=== PATIENT | female | born 1980 | race Caucasian/White ===

== ENCOUNTER 2020-06-03 10:28 | Outpatient (REF) | payer MEDICARE, MEDICAID, SELFPAY ==
[2020-06-03 14:25] LABS: Estimated Average Glucose 117 mg/dL; Hemoglobin A1c % 5.7 %
== END 2020-06-03 10:29 | disposition home or self-care (01) ==
LOC: HO.LAB 10:28
PROVIDERS: PCP Internal Medicine; Referring Provider Internal Medicine; Visit Provider Obstetrics & Gynecology
DX: N93.9 Abnormal uterine and vaginal bleeding, unspecified (principal); E11.9 Type 2 diabetes mellitus without complications
CPT/HCPCS: 83036; 99212

== ENCOUNTER 2020-06-11 11:04 | Outpatient (REF) | payer MEDICARE, MEDICAID, SELFPAY ==
--- NOTE | 2020-06-11 11:08 | US_ITS ---
EXAMINATION: ULTRASOUND PELVIS COMPLETE. CLINICAL INFORMATION: Abnormal uterine/vaginal bleeding. COMPARISON: None TECHNIQUE: Transabdominal and transvaginal ultrasound pelvis is performed. FINDINGS: The uterus is anteverted, anteflexed measuring 6.7 cm in length, 3.5 cm in AP and 4.2 cm in transverse dimension. The endometrial thickness is 1.0 cm. There are small nabothian cysts seen in the cervix. Right ovary measures 2.4 x 1.8 x 1.4 cm and volume 3.2 mL. There is anechoic cyst measuring 1.4 x 1.1 x 1.0 cm. Previously right ovary measures 1.6 x 2.0 x 1.6 cm. Left ovary measures 2.8 x 1.5 x 1.4 cm and volume 3.1 mL. There is anechoic cyst measuring 1.4 x 1.0 x 1.0 cm. Previously left ovary measured 2.4 x 1.5 x 1.3 cm. There is no free fluid in cul-de-sac. US/US pelvic complete IMPRESSION: Anteflexed and anteverted uterus to be unremarkable. Bilateral ovarian cysts. Small nabothian cysts in cervix.
--- NOTE | 2020-06-11 11:08 | US_ITS ---
EXAMINATION: ULTRASOUND PELVIS COMPLETE. CLINICAL INFORMATION: Abnormal uterine/vaginal bleeding. COMPARISON: None TECHNIQUE: Transabdominal and transvaginal ultrasound pelvis is performed. FINDINGS: The uterus is anteverted, anteflexed measuring 6.7 cm in length, 3.5 cm in AP and 4.2 cm in transverse dimension. The endometrial thickness is 1.0 cm. There are small nabothian cysts seen in the cervix. Right ovary measures 2.4 x 1.8 x 1.4 cm and volume 3.2 mL. There is anechoic cyst measuring 1.4 x 1.1 x 1.0 cm. Previously right ovary measures 1.6 x 2.0 x 1.6 cm. Left ovary measures 2.8 x 1.5 x 1.4 cm and volume 3.1 mL. There is anechoic cyst measuring 1.4 x 1.0 x 1.0 cm. Previously left ovary measured 2.4 x 1.5 x 1.3 cm. There is no free fluid in cul-de-sac. US/US transvaginal IMPRESSION: Anteflexed and anteverted uterus to be unremarkable. Bilateral ovarian cysts. Small nabothian cysts in cervix.
== END 2020-06-11 11:05 | disposition home or self-care (01) ==
LOC: HO.US 11:04
PROVIDERS: Visit Provider Obstetrics & Gynecology
DX: N93.9 Abnormal uterine and vaginal bleeding, unspecified (principal)
CPT/HCPCS: 76830; 76856

== ENCOUNTER → 2020-07-06 11:58 | Outpatient (BNVA) | payer MEDICARE, MEDICAID, SELFPAY | PROVIDERS: Visit Provider Obstetrics & Gynecology | DX: N93.9 Abnormal uterine and vaginal bleeding, unspecified (principal) | CPT/HCPCS: 99212 ==

== ENCOUNTER → 2020-07-14 13:54 | Outpatient (BNVA) | payer MEDICARE, MEDICAID, SELFPAY | PROVIDERS: PCP Internal Medicine; Referring Provider Internal Medicine; Visit Provider Dietitian, Registered | DX: Z76.89 Persons encountering health services in other specified circumstances (principal) ==

== ENCOUNTER 2020-07-24 07:20 | Day surgery (SDC) | payer MEDICARE, MEDICAID, SELFPAY ==
[2020-07-17 10:33] VITALS: BMI 41.6
--- NOTE | 2020-07-17 14:07 | P.CONAN_ITS ---
Documented by User: Mckenzie Washington 07/17/20 14:11 HPI - Anesthesia Eval Consult details Narrative: 40yo F for Hysteroscopy, Novasure ablation Pt reports no issue with anesthesia for 01/2020 hysteroscopy. Intraop record on chart. Pt states that she woke during tubal in 2018. No issues noted on anesthesia or pacu record. 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 Low vitamin D level Mild intellectual disability Obesity Obesity due to excess calories PTSD (post-traumatic stress disorder) Snores Family History Family History Father Diabetes Surgical History Surgical History History of bilateral tubal ligation History of hysteroscopy Hx of cholecystectomy Social History Social History (Updated 07/24/20 @ 08:34 by Macy Hyde) Are you a primary health care social worker to a significant other at home: No Do you presently have visiting nurse or other home services: Yes Alcohol intake: never Smoking Status: Current some day smoker Packs Per Day: 0 Cigarettes Per Day: 1 Smoked in Last 30 Days: Yes Patient Interested in Nicotine Replacement: No Patient Given Instructions on How to Stop Smoking: Yes Date Education Initiated: 07/17/20 Use of substances other than those prescribed or required for medical reasons: No Advance Directives: No Advance Directives Information Provided: No Advance Directives on File: No Recently lost weight without trying: No Sexual orientation: Straight/Heterosexual Gender identity: female Meds Allergies Allergy/AdvReac Type Severity Reaction Status Date / Time meperidine [Demerol] Allergy Unknown Hives Verified 07/21/20 12:00 From Prozac Allergy Severe SEVERE Uncoded 07/17/20 10:23 AGITATION Home Medications Medication Instructions Recorded Confirmed Type alcohol swabs 0 pad TOPICAL 06/03/20 07/08/20 History aripiprazole 5 mg tablet 5 mg PO DAILY 06/03/20 07/17/20 History blood sugar diagnostic #10 ea 06/03/20 07/08/20 History buspirone 5 mg tablet 5 mg PO BID 06/03/20 07/17/20 History cholecalciferol (vitamin D3) 50 50 mcg PO DAILY 06/03/20 07/17/20 History mcg (2,000 unit) capsule dulaglutide 1.5 mg/0.5 mL mg SUBCUT QWEEK 06/03/20 07/08/20 History subcutaneous pen injector lancets 28 gauge #100 ea 06/03/20 07/08/20 History lorazepam 0.5 mg tablet 0.5 mg PO DAILY PRN 06/03/20 07/24/20 History metformin 500 mg tablet 500 mg PO DAILY@1700 06/03/20 07/17/20 History pen needle, diabetic 32 gauge x #50 ea 06/03/20 07/08/20 History 32 zolpidem 5 mg tablet 5 mg PO BEDTIME PRN 06/03/20 07/17/20 History insulin glargine U-300 conc 300 18 unit SUBCUT BEDTIME ml 07/08/20 07/17/20 History unit/mL (1.5 mL) subcutaneous pen Exam Exam Date and Time: July 17, 2020 1407 Height,Weight and Vital Signs: Height 5 ft 3 in Weight 106.594 kg Pertinent Lab Results Pertinent Lab Results: Laboratory Tests 04/23/20 04/23/20 15:14 15:17 WBC 9.1 Hgb 12.2 Hct 37.4 Plt Count 302 Sodium 138 Potassium 3.9 Chloride 106 BUN 11 Creatinine 0.83 Assessment and Plan Assessment Anesthesia Assessment: Chart Reviewed Documented by User: Macy Hyde 07/24/20 08:38 [facility] Past Medical History Medical History (Updated 07/24/20 @ 08:38 by Macy Hyde) Acute depression Anxiety Arthritis BMI 40.0-44.9, adult Diabetes Dyslipidemia Epilepsy Hyperlipidemia LDL goal <100 Insomnia 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 Low vitamin D level Mild intellectual disability Obesity Obesity due to excess calories PTSD (post-traumatic stress disorder) Snores Family History Family History Father Diabetes Family history of problems with anesthesia: No Surgical History Surgical History History of bilateral tubal ligation History of hysteroscopy Hx of cholecystectomy History of Problems with Anesthesia: Yes (States 'woke up' during surgery for tubal ligation) Social History Social History (Updated 07/24/20 @ 08:34 by Macy Hyde) Are you a primary health care social worker to a significant other at home: No Do you presently have visiting nurse or other home services: Yes Alcohol intake: never Smoking Status: Current some day smoker Packs Per Day: 0 Cigarettes Per Day: 1 Smoked in Last 30 Days: Yes Patient Interested in Nicotine Replacement: No Patient Given Instructions on How to Stop Smoking: Yes Date Education Initiated: 07/17/20 Use of substances other than those prescribed or required for medical reasons: No Advance Directives: No Advance Directives Information Provided: No Advance Directives on File: No Recently lost weight without trying: No Sexual orientation: Straight/Heterosexual Gender identity: female Meds Allergies Allergy/AdvReac Type Severity Reaction Status Date / Time meperidine [Demerol] Allergy Unknown Hives Verified 07/21/20 12:00 From [employer] Allergy Severe SEVERE Uncoded 07/17/20 10:23 AGITATION Home Medications Medication Instructions Recorded Confirmed Type alcohol swabs 0 pad TOPICAL 06/03/20 07/08/20 History aripiprazole 5 mg tablet 5 mg PO DAILY 06/03/20 07/17/20 History blood sugar diagnostic #10 ea 06/03/20 07/08/20 History buspirone 5 mg tablet 5 mg PO BID 06/03/20 07/17/20 History cholecalciferol (vitamin D3) 50 50 mcg PO DAILY 06/03/20 07/17/20 History mcg (2,000 unit) capsule dulaglutide 1.5 mg/0.5 mL mg SUBCUT QWEEK 06/03/20 07/08/20 History subcutaneous pen injector lancets 28 gauge #100 ea 06/03/20 07/08/20 History lorazepam 0.5 mg tablet 0.5 mg PO DAILY PRN 06/03/20 07/24/20 History metformin 500 mg tablet 500 mg PO DAILY@1700 06/03/20 07/17/20 History pen needle, diabetic 32 gauge x #50 ea 06/03/20 07/08/20 History 5/32 zolpidem 5 mg tablet 5 mg PO BEDTIME PRN 06/03/20 07/17/20 History insulin glargine U-300 conc 300 18 unit SUBCUT BEDTIME ml 07/08/20 07/17/20 History unit/mL (1.5 mL) subcutaneous pen Exam Height,Weight and Vital Signs: Vital Signs Temp Pulse Resp BP Pulse Ox 07/24/20 07:55 97 F 85 18 146/80 H 100 Pertinent Lab Results Pertinent Lab Results: Lab Results 07/24/20 07/24/20 Range/Units 07:38 07:51 POC Glucose 174 H (60-115) mg/dL Beta HCG, Quant < 2 mIU/mL Airway Mallampati Class: II TM Dist: >3cm Neck ROM: Full Heart: RRR Lungs: CTAB Assessment and Plan Assessment Anesthesia Assessment: Anesthesia Plan Discussed and Chart Reviewed Final Anesthetic Review NPO: Yes ASA Class: III Final Preanesthetic Review: No Changes in Pt Med Stat, Meds/Allgs Chart Reviewed and Consent Obtained/Reviewed Patient Risk: Intermediate Procedure Risk: Low Assessment/Block/Sedation in SS: Assess/Block/Sedation-SS Anesthetic Plan Anesthetic Plan: GA Disposition: Standard PACU
[2020-07-24 07:54] LABS: Glucose, Whole Blood 174 mg/dL (60-115)
[2020-07-24 07:55] VITALS: BP 146/80; PULSE 85; RESP 18; TEMP 36.1; O2SAT 100
[2020-07-24] MEDS: Lactated Ringers 1,000 ML 100 ML IVCONT (08:13)
[2020-07-24 08:21] LABS: HCG Quantitative < 2 mIU/mL
--- NOTE | 2020-07-24 08:58 | MHC.SHP ---
Pre-Procedural Eval Section A The patient is an INPATIENT: No Changes since office visit: No Cold of Flu in the past 2 weeks, No New Medical Problems, No Changes in Medication and No Patient answered all questions The History & Physical has been completed within 30 days and I have reviewed it.: Yes Section B Chief Complaint: Abnormal Vaginal bleeding Allergies: Allergies Allergy/AdvReac Type Severity Reaction Status Date / Time meperidine [Demerol] Allergy Unknown Hives Verified 07/21/20 12:00 From Prozac Allergy Severe SEVERE Uncoded 07/17/20 10:23 AGITATION Plan I have reviewed the history and physical and performed a pertinent physical examination on my patient. No changes have occurred unless specified.
--- NOTE | 2020-07-24 09:35 | W.PM.OPN ---
Operative Note Operative Note Date of Service: 07/24/20 Narrative: Ms. Harper is a 40 year old with abnormal uterine bleeding. She presents today for hysteroscopy d&c with novasure ablation for AUB. Surgical Risks: The patient was informed of the risks and benefits of a hysteroscopy with dilation and curettage. Risks included but were not limited to bleeding, infection, injury to the vulva, vagina, or cervix, and uterine perforation with possible need for further surgery. The patient was also informed of the risk that the Novasure ablation may not result in full resolution of symptoms. The patient expressed understanding of the risks involved, all questions were answered, and she consented to the procedure. The patient expressed understanding of the risks involved, all questions were answered, and the patient consented to the procedure. The patient was taken to the operating room where a time out was confirmed to confirm correct patient and correct procedure. Adequate general anesthesia was established. The patient was then positioned on the operating table in the dorsal lithotomy position with her legs supported using stirrups. All pressure points were padded and a warm blanket was placed to maintain control of core body temperature. The patient was then prepped and draped in the usual sterile fashion. A bimanual exam was performed and the uterus was found to be approximately 8 cm size, anteverted. No adnexal masses were palpated. A straight catheter was inserted into the bladder and 100mL of urine was obtained. A bivalve speculum was then inserted into the vagina. The anterior lip of the cervix was visualized and grasped using a single tooth tenaculum. The cervix was adequately dilated using Reddy dilators for the introduction of the hysteroscope. The hysteroscope was introduced under direct visualization using normal saline solution as the distending media. The hysteroscope was advanced to the fundus and the entire uterine cavity was inspected. No abnormalities were noted. The hysteroscope was then removed and a sharp curetting was performed starting at the 12 o?clock position and rotating a total of 360 degrees in order to cover all surfaces. Endometrial tissue was obtained and was sent to pathology. The Novasure SureSound device was then inserted through the cervix. The malecot was then deployed and the device was anchored on the internal os. The cervical length was measured and found to be 2cm. The probe was then extended to the fundus and the uterine cavity was measured and found to be 6cm. The SureSound was then removed and the Novasure was introduced through the cervix and advanced to the fundus. The Novasure was released and rotated from side to side in order to measure the cavity width; it was found to be 3.3cm. The test was performed using the NovaSure and there was no leakage of gas noted. The NovaSure was then set and deployed. It was set to a power of 90V and a burn time of 34s. The NovaSure was then fully retracted and the hysteroscope reintroduced through the cervix and global ablation to the entire cavity was noted. The procedure was felt to be successful. The hysteroscope was then removed and the single tooth tenaculum was removed from the anterior lip of the cervix. Good hemostasis was confirmed. The single-tooth tenaculum was removed from the anterior lip of the cervix and hemostasis was also noted at the tenaculum puncture sites. The speculum was then removed from the vagina. At the end of the procedure, all needle, sponge, and instrument counts were noted to be correct x2. The patient was transferred to the recovery room in stable condition. EBL: 10cc
[2020-07-24 09:40] VITALS: BP 134/84; PULSE 63; RESP 16; TEMP 36.2; O2SAT 99
[2020-07-24 09:45] VITALS: BP 133/75; PULSE 57; RESP 16; O2SAT 99
[2020-07-24 09:50] VITALS: BP 137/80; PULSE 56; RESP 16; O2SAT 98
[2020-07-24 09:55] VITALS: BP 128/76; PULSE 67; RESP 16; O2SAT 95
[2020-07-24 10:10] VITALS: BP 134/84; PULSE 68; RESP 16; TEMP 36.2; O2SAT 96
--- NOTE | 2020-07-24 13:57 | HO.POSTANES ---
Post Anesthesia Evaluation Post Anesthesia Evaluation Vital Signs: Vital Signs Temp Pulse Resp BP Pulse Ox 07/24/20 10:10 97.1 F 68 16 134/84 96 07/24/20 09:55 67 16 128/76 95 07/24/20 09:50 56 16 137/80 98 07/24/20 09:45 57 16 133/75 99 07/24/20 09:40 97.1 F 63 16 134/84 99 07/24/20 07:55 97 F 85 18 146/80 H 100 Anesthesia: General Mental Status: Awake Pain Control: Satisfactory Nausea/Vomiting: None Hydration: Adequate Anesthesia-Related Issues: No Anes. Related Issues
== END 2020-07-24 10:54 | disposition home or self-care (01) ==
PROVIDERS: PCP Internal Medicine; Visit Provider Obstetrics & Gynecology
PROC: 0UJD8ZZ Inspection of Uterus and Cervix, Via Natural or Artificial Opening Endoscopic (ICD-10-PCS; CPT 58555; principal; 2020-07-24 09:00)
DX: N93.9 Abnormal uterine and vaginal bleeding, unspecified (principal); Z90.710 Acquired absence of both cervix and uterus; F41.8 Other specified anxiety disorders; E11.9 Type 2 diabetes mellitus without complications; G40.909 Epilepsy, unspecified, not intractable, without status epilepticus; F70 Mild intellectual disabilities; F43.10 Post-traumatic stress disorder, unspecified; E66.01 Morbid (severe) obesity due to excess calories; F17.210 Nicotine dependence, cigarettes, uncomplicated; Z98.51 Tubal ligation status; Z79.899 Other long term (current) drug therapy; Z68.41 Body mass index [BMI] 40.0-44.9, adult; Z79.4 Long term (current) use of insulin
CPT/HCPCS: 58563; 82947; 84702; 88305; J1100; J1885; J2250; J2405; J3010

== ENCOUNTER → 2020-08-05 11:33 | Outpatient (BNVA) | payer MEDICARE, MEDICAID, SELFPAY | PROVIDERS: PCP Internal Medicine; Visit Provider Obstetrics & Gynecology | DX: Z09 Encounter for follow-up examination after completed treatment for conditions other than malignant neoplasm (principal); Z87.42 Personal history of other diseases of the female genital tract | CPT/HCPCS: Q3014 ==

== ENCOUNTER → 2020-08-14 13:54 | Outpatient (BNVA) | payer MEDICARE, MEDICAID, SELFPAY | PROVIDERS: PCP Internal Medicine; Visit Provider Nurse Practitioner Gerontology | DX: E11.9 Type 2 diabetes mellitus without complications (principal); R79.89 Other specified abnormal findings of blood chemistry; E66.01 Morbid (severe) obesity due to excess calories; Z68.41 Body mass index [BMI] 40.0-44.9, adult; E78.5 Hyperlipidemia, unspecified | CPT/HCPCS: 82947; Q3014 ==

== ENCOUNTER → 2020-08-24 13:33 | Outpatient (BNVA) | payer MEDICARE, MEDICAID, SELFPAY | PROVIDERS: PCP Internal Medicine; Visit Provider Dietitian, Registered ==

== ENCOUNTER → 2020-08-28 11:41 | Outpatient (BNVA) | payer MEDICARE, MEDICAID, SELFPAY | PROVIDERS: PCP Internal Medicine; Visit Provider Nurse Practitioner Gerontology | DX: E11.65 Type 2 diabetes mellitus with hyperglycemia (principal); E78.5 Hyperlipidemia, unspecified; E66.01 Morbid (severe) obesity due to excess calories; Z68.41 Body mass index [BMI] 40.0-44.9, adult; R79.89 Other specified abnormal findings of blood chemistry | CPT/HCPCS: Q3014 ==

== ENCOUNTER → 2020-10-05 13:02 | Outpatient (BNVA) | payer MEDICARE, MEDICAID, SELFPAY | PROVIDERS: PCP Internal Medicine; Visit Provider Dietitian, Registered ==

== ENCOUNTER 2020-11-04 13:51 | Emergency (ER) | payer MEDICARE, MEDICAID, SELFPAY | END 2020-11-04 18:37 | disposition left against medical advice (07) | PROVIDERS: Emergency Provider Emergency Medicine Emergency Medical Services; PCP Internal Medicine | DX: R07.9 Chest pain, unspecified (principal); R06.02 Shortness of breath; E11.9 Type 2 diabetes mellitus without complications; Z79.4 Long term (current) use of insulin; E78.5 Hyperlipidemia, unspecified | CPT/HCPCS: 99281 ==

== ENCOUNTER → 2020-11-09 13:49 | Outpatient (BNVA) | payer MEDICARE, MEDICAID, SELFPAY | PROVIDERS: PCP Internal Medicine; Visit Provider Nurse Practitioner Gerontology | DX: E11.65 Type 2 diabetes mellitus with hyperglycemia (principal); E78.5 Hyperlipidemia, unspecified; E66.01 Morbid (severe) obesity due to excess calories; Z68.41 Body mass index [BMI] 40.0-44.9, adult; R79.89 Other specified abnormal findings of blood chemistry | CPT/HCPCS: 82947; 99212 ==

== ENCOUNTER 2020-11-28 16:59 | Emergency (ER) | payer MEDICARE, MEDICAID, SELFPAY ==
[2020-11-28 17:04] VITALS: BP 136/83; PULSE 95; O2SAT 100
[2020-11-28 17:12] VITALS: BP 142/94; PULSE 95; RESP 18; TEMP 36.8; O2SAT 100; BMI 40.7
--- NOTE | 2020-11-28 17:36 | ED.GENADULT ---
HPI - General Adult General Chief complaint: Arrhythmia/Palpitations Stated complaint: PALPITATIONS Time Seen by Provider: 11/28/20 17:22 Source: patient Mode of arrival: EMS Limitations: no limitations History of Present Illness HPI narrative: 40-year-old female who presents to the emergency department by EMS for evaluation of palpitations. The patient states that she was walking when she had a sudden onset of palpitations. She states she felt like her heart was jumping out of her chest and was beating fast. She did not feel any skipped beats. She denied associated lightheadedness, dizziness, diaphoresis, chest pain, nausea or vomiting. She did feel short of breath with the palpitations. She states the symptoms lasted for approximately 2 hours. She had a nurse that visited her today and checked her pulse which was normal but given the persistence of her symptoms, recommended that she go to the emergency department for evaluation. Patient states she does have a history of anxiety but has not had any increased anxiety or stress. She denied fever, chills, abdominal pain, frequency, urgency or dysuria. Related Data Home Medications Medication Instructions Recorded Confirmed alcohol swabs 0 pad TOPICAL 06/03/20 11/09/20 lancets 28 gauge #100 ea 06/03/20 11/09/20 lorazepam 0.5 mg tablet 0.5 mg PO DAILY PRN 06/03/20 11/09/20 pen needle, diabetic 32 gauge x #50 ea 06/03/20 11/09/20 zolpidem 5 mg tablet 5 mg PO BEDTIME PRN 06/03/20 11/09/20 buspirone 5 mg tablet 10 mg PO BID tab 08/14/20 11/09/20 aripiprazole 10 mg tablet 10 mg PO DAILY 08/28/20 11/09/20 insulin glargine U-300 conc 300 20 unit SUBCUT BEDTIME ml 08/28/20 11/09/20 unit/mL (1.5 mL) subcutaneous pen buspirone 10 mg tablet 10 mg PO BID 11/09/20 11/09/20 mirtazapine 15 mg tablet 15 mg PO BEDTIME 11/09/20 11/09/20 Previous Rx's Medication Instructions Recorded atorvastatin 80 mg tablet 80 mg PO BEDTIME #90 tab 06/16/20 acetaminophen [Tylenol 8 Hour] 650 mg PO Q8H PRN #60 tab 07/24/20 ibuprofen 800 mg PO Q8H PRN #60 tab 07/24/20 norethindrone (contraceptive) 0.35 0.35 mg PO DAILY #28 tab 08/05/20 mg tablet dulaglutide 1.5 mg/0.5 mL 1.5 mg SUBCUT QWEEK #2 ml 09/02/20 subcutaneous pen injector blood sugar diagnostic 1 strip MISCELLANEOUS TID 30 Days 09/14/20 #100 strip glucagon 3 mg/actuation nasal spray 3 mg INTRANASAL ONCE 30 Days #2 ea 09/17/20 cholecalciferol (vitamin D3) 50 50 mcg PO DAILY #30 cap 11/02/20 mcg (2,000 unit) capsule pioglitazone 30 mg tablet 30 mg PO DAILY #30 tab 11/09/20 Allergies Allergy/AdvReac Type Severity Reaction Status Date / Time meperidine [Demerol] Allergy Intermediate Hives Verified 11/28/20 17:10 From Prozac Allergy Severe SEVERE Uncoded 11/28/20 17:10 AGITATION Review of Systems Review of Systems: Yes all other systems are reviewed and are negative [facility] Past Medical History [facility] Narrative: Patient states she smokes 1-2 cigarettes per day x2 years, she denies alcohol and drug use. 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 Low vitamin D level Mild intellectual disability Obesity Obesity due to excess calories PTSD (post-traumatic stress disorder) Snores Surgical History History of bilateral tubal ligation History of hysteroscopy Hx of cholecystectomy Family History Family History Father Diabetes Social History Social History Household Members: Spouse Housing: Apartment Alcohol intake: current Alcohol intake frequency: holidays/special occasions only Smoking Status: Never smoker Packs Per Day: 0 Cigarettes Per Day: 1 Use of substances other than those prescribed or required for medical reasons: No Advance Directives: No Advance Directives Information Provided: No Sexual orientation: Straight/Heterosexual Gender identity: female Physical Exam Vital Signs: Vital Signs: Last Vital Signs Temp 98.0 F 11/28/20 19:41 Pulse 82 11/28/20 19:41 Resp 20 11/28/20 19:41 BP 134/75 11/28/20 19:41 Pulse Ox 98 11/28/20 19:41 Body Mass Index 40.7 Const: General: cooperative and healthy appearing Nutritional Appearance: overweight Orientation/consciousness: oriented to person and oriented to place Limitations: no limitations HENMT: Head: Yes normal to inspection, Yes normocephalic and Yes atraumatic Ears: external ears normal General nose exam: Normal external nose present Face and sinus: Yes normal facial exam Mouth: Normal oral and palatal mucosa present Throat: Yes posterior oropharynx normal Eyes: Periorbital: periorbital findings normal Eyelids: Yes eyelids normal Conjunctivae: conjunctivae normal Sclerae: sclerae normal Corneas: corneas normal Pupils: Equal, round and reactive pupils present Direct Ophthalmoscopy: normal light reflex Neck: Neck: Yes full ROM, Yes no lymphadenopathy, Yes no meningeal signs, Yes trachea midline and Yes supple Chest: Chest palpation & inspection: normal inspection of the chest and normal palpation of entire chest wall Resp: Effort & Inspection: normal respiratory effort and able to speak in complete sentences Auscultation: clear to auscultation bilaterally Cardio: Rate: regular rate Rhythm: regular rhythm Heart sounds: S1 normal heart sound present, S2 normal heart sound present and no murmurs GI: Inspection: Yes normal to inspection Palpation (GI): Soft to palpation, nontender, no guarding, not rigid and No hepatosplenomegaly present : General: Yes no CVA tenderness Back/Spine/Pelvis: Back: no CVA tenderness Cervical Spine: normal cervical lordosis Thoracic/Lumbar Spine: thoracic and lumbar spine normal to inspection Skin: Lesions: no lesions Rashes: no rashes Wounds: no wounds Neuro: General: oriented to person, oriented to place and no meningeal signs Cranial nerves: Yes CN's II-XII intact bilaterally and Yes Equal, round and reactive pupils present Cognition (Neuro): normal cognition Motor exam (neuro): 5/5 motor strength present throughout Extrem: General: Yes normal to inspection and Yes full ROM Psych: Appearance: well kempt Mental Status: mental status grossly normal Speech and movement: Normal speech and movement present Affect: normal affect Attitude: cooperative Thought process: Normal thought process present Thought content: Normal thought content present Course Course Course Narrative: 40-year-old female who presents emergency department for evaluation of palpitations x2 hours. She states the symptoms have been continuous and are present here in the emergency department. She had no other concerning symptoms such as lightheadedness, dizziness, diaphoresis, nausea, vomiting or chest pain. She did have associated shortness of breath. The patient's physical examination revealed slight hypertension with a blood pressure of 142/94 otherwise vital signs were normal with the pulse of 95 and O2 saturation of 100% on room air. Exam was otherwise unremarkable. I did order a CBC, CMP, troponin, TSH and EKG. Patient does have a history of anxiety and she was ordered to get Ativan 1 mg orally. 194: The patient has been on a media monitor for several hours with no detectable arrhythmias. She states that while she has been here in the emergency department should did feel like her heart was still and ?fluttering?. This is reassuring and suggests that the patient's palpitations are benign. The patient's EKG was unremarkable. The patient's laboratory evaluation for slight elevation in patient's AST and ALT. The patient's high sensitivity troponin was below detectable limits. She was discharged home with printed instructions on palpitations advised to follow-up with her PCP and return if her symptoms get worse or she develops new symptoms that are concerning to her. Medical Decision Making Lab Data Result diagrams: 11/28/20 17:58 11/28/20 17:58 Labs: Lab Results 11/28/20 11/28/20 11/28/20 Range/Units 17:58 17:58 17:58 WBC 8.3 (4.8-10.8) X10*3/uL RBC 4.96 (4.20-5.50) X10*6/uL Hgb 14.1 (12.0-16.0) g/dl Hct 42.4 (37-47) % MCV 85.5 (80-98) fL MCH 28.4 (27.0-33.0) pg MCHC 33.3 (31.0-35.0) g/dl RDW 13.3 (11.0-16.0) % Plt Count 293 (160-400) X10*3/uL MPV 8.8 L (9.4-12.3) fL Immature Gran % (Auto) 0.6 H (0.0-0.4) % Neut % (Auto) 60.2 (45-73) % Lymph % (Auto) 33.0 (20-40) % [place] % (Auto) 5.1 (2-11) % Eos % (Auto) 0.6 (0-4) % Baso % (Auto) 0.5 (0-2) % Lymph # (Auto) 2.7 (1.2-4.9) X10*3/uL [place] # (Auto) 0.4 (0.1-1.2) X10*3/uL Eos # (Auto) 0.1 (0.0-0.4) X10*3/uL Baso # (Auto) 0.0 (0.0-0.2) X10*3/uL Abs Immat Gran (auto) 0.05 H (0.00-0.03) X10*3/uL Absolute Neuts (auto) 5.0 (2.0-8.3) X10*3/uL Absolute Nucleated RBC 0.000 (0.0-0.012) X10*3/uL Nucleated RBC % (auto) 0.0 (0.0-0.2) /100WBC Sodium 139 (135-145) mmol/L Potassium 3.9 (3.3-5.1) mmol/L Chloride 104 (96-108) mmol/L Carbon Dioxide 23 (22-29) mmol/L Anion Gap 16 (12-20) BUN 16 (9-16) mg/dL Creatinine 0.89 (0.5-1.4) mg/dL Estim Creat Clear Calc 95.1 Estimated GFR > 60 Random Glucose 109 (60-115) mg/dL Calcium 9.4 (8.4-10.2) mg/dL Total Bilirubin 0.9 (0.0-1.0) mg/dL AST 70 H (5-31) U/L ALT 54 H (0-31) U/L Alkaline Phosphatase 80 (39-117) U/L Troponin I High Sens < 3.5 (<3.5-17.0) ng/L Total Protein 7.5 (6.5-8.0) g/dL Albumin 4.2 (3.5-5.0) g/dL TSH 1.20 (0.32-4.0) uIU/mL ECG Data Attestation: I personally reviewed and interpreted this ECG as follows: Interpretation: Normal sinus rhythm with a rate of 88, normal intervals, no ST segment elevation or depression, no old EKG for comparison. This is a normal EKG. Discharge Plan Discharge Clinical Impression: Palpitation Patient Disposition: Home, Self-Care Instructions: Heart Palpitations (ED) Additional Instructions: Your EKG was normal. Your laboratory evaluation was unremarkable. This is reassuring. Continue to take your medications as prescribed by your doctor. Follow the printed palpitation instructions. Follow-up with your doctor in 2 days. Please return to the emergency department if your symptoms get worse or if you develop any symptoms that are concerning to you. Prescriptions: No Action atorvastatin 80 mg tablet 80 mg PO BEDTIME Qty: 90 RF: 1 dulaglutide 1.5 mg/0.5 mL pen injector 1.5 mg subcut QWEEK Qty: 2 RF: 3 blood sugar diagnostic [Contour Next Test Strips] Strip 1 strip miscellaneous TID 30 Days Qty: 100 RF: 4 Baqsimi 3 mg/actuation spray,non-aerosol 3 mg intranasal ONCE 30 Days Qty: 2 RF: 6 cholecalciferol (vitamin D3) [D3-2000] 50 mcg (2,000 unit) capsule 50 mcg PO DAILY Qty: 30 RF: 2 ibuprofen 800 mg tablet 800 mg PO Q8H PRN (Reason: pain) Qty: 60 RF: 0 acetaminophen [Tylenol 8 Hour] 650 mg tablet extended release 650 mg PO Q8H PRN (Reason: pain) Qty: 60 RF: 0 buspirone 10 mg tablet 10 mg PO BID RF: 0 mirtazapine 15 mg tablet 15 mg PO BEDTIME RF: 0 pioglitazone 30 mg tablet 30 mg PO DAILY Qty: 30 RF: 3 alcohol swabs Pads, Medicated 0 pad topical RF: 0 zolpidem 5 mg tablet 5 mg PO BEDTIME PRN (Reason: Sleep) RF: 0 lorazepam 0.5 mg tablet 0.5 mg PO DAILY PRN (Reason: anxiety) RF: 0 (DME) pen needle, diabetic 32 gauge x 5/32 needle See Rx Instructions ea subcut QID Qty: 50 RF: 0 (DME) lancets 28 gauge misc See Rx Instructions ea topical TID Qty: 100 RF: 0 buspirone 5 mg tablet 10 mg PO BID RF: 0 insulin glargine U-300 conc 300 unit/mL (1.5 mL) insulin pen 20 unit subcut BEDTIME RF: 0 norethindrone (contraceptive) 0.35 mg tablet 0.35 mg PO DAILY Qty: 28 RF: 11 aripiprazole 10 mg tablet 10 mg PO DAILY RF: 0
[2020-11-28] MEDS: LORazepam 1 MG TABLET PO (18:04)
[2020-11-28 18:05] VITALS: BP 122/75; PULSE 89; RESP 18; TEMP 36.8; O2SAT 96
[2020-11-28 18:05] LABS: MANUAL DIFF FLAG NO
--- NOTE | 2020-11-28 18:07 | PC.NURSE ---
iv inserted, labs drawn, ekg performed, pvc monitor applied pt nsr 80s, vss, pt medicated per order, will continue to monitor.
[2020-11-28 18:24] LABS: Basophils Percent Auto 0.5 % (0-2); Eosinophils Absolute Auto 0.1 X10*3/uL (0.0-0.4); Eosinophils Percent Auto 0.6 % (0-4); Hematocrit 42.4 % (37-47); Hemoglobin 14.1 g/dl (12.0-16.0); Imm Gran Abs Auto 0.05 X10*3/uL (0.00-0.03); Imm Gran Pct Auto 0.6 % (0.0-0.4); Lymphocytes Absolute Auto 2.7 X10*3/uL (1.2-4.9); Mean Corpuscular HGB Conc 33.3 g/dl (31.0-35.0); Mean Corpuscular Hemoglobin 28.4 pg (27.0-33.0); Mean Corpuscular Volume 85.5 fL (80-98); Mean Platelet Volume 8.8 fL (9.4-12.3); Monocytes Absolute Auto 0.4 X10*3/uL (0.1-1.2); Monocytes Percent Auto 5.1 % (2-11); Neutrophils Percent Auto 60.2 % (45-73); Platelet Count 293 X10*3/uL (160-400); Red Blood Count 4.96 X10*6/uL (4.20-5.50); Red Cell Distribution Width 13.3 % (11.0-16.0); White Blood Count 8.3 X10*3/uL (4.8-10.8)
[2020-11-28 18:33] LABS: Alanine Aminotransferase 54 U/L (0-31); Albumin Level 4.2 g/dL (3.5-5.0); Alkaline Phosphatase 80 U/L (39-117); Anion Gap 16 (12-20); Aspartate Amino Transferase 70 U/L (5-31); Bilirubin Total 0.9 mg/dL (0.0-1.0); Blood Urea Nitrogen 16 mg/dL (9-16); Calcium 9.4 mg/dL (8.4-10.2); Carbon Dioxide 23 mmol/L (22-29); Chloride 104 mmol/L (96-108); Creatinine Clr Calc Pharmacy 95.1; Estimated Glomerular Filt Rate > 60; Glucose Random 109 mg/dL (60-115); Potassium 3.9 mmol/L (3.3-5.1); Sodium 139 mmol/L (135-145); Total Protein 7.5 g/dL (6.5-8.0)
[2020-11-28 18:40] LABS: Troponin-I High Sensitivity < 3.5 ng/L (<3.5-17.0)
[2020-11-28 19:41] VITALS: BP 134/75; PULSE 82; RESP 20; TEMP 36.7; O2SAT 98
--- NOTE | 2020-11-29 | ECG_ITS ---
Test Reason : PALPITATION Blood Pressure : / mmHG Vent. Rate : 088 BPM Atrial Rate : 088 BPM P-R Int : 144 ms QRS Dur : 072 ms QT Int : 360 ms P-R-T Axes : 033 000 020 degrees QTc Int : 435 ms Normal sinus rhythm Moderate voltage criteria for LVH, may be normal variant Borderline ECG When compared with ECG of 23-APR-2020 14:59, No significant change was found Referred By: Harshal Castellano Electronically Signed By:JASBIR JIM MD
== END 2020-11-28 20:10 | disposition home or self-care (01) ==
PROVIDERS: Emergency Provider Emergency Medicine Emergency Medical Services
DX: R00.2 Palpitations (principal); F41.9 Anxiety disorder, unspecified; F17.210 Nicotine dependence, cigarettes, uncomplicated; E11.9 Type 2 diabetes mellitus without complications; E78.5 Hyperlipidemia, unspecified; Z79.4 Long term (current) use of insulin; Z79.02 Long term (current) use of antithrombotics/antiplatelets; Z79.899 Other long term (current) drug therapy
CPT/HCPCS: 36415; 80053; 84443; 84484; 85025; 93005; 99283; 99285

== ENCOUNTER 2020-12-03 14:29 | Outpatient (REF) | payer MEDICARE, MEDICAID, SELFPAY ==
[2020-12-03 15:31] LABS: Microalbum/Creatinine Ratio Ur 9.1 ug/mg cr
[2020-12-03 15:32] LABS: Alanine Aminotransferase 42 U/L (0-31); Albumin Level 4.2 g/dL (3.5-5.0); Alkaline Phosphatase 84 U/L (39-117); Anion Gap 12 (12-20); Aspartate Amino Transferase 44 U/L (5-31); Bilirubin Total 0.8 mg/dL (0.0-1.0); Blood Urea Nitrogen 10 mg/dL (9-16); Carbon Dioxide 25 mmol/L (22-29); Chloride 106 mmol/L (96-108); Cholesterol 170 mg/dL; Estimated Glomerular Filt Rate > 60; Glucose Fasting 155 mg/dL (60-99); HDL Cholesterol 37 mg/dL; LDL Cholesterol Calculated 103 mg/dl; Potassium 3.8 mmol/L (3.3-5.1); Sodium 139 mmol/L (135-145); Total Protein 7.3 g/dL (6.5-8.0); Triglycerides 153 mg/dL
[2020-12-03 15:54] LABS: Vitamin D 25-OH Total 26.2 ng/mL (>30)
== END 2020-12-03 14:30 | disposition home or self-care (01) ==
LOC: HO.LAB 14:29
PROVIDERS: PCP Internal Medicine; Visit Provider Nurse Practitioner Gerontology
DX: E11.65 Type 2 diabetes mellitus with hyperglycemia (principal); R79.89 Other specified abnormal findings of blood chemistry
CPT/HCPCS: 36415; 80053; 80061; 82043; 82306

== ENCOUNTER 2020-12-17 09:04 | Outpatient (REF) | payer MEDICARE, MEDICAID, SELFPAY ==
--- NOTE | ~2020-12-17 | MM_ITS ---
EXAMINATION: MM SCREENING DIGITAL BREAST TOMOSYNTHESIS, BILATERAL CLINICAL INFORMATION: Screening. Asymptomatic. The lifetime risk of breast cancer based on the Tyrer-Cuzick Model is 16.8%. COMPARISON: Mammography: None TECHNIQUE: Digital breast tomosynthesis is performed in both the craniocaudal and mediolateral oblique views along with computer-aided detection (CAD). Synthesized 2D images are generated from the tomosynthesis. FINDINGS: There are scattered areas of fibroglandular density (ACR BI-RADS breast composition Category b). There are no significant masses, abnormal calcifications, or other abnormalities. MM/MM tomosynthesis screening BI IMPRESSION: No specific mammographic evidence to suggest malignancy. ASSESSMENT: BI-RADS 1: Negative RECOMMENDATION: Routine annual mammography screening. This patient's information was entered into a reminder system with a target due date for their next mammogram.
== END 2020-12-17 09:05 | disposition home or self-care (01) ==
LOC: HO.MAMMO 09:04
PROVIDERS: PCP Internal Medicine; Visit Provider Obstetrics & Gynecology
DX: Z12.31 Encounter for screening mammogram for malignant neoplasm of breast (principal)
CPT/HCPCS: 77063; 77067

== ENCOUNTER 2020-12-31 10:22 | Outpatient (REF) | payer MEDICARE, MEDICAID, SELFPAY ==
[2020-12-31 16:42] LABS: Glucose Urine UA NEG (NEG); Leukocyte Esterase Urine TRACE (NEG); Nitrite Urine NEG (NEG); Specific Gravity - Urine 1.025 (1.005-1.025); UACC Culture Trigger YES; Urine Blood NEG (NEG); Urine Ketones NEG (NEG); Urine Protein NEG (NEG-TRACE)
[2020-12-31 16:48] LABS: Appearance Urine TURBID; Color Urine YELLOW
[2020-12-31 16:52] LABS: Amorphous Sediment Urine 3+ /LPF; Mucus Urine 1+ /LPF; RBC Urine 0 /HPF (0); Squamous Epithelial Cell Urine 2+ /LPF; WBC Urine 0-2 /HPF (0-4)
== END 2020-12-31 10:23 | disposition home or self-care (01) ==
LOC: HO.LAB 10:22
PROVIDERS: PCP Internal Medicine; Visit Provider Obstetrics & Gynecology
DX: S30.814A Abrasion of vagina and vulva, initial encounter (principal); L08.9 Local infection of the skin and subcutaneous tissue, unspecified; N89.8 Other specified noninflammatory disorders of vagina
CPT/HCPCS: 81001; 81003; 87086; 99212

== ENCOUNTER 2021-02-09 11:26 | Emergency (ER) | payer MEDICARE, MEDICAID, SELFPAY ==
[2021-02-09 11:29] VITALS: BP 128/76; BP 135/92; PULSE 90; PULSE 99; RESP 16; TEMP 36.7; O2SAT 97; O2SAT 98; BMI 42.0
--- NOTE | 2021-02-09 11:47 | ED_ITS ---
HPI - General Adult General Chief complaint: General Medical Stated complaint: not feeling well Time Seen by Provider: 02/09/21 11:40 Source: patient Mode of arrival: ambulatory Limitations: no limitations History of Present Illness HPI narrative: 40-year-old female with type 2 diabetes came in for evaluation of hyperglycemia. This is a 40-year-old female type 2 diabetes controlled by Trulicity once a week shot, patient this morning found that her blood sugar is high without eating breakfast. Patient declined any fever chills, no urinary tract infection symptoms. Patient's hemoglobin A1c in the record was 7.2. Related Data Home Medications Medication Instructions Recorded Confirmed alcohol swabs 0 pad TOPICAL 06/03/20 11/09/20 lancets 28 gauge #100 ea 06/03/20 11/09/20 lorazepam 0.5 mg tablet 0.5 mg PO DAILY PRN 06/03/20 11/09/20 pen needle, diabetic 32 gauge x #50 ea 06/03/20 11/09/20 zolpidem 5 mg tablet 5 mg PO BEDTIME PRN 06/03/20 11/09/20 buspirone 5 mg tablet 10 mg PO BID tab 08/14/20 11/09/20 aripiprazole 10 mg tablet 10 mg PO DAILY 08/28/20 11/09/20 buspirone 10 mg tablet 10 mg PO BID 11/09/20 11/09/20 mirtazapine 15 mg tablet 15 mg PO BEDTIME 11/09/20 11/09/20 Previous Rx's Medication Instructions Recorded acetaminophen [Tylenol 8 Hour] 650 mg PO Q8H PRN #60 tab 07/24/20 ibuprofen 800 mg PO Q8H PRN #60 tab 07/24/20 norethindrone (contraceptive) 0.35 0.35 mg PO DAILY #28 tab 08/05/20 mg tablet blood sugar diagnostic 1 strip MISCELLANEOUS TID 30 Days 09/14/20 #100 strip glucagon 3 mg/actuation nasal spray 3 mg INTRANASAL ONCE 30 Days #2 ea 09/17/20 atorvastatin 80 mg tablet 80 mg PO BEDTIME #90 tab 12/08/20 dulaglutide 1.5 mg/0.5 mL 1.5 mg SUBCUT QWEEK #2 ml 12/20/20 subcutaneous pen injector sulfamethoxazole 800 1 tab PO BID #6 tab 12/31/20 mg-trimethoprim 160 mg tablet cholecalciferol (vitamin D3) 50 50 mcg PO DAILY #30 cap 01/25/21 mcg (2,000 unit) capsule cefuroxime axetil 500 mg PO BID #14 tab 02/09/21 Allergies Allergy/AdvReac Type Severity Reaction Status Date / Time meperidine [Demerol] Allergy Intermediate Hives Verified 12/31/20 10:30 From Prozac Allergy Severe SEVERE Uncoded 11/28/20 17:10 AGITATION Review of Systems Review of Systems: All other systems are reviewed and are negative Constitutional: Reports as per HPI and Reports no additional constitutional complaints Eyes: Reports as per HPI and Reports no additional eye complaints Reports system reviewed and no additional complaints, except as documented Cardiovascular: Reports as per HPI and Reports no additional cardiovascular complaints Respiratory: Reports as per HPI and Reports no additional respiratory complaints Gastrointestinal: Reports as per HPI and Reports no additional gastrointestinal complaints Genitourinary: Reports no additional female genitourinary complaints Musculoskeletal: Reports no additional musculoskeletal complaints Skin/Breast: Reports system reviewed and no additional complaints, except as docu Psychiatric: Reports no additional psychiatric complaints Endocrine: Reports no additional endocrine complaints Hematologic/Lymphatic: Reports no additional hematologic/lymphatic complaints Allergic/Immunologic: Reports no additional allergic/immunologic complaints Reports system reviewed and no additional complaints, except as documented and Reports Abnormal speech present [facility] Past Medical History Medical History Acute depression Anxiety Arthritis BMI 40.0-44.9, adult Diabetes Diabetes type 2, uncontrolled Dyslipidemia Elevated LFTs Epilepsy Hyperlipidemia LDL goal <100 Insomnia 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 Low vitamin D level Mild intellectual disability Obesity Obesity due to excess calories PTSD (post-traumatic stress disorder) Snores Surgical History History of bilateral tubal ligation History of hysteroscopy Hx of cholecystectomy Family History Family History Father Diabetes Social History Social History Household Members: Spouse Housing: Apartment Housing Other:: studio Are you a primary account executive healthcare to a significant other at home: No Do you presently have visiting nurse or other home services: Yes Alcohol intake: current Alcohol intake frequency: holidays/special occasions only Cigarette Packs Per Day: 0 Cigarettes Per Day: 1 Advance Directives: Yes Advance Directives Information Provided: Yes Advance Directives on File: No Sexual orientation: Straight/Heterosexual Gender identity: female Physical Exam Vital Signs: Vital Signs: Last Vital Signs Temp 98.1 F 02/09/21 11:29 Pulse 70 02/09/21 13:15 Resp 16 02/09/21 13:15 BP 142/66 H 02/09/21 13:15 Pulse Ox 99 02/09/21 13:15 Body Mass Index 42.0 vital signs have been reviewed as appeared to be correct. Blood pressure normal. Heart rate normal. Respiration rate normal. Temperature normal. Oxygen saturation normal. Appearance: Alert. Oriented X3. No acute distress. Head: Normal external exam. Normocephalic. Atraumatic. No Mixon signs noted. No raccoon eyes noted Eyes: PERRLA. EOMI. Conjunctiva and sclera normal. Eyelids normal. ENT: TM's Normal. Pharynx normal. Uvula midline. Moist mucous membranes. No trismus noted. No drooling noted. No muffled voice noted. Neck: Normal inspection. Neck supple. FROM. No adenopathy. Thyroid Normal. No meningeal signs. No neck mass noted. CVS: Normal heart rate and rhythm. Heart sound normal. No murmurs noted. Pulses normal throughout. Respiratory: No respiratory distress. Painless inspiration. Breath sounds normal. No wheezes/rales/rhonchi noted. Chest nontender. No accessory muscle usage noted or decreased air movement noted. Abdomen: Soft and nontender. Bowel sounds normal in all 4 quadrants. No distention noted. No organomegaly noted. No visible injury noted. Back: No CVA tenderness. Full range of motion noted. Skin: Skin warm and dry. Normal skin color. Normal skin turgor. No rashes/lesions/lacerations noted. Extremities: No lower extremity edema. Extremities exhibit normal range of motion. Extremities nontender. Neuro: Oriented X 3. No motor deficit. No sensory deficit. Reflexes normal. Course Course Course Narrative: Assessment and plan. 40-year-old female type 2 diabetes mellitus using Trulicity 1 time injection every week came in with high blood sugar, labs are consistent with mild hyperglycemia, patient needed IV fluids in the emergency department no other anti glycemic medication needed at this point. Patient was instructed to follow-up with PCP for further controlling her diabetes. Urine is showing UTI. Start the patient on cefuroxime. Medical Decision Making Lab Data Lab results reviewed: Yes I reviewed the patient's lab results. Result diagrams: 02/09/21 12:22 02/09/21 12:21 Labs: Lab Results 02/09/21 02/09/21 02/09/21 Range/Units 12: 12:22 12:22 WBC 7.2 (4.8-10.8) X10*3/uL RBC 4.64 (4.20-5.50) X10*6/uL Hgb 13.7 (12.0-16.0) g/dl Hct 39.9 (37-47) % MCV 86.0 (80-98) fL MCH 29.5 (27.0-33.0) pg MCHC 34.3 (31.0-35.0) g/dl RDW 13.2 (11.0-16.0) % Plt Count 235 (160-400) X10*3/uL MPV 9.5 (9.4-12.3) fL Immature Gran % (Auto) 0.0 (0.0-0.4) % Neut % (Auto) 58.6 (45-73) % Lymph % (Auto) 34.0 (20-40) % [place] % (Auto) 6.1 (2-11) % Eos % (Auto) 0.7 (0-4) % Baso % (Auto) 0.6 (0-2) % Lymph # (Auto) 2.5 (1.2-4.9) X10*3/uL [place] # (Auto) 0.4 (0.1-1.2) X10*3/uL Eos # (Auto) 0.1 (0.0-0.4) X10*3/uL Baso # (Auto) 0.0 (0.0-0.2) X10*3/uL Abs Immat Gran (auto) 0.00 (0.00-0.03) X10*3/uL Absolute Neuts (auto) 4.2 (2.0-8.3) X10*3/uL Absolute Nucleated RBC 0.000 (0.0-0.012) X10*3/uL Nucleated RBC % (auto) 0.0 (0.0-0.2) /100WBC Sodium 138 Cancelled (135-145) mmol/L Potassium 4.1 Cancelled (3.3-5.1) mmol/L Chloride 108 Cancelled (96-108) mmol/L Carbon Dioxide 22 Cancelled (22-29) mmol/L Anion Gap 12 Cancelled (12-20) BUN 12 Cancelled (9-16) mg/dL Creatinine 0.99 Cancelled (0.5-1.4) mg/dL Estim Creat Clear Calc 83.9 Cancelled Estimated GFR > 60 Cancelled Random Glucose 171 H D Cancelled (60-115) mg/dL Calcium 9.6 D Cancelled (8.4-10.2) mg/dL Lipase 39 (8-78) U/L Urine Color Urine Appearance Urine pH (5.0-8.0) Ur Specific [place] (1.005-1.025) Urine Protein (NEG-TRACE) MG/DL Urine Glucose (UA) (NEG) MG/DL Urine Ketones (NEG) MG/DL Urine Blood (NEG) Urine Nitrite (NEG) Ur Leukocyte Esterase (NEG) Urine RBC (0) /HPF Urine WBC (0-4) /HPF Ur Squamous Epith Cells /LPF Calcium Oxalate Crystal /LPF Urine Bacteria /LPF Acetone, Qual Negative (Negative) 02/09/21 Range/Units 12:22 WBC (4.8-10.8) X10*3/uL RBC (4.20-5.50) X10*6/uL Hgb (12.0-16.0) g/dl Hct (37-47) % MCV (80-98) fL MCH (27.0-33.0) pg MCHC (31.0-35.0) g/dl RDW (11.0-16.0) % Plt Count (160-400) X10*3/uL MPV (9.4-12.3) fL Immature Gran % (Auto) (0.0-0.4) % Neut % (Auto) (45-73) % Lymph % (Auto) (20-40) % [place] % (Auto) (2-11) % Eos % (Auto) (0-4) % Baso % (Auto) (0-2) % Lymph # (Auto) (1.2-4.9) X10*3/uL [place] # (Auto) (0.1-1.2) X10*3/uL Eos # (Auto) (0.0-0.4) X10*3/uL Baso # (Auto) (0.0-0.2) X10*3/uL Abs Immat Gran (auto) (0.00-0.03) X10*3/uL Absolute Neuts (auto) (2.0-8.3) X10*3/uL Absolute Nucleated RBC (0.0-0.012) X10*3/uL Nucleated RBC % (auto) (0.0-0.2) /100WBC Sodium (135-145) mmol/L Potassium (3.3-5.1) mmol/L Chloride (96-108) mmol/L Carbon Dioxide (22-29) mmol/L Anion Gap (12-20) BUN (9-16) mg/dL Creatinine (0.5-1.4) mg/dL Estim Creat Clear Calc Estimated GFR Random Glucose (60-115) mg/dL Calcium (8.4-10.2) mg/dL Lipase (8-78) U/L Urine Color YELLOW Urine Appearance CLOUDY Urine pH 5.5 (5.0-8.0) Ur Specific [place] >= 1.030 H (1.005-1.025) Urine Protein 1+ H (NEG-TRACE) MG/DL Urine Glucose (UA) 500 H (NEG) MG/DL Urine Ketones 5 (NEG) MG/DL Urine Blood 2+ H (NEG) Urine Nitrite NEG (NEG) Ur Leukocyte Esterase 2+ H (NEG) Urine RBC 5-9 H (0) /HPF Urine WBC 76-150 H (0-4) /HPF Ur Squamous Epith Cells 2+ /LPF Calcium Oxalate Crystal 1+ /LPF Urine Bacteria 1+ /LPF Acetone, Qual (Negative) Discharge Plan Discharge Clinical Impression: Diabetes type 2, uncontrolled Qualifiers: Glycemic state: with hyperglycemia Qualified Code(s): E11.65 - Type 2 diabetes mellitus with hyperglycemia UTI (urinary tract infection) Qualifiers: Urinary tract infection type: acute cystitis Hematuria presence: without hematuria Qualified Code(s): N30.00 - Acute cystitis without hematuria Patient Disposition: Home, Self-Care Instructions: Urinary Tract Infection in Women (ED) Prescriptions: New cefuroxime axetil 500 mg tablet 500 mg PO BID Qty: 14 RF: 0 No Action blood sugar diagnostic [Contour Next Test Strips] Strip 1 strip miscellaneous TID 30 Days Qty: 100 RF: 4 Baqsimi 3 mg/actuation spray,non-aerosol 3 mg intranasal ONCE 30 Days Qty: 2 RF: 6 atorvastatin 80 mg tablet 80 mg PO BEDTIME Qty: 90 RF: 1 dulaglutide [Trulicity] 1.5 mg/0.5 mL pen injector 1.5 mg subcut QWEEK Qty: 2 RF: 2 cholecalciferol (vitamin D3) [D3-2000] 50 mcg (2,000 unit) capsule 50 mcg PO DAILY Qty: 30 RF: 2 ibuprofen 800 mg tablet 800 mg PO Q8H PRN (Reason: pain) Qty: 60 RF: 0 acetaminophen [Tylenol 8 Hour] 650 mg tablet extended release 650 mg PO Q8H PRN (Reason: pain) Qty: 60 RF: 0 buspirone 10 mg tablet 10 mg PO BID RF: 0 mirtazapine 15 mg tablet 15 mg PO BEDTIME RF: 0 alcohol swabs Pads, Medicated 0 pad topical RF: 0 zolpidem 5 mg tablet 5 mg PO BEDTIME PRN (Reason: Sleep) RF: 0 lorazepam 0.5 mg tablet 0.5 mg PO DAILY PRN (Reason: anxiety) RF: 0 (DME) pen needle, diabetic 32 gauge x 5/32 needle See Rx Instructions ea subcut QID Qty: 50 RF: 0 (DME) lancets 28 gauge misc See Rx Instructions ea topical TID Qty: 100 RF: 0 buspirone 5 mg tablet 10 mg PO BID RF: 0 norethindrone (contraceptive) 0.35 mg tablet 0.35 mg PO DAILY Qty: 28 RF: 11 aripiprazole 10 mg tablet 10 mg PO DAILY RF: 0 sulfamethoxazole-trimethoprim 800-160 mg tablet 1 tab PO BID Qty: 6 RF: 0 Referrals: Debbi Alvarenga MD [Primary Care Provider] - 2 days
[2021-02-09] MEDS: 0.9 % Sodium Chloride 1,000 ML 999 ML IVCONT (12:23)
[2021-02-09 12:26] LABS: MANUAL DIFF FLAG NO
[2021-02-09 12:29] LABS: Basophils Percent Auto 0.6 % (0-2); Eosinophils Absolute Auto 0.1 X10*3/uL (0.0-0.4); Eosinophils Percent Auto 0.7 % (0-4); Hematocrit 39.9 % (37-47); Hemoglobin 13.7 g/dl (12.0-16.0); Lymphocytes Absolute Auto 2.5 X10*3/uL (1.2-4.9); Mean Corpuscular HGB Conc 34.3 g/dl (31.0-35.0); Mean Corpuscular Hemoglobin 29.5 pg (27.0-33.0); Mean Platelet Volume 9.5 fL (9.4-12.3); Monocytes Absolute Auto 0.4 X10*3/uL (0.1-1.2); Monocytes Percent Auto 6.1 % (2-11); Neutrophils Absolute Auto 4.2 X10*3/uL (2.0-8.3); Neutrophils Percent Auto 58.6 % (45-73); Platelet Count 235 X10*3/uL (160-400); Red Blood Count 4.64 X10*6/uL (4.20-5.50); Red Cell Distribution Width 13.2 % (11.0-16.0); White Blood Count 7.2 X10*3/uL (4.8-10.8)
[2021-02-09 12:34] LABS: Glucose Urine UA 500 MG/DL (NEG); Leukocyte Esterase Urine 2+ (NEG); Nitrite Urine NEG (NEG); PH 5.5 (5.0-8.0); Specific Gravity - Urine >= 1.030 (1.005-1.025); UACC Culture Trigger YES; Urine Blood 2+ (NEG); Urine Ketones 5 MG/DL (NEG); Urine Protein 1+ MG/DL (NEG-TRACE)
[2021-02-09 12:36] LABS: Appearance Urine CLOUDY; Color Urine YELLOW
[2021-02-09 12:45] LABS: Bacteria Urine 1+ /LPF; Calcium Oxalate Crystals Urine 1+ /LPF; Squamous Epithelial Cell Urine 2+ /LPF
[2021-02-09 12:58] LABS: Acetone, serum QL Negative (Negative)
[2021-02-09 13:11] LABS: Anion Gap 12 (12-20); Blood Urea Nitrogen 12 mg/dL (9-16); Calcium 9.6 mg/dL (8.4-10.2); Carbon Dioxide 22 mmol/L (22-29); Chloride 108 mmol/L (96-108); Creatinine Clr Calc Pharmacy 83.9; Estimated Glomerular Filt Rate > 60; Glucose Random 171 mg/dL (60-115); Lipase 39 U/L (8-78); Potassium 4.1 mmol/L (3.3-5.1); Sodium 138 mmol/L (135-145)
[2021-02-09 13:15] VITALS: BP 142/66; PULSE 70; RESP 16; O2SAT 99
== END 2021-02-09 13:52 | disposition home or self-care (01) ==
PROVIDERS: Emergency Provider Emergency Medicine; PCP Internal Medicine
DX: E11.65 Type 2 diabetes mellitus with hyperglycemia (principal); N30.00 Acute cystitis without hematuria; Z79.4 Long term (current) use of insulin
CPT/HCPCS: 36415; 80048; 81001; 81003; 82009; 83690; 85025; 87086; 87147; 96360; 99284

== ENCOUNTER → 2021-02-11 13:31 | Outpatient (BNVA) | payer MEDICARE, MEDICAID, SELFPAY | PROVIDERS: PCP Internal Medicine; Visit Provider Nurse Practitioner Gerontology | DX: E11.65 Type 2 diabetes mellitus with hyperglycemia (principal); E78.5 Hyperlipidemia, unspecified; E66.09 Other obesity due to excess calories; R79.89 Other specified abnormal findings of blood chemistry; Z79.4 Long term (current) use of insulin; Z79.899 Other long term (current) drug therapy; Z88.6 Allergy status to analgesic agent; Z88.8 Allergy status to other drugs, medicaments and biological substances; Z68.41 Body mass index [BMI] 40.0-44.9, adult; Z71.3 Dietary counseling and surveillance | CPT/HCPCS: 82947; 83036; 99212 ==

== ENCOUNTER 2021-02-16 09:31 | Outpatient (REF) | payer MEDICARE, MEDICAID, SELFPAY | END 2021-02-16 09:32 | disposition home or self-care (01) | LOC: HO.LNP 09:31 | PROVIDERS: PCP Internal Medicine | DX: N39.0 Urinary tract infection, site not specified (principal); E11.9 Type 2 diabetes mellitus without complications; F17.210 Nicotine dependence, cigarettes, uncomplicated | CPT/HCPCS: 87086; 87147; 99202; 99212 ==

== ENCOUNTER 2021-03-24 16:56 | Emergency (ER) | payer MEDICARE, MEDICAID, SELFPAY | END 2021-03-24 19:51 | disposition left against medical advice (07) | PROVIDERS: Emergency Provider Emergency Medicine | DX: R30.0 Dysuria (principal) ==

== ENCOUNTER → 2021-03-30 10:36 | Outpatient (BNVA) | payer MEDICARE, MEDICAID, SELFPAY | PROVIDERS: Visit Provider Nurse Practitioner Gerontology | DX: E11.65 Type 2 diabetes mellitus with hyperglycemia (principal); E78.5 Hyperlipidemia, unspecified; E66.01 Morbid (severe) obesity due to excess calories; Z68.41 Body mass index [BMI] 40.0-44.9, adult; E55.9 Vitamin D deficiency, unspecified | CPT/HCPCS: 82947; Q3014 ==

== ENCOUNTER 2021-05-18 10:39 | Emergency (ER) | payer MEDICARE, MEDICAID, SELFPAY ==
--- NOTE | ~2021-05-18 | XR_ITS ---
EXAMINATION: LEFT ANKLE AND LEFT FOOT. CLINICAL INFORMATION: Ankle injury. Pain. COMPARISON: None TECHNIQUE: 2 views left ankle and 3 views left foot. FINDINGS: LEFT ANKLE: There is bimalleolar soft tissue swelling. No visible fracture or dislocation seen. The ankle mortise and subtalar joints are normal. There is a small calcaneal heel spur. LEFT FOOT: There is no visible acute fracture or dislocation. The soft tissues are normal. The ankle mortise and subtalar joints are normal. There is mild dorsal distal foot soft tissue swelling. XR/XR ankle LT 2V IMPRESSION: Small calcaneal heel enthesophyte. No visible acute fracture, dislocation or subluxation seen. There is moderate bimalleolar and dorsal distal foot soft tissue swelling.
--- NOTE | ~2021-05-18 | XR_ITS ---
EXAMINATION: LEFT ANKLE AND LEFT FOOT. CLINICAL INFORMATION: Ankle injury. Pain. COMPARISON: None TECHNIQUE: 2 views left ankle and 3 views left foot. FINDINGS: LEFT ANKLE: There is bimalleolar soft tissue swelling. No visible fracture or dislocation seen. The ankle mortise and subtalar joints are normal. There is a small calcaneal heel spur. LEFT FOOT: There is no visible acute fracture or dislocation. The soft tissues are normal. The ankle mortise and subtalar joints are normal. There is mild dorsal distal foot soft tissue swelling. XR/XR foot LT min 3V IMPRESSION: Small calcaneal heel enthesophyte. No visible acute fracture, dislocation or subluxation seen. There is moderate bimalleolar and dorsal distal foot soft tissue swelling.
[2021-05-18 10:47] VITALS: BP 140/90; PULSE 78
[2021-05-18 11:18] VITALS: BP 136/83; PULSE 79; RESP 18; TEMP 36.7; O2SAT 97; BMI 40.7
--- NOTE | 2021-05-18 12:54 | ED_ITS ---
HPI - Extremity Injury (Lower) General Chief Complaint: Extremity Injury, Lower Stated Complaint: L ANKLE PAIN & SWELLING S/P FALL T-1 Time Seen by Provider: 05/18/21 10:43 Source: patient Mode of arrival: ambulatory Limitations: no limitations History of Present Illness complaint: ankle injury and foot injury Onset (ago): day(s) (yesterday ) Injury: Left: ankle and foot Type of Injury: blunt and eversion Place: street/outdoors Severity: moderate Relieving factors: nothing Exacerbating factors: weight bearing, movement and palpation Context: walking (while on a hike) Associated symptoms: snap/pop sensation and swelling Other symptoms: none Related Data Home Medications Medication Instructions Recorded Confirmed lancets 28 gauge #100 ea 06/03/20 03/30/21 lorazepam 0.5 mg tablet 0.5 mg PO DAILY PRN 06/03/20 03/30/21 zolpidem 5 mg tablet 5 mg PO BEDTIME PRN 06/03/20 03/30/21 buspirone 10 mg tablet 10 mg PO BID 11/09/20 03/30/21 mirtazapine 15 mg tablet 15 mg PO BEDTIME 11/09/20 03/30/21 loperamide 2 mg tablet 2 mg PO QID PRN 02/11/21 03/30/21 atorvastatin 80 mg tablet 80 mg PO DAILY 03/30/21 03/30/21 penicillin V potassium 500 mg 500 mg PO BID 03/30/21 03/30/21 tablet venlafaxine 75 mg capsule,extended 75 mg PO QAM 03/30/21 03/30/21 release 24 hr Previous Rx's Medication Instructions Recorded acetaminophen 650 mg 650 mg PO Q8H PRN #60 tab 07/24/20 tablet,extended release (Tylenol 8 Hour) ibuprofen 800 mg tablet 800 mg PO Q8H PRN #60 tab 07/24/20 norethindrone (contraceptive) 0.35 0.35 mg PO DAILY #28 tab 30/20 mg tablet blood sugar diagnostic (Contour 1 strip MISCELLANEOUS TID 30 Days 09/14/20 Next Test Strips) #100 strip glucagon 3 mg/actuation nasal 3 mg INTRANASAL ONCE 30 Days #2 ea 09/17/20 spray (Baqsimi) diaper,brief,adult,disposable #10 ea 02/16/21 (Wood[employer] Choice Comf Protect XL) dulaglutide 1.5 mg/0.5 mL 1.5 mg SUBCUT QWEEK 28 Days #2 ml 02/22/21 subcutaneous pen injector (Trulicity) oxybutynin chloride 10 mg 10 mg PO DAILY 30 Days #30 tab 03/17/21 tablet,extended release 24 hr alcohol swabs 4 pad TOPICAL DAILY #100 ea 03/30/21 pen needle, diabetic 32 gauge x #50 ea 03/30/21 cholecalciferol (vitamin D3) 50 50 mcg PO DAILY #30 cap 04/30/21 mcg (2,000 unit) capsule (D3-2000) insulin glargine U-300 conc 300 24 unit SUBCUT BEDTIME #4.5 ml 05/07/21 unit/mL (1.5 mL) subcutaneous pen (Toujeo SoloStar U-300 Insulin) cyclobenzaprine 10 mg tablet 10 mg PO TID PRN #14 tab 05/18/21 hydrocodone 5 mg-acetaminophen 325 1 tab PO Q6H PRN #12 tab 05/18/21 mg tablet Allergies Allergy/AdvReac Type Severity Reaction Status Date / Time meperidine [Demerol] Allergy Intermediate Hives Verified 02/16/21 09:51 From Prozac Allergy Severe SEVERE Uncoded 02/11/21 14:01 AGITATION Review of Systems Review of Systems: Constitutional : No Fever, No Chills ENT/Mouth : No Ear Pain, No Hoarseness, No sore throat Eyes: No Eye Pain, No Swelling, No Redness, No Foreign Body Cardiovascular : No Chest Pain, No SOB Respiratory : No Cough, No Dyspnea Gastrointestinal : No Nausea, No Vomiting, No Diarrhea, No abdominal Pain Genitourinary : No Dysuria, No Hematuria Musculoskeletal : positive joint pain, No Myalgias, pos Joint Swelling Skin : No Skin lacerations, No rash Neuro : No Weakness, No Numbness, No Loss of Consciousness PMFSH Past Medical History Attestation statement: The following information was validated with the patient. 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 Low vitamin D level Mild intellectual disability Obesity Obesity due to excess calories PTSD (post-traumatic stress disorder) Snores Surgical History History of bilateral tubal ligation History of hysteroscopy Hx of cholecystectomy Family History Family History Father Diabetes Social History Social History Household Members: Spouse Housing: Apartment Housing Other:: studio Are you a primary patient care director to a significant other at home: No Do you presently have visiting nurse or other home services: Yes Alcohol intake: current Alcohol intake frequency: holidays/special occasions only Cigarette Packs Per Day: 0 Cigarettes Per Day: 1 Advance Directives: No Advance Directives Information Provided: No Patient : No Sexual orientation: Straight/Heterosexual Gender identity: Female Physical Exam Vital Signs: Vital Signs: Last Vital Signs Temp 98.0 F 05/18/21 11:18 Pulse 79 05/18/21 11:18 Resp 18 05/18/21 11:18 BP 136/83 05/18/21 11:18 Pulse Ox 97 05/18/21 11:18 Body Mass Index 40.7 Appearance: Alert. Oriented X3. No acute distress. Eyes: Pupils equal, round and reactive to light. ENT: Pharynx normal. Neck: Normal inspection. Neck supple. CVS: Pulses normal. Respiratory: No respiratory distress. Skin: Skin warm and dry. Normal skin color. Extremities: L ankle moderate bimalleolar swelling distal NV intact, swelling onto dorsum of foot - no prox fib ttp Neuro: Oriented X 3. No motor deficit. No sensory deficit. MDM - Extremity Injury (Lower) MDM Narrative Medical decision making narrative: 40 yo female with DM eversion injury yesterday - distal NV intact, xrays, crutches ordered, likely ligamentous injury follow up with orthopedics if no improvement Procedures Orthopedic Splinting/Casting Injury #1: Side: left Lower Extremity Injury Location: ankle Lower Extremity Immobilizer: AirCast Other Orthopedic Equipment: crutches Discharge Plan Discharge Clinical Impression: Ankle sprain and strain Patient Disposition: Home, Self-Care Instructions: Ankle Sprain (ED), Ankle Stirrup Splint (ED), R.I.C.E. Treatment (ED), Ankle Strain (ED) Additional Instructions: return to ED for any worsening symptoms or concerns wear air cast for 7 days, crutches for 5 days do not take extra tylenol with pain medicine prescribed Prescriptions: New cyclobenzaprine 10 mg tablet 10 mg PO TID PRN (Reason: muscle spasm) Qty: 14 RF: 0 hydrocodone-acetaminophen 5-325 mg tablet 1 tab PO Q6H PRN (Reason: pain) Qty: 12 RF: 0 No Action blood sugar diagnostic [Contour Next Test Strips] Strip 1 strip miscellaneous TID 30 Days Qty: 100 RF: 4 Baqsimi 3 mg/actuation spray,non-aerosol 3 mg intranasal ONCE 30 Days Qty: 2 RF: 6 (DME) Woodbine Choice Comf Protect XL Misc See Rx Instructions .ROUTE .MEDSUPPLY Qty: 10 RF: 0 Trulicity 1.5 mg/0.5 mL pen injector 1.5 mg subcut QWEEK 28 Days Qty: 2 RF: 6 oxybutynin chloride 10 mg tablet extended release 24hr 10 mg PO DAILY 30 Days Qty: 30 RF: 6 cholecalciferol (vitamin D3) [D3-2000] 50 mcg (2,000 unit) capsule 50 mcg PO DAILY Qty: 30 RF: 4 Toujeo SoloStar U-300 Insulin 300 unit/mL (1.5 mL) insulin pen 24 unit subcut BEDTIME Qty: 4.5 RF: 2 ibuprofen 800 mg tablet 800 mg PO Q8H PRN (Reason: pain) Qty: 60 RF: 0 acetaminophen [Tylenol 8 Hour] 650 mg tablet extended release 650 mg PO Q8H PRN (Reason: pain) Qty: 60 RF: 0 buspirone 10 mg tablet 10 mg PO BID RF: 0 mirtazapine 15 mg tablet 15 mg PO BEDTIME RF: 0 loperamide 2 mg tablet 2 mg PO QID PRN (Reason: diarrhea) RF: 0 zolpidem 5 mg tablet 5 mg PO BEDTIME PRN (Reason: Sleep) RF: 0 lorazepam 0.5 mg tablet 0.5 mg PO DAILY PRN (Reason: anxiety) RF: 0 (DME) lancets 28 gauge misc See Rx Instructions ea topical TID Qty: 100 RF: 0 norethindrone (contraceptive) 0.35 mg tablet 0.35 mg PO DAILY Qty: 28 RF: 11 penicillin V potassium 500 mg tablet 500 mg PO BID RF: 0 atorvastatin 80 mg tablet 80 mg PO DAILY RF: 0 venlafaxine 75 mg capsule,extended release 24hr 75 mg PO QAM RF: 0 (DME) pen needle, diabetic 32 gauge x 5/32 needle See Rx Instructions ea subcut QID Qty: 50 RF: 11 alcohol swabs Pads, Medicated 4 pad topical DAILY Qty: 100 RF: 11 Referrals: Madyson Howard PA-C [Physician Nutrition Technician] - 1 week (if not better)
== END 2021-05-18 13:19 | disposition home or self-care (01) ==
PROVIDERS: Emergency Provider Emergency Medicine; PCP Internal Medicine
DX: S93.402A Sprain of unspecified ligament of left ankle, initial encounter (principal); M25.572 Pain in left ankle and joints of left foot; Y93.01 Activity, walking, marching and hiking; Y92.821 Forest as the place of occurrence of the external cause; Y99.8 Other external cause status; Z79.899 Other long term (current) drug therapy; F17.210 Nicotine dependence, cigarettes, uncomplicated; Z71.6 Tobacco abuse counseling
CPT/HCPCS: 29515; 73600; 73630; 99283; 99284

== ENCOUNTER → 2021-05-25 14:42 | Outpatient (BNVA) | payer MEDICARE, MEDICAID, SELFPAY | PROVIDERS: PCP Internal Medicine | DX: R32 Unspecified urinary incontinence (principal) | CPT/HCPCS: 99212 ==

== ENCOUNTER → 2021-06-02 08:19 | Outpatient (BNVA) | payer MEDICARE, MEDICAID, SELFPAY | PROVIDERS: Visit Provider Physician Assistant | DX: S93.402A Sprain of unspecified ligament of left ankle, initial encounter (principal) | CPT/HCPCS: 99202 ==

== ENCOUNTER → 2021-06-16 14:37 | Outpatient (BNVA) | payer MEDICARE, MEDICAID, SELFPAY | PROVIDERS: PCP Internal Medicine; Visit Provider Nurse Practitioner Gerontology | DX: E11.65 Type 2 diabetes mellitus with hyperglycemia (principal); E11.42 Type 2 diabetes mellitus with diabetic polyneuropathy; E78.5 Hyperlipidemia, unspecified; E66.01 Morbid (severe) obesity due to excess calories; Z68.41 Body mass index [BMI] 40.0-44.9, adult; R79.89 Other specified abnormal findings of blood chemistry | CPT/HCPCS: 82947; 83036; 99212 ==

== ENCOUNTER → 2021-07-09 11:30 | Outpatient (BNVA) | payer MEDICARE, MEDICAID, SELFPAY | PROVIDERS: PCP Internal Medicine; Visit Provider Physician Assistant ==

== ENCOUNTER → 2021-08-26 13:31 | Outpatient (BNVA) | payer MEDICARE, MEDICAID, SELFPAY | PROVIDERS: PCP Internal Medicine; Visit Provider Physician Assistant | DX: S93.402D Sprain of unspecified ligament of left ankle, subsequent encounter (principal) | CPT/HCPCS: 99212 ==

== ENCOUNTER → 2021-10-05 13:33 | Outpatient (BNVA) | payer MEDICARE, MEDICAID, SELFPAY | PROVIDERS: PCP Internal Medicine; Visit Provider Registered Nurse Diabetes Educator | DX: E11.9 Type 2 diabetes mellitus without complications (principal); Z79.4 Long term (current) use of insulin | CPT/HCPCS: 95250 ==

== ENCOUNTER → 2021-10-15 14:07 | Outpatient (BNVA) | payer MEDICARE, MEDICAID, SELFPAY | PROVIDERS: PCP Internal Medicine; Visit Provider Nurse Practitioner Gerontology | DX: E11.65 Type 2 diabetes mellitus with hyperglycemia (principal); E11.42 Type 2 diabetes mellitus with diabetic polyneuropathy; E78.5 Hyperlipidemia, unspecified; E66.01 Morbid (severe) obesity due to excess calories; R79.89 Other specified abnormal findings of blood chemistry; Z68.39 Body mass index [BMI] 39.0-39.9, adult | CPT/HCPCS: 82947; 99212 ==

== ENCOUNTER 2021-10-22 09:41 | Outpatient (REF) | payer MEDICARE, MEDICAID, SELFPAY ==
[2021-10-22 11:08] LABS: Alanine Aminotransferase 68 U/L (0-31); Alkaline Phosphatase 90 U/L (39-117); Anion Gap 11 (12-20); Aspartate Amino Transferase 85 U/L (5-31); Bilirubin Total 0.8 mg/dL (0.0-1.0); Blood Urea Nitrogen 8 mg/dL (9-16); Carbon Dioxide 26 mmol/L (22-29); Chloride 105 mmol/L (96-108); Cholesterol 206 mg/dL; Estimated Glomerular Filt Rate > 60; Glucose Fasting 143 mg/dL (60-99); HDL Cholesterol 39 mg/dL; LDL Cholesterol Calculated 128 mg/dl; Potassium 4.3 mmol/L (3.3-5.1); Sodium 138 mmol/L (135-145); Total Protein 7.4 g/dL (6.5-8.0); Triglycerides 198 mg/dL
[2021-10-22 11:16] LABS: Vitamin D 25-OH Total 23.1 ng/mL (>30)
[2021-10-22 11:33] LABS: Creatinine Urine 144.18 mg/dL; Microalbum/Creatinine Ratio Ur 11.7 ug/mg cr
[2021-10-23 19:16] LABS: LDL Cholesterol Direct 142 mg/dL (<100)
== END 2021-10-22 09:42 | disposition home or self-care (01) ==
LOC: HO.LAB 09:41
PROVIDERS: Absent Provider Nurse Practitioner Gerontology; PCP Internal Medicine; Visit Provider Internal Medicine
DX: E11.65 Type 2 diabetes mellitus with hyperglycemia (principal); E55.9 Vitamin D deficiency, unspecified
CPT/HCPCS: 36415; 80053; 80061; 82043; 82306; 83721

== ENCOUNTER → 2021-11-04 14:04 | Outpatient (BNVA) | payer MEDICARE, MEDICAID, SELFPAY | PROVIDERS: PCP Internal Medicine; Visit Provider Registered Nurse Diabetes Educator | DX: E11.42 Type 2 diabetes mellitus with diabetic polyneuropathy (principal); F17.210 Nicotine dependence, cigarettes, uncomplicated; Z71.89 Other specified counseling | CPT/HCPCS: 99211 ==

== ENCOUNTER 2021-11-09 15:00 | Outpatient (RCR) | payer MEDICARE, MEDICAID, SELFPAY ==
--- NOTE | 2021-09-10 13:02 | MHC.PT.EP ---
[facility] [place] Office [place] [facility] [place] Office [address] Edyta Diego [address] [phone] F: [phone] F: [phone] F: [phone] F: [phone] Physical Therapy Plan of Care Date of Evaluation: Date of Surgery: N/A Diagnosis: Sprain of unspecified ligament of L ankle, initial encounter Assessment: Pt is a 41yo F who presents to PT s/p L ankle sprain. She presents today with current impairments in pain, decreased L ankle ROM all planes, decreased ankle strength, decreased gastroc/soleus length, impaired balance and gait. She has significant limitations with L dorsiflexion. She is limited functionally by prolonged standing, walking, and stair navigation. She is a fair candidate for skilled PT services in order to address current impairments to maximize safety, functional mobility, and to prevent risk of falls. She will be seen 2x/week for 4 weeks and will be reassessed at that time. Frequency and Duration: The patient will be seen 2x/week for 4 weeks Short Term Goals: Pt will perform HEP consistently with min A to promote self management of symptoms Pt will improve L DF by at least 5 degrees Senior Living Goals: Pt will improve L DF by at least 10 degrees to facilitate improved gait mechanics Pt will ambulate > 20 min with improved gait mechanics with LRAD with pain < 4 /10 Pt will demonstrate improvements in functional mobility as evidenced by statistically significant improvement in LEFI outcome measure Treatment Plan: Modalities to reduce pain, spasms and effusion. Manual therapy to restore motion and function. Therapeutic exercise to improve strength and flexibility. Neuromuscular re-education for posture and balance. Therapeutic activities to return to functional activities of daily living. Electronically signed by: Ilda Tran, PT, DPT Please sign and return to therapist. Thank you for your referral.
--- NOTE | 2021-11-16 14:45 | MHC.PT.DC ---
[facility] [place] [facility] [place] [facility] [place] [facility] [address] Edyta Diego [address] [phone] F: [phone] F: [phone] F: [phone] F: [phone] Physical Therapy Discharge Report Diagnosis: Sprain of unspecified ligament of L ankle, initial encounter Date of Surgery: N/A Date of Evaluation: 09/09/21 Date of Discharge: 11/16/21 Treatments to Date: 12 Cancellations to Date: 3 No Shows to Date: Discharge Status: Improved Function Patient Elected to Stop Discharge Summary: The patient overall reported she has no more complaints regarding her L foot/ankle. She has been persistently complaining of R hip pain that has been limiting her ability to walk around her apartment complex to get the mall and community level ambulation. D/C from foot and ankle today and pt will begin PT for her hip next session w/ jose tellez. Electronically signed by: Apple Joshua PT, DPT Please sign and return to therapist. Thank you for your referral.
== END 2021-11-16 14:45 | disposition home or self-care (01) ==
LOC: HO.PT 15:00
PROVIDERS: PCP Internal Medicine; Visit Provider Physician Assistant
DX: S93.402D Sprain of unspecified ligament of left ankle, subsequent encounter (principal)
CPT/HCPCS: 97110; 97112; 97116; 97140; 97162; 97530

== ENCOUNTER → 2021-11-23 11:32 | Outpatient (BNVA) | payer MEDICARE, MEDICAID, SELFPAY | PROVIDERS: PCP Internal Medicine | DX: N32.81 Overactive bladder (principal); E11.9 Type 2 diabetes mellitus without complications; F17.210 Nicotine dependence, cigarettes, uncomplicated | CPT/HCPCS: 99212 ==

== ENCOUNTER → 2021-12-03 12:27 | Outpatient (BNVA) | payer MEDICARE, MEDICAID, SELFPAY | PROVIDERS: PCP Internal Medicine; Referring Provider Internal Medicine; Visit Provider Nurse Practitioner | DX: K52.9 Noninfective gastroenteritis and colitis, unspecified (principal) | CPT/HCPCS: 99202 ==

== ENCOUNTER 2021-12-21 13:04 | Emergency (ER) | payer MEDICARE, MEDICAID, SELFPAY ==
[2021-12-21 13:24] VITALS: BP 143/100; BP 157/111; PULSE 105; PULSE 89; RESP 20; O2SAT 97; O2SAT 98; BMI 43.7
[2021-12-21] MEDS: HaloperidoL 5 MG TABLET PO (13:38)
[2021-12-21] MEDS: LORazepam 1 MG TABLET 2 MG PO (13:38)
--- NOTE | 2021-12-21 13:41 | PC.NURSE ---
when pt arrived pt very fearful keeps saying that she wants to go home, takes a lot of encouragement to get the pt to allow for vital signs pt is not answering questions at this time
--- NOTE | 2021-12-21 14:19 | PC.NURSE ---
pt found by back staff bathroom. Standing in hallway repeating iwant to go home . mult staff present to cooerce patient back to room. pt's responses are minimal. pt doesn't want anyone to come be with her in hospital. is now back in bed. gave permission for this RN to call Nina Mariee who is her [employer] client program manager. VM left at [phone]. office number is [phone]. pt now has 1:1 sitter
[2021-12-21 14:41] LABS: Glucose, Whole Blood 335 mg/dL (60-115)
--- NOTE | 2021-12-21 14:48 | ED_ITS ---
HPI - Recheck/Abnormal Lab/Rx General Chief Complaint: Recheck/Abnormal Lab/Rx Stated Complaint: FEELS SICK PER EMS Time Seen by Provider: 12/21/21 13:13 Source: patient Mode of arrival: EMS Limitations: other (Patient is very anxious) History of Present Illness HPI narrative: 41-year-old female who was brought to the emergency department for evaluation of hyperglycemia pain. 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 A pparently, the patient was very anxious and was having difficulty answering questions and EMS was concerned that this may be related to her medical condition and transported the patient the emergency department. On presentation, the patient is very fearful, she does not want us to touch her, she is concerned that were going to hurt her. She did not answer questions but she did let me examine her. Related Data Home Medications Medication Instructions Recorded Confirmed lancets 28 gauge #100 ea 06/03/20 10/15/21 buspirone 10 mg tablet 10 mg PO BID 11/09/20 10/15/21 aripiprazole 10 mg tablet 10 mg PO DAILY 06/16/21 10/15/21 citalopram 10 mg tablet 10 mg PO DAILY 06/16/21 10/15/21 lorazepam 1 mg tablet 1 mg PO DAILY PRN 06/16/21 10/15/21 biotin 10 mg tablet 10 mg PO DAILY 10/07/21 10/15/21 cholecalciferol (vitamin D3) 125 125 mcg PO DAILY 10/07/21 10/15/21 mcg (5,000 unit) capsule haloperidol 2 mg tablet 3 mg PO BID tab 10/15/21 10/15/21 haloperidol 1 mg tablet 1 mg PO BID 12/14/21 Previous Rx's Medication Instructions Recorded ibuprofen 800 mg tablet 800 mg PO Q8H PRN #60 tab 07/24/20 blood sugar diagnostic (Contour 1 strip MISCELLANEOUS TID 30 Days 09/14/20 Next Test Strips) #100 strip glucagon 3 mg/actuation nasal 3 mg INTRANASAL ONCE 30 Days #2 ea 09/17/20 spray (Baqsimi) diaper,brief,adult,disposable #10 ea 02/16/21 ([facility] Choice Comf Protect XL) alcohol swabs 4 pad TOPICAL DAILY #100 ea 03/30/21 pen needle, diabetic 32 gauge x #50 ea 03/30/21/32 dulaglutide 1.5 mg/0.5 mL 1.5 mg (0.5 mL) SUBCUT QWEEK 28 09/01/21 subcutaneous pen injector Days #2 ml (Trulicity) walker #1 ea 09/24/21 atorvastatin 80 mg tablet 80 mg PO BEDTIME #90 tab 09/30/21 insulin glargine U-300 conc 300 20 unit (0.0667 mL) SUBCUT BEDTIME 10/17/21 unit/mL (1.5 mL) subcutaneous pen #4.5 ml (Toujeo SoloStar U-300 Insulin) repaglinide 0.5 mg tablet 0.5 mg PO TID 30 Days #90 tab 10/17/21 pen needle,diabetic dual safty 30 #100 ea 11/04/21 gauge x 3/16 (BD AutoShield Duo Pen Needle) acetaminophen 650 mg 650 mg PO Q8H PRN #60 tab 11/14/21 tablet,extended release (Tylenol 8 Hour) fluconazole 150 mg tablet 150 mg PO Q3D #2 tab 11/22/21 (Diflucan) solifenacin 10 mg tablet (Vesicare) 10 mg PO DAILY 30 Days #30 tab 11/23/21 nystatin 100,000 unit/gram topical 1 appl TOPICAL BID 30 Days #30 g 11/25/21 powder cholestyramine (with sugar) 4 gram 4 g PO BID 60 Days #60 ea 12/03/21 powder for susp in a packet tizanidine 2 mg tablet 2 mg PO TID PRN #42 tab 12/14/21 blood-glucose meter (FreeStyle #1 ea 12/21/21 Lite Meter) Allergies Allergy/AdvReac Type Severity Reaction Status Date / Time meperidine [Demerol] Allergy Intermediate Hives Verified 12/14/21 14:41 From Prozac Allergy Severe SEVERE Uncoded 12/14/21 14:41 AGITATION Review of Systems Review of Systems: Yes all other systems are reviewed and are negative PMFSH Past Medical History Medical History Acute depression Anxiety Arthritis BMI 40.0-44.9, adult Chronic diarrhea Diabetes Diabetes type 2, uncontrolled Dyslipidemia Elevated LFTs Epilepsy Hyperlipidemia LDL goal <100 Insomnia alf current use of insulin Low vitamin D level Mild developmental delay Mild episode of recurrent major depressive disorder Mild intellectual disability Obesity Obesity due to excess calories Overactive bladder PTSD (post-traumatic stress disorder) Right hip pain Snores Type 2 diabetes mellitus with diabetic polyneuropathy Surgical History History of bilateral tubal ligation History of hysteroscopy Hx of cholecystectomy Family History Family History Father Diabetes Mental health disorder Mother No problems noted. Social History Social History Household Members: Spouse Housing: Apartment Housing Other:: studio Are you a primary healthcare science specialist to a significant other at home: No Do you presently have visiting nurse or other home services: Yes Alcohol intake: former Patient Tobacco Use Status: Current everyday Tobacco user Tobacco use type: Cigarette Cigarette Packs Per Day: 0 Cigarettes Per Day: 6 e-Cigarette/Vaping Use: Never Used Second Hand Smoke Exposure: No Advance Directives: No service: No Current occupational status: disabled Current occupation: lt handed Sexual orientation: Straight/Heterosexual Gender identity: Female Cognitive needs: Yes Hearing needs: No Vision needs: Yes Physical Exam Vital Signs: Vital Signs: Last Vital Signs Pulse 89 12/21/21 13:24 Resp 20 12/21/21 13:24 BP 157/111 H 12/21/21 13:24 Pulse Ox 97 12/21/21 13:24 BMI result Body Mass Index 43.7 Const: Other: The patient is very anxious and fearful, she withdrawal when I approach your, she did not answer questions but she did let me examine her. Orientation/co nsciousness: oriented to person HEENT: Head: Yes normal to inspection, Yes normocephalic and Yes atraumatic Ears: external ears normal General nose exam: Normal external nose present Face and sinus: Yes normal facial exam Mouth: Normal oral and palatal mucosa present Throat: Yes posterior oropharynx normal Eyes: General: appearance normal, both eyes and all related structures Pupils: Equal, round and reactive pupils present Neck: Neck: Yes normal visual inspection, Yes no lymphadenopathy, Yes trachea midline and Yes supple Chest: Chest palpation & inspection: normal inspection of the chest and normal palpation of entire chest wall Resp: Effort & Inspection: normal respiratory effort and able to speak in complete sentences Auscultation: clear to auscultation bilaterally Cardio: Rate: regular rate Rhythm: regular rhythm Heart sounds: S1 normal heart sound present, S2 normal heart sound present and no murmurs GI: Inspection: Yes normal to inspection Palpation (GI): Soft to palpation, nontender and no guarding Auscultation: normal bowel sounds : General: Yes no CVA tenderness Back/Spine/Pelvis: Back: no CVA tenderness Skin: General skin exam: no rashes or lesions noted Neuro: General: oriented to person Cranial nerves: Yes CN's II-XII intact bilaterally and Yes Equal, round and reactive pupils present Cognition (Neuro): normal cognition Motor exam (neuro): 5/5 motor strength present throughout Extrem: General: Yes normal to inspection Psych: Other: Very anxious and very fearful Appearance: grossly normal Speech and move ment: Normal speech and movement present Course Course Course Narrative: 41-year-old female who was sent to the emergency department by her PCP for evaluation of elevated glucose. The patient has no complaints. The patient was very fearful and anxious and initially refused blood work. She did refuse IV and she does not want any insulin at this time. The patient was very anxious and she did agree to take Haldol and Ativan, these are 2 medicines that she has been prescribed in the past. Her exam was otherwise unremarkable. 1726: Laboratory evaluation: Serum glucose was elevated 362. AST and ALT were elevated 68 and 72. Urine test was negative. Urine tox screen was negative. Ethanol level was below detectable limits. She is significantly less anxious after receiving the Haldol and Ativan but she still is fearful. The patient has been drinking fluid. Her laboratory evaluation was unremarkable and I believe that she can be discharged home and continue her outpatient anti diabetic regimen MDM - Recheck/Abnormal Lab/Rx Lab Data Result diagrams: 12/21/21 15:46 12/21/21 15:46 Labs: Lab Results 12/21/21 12/21/21 12/21/21 Range/Units 14:36 15:46 15:46 WBC 8.0 (4.8-10.8) X10*3/uL RBC 4.88 (4.20-5.50) X10*6/uL Hgb 14.8 (12.0-16.0) g/dl Hct 42.2 (37.0-47.0) % MCV 86.5 (80.0-98.0) fL MCH 30.3 (27.0-33.0) pg MCHC 35.1 H (31.0-35.0) g/dl RDW 12.0 (11.0-16.0) % Plt Count 249 (160-400) X10*3/uL MPV 9.3 L (9.4-12.3) fL Immature Gran % (Auto) 0.3 (0.0-0.4) % Neut % (Auto) 60.4 (45-73) % Lymph % (Auto) 33.2 (20-40) % Medina % (Auto) 4.9 (2-11) % Eos % (Auto) 0.8 (0-4) % Baso % (Auto) 0.4 (0-2) % Lymph # (Auto) 2.7 (1.2-4.9) X10*3/uL Medina # (Auto) 0.4 (0.1-1.2) X10*3/uL Eos # (Auto) 0.1 (0.0-0.4) X10*3/uL Baso # (Auto) 0.0 (0.0-0.2) X10*3/uL Abs Immat Gran (auto) 0.02 (0.00-0.03) X10*3/uL Absolute Neuts (auto) 4.8 (2.0-8.3) x10*3/uL Absolute Nucleated RBC 0.000 (0.0-0.012) X10*3/uL Nucleated RBC % (auto) 0.0 (0.0-0.2) /100WBC Sodium 136 (135-145) mmol/L Potassium 4.5 (3.3-5.1) mmol/L Chloride 101 (96-108) mmol/L Carbon Dioxide 30 H (22-29) mmol/L Anion Gap 10 L (12-20) BUN 9 (9-16) mg/dL Creatinine 0.95 (0.5-1.4) mg/dL Estim Creat Clear Calc 95.3 Estimated GFR > 60 POC Glucose 335 H (60-115) mg/dL Random Glucose 362 H* (60-115) mg/dL Calcium 9.9 D (8.4-10.2) mg/dL Total Bilirubin 0.5 (0.0-1.0) mg/dL AST 68 H (5-31) U/L ALT 72 H (0-31) U/L Alkaline Phosphatase 103 (39-117) U/L Total Protein 7.4 (6.5-8.0) g/dL Albumin 4.0 (3.5-5.0) g/dL Beta HCG, Quant mIU/mL Urine Color Urine Appearance Urine pH (5.0-8.0) Ur Specific Griffin (1.005-1.025) Urine Protein (NEG-TRACE) MG/DL Urine Glucose (UA) (NEG) MG/DL Urine Ketones (NEG) MG/DL Urine Blood (NEG) Urine Nitrite (NEG) Ur Leukocyte Esterase (NEG) Urine RBC (0) /HPF Urine WBC (0-4) /HPF Ur Squamous Epith Cells /LPF Urine Bacteria /LPF Urine Opiates Screen (Not Detect) Urine Fentanyl Screen (Not Detect) Ur Barbiturates Screen (Not Detect) Ur Phencyclidine Scrn (Not Detect) Ur Amphetamines Screen (Not Detect) U Benzodiazepines Scrn (Not Detect) Urine Cocaine Screen (Not Detect) U Marijuana (THC) Screen (Not Detect) Ethyl Alcohol mg/dL 12/21/21 12/21/21 12/21/21 Range/Units 15:46 15:46 15:46 WBC (4.8-10.8) X10*3/uL RBC (4.20-5.50) X10*6/uL Hgb (12.0-16.0) g/dl Hct (37.0-47.0) % MCV (80.0-98.0) fL MCH (27.0-33.0) pg MCHC (31.0-35.0) g/dl RDW (11.0-16.0) % Plt Count (160-400) X10*3/uL MPV (9.4-12.3) fL Immature Gran % (Auto) (0.0-0.4) % Neut % (Auto) (45-73) % Lymph % (Auto) (20-40) % Medina % (Auto) (2-11) % Eos % (Auto) (0-4) % Baso % (Auto) (0-2) % Lymph # (Auto) (1.2-4.9) X10*3/uL Medina # (Auto) (0.1-1.2) X10*3/uL Eos # (Auto) (0.0-0.4) X10*3/uL Baso # (Auto) (0.0-0.2) X10*3/uL Abs Immat Gran (auto) (0.00-0.03) X10*3/uL Absolute Neuts (auto) (2.0-8.3) x10*3/uL Absolute Nucleated RBC (0.0-0.012) X10*3/uL Nucleated RBC % (auto) (0.0-0.2) /100WBC Sodium (135-145) mmol/L Potassium (3.3-5.1) mmol/L Chloride (96-108) mmol/L Carbon Dioxide (22-29) mmol/L Anion Gap (12-20) BUN (9-16) mg/dL Creatinine (0.5-1.4) mg/dL Estim Creat Clear Calc Estimated GFR POC Glucose (60-115) mg/dL Random Glucose (60-115) mg/dL Calcium (8.4-10.2) mg/dL Total Bilirubin (0.0-1.0) mg/dL AST (5-31) U/L ALT (0-31) U/L Alkaline Phosphatase (39-117) U/L Total Protein (6.5-8.0) g/dL Albumin (3.5-5.0) g/dL Beta HCG, Quant < 2 mIU/mL Urine Color YELLOW Urine Appearance CLEAR Urine pH 6.0 (5.0-8.0) Ur Specific Griffin 1.020 (1.005-1.025) Urine Protein NEG (NEG-TRACE) MG/DL Urine Glucose (UA) >=1000 H (NEG) MG/DL Urine Ketones NEG (NEG) MG/DL Urine Blood NEG (NEG) Urine Nitrite NEG (NEG) Ur Leukocyte Esterase NEG (NEG) Urine RBC 0-2 (0) /HPF Urine WBC 0-2 (0-4) /HPF Ur Squamous Epith Cells 1+ /LPF Urine Bacteria TRACE /LPF Urine Opiates Screen (Not Detect) Urine Fentanyl Screen (Not Detect) Ur Barbiturates Screen (Not Detect) Ur Phencyclidine Scrn (Not Detect) Ur Amphetamines Screen (Not Detect) U Benzodiazepines Scrn (Not Detect) Urine Cocaine Screen (Not Detect) U Marijuana (THC) Screen (Not Detect) Ethyl Alcohol < 10 mg/dL 12/21/21 12/21/21 Range/Units 15:46 16:58 WBC (4.8-10.8) X10*3/uL RBC (4.20-5.50) X10*6/uL Hgb (12.0-16.0) g/dl Hct (37.0-47.0) % MCV (80.0-98.0) fL MCH (27.0-33.0) pg MCHC (31.0-35.0) g/dl RDW (11.0-16.0) % Plt Count (160-400) X10*3/uL MPV (9.4-12.3) fL Immature Gran % (Auto) (0.0-0.4) % Neut % (Auto) (45-73) % Lymph % (Auto) (20-40) % Medina % (Auto) (2-11) % Eos % (Auto) (0-4) % Baso % (Auto) (0-2) % Lymph # (Auto) (1.2-4.9) X10*3/uL Medina # (Auto) (0.1-1.2) X10*3/uL Eos # (Auto) (0.0-0.4) X10*3/uL Baso # (Auto) (0.0-0.2) X10*3/uL Abs Immat Gran (auto) (0.00-0.03) X10*3/uL Absolute Neuts (auto) (2.0-8.3) x10*3/uL Absolute Nucleated RBC (0.0-0.012) X10*3/uL Nucleated RBC % (auto) (0.0-0.2) /100WBC Sodium (135-145) mmol/L Potassium (3.3-5.1) mmol/L Chloride (96-108) mmol/L Carbon Dioxide (22-29) mmol/L Anion Gap (12-20) BUN (9-16) mg/dL Creatinine (0.5-1.4) mg/dL Estim Creat Clear Calc Estimated GFR POC Glucose 303 H (60-115) mg/dL Random Glucose (60-115) mg/dL Calcium (8.4-10.2) mg/dL Total Bilirubin (0.0-1.0) mg/dL AST (5-31) U/L ALT (0-31) U/L Alkaline Phosphatase (39-117) U/L Total Protein (6.5-8.0) g/dL Albumin (3.5-5.0) g/dL Beta HCG, Quant mIU/mL Urine Color Urine Appearance Urine pH (5.0-8.0) Ur Specific Griffin (1.005-1.025) Urine Protein (NEG-TRACE) MG/DL Urine Glucose (UA) (NEG) MG/DL Urine Ketones (NEG) MG/DL Urine Blood (NEG) Urine Nitrite (NEG) Ur Leukocyte Esterase (NEG) Urine RBC (0) /HPF Urine WBC (0-4) /HPF Ur Squamous Epith Cells /LPF Urine Bacteria /LPF Urine Opiates Screen Not Detected (Not Detect) Urine Fentanyl Screen Not Detected (Not Detect) Ur Barbiturates Screen Not Detected (Not Detect) Ur Phencyclidine Scrn Not Detected (Not Detect) Ur Amphetamines Screen Not Detected (Not Detect) U Benzodiazepines Scrn Not Detected (Not Detect) Urine Cocaine Screen Not Detected (Not Detect) U Marijuana (THC) Screen Not Detected (Not Detect) Ethyl Alcohol mg/dL Discharge Plan Discharge Clinical Impression: Acute hyperglycemia, Anxiety, Diabetes mellitus Patient Disposition: Home, Self-Care Instructions: Diabetic Hyperglycemia (ED) Additional Instructions: Your blood work was consistent with a high glucose/a Your glucose/ was 300. When you get home make sure you drink lots of fluid to prevent dehydration from a high glucose/sugar Take all of your diabetic medications as prescribed by your doctor when you get home. Follow-up with your doctor in 2 days. Please return to the emergency department if your symptoms get worse or if you develop any symptoms that are concerning to you. Prescriptions: No Action blood sugar diagnostic [Contour Next Test Strips] Strip 1 strip miscellaneous TID 30 Days Qty: 100 4RF Baqsimi 3 mg/actuation spray,non-aerosol 3 mg intranasal ONCE 30 Days Qty: 2 6RF Rx Instructions: [place] once for severe hypoglycemia when patient cannot self-treat with glucose. Afterwards turn on side. May repeat after 15 minutes if patient does not respond. (DME) [facility] Choice Comf Protect XL Misc See Rx Instructions .ROUTE .MEDSUPPLY Qty: 10 0RF Rx Instructions: As directed Trulicity 1.5 mg/0.5 mL pen injector 1.5 mg subcut QWEEK 28 Days Qty: 2 6RF (DME) walker Misc See Rx Instructions .MEDSUPPLY Qty: 1 0RF Rx Instructions: Rollator walker with brakes and seat atorvastatin 80 mg tablet 80 mg PO BEDTIME Qty: 90 1RF (DME) BD AutoShield Duo Pen Needle 30 gauge x 3/16 needle See Rx Instructions .Route Qty: 100 3RF Rx Instructions: As directed once a day acetaminophen [Tylenol 8 Hour] 650 mg tablet extended release 650 mg PO Q8H PRN (Reason: pain) Qty: 60 0RF Rx Instructions: Take in addition to ibuprofen for cramping after your procedure fluconazole [Diflucan] 150 mg tablet 150 mg PO Q3D Qty: 2 0RF nystatin 100,000 unit/gram powder 1 appl topical BID 30 Days Qty: 30 1RF (DME) blood-glucose meter [FreeStyle Lite Meter] Kit See Rx Instructions .ROUTE .MEDSUPPLY Qty: 1 0RF Rx Instructions: As directed 4 x/day ibuprofen 800 mg tablet 800 mg PO Q8H PRN (Reason: pain) Qty: 60 0RF haloperidol 1 mg tablet 1 mg PO BID 0RF tizanidine 2 mg tablet 2 mg PO TID PRN (Reason: muscle spasticity) Qty: 42 0RF cholecalciferol (vitamin D3) 125 mcg (5,000 unit) capsule 125 mcg PO DAILY 0RF biotin 10 mg tablet 10 mg PO DAILY 0RF buspirone 10 mg tablet 10 mg PO BID 0RF (DME) lancets 28 gauge misc See Rx Instructions ea topical TID Qty: 100 0RF Rx Instructions: As directed aripiprazole 10 mg tablet 10 mg PO DAILY 0RF lorazepam 1 mg tablet 1 mg PO DAILY PRN (Reason: anxiety) 0RF citalopram 10 mg tablet 10 mg PO DAILY 0RF haloperidol 2 mg tablet 3 mg PO BID 0RF (DME) pen needle, diabetic 32 gauge x 5/32 needle See Rx Instructions ea subcut QID Qty: 50 11RF Rx Instructions: One daily alcohol swabs Pads, Medicated 4 pad topical DAILY Qty: 100 11RF Touzakiluis manuel SoloStar U-300 Insulin 300 unit/mL (1.5 mL) insulin pen 20 unit subcut BEDTIME Qty: 4.5 4RF repaglinide 0.5 mg tablet 0.5 mg PO TID 30 Days Qty: 90 5RF Rx Instructions: administer within 15 minutes of a meal or snack solifenacin [Vesicare] 10 mg tablet 10 mg PO DAILY 30 Days Qty: 30 3RF Hold Instructions: Doctor's Order cholestyramine (with sugar) 4 gram powder in packet 4 g PO BID 60 Days Qty: 60 6RF Rx Instructions: administer w/meal; avoid other meds within 1hr before or 4-6hr after dose
--- NOTE | 2021-12-21 15:10 | PC.NURSE ---
spoke to saeid the pt's pcp, according to Saeid the pt's sugars have been running high and according to there protocol they need to have a doctor evlaute the pt, poc at home was 390, saeid called EMS but also explained to the pt that she has the right ti refuse to go to the hospital. pt did refuse to go but the EMS worker insisted that the pt get evaluated because she is not answering questions appropriately. Saeid states that the pt lives with and usually is very agreeable, alert and oriented but does have mild developmental delays and if the pt keeps refusing care while in the hospital that the shirt marker will come and pick her up. dr torres is aware of this conversation. Saeid's number before 1699 or after 1699 pt continuous on refusing to have blood work or iv for fluid hydrations, a water pitcher offered and given to bring the sugar down
[2021-12-21 15:50] LABS: MANUAL DIFF FLAG NO
[2021-12-21 15:55] LABS: Appearance Urine CLEAR; Basophils Percent Auto 0.4 % (0-2); Color Urine YELLOW; Eosinophils Absolute Auto 0.1 X10*3/uL (0.0-0.4); Eosinophils Percent Auto 0.8 % (0-4); Glucose Urine UA >=1000 MG/DL (NEG); Hematocrit 42.2 % (37.0-47.0); Hemoglobin 14.8 g/dl (12.0-16.0); Imm Gran Abs Auto 0.02 X10*3/uL (0.00-0.03); Imm Gran Pct Auto 0.3 % (0.0-0.4); Leukocyte Esterase Urine NEG (NEG); Lymphocytes Absolute Auto 2.7 X10*3/uL (1.2-4.9); Lymphocytes Percent Auto 33.2 % (20-40); Mean Corpuscular HGB Conc 35.1 g/dl (31.0-35.0); Mean Corpuscular Hemoglobin 30.3 pg (27.0-33.0); Mean Corpuscular Volume 86.5 fL (80.0-98.0); Mean Platelet Volume 9.3 fL (9.4-12.3); Monocytes Absolute Auto 0.4 X10*3/uL (0.1-1.2); Monocytes Percent Auto 4.9 % (2-11); Neutrophils Absolute Auto 4.8 x10*3/uL (2.0-8.3); Neutrophils Percent Auto 60.4 % (45-73); Nitrite Urine NEG (NEG); Platelet Count 249 X10*3/uL (160-400); Red Blood Count 4.88 X10*6/uL (4.20-5.50); Urine Blood NEG (NEG); Urine Ketones NEG (NEG); Urine Protein NEG (NEG-TRACE)
[2021-12-21 16:02] LABS: Bacteria Urine TRACE /LPF; RBC Urine 0-2 /HPF (0); Squamous Epithelial Cell Urine 1+ /LPF; WBC Urine 0-2 /HPF (0-4)
[2021-12-21 16:11] LABS: Ethanol < 10 mg/dL
[2021-12-21 16:14] LABS: Amphetamine Screen Urine Not Detected (Not Detect); Barbiturates, Urine Not Detected (Not Detect); Benzodiazepines Screen Urine Not Detected (Not Detect); Cannabinoid Screen Urine Not Detected (Not Detect); Cocaine Screen Urine Not Detected (Not Detect); Fentanyl, urine Not Detected (Not Detect); Opiate Screen Urine Not Detected (Not Detect); Phencyclidine Screen Urine Not Detected (Not Detect)
[2021-12-21 16:22] LABS: HCG Quantitative < 2 mIU/mL
[2021-12-21 16:30] LABS: Alanine Aminotransferase 72 U/L (0-31); Alkaline Phosphatase 103 U/L (39-117); Anion Gap 10 (12-20); Aspartate Amino Transferase 68 U/L (5-31); Bilirubin Total 0.5 mg/dL (0.0-1.0); Blood Urea Nitrogen 9 mg/dL (9-16); Calcium 9.9 mg/dL (8.4-10.2); Carbon Dioxide 30 mmol/L (22-29); Chloride 101 mmol/L (96-108); Creatinine Clr Calc Pharmacy 95.3; Estimated Glomerular Filt Rate > 60; Glucose Random 362 mg/dL (60-115); Potassium 4.5 mmol/L (3.3-5.1); Sodium 136 mmol/L (135-145); Total Protein 7.4 g/dL (6.5-8.0)
[2021-12-21 17:02] LABS: Glucose, Whole Blood 303 mg/dL (60-115)
== END 2021-12-21 18:31 | disposition home or self-care (01) ==
PROVIDERS: Emergency Provider Emergency Medicine Emergency Medical Services
DX: E11.65 Type 2 diabetes mellitus with hyperglycemia (principal); F41.1 Generalized anxiety disorder; F43.0 Acute stress reaction; R79.89 Other specified abnormal findings of blood chemistry; F17.210 Nicotine dependence, cigarettes, uncomplicated; Z79.4 Long term (current) use of insulin; Z71.6 Tobacco abuse counseling; Z79.899 Other long term (current) drug therapy
CPT/HCPCS: 36415; 80053; 80307; 81001; 82077; 82947; 84702; 85025; 96360; 99282; 99283; 99284

== ENCOUNTER 2021-12-27 15:10 | Outpatient (REF) | payer MEDICARE, MEDICAID, SELFPAY ==
[2021-12-27 15:23] LABS: MANUAL DIFF FLAG NO
[2021-12-27 15:39] LABS: Basophils Percent Auto 0.5 % (0-2); Eosinophils Absolute Auto 0.1 X10*3/uL (0.0-0.4); Eosinophils Percent Auto 1.2 % (0-4); Hematocrit 41.9 % (37.0-47.0); Hemoglobin 14.3 g/dl (12.0-16.0); Imm Gran Abs Auto 0.01 X10*3/uL (0.00-0.03); Imm Gran Pct Auto 0.1 % (0.0-0.4); Lymphocytes Absolute Auto 3.1 X10*3/uL (1.2-4.9); Lymphocytes Percent Auto 41.1 % (20-40); Mean Corpuscular HGB Conc 34.1 g/dl (31.0-35.0); Mean Platelet Volume 9.3 fL (9.4-12.3); Monocytes Absolute Auto 0.4 X10*3/uL (0.1-1.2); Monocytes Percent Auto 5.5 % (2-11); Neutrophils Absolute Auto 3.9 x10*3/uL (2.0-8.3); Neutrophils Percent Auto 51.6 % (45-73); Platelet Count 250 X10*3/uL (160-400); Red Blood Count 4.76 X10*6/uL (4.20-5.50); White Blood Count 7.5 X10*3/uL (4.8-10.8)
[2021-12-27 15:47] LABS: Estimated Average Glucose 192 mg/dL; Hemoglobin A1c % 8.3 %
[2021-12-27 16:03] LABS: Alanine Aminotransferase 107 U/L (0-31); Alkaline Phosphatase 85 U/L (39-117); Anion Gap 11 (12-20); Aspartate Amino Transferase 110 U/L (5-31); Bilirubin Total 0.9 mg/dL (0.0-1.0); Blood Urea Nitrogen 11 mg/dL (9-16); Calcium 9.3 mg/dL (8.4-10.2); Carbon Dioxide 28 mmol/L (22-29); Chloride 105 mmol/L (96-108); Estimated Glomerular Filt Rate > 60; Glucose Random 123 mg/dL (60-115); Potassium 4.6 mmol/L (3.3-5.1); Sodium 139 mmol/L (135-145); Total Protein 7.4 g/dL (6.5-8.0)
[2021-12-27 16:23] LABS: TSH reflex Free T4 1.17 uIU/mL (0.32-4.0)
[2021-12-27 16:36] LABS: Vitamin B12 453 pg/mL (200-900)
[2021-12-30 16:27] LABS: Vitamin D 25-OH, D2 <4 ng/mL; Vitamin D 25-OH, D3 23 ng/mL; Vitamin D 25-OH, Total 23 ng/mL (30-100)
== END 2021-12-27 15:11 | disposition home or self-care (01) ==
LOC: HO.LAB 15:10
PROVIDERS: PCP Internal Medicine; Visit Provider Nurse Practitioner Acute Care
DX: R25.2 Cramp and spasm (principal)
CPT/HCPCS: 36415; 80053; 82306; 82607; 82746; 83036; 84443; 85025

== ENCOUNTER → 2021-12-31 13:25 | Outpatient (BNVA) | payer MEDICARE, MEDICAID, SELFPAY | PROVIDERS: PCP Internal Medicine; Referring Provider Internal Medicine; Visit Provider Nurse Practitioner | DX: K52.9 Noninfective gastroenteritis and colitis, unspecified (principal) | CPT/HCPCS: 99212 ==

== ENCOUNTER 2022-01-05 13:28 | Outpatient (REF) | payer MEDICARE, MEDICAID, SELFPAY ==
--- NOTE | ~2022-01-05 | MM_ITS ---
EXAMINATION: MM SCREENING DIGITAL BREAST TOMOSYNTHESIS, BILATERAL CLINICAL INFORMATION: Screening. Asymptomatic. The lifetime risk of breast cancer based on the Tyrer-Cuzick Model is 10%. COMPARISON: Mammography: 12/17/2020 (baseline). TECHNIQUE: Digital breast tomosynthesis is performed in both the craniocaudal and mediolateral oblique views along with computer-aided detection (CAD). Synthesized 2D images are generated from the tomosynthesis. Additional bilateral MLO views are provided. FINDINGS: The breasts are almost entirely fatty (ACR BI-RADS breast composition Category a). There are no significant masses, abnormal calcifications, or other abnormalities. Background stromal markings are similar to prior exam. The axilla and skin contours are unremarkable. MM/MM tomosynthesis screening BI IMPRESSION: No mammographic evidence of malignancy. ASSESSMENT: BI-RADS 1: Negative RECOMMENDATION: Routine annual mammography screening. This patient's information was entered into a reminder system with a target due date for their next mammogram.
== END 2022-01-05 13:29 | disposition home or self-care (01) ==
LOC: HO.MAMMO 13:28
PROVIDERS: PCP Internal Medicine; Visit Provider Internal Medicine
DX: Z12.31 Encounter for screening mammogram for malignant neoplasm of breast (principal)
CPT/HCPCS: 77063; 77067

== ENCOUNTER 2022-01-12 13:00 | Outpatient (RCR) | payer MEDICARE, MEDICAID, SELFPAY ==
--- NOTE | 2021-11-16 16:22 | MHC.PT.EP ---
[facility] [place] [facility] [place] [facility] [place] [facility] [address] Edyta Diego [address] [phone] F: [phone] F: [phone] F: [phone] F: [phone] Physical Therapy Plan of Care Date of Evaluation: Date of Surgery: N/A Diagnosis: R hip pain Assessment: pt presents to physical therapy with pain, decreased range of motion, decreased strength, impaired functional mobility, impaired postural awareness, and gait deviations. pt is a good candidate for skilled PT due to age, potential remediation of impairments, typical disease/condition progression and prognosis, comorbidities, and motivation. pt would benefit from tailored strengthening and stretching exercise program, functional training, gait training, postural re-training, neuromuscular re-education, modalities as needed for pain, equipment safety demonstration. Frequency and Duration: The patient will be seen 1x/wk for 6 wks Short Term Goals: pt will be I w/ HEP to promote self-management of symptoms. pt will improve R hip abduction to at least 4/5 to remediate Trendelenburg on even ground w/o LRAD. Sign Artist Goals: pt will demo log rolling technique for bed mobility w/ no verbal cueing to promote improved tolerance for bed mobility. pt will ascend/descend 8 stairs mod I w/ LRAD to promote access to community for social participation. Treatment Plan: Modalities to reduce pain, spasms and effusion. Manual therapy to restore motion and function. Therapeutic exercise to improve strength and flexibility. Neuromuscular re-education for posture and balance. Therapeutic activities to return to functional activities of daily living. Electronically signed by: Apple Joshua PT, DPT Please sign and return to therapist. Thank you for your referral.
--- NOTE | 2022-02-15 15:59 | MHC.PT.DC ---
[facility] [place] [facility] [place] [facility] [place] [facility] [address] Edyta Diego [address] [phone] F: [phone] F: [phone] F: [phone] F: [phone] Physical Therapy Discharge Report Diagnosis: R hip pain Date of Surgery: N/A Date of Evaluation: 11/16/21 Date of Discharge: 02/15/22 Treatments to Date: 7 Cancellations to Date: 2 No Shows to Date: 1 Discharge Status: Recommend MD Follow-up Discharge Summary: The patient was placed on medical hold following multiple changes in her medications, systemic symptoms, and poor glucose control. Her wild animal caretaker, Veronica, was told the patient will be placed on hold for up to four weeks. She has not called back to reschedule the patient. She is being discharged from this physical therapy plan of care. Electronically signed by: Apple Joshua PT, DPT Please sign and return to therapist. Thank you for your referral.
== END 2022-02-15 15:59 | disposition home or self-care (01) ==
LOC: HO.PT 13:00
PROVIDERS: Visit Provider Internal Medicine
DX: M25.551 Pain in right hip (principal)
CPT/HCPCS: 97110; 97140; 97162

== ENCOUNTER 2022-01-12 13:54 | Emergency (ER) | payer MEDICARE, MEDICAID, SELFPAY ==
--- NOTE | 2022-01-12 14:07 | ECG_ITS ---
Test Reason : syncope Blood Pressure : / mmHG Vent. Rate : 090 BPM Atrial Rate : 090 BPM P-R Int : 142 ms QRS Dur : 074 ms QT Int : 356 ms P-R-T Axes : 037 -02 030 degrees QTc Int : 435 ms Normal sinus rhythm Minimal voltage criteria for LVH, may be normal variant ( R in aVL ) Borderline ECG When compared with ECG of 28-NOV-2020 17:27, No significant change was found Referred By: Generic ED Physician Electronically Signed By:CONSTANTINE JONES
[2022-01-12 14:09] VITALS: BP 150/73; PULSE 86; RESP 18; TEMP 37; O2SAT 97; BMI 38.4
== END 2022-01-12 20:07 | disposition left against medical advice (07) ==
PROVIDERS: Emergency Provider Internal Medicine; PCP Internal Medicine
DX: R42 Dizziness and giddiness (principal); E11.9 Type 2 diabetes mellitus without complications; E78.5 Hyperlipidemia, unspecified; Z79.4 Long term (current) use of insulin
CPT/HCPCS: 93005; 99282; 99283

== ENCOUNTER 2022-01-14 15:03 | Emergency (ER) | payer MEDICARE, MEDICAID, SELFPAY ==
--- NOTE | 2022-01-14 | ECG_ITS ---
Test Reason : chest pain Blood Pressure : / mmHG Vent. Rate : 072 BPM Atrial Rate : 072 BPM P-R Int : 152 ms QRS Dur : 074 ms QT Int : 372 ms P-R-T Axes : 034 014 036 degrees QTc Int : 407 ms Normal sinus rhythm with sinus arrhythmia Normal ECG When compared with ECG of 12-JAN-2022 14:13, No significant change was found Referred By: Generic ED Physician Electronically Signed By:CONSTANTINE JONES
--- NOTE | ~2022-01-14 | XR_ITS ---
EXAMINATION: XR CHEST AP UPRIGHT CLINICAL INFORMATION: Chest pain COMPARISON: 04/23/2020 TECHNIQUE: PA and lateral views of the chest obtained. FINDINGS: The lungs are clear. There are no pleural effusions. The cardiomediastinal silhouette is normal. No pneumothorax, rib fracture or bone lesion is detected on this single AP view. XR/XR chest 1V IMPRESSION: No acute cardiopulmonary disease.
[2022-01-14 15:14] VITALS: BP 120/82; PULSE 89
[2022-01-14 15:37] VITALS: BP 125/74; PULSE 81; RESP 18; TEMP 36.5; BMI 39.8
[2022-01-14 15:48] LABS: Glucose, Whole Blood 267 mg/dL (60-115)
--- NOTE | 2022-01-14 15:48 | ED.CHESTPAIN ---
HPI - Chest Pain General Chief Complaint: Chest Pain Stated Complaint: dizzy/cp Time Seen by Provider: 01/14/22 15:43 Source: patient and EMS Mode of arrival: EMS Limitations: no limitations History of Present Illness HPI narrative: 41 years old female with history of diabetes came in for evaluation of chest pain and dizziness. Right-sided chest pain started 2 hours before arrival described as dull aching pain in the right side of the chest pain radiates to the right shoulder pain is constant, no shortness of breath patient feel lightheadedness with the chest pain, no recent travel, no lower extremity swelling, never had chest pain in the past. No aggravating factors, no relieving factors. Patient is type 2 blood sugar was elevated. Related Data Home Medications Medication Instructions Recorded Confirmed lancets 28 gauge #100 ea 06/03/20 10/15/21 buspirone 10 mg tablet 10 mg PO BID 11/09/20 10/15/21 aripiprazole 10 mg tablet 10 mg PO DAILY 06/16/21 10/15/21 citalopram 10 mg tablet 10 mg PO DAILY 06/16/21 10/15/21 lorazepam 1 mg tablet 1 mg PO DAILY PRN anxiety 06/16/21 10/15/21 biotin 10 mg tablet 10 mg PO DAILY 10/07/21 10/15/21 cholecalciferol (vitamin D3) 125 125 mcg PO DAILY 10/07/21 10/15/21 mcg (5,000 unit) capsule cholecalciferol (vitamin D3) 50 50 mcg PO DAILY 12/31/21 mcg (2,000 unit) capsule (D3-2000) haloperidol 5 mg tablet 5 mg PO BID 12/31/21 oxybutynin chloride 15 mg 15 mg PO DAILY 12/31/21 tablet,extended release 24 hr zolpidem 5 mg tablet 5 mg PO BEDTIME PRN 12/31/21 Previous Rx's Medication Instructions Recorded ibuprofen 800 mg tablet 800 mg PO Q8H PRN pain #60 tabs 07/24/20 blood sugar diagnostic (Contour 1 strip miscellaneous TID for 09/14/20 Next Test Strips) diabetes mellitus 30 days #100 strips glucagon 3 mg/actuation nasal 3 mg intranasal ONCE severe 09/17/20 spray (Baqsimi) hypoglycemia 30 days #2 ea diaper,brief,adult,disposable #10 ea 02/16/21 ([place] Choice Comf Protect XL) alcohol swabs 4 pad topical DAILY #100 ea 03/30/21 pen needle, diabetic 32 gauge x #50 ea 03/30/21 5/32 dulaglutide 1.5 mg/0.5 mL 1.5 mg (0.5 mL) subcut QWEEK 28 09/01/21 subcutaneous pen injector days #2 mL (Trulicity) walker #1 ea 09/24/21 atorvastatin 80 mg tablet 80 mg PO BEDTIME #90 tabs 09/30/21 insulin glargine U-300 conc 300 20 unit (0.0667 mL) subcut BEDTIME 10/17/21 unit/mL (1.5 mL) subcutaneous pen #4.5 mL (Toujeo SoloStar U-300 Insulin) repaglinide 0.5 mg tablet 0.5 mg PO TID 30 days #90 tabs 10/17/21 pen needle,diabetic dual safty 30 #100 ea 11/04/21 gauge x 3/16 (BD AutoShield Duo Pen Needle) fluconazole 150 mg tablet 150 mg PO Q3D 2 doses #2 tabs 11/22/21 (Diflucan) solifenacin 10 mg tablet (Vesicare) 10 mg PO DAILY 30 days #30 tabs 11/23/21 nystatin 100,000 unit/gram topical 1 appl topical BID 30 days #30 11/25/21 powder grams cholestyramine (with sugar) 4 gram 4 g PO BID diarrhea 60 days #60 ea 12/03/21 powder for susp in a packet tizanidine 2 mg tablet 2 mg PO TID PRN muscle spasticity 12/14/21 #42 tabs blood-glucose meter (FreeStyle #1 ea 12/21/21 Lite Meter) Allergies Allergy/AdvReac Type Severity Reaction Status Date / Time meperidine [Demerol] Allergy Intermediate Hives Verified 12/31/21 13:43 From Prozac Allergy Severe SEVERE Uncoded 12/31/21 13:43 AGITATION Review of Systems Review of Systems: All other systems are reviewed and are negative Constitutional: Reports as per HPI and Reports no additional constitutional complaints Eyes: Reports as per HPI and Reports no additional eye complaints Reports system reviewed and no additional complaints, except as documented Cardiovascular: Reports as per HPI and Reports no additional cardiovascular complaints Respiratory: Reports as per HPI and Reports no additional respiratory complaints Gastrointestinal: Reports as per HPI and Reports no additional gastrointestinal complaints Genitourinary: Reports no additional female genitourinary complaints Musculoskeletal: Reports no additional musculoskeletal complaints Skin/Breast: Reports system reviewed and no additional complaints, except as docu Psychiatric: Reports no additional psychiatric complaints Endocrine: Reports no additional endocrine complaints Hematologic/Lymphatic: Reports no additional hematologic/lymphatic complaints Allergic/Immunologic: Reports no additional allergic/immunologic complaints Reports system reviewed and no additional complaints, except as documented and Reports Abnormal speech present [facility] Past Medical History Medical History Acute depression Anxiety Arthritis BMI 40.0-44.9, adult Chronic diarrhea Diabetes Diabetes type 2, uncontrolled Dyslipidemia Elevated LFTs Epilepsy Hyperlipidemia LDL goal <100 Insomnia 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 Social History Social History Household Members: Spouse Housing: Apartment Housing Other:: studio Are you a primary residential child care counselor to a significant other at home: No Do you presently have visiting nurse or other home services: Yes Alcohol intake: former Patient Tobacco Use Status: Current everyday Tobacco user Tobacco use type: Cigarette Cigarette Packs Per Day: 0 Cigarettes Per Day: 6 e-Cigarette/Vaping Use: Never Used Second Hand Smoke Exposure: No Advance Directives: No Advance Directives Information Provided: No service: No Current occupational status: disabled Current occupation: lt handed Sexual orientation: Straight/Heterosexual Gender identity: Female Cognitive needs: Yes Hearing needs: No Vision needs: Yes Physical Exam Vital Signs: Vital Signs: Last Vital Signs Temp 97.7 F 01/14/22 15:37 Pulse 81 01/14/22 15:37 Resp 18 01/14/22 15:37 BP 125/74 01/14/22 15:37 BMI result Body Mass Index 39.8 Vital signs have been reviewed as appeared to be correct. Blood pressure normal. Heart rate normal. Respiration rate normal. Temperature normal. Oxygen saturation normal. Appearance: Alert. Oriented X3. No acute distress. Head: Normal external exam. Normocephalic. Atraumatic. No Mixon signs noted. No raccoon eyes noted Eyes: PERRLA. EOMI. Conjunctiva and sclera normal. Eyelids normal. ENT: TM's Normal. Pharynx normal. Uvula midline. Moist mucous membranes. No trismus noted. No drooling noted. No muffled voice noted. Neck: Normal inspection. Neck supple. FROM. No adenopathy. Thyroid Normal. No meningeal signs. No neck mass noted. CVS: Normal heart rate and rhythm. Heart sound normal. No murmurs noted. Pulses normal throughout. Respiratory: No respiratory distress. Painless inspiration. Breath sounds normal. No wheezes/rales/rhonchi noted. Chest nontender. No accessory muscle usage noted or decreased air movement noted. Abdomen: Soft and nontender. Bowel sounds normal in all 4 quadrants. No distention noted. No organomegaly noted. No visible injury noted. Back: No CVA tenderness. Full range of motion noted. Skin: Skin warm and dry. Normal skin color. Normal skin turgor. No rashes/lesions/lacerations noted. Extremities: No lower extremity edema. Extremities exhibit normal range of motion. Extremities nontender. Neuro: Oriented X 3. Cranial nerve exam: II-XII are grossly intact No motor deficit. No sensory deficit. Reflexes normal. Course Course Course Narrative: Assessment and plan. 41-year-old female came in with chest pain, patient with HEART score of 2, no risk for PE/DVT with negative D-dimer. Will discharge to follow-up with PCP. [facility] - Chest Pain Medical Records Data Attestation: I reviewed the patient's medical records. Lab Data Attestation: I reviewed the patient's lab results. Result diagrams: 01/14/22 16:43 01/14/22 16:43 Labs: Lab Results 01/14/22 01/14/22 01/14/22 Range/Units 15:44 16:43 16:43 WBC 7.2 (4.8-10.8) X10*3/uL RBC 4.43 (4.20-5.50) X10*6/uL Hgb 13.4 (12.0-16.0) g/dl Hct 38.4 (37.0-47.0) % MCV 86.7 (80.0-98.0) fL MCH 30.2 (27.0-33.0) pg MCHC 34.9 (31.0-35.0) g/dl RDW 12.0 (11.0-16.0) % Plt Count 215 (160-400) X10*3/uL MPV 9.0 L (9.4-12.3) fL Immature Gran % (Auto) 0.3 (0.0-0.4) % Neut % (Auto) 54.8 (45-73) % Lymph % (Auto) 36.2 (20-40) % Bartholomew % (Auto) 6.7 (2-11) % Eos % (Auto) 1.4 (0-4) % Baso % (Auto) 0.6 (0-2) % Lymph # (Auto) 2.6 (1.2-4.9) X10*3/uL Bartholomew # (Auto) 0.5 (0.1-1.2) X10*3/uL Eos # (Auto) 0.1 (0.0-0.4) X10*3/uL Baso # (Auto) 0.0 (0.0-0.2) X10*3/uL Abs Immat Gran (auto) 0.02 (0.00-0.03) X10*3/uL Absolute Neuts (auto) 3.9 (2.0-8.3) x10*3/uL Absolute Nucleated RBC 0.000 (0.0-0.012) X10*3/uL Nucleated RBC % (auto) 0.0 (0.0-0.2) /100WBC D-Dimer High Sensitivty NG/ML Sodium 136 (135-145) mmol/L Potassium 4.3 (3.3-5.1) mmol/L Chloride 103 (96-108) mmol/L Carbon Dioxide 27 (22-29) mmol/L Anion Gap 10 L (12-20) BUN 7 L (9-16) mg/dL Creatinine 0.82 (0.5-1.4) mg/dL Estim Creat Clear Calc 100.9 Estimated GFR > 60 POC Glucose 267 H (60-115) mg/dL Random Glucose 282 H (60-115) mg/dL Calcium 8.6 D (8.4-10.2) mg/dL Total Bilirubin 0.6 (0.0-1.0) mg/dL Direct Bilirubin 0.2 (0.0-0.5) mg/dL AST 90 H (5-31) U/L ALT 84 H (0-31) U/L Alkaline Phosphatase 102 (39-117) U/L Troponin I High Sens (<3.5-17.0) ng/L B-Natriuretic Peptide (<100) pg/mL Total Protein 6.7 (6.5-8.0) g/dL Albumin 3.7 (3.5-5.0) g/dL Lipase 54 (8-78) U/L 01/14/22 01/14/22 Range/Units 16:43 16:43 WBC (4.8-10.8) X10*3/uL RBC (4.20-5.50) X10*6/uL Hgb (12.0-16.0) g/dl Hct (37.0-47.0) % MCV (80.0-98.0) fL MCH (27.0-33.0) pg MCHC (31.0-35.0) g/dl RDW (11.0-16.0) % Plt Count (160-400) X10*3/uL MPV (9.4-12.3) fL Immature Gran % (Auto) (0.0-0.4) % Neut % (Auto) (45-73) % Lymph % (Auto) (20-40) % Bartholomew % (Auto) (2-11) % Eos % (Auto) (0-4) % Baso % (Auto) (0-2) % Lymph # (Auto) (1.2-4.9) X10*3/uL Bartholomew # (Auto) (0.1-1.2) X10*3/uL Eos # (Auto) (0.0-0.4) X10*3/uL Baso # (Auto) (0.0-0.2) X10*3/uL Abs Immat Gran (auto) (0.00-0.03) X10*3/uL Absolute Neuts (auto) (2.0-8.3) x10*3/uL Absolute Nucleated RBC (0.0-0.012) X10*3/uL Nucleated RBC % (auto) (0.0-0.2) /100WBC D-Dimer High Sensitivty < 150 NG/ML Sodium (135-145) mmol/L Potassium (3.3-5.1) mmol/L Chloride (96-108) mmol/L Carbon Dioxide (22-29) mmol/L Anion Gap (12-20) BUN (9-16) mg/dL Creatinine (0.5-1.4) mg/dL Estim Creat Clear Calc Estimated GFR POC Glucose (60-115) mg/dL Random Glucose (60-115) mg/dL Calcium (8.4-10.2) mg/dL Total Bilirubin (0.0-1.0) mg/dL Direct Bilirubin (0.0-0.5) mg/dL AST (5-31) U/L ALT (0-31) U/L Alkaline Phosphatase (39-117) U/L Troponin I High Sens < 3.5 (<3.5-17.0) ng/L B-Natriuretic Peptide 29 (<100) pg/mL Total Protein (6.5-8.0) g/dL Albumin (3.5-5.0) g/dL Lipase (8-78) U/L Imaging Data Chest x-ray: Attestation: I personally reviewed and interpreted this imaging study as follows: Radiologist's impression: No acute cardiopulmonary disease. ECG Data ECG #1: Attestation: I personally reviewed and interpreted this ECG as follows: Interpretation: Normal sinus rhythm at 72 beats per minutes, normal intervals, no ST-T changes. Discharge Plan Discharge Clinical Impression: Chest pain, Hyperglycemia Patient Disposition: Home, Self-Care Instructions: Diabetic Hyperglycemia (ED) Prescriptions: No Action blood sugar diagnostic [Contour Next Test Strips] Strip 1 strip miscellaneous TID 30 Days Qty: 100 4RF Baqsimi 3 mg/actuation spray,non-aerosol 3 mg intranasal ONCE 30 Days Qty: 2 6RF Rx Instructions: Alna once for severe hypoglycemia when patient cannot self-treat with glucose. Afterwards turn on side. May repeat after 15 minutes if patient does not respond. (DME) [place] Choice Comf Protect XL Misc See Rx Instructions .ROUTE .MEDSUPPLY Qty: 10 0RF Rx Instructions: As directed Trulicity 1.5 mg/0.5 mL pen injector 1.5 mg subcut QWEEK 28 Days Qty: 2 6RF (DME) walker Misc See Rx Instructions .MEDSUPPLY Qty: 1 0RF Rx Instructions: Rollator walker with brakes and seat atorvastatin 80 mg tablet 80 mg PO BEDTIME Qty: 90 1RF (DME) BD AutoShield Duo Pen Needle 30 gauge x 3/16 needle See Rx Instructions .Route Qty: 100 3RF Rx Instructions: As directed once a day fluconazole [Diflucan] 150 mg tablet 150 mg PO Q3D Qty: 2 0RF nystatin 100,000 unit/gram powder 1 appl topical BID 30 Days Qty: 30 1RF (DME) blood-glucose meter [FreeStyle Lite Meter] Kit See Rx Instructions .ROUTE .MEDSUPPLY Qty: 1 0RF Rx Instructions: As directed 4 x/day ibuprofen 800 mg tablet 800 mg PO Q8H PRN (Reason: pain) Qty: 60 0RF tizanidine 2 mg tablet 2 mg PO TID PRN (Reason: muscle spasticity) Qty: 42 0RF cholecalciferol (vitamin D3) 125 mcg (5,000 unit) capsule 125 mcg PO DAILY biotin 10 mg tablet 10 mg PO DAILY buspirone 10 mg tablet 10 mg PO BID (DME) lancets 28 gauge misc See Rx Instructions topical TID Qty: 100 Rx Instructions: As directed aripiprazole 10 mg tablet 10 mg PO DAILY lorazepam 1 mg tablet 1 mg PO DAILY PRN (Reason: anxiety) citalopram 10 mg tablet 10 mg PO DAILY (DME) pen needle, diabetic 32 gauge x 5/32 needle See Rx Instructions subcut QID Qty: 50 11RF Rx Instructions: One daily alcohol swabs Pads, Medicated 4 pad topical DAILY Qty: 100 11RF [employer] SoloStar U-300 Insulin 300 unit/mL (1.5 mL) insulin pen 20 unit subcut BEDTIME Qty: 4.5 4RF repaglinide 0.5 mg tablet 0.5 mg PO TID 30 Days Qty: 90 5RF Rx Instructions: administer within 15 minutes of a meal or snack zolpidem 5 mg tablet 5 mg PO BEDTIME PRN haloperidol 5 mg tablet 5 mg PO BID oxybutynin chloride 15 mg tablet extended release 24hr 15 mg PO DAILY cholecalciferol (vitamin D3) [D3-2000] 50 mcg (2,000 unit) capsule 50 mcg PO DAILY solifenacin [Vesicare] 10 mg tablet 10 mg PO DAILY 30 Days Qty: 30 3RF Hold Instructions: Doctor's Order cholestyramine (with sugar) 4 gram powder in packet 4 g PO BID 60 Days Qty: 60 6RF Rx Instructions: administer w/meal; avoid other meds within 1hr before or 4-6hr after dose Referrals: Ani Javier MD [Primary Care Provider] -
[2022-01-14] MEDS: 0.9 % Sodium Chloride 1,000 ML 999 ML IV (16:44)
[2022-01-14 16:47] LABS: MANUAL DIFF FLAG NO
[2022-01-14 16:48] LABS: Basophils Percent Auto 0.6 % (0-2); Eosinophils Absolute Auto 0.1 X10*3/uL (0.0-0.4); Eosinophils Percent Auto 1.4 % (0-4); Hematocrit 38.4 % (37.0-47.0); Hemoglobin 13.4 g/dl (12.0-16.0); Imm Gran Abs Auto 0.02 X10*3/uL (0.00-0.03); Imm Gran Pct Auto 0.3 % (0.0-0.4); Lymphocytes Absolute Auto 2.6 X10*3/uL (1.2-4.9); Lymphocytes Percent Auto 36.2 % (20-40); Mean Corpuscular HGB Conc 34.9 g/dl (31.0-35.0); Mean Corpuscular Hemoglobin 30.2 pg (27.0-33.0); Mean Corpuscular Volume 86.7 fL (80.0-98.0); Monocytes Absolute Auto 0.5 X10*3/uL (0.1-1.2); Monocytes Percent Auto 6.7 % (2-11); Neutrophils Absolute Auto 3.9 x10*3/uL (2.0-8.3); Neutrophils Percent Auto 54.8 % (45-73); Platelet Count 215 X10*3/uL (160-400); Red Blood Count 4.43 X10*6/uL (4.20-5.50); White Blood Count 7.2 X10*3/uL (4.8-10.8)
[2022-01-14 17:09] LABS: Alanine Aminotransferase 84 U/L (0-31); Albumin Level 3.7 g/dL (3.5-5.0); Alkaline Phosphatase 102 U/L (39-117); Anion Gap 10 (12-20); Aspartate Amino Transferase 90 U/L (5-31); Bilirubin Direct 0.2 mg/dL (0.0-0.5); Bilirubin Total 0.6 mg/dL (0.0-1.0); Blood Urea Nitrogen 7 mg/dL (9-16); Calcium 8.6 mg/dL (8.4-10.2); Carbon Dioxide 27 mmol/L (22-29); Chloride 103 mmol/L (96-108); Creatinine Clr Calc Pharmacy 100.9; Estimated Glomerular Filt Rate > 60; Glucose Random 282 mg/dL (60-115); Lipase 54 U/L (8-78); Potassium 4.3 mmol/L (3.3-5.1); Sodium 136 mmol/L (135-145); Total Protein 6.7 g/dL (6.5-8.0)
[2022-01-14 17:12] LABS: B Type Natriuretic Peptide 29 pg/mL (<100); Troponin-I High Sensitivity < 3.5 ng/L (<3.5-17.0)
[2022-01-14 17:17] LABS: D Dimer High Sensitivity < 150 NG/ML
[2022-01-14 20:00] VITALS: BP 141/72; PULSE 78; RESP 20; TEMP 37.1; O2SAT 99
[2022-01-14 20:49] LABS: Troponin-I High Sensitivity < 3.5 ng/L (<3.5-17.0)
--- NOTE | 2022-01-14 20:55 | PC.NURSE ---
Per MD no spiral tube winder helper needed at this time.
== END 2022-01-14 21:01 | disposition home or self-care (01) ==
PROVIDERS: Emergency Provider Emergency Medicine; PCP Internal Medicine
DX: R07.9 Chest pain, unspecified (principal); E11.65 Type 2 diabetes mellitus with hyperglycemia; R42 Dizziness and giddiness; Z79.4 Long term (current) use of insulin
CPT/HCPCS: 36415; 71045; 80048; 80076; 82947; 83690; 83880; 84484; 85025; 85379; 93005; 96360; 99284

== ENCOUNTER → 2022-01-18 12:33 | Outpatient (BNVA) | payer MEDICARE, MEDICAID, SELFPAY | PROVIDERS: PCP Internal Medicine; Visit Provider Registered Nurse Diabetes Educator | DX: E11.42 Type 2 diabetes mellitus with diabetic polyneuropathy (principal); Z79.4 Long term (current) use of insulin | CPT/HCPCS: 82947; 99211 ==

== ENCOUNTER 2022-02-04 14:56 | Emergency (ER) | payer MEDICARE, MEDICAID, SELFPAY ==
[2022-02-04 15:09] VITALS: BP 136/92; PULSE 86; O2SAT 96
[2022-02-04 15:16] VITALS: BP 140/90; PULSE 112; RESP 18; TEMP 36.9; O2SAT 100; BMI 40.7
--- NOTE | 2022-02-04 15:22 | ECG_ITS ---
Test Reason : weakness x weeks Blood Pressure : / mmHG Vent. Rate : 106 BPM Atrial Rate : 106 BPM P-R Int : 142 ms QRS Dur : 076 ms QT Int : 342 ms P-R-T Axes : 035 -02 041 degrees QTc Int : 454 ms Sinus tachycardia Otherwise normal ECG When compared with ECG of 14-JAN-2022 15:07, No significant change was found Referred By: Generic ED Physician Electronically Signed By:CONSTANTINE JONES
[2022-02-04 17:32] LABS: Glucose, Whole Blood 129 mg/dL (60-115)
== END 2022-02-04 20:07 | disposition left against medical advice (07) ==
LOC: HO.ED 20:06
PROVIDERS: Emergency Provider Emergency Medicine; PCP Internal Medicine
DX: R07.89 Other chest pain (principal); R17 Unspecified jaundice; R53.1 Weakness; Z79.899 Other long term (current) drug therapy
CPT/HCPCS: 82947; 93005; 99281; 99283

== ENCOUNTER 2022-02-11 10:42 | Outpatient (REF) | payer MEDICARE, MEDICAID, SELFPAY ==
--- NOTE | ~2022-02-11 | XR_ITS ---
EXAMINATION: XR HIP, RIGHT XR HIP, LEFT CLINICAL INFORMATION: Bilateral hip pain COMPARISON: CT abdomen and pelvis 06/29/2014. TECHNIQUE: Each hip is imaged in AP and frog-lateral projections. There are total of 4 views. FINDINGS: The bilateral hips show no fracture, dislocation, or destructive process. Normal bony mineralization. There is no hip joint narrowing or erosive change or chondrocalcinosis. There is mild spurring from the bilateral greater trochanters, similar to CT 2014. The SI joints and pubis are unremarkable. XR/XR hip RT min 2V IMPRESSION: -No hip joint narrowing or erosive change. -Chronic mild spurring from the superior aspect bilateral greater trochanters, similar to CT 2014.
--- NOTE | ~2022-02-11 | XR_ITS ---
EXAMINATION: XR HIP, RIGHT XR HIP, LEFT CLINICAL INFORMATION: Bilateral hip pain COMPARISON: CT abdomen and pelvis 06/29/2014. TECHNIQUE: Each hip is imaged in AP and frog-lateral projections. There are total of 4 views. FINDINGS: The bilateral hips show no fracture, dislocation, or destructive process. Normal bony mineralization. There is no hip joint narrowing or erosive change or chondrocalcinosis. There is mild spurring from the bilateral greater trochanters, similar to CT 2014. The SI joints and pubis are unremarkable. XR/XR hip LT min 2V IMPRESSION: -No hip joint narrowing or erosive change. -Chronic mild spurring from the superior aspect bilateral greater trochanters, similar to CT 2014.
--- NOTE | ~2022-02-11 | XR_ITS ---
EXAMINATION: XR SHOULDER, RIGHT XR SHOULDER, LEFT CLINICAL INFORMATION: Bilateral shoulder pain. COMPARISON: None TECHNIQUE: Right shoulder is imaged in 4 views. Left shoulder is imaged in 3 views. FINDINGS: Right: No fracture, dislocation, or destructive process. Normal bony mineralization. No joint narrowing or erosive change. Acromioclavicular alignment normal. No visible rotator cuff calcifications. Left: No fracture, dislocation, or destructive process. Normal bony mineralization. No joint narrowing or erosive change. Acromioclavicular alignment normal. No visible rotator cuff calcifications. XR/XR shoulder LT min 2V IMPRESSION: Normal bilateral shoulder.
--- NOTE | ~2022-02-11 | XR_ITS ---
EXAMINATION: XR SHOULDER, RIGHT XR SHOULDER, LEFT CLINICAL INFORMATION: Bilateral shoulder pain. COMPARISON: None TECHNIQUE: Right shoulder is imaged in 4 views. Left shoulder is imaged in 3 views. FINDINGS: Right: No fracture, dislocation, or destructive process. Normal bony mineralization. No joint narrowing or erosive change. Acromioclavicular alignment normal. No visible rotator cuff calcifications. Left: No fracture, dislocation, or destructive process. Normal bony mineralization. No joint narrowing or erosive change. Acromioclavicular alignment normal. No visible rotator cuff calcifications. XR/XR shoulder RT min 2V IMPRESSION: Normal bilateral shoulder.
== END 2022-02-11 10:43 | disposition home or self-care (01) ==
LOC: HO.XRAY 10:42
PROVIDERS: PCP Internal Medicine; Visit Provider Internal Medicine
DX: Z13.89 Encounter for screening for other disorder (principal)
CPT/HCPCS: 73030; 73502

== ENCOUNTER 2022-02-11 11:23 | Emergency (ER) | payer MEDICARE, MEDICAID, SELFPAY ==
--- NOTE | ~2022-02-11 | XR_ITS ---
EXAMINATION: XR LUMBOSACRAL SPINE CLINICAL INFORMATION: Bilateral leg weakness COMPARISON: 04/22/2007 TECHNIQUE: Three views of the lumbosacral spine. FINDINGS: Normal alignment and lumbar lordosis. No fracture. Small anterior endplate osteophytes without significant joint space narrowing, new since the previous study. Moderate degenerative disc disease is noted at T10-T11. No spondylolysis or spondylolisthesis. XR/XR lumbar spine 2-3V IMPRESSION: Normal alignment with mild multilevel degenerative disc disease.
[2022-02-11 11:30] VITALS: BP 138/72; PULSE 108; RESP 18; TEMP 36.1; O2SAT 97; BMI 29.2
--- NOTE | 2022-02-11 13:10 | ED_ITS ---
HPI - General Adult General Chief complaint: General Medical Stated complaint: seizure Time Seen by Provider: 02/11/22 13:05 Source: patient Mode of arrival: wheelchair Limitations: physical limitation (patient has a developmental delay) History of Present Illness HPI narrative: Patient is a 41 year old female presenting to the emergency department today after she felt she was about to have a seizure. Patient states that 2 weeks ago, she got a shot of invega and ever since, has had some bilateral leg weakness. Patient states that she was here to get x-rays when she felt like she was going to seize, but she didn't. Patient denies any dizziness, lightheadedness, abdominal pain, nausea, vomiting, fever, chills, blurry vision, double vision, loss of vision, chest pain, difficulty breathing, shortness of breath, back pain, night sweats, pain with urination, increased urinary frequency, increased urinary urgency, blood in her urine or stool, syncope or a near syncopal episode, recent trauma or falls, bowel incontinence, bladder incontinence, bowel retention, bladder retention, or any other complaints at this time. Patient lives in a [facility] for mild cognitive delay and psychiatric disorders. Severity scale (1-10): 1 Relieving factors: none Exacerbating factors: none Associated symptoms: denies other symptoms Treatments prior to arrival: none Related Data Home Medications Medication Instructions Recorded Confirmed lancets 28 gauge #100 ea 06/03/20 02/09/22 buspirone 10 mg tablet 10 mg PO BID 11/09/20 02/09/22 aripiprazole 10 mg tablet 10 mg PO DAILY 06/16/21 02/09/22 citalopram 10 mg tablet 10 mg PO DAILY 06/16/21 02/09/22 biotin 10 mg tablet 10 mg PO DAILY 10/07/21 02/09/22 cholecalciferol (vitamin D3) 125 125 mcg PO DAILY 10/07/21 02/09/22 mcg (5,000 unit) capsule cholecalciferol (vitamin D3) 50 50 mcg PO DAILY 12/31/21 02/09/22 mcg (2,000 unit) capsule (D3-1999) haloperidol 5 mg tablet 5 mg PO BID 12/31/21 02/09/22 oxybutynin chloride 15 mg 15 mg PO DAILY 12/31/21 02/09/22 tablet,extended release 24 hr zolpidem 5 mg tablet 5 mg PO BEDTIME PRN 12/31/21 02/09/22 insulin glargine U-300 conc 300 24 unit subcut BEDTIME 02/09/22 02/09/22 unit/mL (1.5 mL) subcutaneous pen (Toujeo SoloStar U-300 Insulin) Previous Rx's Medication Instructions Recorded blood sugar diagnostic (Contour 1 strip miscellaneous TID for 09/14/20 Next Test Strips) diabetes mellitus 30 days #100 strips glucagon 3 mg/actuation nasal 3 mg intranasal ONCE severe 09/17/20 spray (Baqsimi) hypoglycemia 30 days #2 ea diaper,brief,adult,disposable #10 ea 02/16/21 ([place] Comf Protect XL) alcohol swabs 4 pad topical DAILY #100 ea 03/30/21 pen needle, diabetic 32 gauge x #50 ea 03/30/21 dulaglutide 1.5 mg/0.5 mL 1.5 mg (0.5 mL) subcut QWEEK 28 09/01/21 subcutaneous pen injector days #2 mL (Trulicity) walker #1 ea 09/24/21 atorvastatin 80 mg tablet 80 mg PO BEDTIME #90 tabs 09/30/21 repaglinide 0.5 mg tablet 0.5 mg PO TID 30 days #90 tabs 10/17/21 pen needle,diabetic dual safty 30 #100 ea 11/04/21 gauge x 3/16 (BD AutoShield Duo Pen Needle) solifenacin 10 mg tablet (Vesicare) 10 mg PO DAILY 30 days #30 tabs 11/23/21 nystatin 100,000 unit/gram topical 1 appl topical BID 30 days #30 11/25/21 powder grams cholestyramine (with sugar) 4 gram 4 g PO BID diarrhea 60 days #60 ea 12/03/21 powder for susp in a packet tizanidine 2 mg tablet 2 mg PO TID PRN muscle spasticity 12/14/21 #42 tabs blood-glucose meter (FreeStyle #1 ea 12/21/21 Lite Meter) ibuprofen 800 mg tablet 800 mg PO Q8H PRN pain 30 days #90 02/09/22 tabs loperamide 2 mg capsule 2 mg PO Q6H PRN loose stool 30 02/09/22 days #90 caps Allergies Allergy/AdvReac Type Severity Reaction Status Date / Time meperidine [Demerol] Allergy Intermediate Hives Verified 02/09/22 14:52 From Prozac Allergy Severe SEVERE Uncoded 02/09/22 14:52 AGITATION Review of Systems Constitutional: Constitutional: Reports no additional constitutional complaints, Denies chills, Denies fever(s) and Denies night sweats Eyes: Eyes: Reports no additional eye complaints, Denies blurry vision, Denies change in vision, Denies diplopia, Denies eye discharge, Denies loss of vision and Denies eye pain ENT: Denies dizziness Cardiovascular: Cardiovascular: Reports no additional cardiovascular complaints, Denies chest pain, Denies lightheadedness, Denies Loss of Consciousness and Denies dyspnea Respiratory: Respiratory: Reports no additional respiratory complaints and Denies dyspnea Gastrointestinal: Gastrointestinal: Reports no additional gastrointestinal complaints, Denies abdominal pain, Denies melena, Denies hematochezia, Denies change in bowel habits and Denies change in stool character Genitourinary: Genitourinary: Denies hematuria, Denies urinary frequency, Denies dysuria, Denies urinary incontinence, Denies urinary hesitancy and Denies urinary urgency Musculoskeletal: Musculoskeletal: Reports no additional musculoskeletal complaints, Denies numbness and Denies tingling Neurologic: Denies dizziness, Denies loss of vision, Denies numbness and Denies tingling Psychiatric: Psychiatric: Reports no additional psychiatric complaints Endocrine: Endocrine: Reports no additional endocrine complaints Hematologic/Lymphatic: Hematologic/Lymphatic: Reports no additional hematologic/lymphatic complaints Allergic/Immunologic: Allergic/Immunologic: Reports no additional allergic/immunologic complaints [facility] Past Medical History Attestation statement: The following information was validated with the patient. Source: old records reviewed Medical History Acute depression Anxiety Arthritis BMI 40.0-44.9, adult Chronic diarrhea Diabetes Diabetes type 2, uncontrolled Dyslipidemia Elevated LFTs Epilepsy Hyperlipidemia LDL goal <100 Insomnia longterm current use of insulin Low vitamin D level Mild developmental delay Mild episode of recurrent major depressive disorder Mild intellectual disability Obesity Obesity due to excess calories Overactive bladder PTSD (post-traumatic stress disorder) Right hip pain Snores Type 2 diabetes mellitus with diabetic polyneuropathy Surgical History History of bilateral tubal ligation History of hysteroscopy Hx of cholecystectomy Family History Family History Father Diabetes Mental health disorder Mother No problems noted. Social History Social History Household Members: Spouse Housing: Apartment Housing Other:: studio Are you a primary physician locums urgent care to a significant other at home: No Do you presently have visiting nurse or other home services: Yes Alcohol intake: former Patient Tobacco Use Status: Former Tobacco user Tobacco use type: Cigarette Cigarette Packs Per Day: 0 Cigarettes Per Day: 6 e-Cigarette/Vaping Use: Never Used Second Hand Smoke Exposure: No Advance Directives: No Advance Directives Information Provided: No service: No Current occupational status: disabled Current occupation: lt handed Sexual orientation: Straight/Heterosexual Gender identity: Female Cognitive needs: Yes Hearing needs: No Vision needs: Yes Physical Exam ED Vital Signs: Vital Signs - 24 hr 02/11/22 11:30 02/11/22 13:54 02/11/22 15:08 Temperature 96.9 F Pulse Rate 108 H 88 84 Respiratory Rate 18 14 16 Blood Pressure 138/72 122/75 132/73 Pulse Oximetry 97 96 97 Oxygen Delivery Method Room Air Room Air Room Air BMI result Body Mass Index 29.2 Const General: cooperative, no acute distress, alert and awake Nutritional Appearance: well nourished Orientation/consciousness: patient oriented x3 Limitations: no limitations HENMT Head: Yes normal to inspection and Yes atraumatic Ears: hearing grossly normal bilaterally and external ears normal General nose exam: Normal external nose present, no nasal discharge noted and no epistaxis Face and sinus: Yes normal facial exam, No abrasion and No laceration Mouth: Normal oral and palatal mucosa present, no drooling and no muffled voice Eyes General: appearance normal, both eyes and all related structures Periorbital: periorbital findings normal Eyelids: Yes eyelids normal Conjunctivae: conjunctivae normal Pupils: Equal, round and reactive pupils present EOM: EOMs intact bilaterally Neck Neck: Yes normal visual inspection, Yes full ROM and Yes no lymphadenopathy Chest Chest palpation & inspection: normal inspection of the chest Resp Effort & Inspection: normal respiratory effort and able to speak in complete sentences Auscultation: clear to auscultation bilaterally Cardio Rate: regular rate Rhythm: regular rhythm GI Inspection: Yes normal to inspection Neuro General: patient oriented x3 and moves all extremities Cranial nerves: Yes Equal, round and reactive pupils present Cognition (Neuro): normal cognition Motor exam (neuro): 5/5 motor strength present throughout Sensory Exam: Normal double simultaneous stimulation for sensation Coordination: [id number] test normal Extrem General: Yes normal to inspection, Yes full ROM and Yes capillary refill normal Psych Appearance: grossly normal Mental Status: mental status grossly normal Affect: normal affect Attitude: cooperative Thought process: Normal thought process present Thought content: Normal thought content present Insight: Good insight present (Psych) Medical Decision Making MDM Narrative Medical decision making narrative: Patient is a 41 year old female presenting to the emergency department today after feeling that she was about to have a seizure. Patient's physical exam was unremarkable. Patient's blood work was unremarkable. Patient's lumbar x-ray showed no acute process. I explained my physical exam findings as well as all test results to the patient. I answered all questions asked by the patient. I stressed the importance of the patient taking her medication as prescribed. I stressed the importance of the patient following up with her primary care provider. I stressed the importance of the patient returning to the emergency department immediately if her symptoms were to worsen or if she were to develop any dizziness, shortness of breath, difficulty breathing, chest pain, blurry vision, loss of vision, nausea, vomiting, abdominal pain, fever, chills, back pain, or any other complaints. Patient verbalized agreement and understanding with this treatment plan and discharge. Medical Records Medical records reviewed: Yes I reviewed the patient's medical records. Lab Data Lab results reviewed: Yes I reviewed the patient's lab results. Result diagrams: 02/11/22 14:03 02/11/22 14:03 Labs: Lab Results 02/11/22 02/11/22 02/11/22 Range/Units 13:59 14:03 14:03 WBC 7.5 (4.8-10.8) X10*3/uL RBC 4.87 (4.20-5.50) X10*6/uL Hgb 15.0 (12.0-16.0) g/dl Hct 42.1 (37.0-47.0) % MCV 86.4 (80.0-98.0) fL MCH 30.8 (27.0-33.0) pg MCHC 35.6 H (31.0-35.0) g/dl RDW 12.1 (11.0-16.0) % Plt Count 239 (160-400) X10*3/uL MPV 8.7 L (9.4-12.3) fL Immature Gran % (Auto) 0.3 (0.0-0.4) % Neut % (Auto) 68.6 (45-73) % Lymph % (Auto) 25.9 (20-40) % Barren % (Auto) 4.7 (2-11) % Eos % (Auto) 0.1 (0-4) % Baso % (Auto) 0.4 (0-2) % Lymph # (Auto) 1.9 (1.2-4.9) X10*3/uL Barren # (Auto) 0.4 (0.1-1.2) X10*3/uL Eos # (Auto) 0.0 (0.0-0.4) X10*3/uL Baso # (Auto) 0.0 (0.0-0.2) X10*3/uL Abs Immat Gran (auto) 0.02 (0.00-0.03) X10*3/uL Absolute Neuts (auto) 5.1 (2.0-8.3) x10*3/uL Absolute Nucleated RBC 0.000 (0.0-0.012) X10*3/uL Nucleated RBC % (auto) 0.0 (0.0-0.2) /100WBC Sodium 142 (135-145) mmol/L Potassium 4.2 (3.3-5.1) mmol/L Chloride 108 (96-108) mmol/L Carbon Dioxide 25 (22-29) mmol/L Anion Gap 13 (12-20) BUN 10 (9-16) mg/dL Creatinine 0.91 (0.5-1.4) mg/dL Estim Creat Clear Calc 77.2 Estimated GFR > 60 POC Glucose 98 (60-115) mg/dL Random Glucose 112 (60-115) mg/dL Calcium 9.7 D (8.4-10.2) mg/dL Magnesium 1.9 (1.6-2.6) mg/dL Total Bilirubin 0.8 (0.0-1.0) mg/dL AST 44 H D (5-31) U/L ALT 52 H (0-31) U/L Alkaline Phosphatase 79 D (39-117) U/L Total Protein 7.8 (6.5-8.0) g/dL Albumin 4.4 (3.5-5.0) g/dL Imaging Data Lumbar x-ray: Attestation: I personally reviewed and interpreted this imaging study as follows: My impression: No acute process. Radiologist's impression: EXAMINATION: XR LUMBOSACRAL SPINE CLINICAL INFORMATION: Bilateral leg weakness COMPARISON: 04/22/2007 TECHNIQUE: Three views of the lumbosacral spine. FINDINGS: Normal alignment and lumbar lordosis. No fracture. Small anterior endplate osteophytes without significant joint space narrowing, new since the previous study. Moderate degenerative disc disease is noted at T10-T11. No spondylolysis or spondylolisthesis. XR/XR lumbar spine 2-3V IMPRESSION: Normal alignment with mild multilevel degenerative disc disease. Dictated By: Shahbaz Fisher MD Signed By: Electronically signed by Shahbaz Fisher MD 02/11/22 1512 Discharge Plan Discharge Clinical Impression: Paresthesia Patient Disposition: Home, Self-Care Instructions: Paresthesia (ED) Additional Instructions: Follow up with your primary care provider. Return to the emergency department immediately if your symptoms worsen or if you develop any dizziness, shortness o f breath, difficulty breathing, chest pain, blurry vision, loss of vision, nausea, vomiting, abdominal pain, fever, chills, back pain, or any other complaints. Prescriptions: No Action blood sugar diagnostic [Contour Next Test Strips] Strip 1 strip miscellaneous TID 30 Days Qty: 100 4RF Baqsimi 3 mg/actuation spray,non-aerosol 3 mg intranasal ONCE 30 Days Qty: 2 6RF Rx Instructions: [place] once for severe hypoglycemia when patient cannot self-treat with gl ucose. Afterwards turn on side. May repeat after 15 minutes if patient does not respond. (DME) [place] Choice Comf Protect XL Misc See Rx Instructions .ROUTE .MEDSUPPLY Qty: 10 0RF Rx Instructions: As directed Trulicity 1.5 mg/0.5 mL pen injector 1.5 mg subcut QWEEK 28 Days Qty: 2 6RF (DME) walker Misc See Rx Instructions .MEDSUPPLY Qty: 1 0RF Rx Instructions: Rollator walker with brakes and seat atorvastatin 80 mg tablet 80 mg PO BEDTIME Qty: 90 1RF (DME) BD AutoShield Duo Pen Needle 30 gauge x 3/16 needle See Rx Instructions .Route Qty: 100 3RF Rx Instructions: As directed once a day nystatin 100,000 unit/gram powder 1 appl topical BID 30 Days Qty: 30 1RF (DME) blood-glucose meter [FreeStyle Lite Meter] Kit See Rx Instructions .ROUTE .MEDSUPPLY Qty: 1 0RF Rx Instructions: As directed 4 x/day Toujeo SoloStar U-300 Insulin 300 unit/mL (1.5 mL) insulin pen 24 unit subcut BEDTIME ibuprofen 800 mg tablet 800 mg PO Q8H PRN (Reason: pain) 30 Days Qty: 90 0RF loperamide 2 mg capsule 2 mg PO Q6H PRN (Reason: loose stool) 30 Days Qty: 90 0RF tizanidine 2 mg tablet 2 mg PO TID PRN (Reason: muscle spasticity) Qty: 42 0RF cholecalciferol (vitamin D3) 125 mcg (5,000 unit) capsule 125 mcg PO DAILY biotin 10 mg tablet 10 mg PO DAILY buspirone 10 mg tablet 10 mg PO BID (DME) lancets 28 gauge misc See Rx Instructions topical TID Qty: 100 Rx Instructions: As directed aripiprazole 10 mg tablet 10 mg PO DAILY citalopram 10 mg tablet 10 mg PO DAILY (DME) pen needle, diabetic 32 gauge x 5/32 needle See Rx Instructions subcut QID Qty: 50 11RF Rx Instructions: One daily alcohol swabs Pads, Medicated 4 pad topical DAILY Qty: 100 11RF repaglinide 0.5 mg tablet 0.5 mg PO TID 30 Days Qty: 90 5RF Rx Instructions: administer within 15 minutes of a meal or snack zolpidem 5 mg tablet 5 mg PO BEDTIME PRN haloperidol 5 mg tablet 5 mg PO BID oxybutynin chloride 15 mg tablet extended release 24hr 15 mg PO DAILY cholecalciferol (vitamin D3) [D3-2000] 50 mcg (2,000 unit) capsule 50 mcg PO DAILY solifenacin [Vesicare] 10 mg tablet 10 mg PO DAILY 30 Days Qty: 30 3RF Hold Instructions: Doctor's Order cholestyramine (with sugar) 4 gram powder in packet 4 g PO BID 60 Days Qty: 60 6RF Rx Instructions: administer w/meal; avoid other meds within 1hr before or 4-6hr after dose Referrals: Ani Javier MD [Primary Care Provider] - Print Language: Samoan
[2022-02-11 13:54] VITALS: BP 122/75; PULSE 88; RESP 14; O2SAT 96
[2022-02-11 14:07] LABS: MANUAL DIFF FLAG NO
[2022-02-11 14:08] LABS: Glucose, Whole Blood 98 mg/dL (60-115)
[2022-02-11 14:09] LABS: Basophils Percent Auto 0.4 % (0-2); Eosinophils Percent Auto 0.1 % (0-4); Hematocrit 42.1 % (37.0-47.0); Imm Gran Abs Auto 0.02 X10*3/uL (0.00-0.03); Imm Gran Pct Auto 0.3 % (0.0-0.4); Lymphocytes Absolute Auto 1.9 X10*3/uL (1.2-4.9); Lymphocytes Percent Auto 25.9 % (20-40); Mean Corpuscular HGB Conc 35.6 g/dl (31.0-35.0); Mean Corpuscular Hemoglobin 30.8 pg (27.0-33.0); Mean Corpuscular Volume 86.4 fL (80.0-98.0); Mean Platelet Volume 8.7 fL (9.4-12.3); Monocytes Absolute Auto 0.4 X10*3/uL (0.1-1.2); Monocytes Percent Auto 4.7 % (2-11); Neutrophils Absolute Auto 5.1 x10*3/uL (2.0-8.3); Neutrophils Percent Auto 68.6 % (45-73); Platelet Count 239 X10*3/uL (160-400); Red Blood Count 4.87 X10*6/uL (4.20-5.50); Red Cell Distribution Width 12.1 % (11.0-16.0); White Blood Count 7.5 X10*3/uL (4.8-10.8)
[2022-02-11 14:35] LABS: Alanine Aminotransferase 52 U/L (0-31); Albumin Level 4.4 g/dL (3.5-5.0); Alkaline Phosphatase 79 U/L (39-117); Anion Gap 13 (12-20); Aspartate Amino Transferase 44 U/L (5-31); Bilirubin Total 0.8 mg/dL (0.0-1.0); Blood Urea Nitrogen 10 mg/dL (9-16); Calcium 9.7 mg/dL (8.4-10.2); Carbon Dioxide 25 mmol/L (22-29); Chloride 108 mmol/L (96-108); Creatinine Clr Calc Pharmacy 77.2; Estimated Glomerular Filt Rate > 60; Glucose Random 112 mg/dL (60-115); Magnesium 1.9 mg/dL (1.6-2.6); Potassium 4.2 mmol/L (3.3-5.1); Sodium 142 mmol/L (135-145); Total Protein 7.8 g/dL (6.5-8.0)
--- NOTE | 2022-02-11 14:43 | PC.NURSE ---
Pt resting in bed quietly. VSS. Awaiting X-ray results. Denies pain at this time but reports that she is shaky .
[2022-02-11 15:08] VITALS: BP 132/73; PULSE 84; RESP 16; O2SAT 97
== END 2022-02-11 17:05 | disposition home or self-care (01) ==
PROVIDERS: Physician Assistant Medical; Emergency Provider Internal Medicine; PCP Internal Medicine
DX: R20.2 Paresthesia of skin (principal); R53.1 Weakness; E11.9 Type 2 diabetes mellitus without complications; E78.5 Hyperlipidemia, unspecified; Z79.4 Long term (current) use of insulin
CPT/HCPCS: 36415; 72100; 73030; 73502; 80053; 82947; 83735; 85025; 99283; 99284

== ENCOUNTER 2022-02-14 18:37 | Inpatient (IN) | payer MEDICARE, MEDICAID, SELFPAY ==
--- NOTE | ~2022-02-14 | CT_ITS ---
EXAMINATION: CT HEAD WITHOUT CONTRAST CLINICAL INFORMATION: Fall. Hit forehead. COMPARISON: Previous head CT most recent April 2020 TECHNIQUE: Contiguous axial imaging was performed from the skull base to vertex without intravenous administration of contrast. This CT examination was performed using dose optimization techniques as appropriate, variously including the following: *Automated exposure control *Adjustment of mA and/or kV according to patient size (this includes techniques or standardized protocols for targeted exams where dose is matched to indication/reason for exam; i.e. extremities or head) *Use of iterative reconstruction technique DLP: 609 mGy-cm FINDINGS: There is no evidence of an extra-axial collection. There is no evidence of intra-axial or extra-axial hemorrhage. There are prominent extra-axial CSF spaces adjacent to the frontal and parietal lobes. This is similar to previous exam. Ventricles and extra-axial CSF spaces are otherwise appropriate. Morris-white matter differentiation is normal. No mass or infarct is seen. There is a partially empty sella. There is a small pineal cyst. These findings are unchanged. No skull fracture is seen. There are small polyps or cysts in the bilateral maxillary sinuses. Visualized paranasal sinuses, mastoid air cells and middle ears are otherwise clear. CT/CT head/brain wo con IMPRESSION: No acute findings. No change from 2020 exam.
[2022-02-14 19:01] VITALS: BP 173/112; PULSE 110; RESP 18; TEMP 36.5; O2SAT 98; BMI 41.1
--- NOTE | 2022-02-14 19:07 | ED_ITS ---
HPI - Psych General Chief Complaint: Psychiatric Symptoms Stated Complaint: psych eval Time Seen by Provider: 02/14/22 18:58 Source: EMS Mode of arrival: EMS Limitations: other (Disorganized) History of Present Illness HPI Narrative: Patient comes to the emergency room via EMS. Seems that patient has been acting a bit erratic, unable to care for herself. EMS reports that there is a patient that may be a nurse that helps to take care of the patient. However, patient has recently not been eating, hearing voices, having a lot of somatic complaints. EMS reports that it is possible that the behavioral change started after her Haldol was switched to Geodon. It is difficult to get history from the patient, patient keep sitting up, sitting down, turning around, not answering questions, seems confused, saying that she used to hear voices but this time she is not hearing them. Related Data Home Medications Medication Instructions Recorded Confirmed lancets 28 gauge #100 ea 06/03/20 02/09/22 buspirone 10 mg tablet 10 mg PO BID 11/09/20 02/09/22 aripiprazole 10 mg tablet 10 mg PO DAILY 06/16/21 02/09/22 citalopram 10 mg tablet 10 mg PO DAILY 06/16/21 02/09/22 biotin 10 mg tablet 10 mg PO DAILY 10/07/21 02/09/22 cholecalciferol (vitamin D3) 125 125 mcg PO DAILY 10/07/21 02/09/22 mcg (5,000 unit) capsule cholecalciferol (vitamin D3) 50 50 mcg PO DAILY 12/31/21 02/09/22 mcg (2,000 unit) capsule (D3-2000) haloperidol 5 mg tablet 5 mg PO BID 12/31/21 02/09/22 oxybutynin chloride 15 mg 15 mg PO DAILY 12/31/21 02/09/22 tablet,extended release 24 hr zolpidem 5 mg tablet 5 mg PO BEDTIME PRN 12/31/21 02/09/22 insulin glargine U-300 conc 300 24 unit subcut BEDTIME 02/09/22 02/09/22 unit/mL (1.5 mL) subcutaneous pen (Toujeo SoloStar U-300 Insulin) Previous Rx's Medication Instructions Recorded blood sugar diagnostic (Contour 1 strip miscellaneous TID for 02/08/21 Next Test Strips) diabetes mellitus 30 days #100 strips glucagon 3 mg/actuation nasal 3 mg intranasal ONCE severe 09/17/20 spray (Baqsimi) hypoglycemia 30 days #2 ea diaper,brief,adult,disposable #10 ea 02/16/21 ([place] Comf Protect XL) alcohol swabs 4 pad topical DAILY #100 ea 03/30/21 pen needle, diabetic 32 gauge x #50 ea 03/30/21 dulaglutide 1.5 mg/0.5 mL 1.5 mg (0.5 mL) subcut QWEEK 28 09/01/21 subcutaneous pen injector days #2 mL (Trulicity) walker #1 ea 09/24/21 atorvastatin 80 mg tablet 80 mg PO BEDTIME #90 tabs 09/30/21 repaglinide 0.5 mg tablet 0.5 mg PO TID 30 days #90 tabs 10/17/21 pen needle,diabetic dual safty 30 #100 ea 11/04/21 gauge x 3/16 (BD AutoShield Duo Pen Needle) solifenacin 10 mg tablet (Vesicare) 10 mg PO DAILY 30 days #30 tabs 11/23/21 nystatin 100,000 unit/gram topical 1 appl topical BID 30 days #30 11/25/21 powder grams cholestyramine (with sugar) 4 gram 4 g PO BID diarrhea 60 days #60 ea 12/03/21 powder for susp in a packet tizanidine 2 mg tablet 2 mg PO TID PRN muscle spasticity 12/14/21 #42 tabs blood-glucose meter (FreeStyle #1 ea 12/21/21 Lite Meter) ibuprofen 800 mg tablet 800 mg PO Q8H PRN pain 30 days #90 02/09/22 tabs loperamide 2 mg capsule 2 mg PO Q6H PRN loose stool 30 02/09/22 days #90 caps Allergies Allergy/AdvReac Type Severity Reaction Status Date / Time meperidine [Demerol] Allergy Intermediate Hives Verified 02/09/22 14:52 From Prozac Allergy Severe SEVERE Uncoded 02/09/22 14:52 AGITATION Review of Systems Review of Systems: Yes Unobtainable due to mental condition PMFSH Past Medical History Medical History Acute depression Anxiety Arthritis BMI 40.0-44.9, adult Chronic diarrhea Diabetes Diabetes type 2, uncontrolled Dyslipidemia Elevated LFTs Epilepsy Hyperlipidemia LDL goal <100 Insomnia intermediate current use of insulin Low vitamin D level Mild developmental delay Mild episode of recurrent major depressive disorder Mild intellectual disability Obesity Obesity due to excess calories Overactive bladder PTSD (post-traumatic stress disorder) Right hip pain Snores Type 2 diabetes mellitus with diabetic polyneuropathy Surgical History History of bilateral tubal ligation History of hysteroscopy Hx of cholecystectomy Family History Family History Father Diabetes Mental health disorder Mother No problems noted. Social History Social History Household Members: Spouse Housing: Apartment Housing Other:: studio Are you a primary hospice care sales consultant to a significant other at home: No Do you presently have visiting nurse or other home services: Yes Alcohol intake: former Patient Tobacco Use Status: Former Tobacco user Tobacco use type: Cigarette Cigarette Packs Per Day: 0 Cigarettes Per Day: 6 e-Cigarette/Vaping Use: Never Used Second Hand Smoke Exposure: No service: No Current occupational status: disabled Current occupation: lt handed Sexual orientation: Straight/Heterosexual Gender identity: Female Cognitive needs: Yes Hearing needs: No Vision needs: Yes Physical Exam Vital Signs: Vital Signs: Last Vital Signs Temp 97.7 F 02/14/22 19:01 Pulse 110 H 02/14/22 19:01 Resp 18 02/14/22 19:01 BP 173/112 H 02/14/22 19:01 Pulse Ox 98 02/14/22 19:01 O2 Del Method 02/14/22 19:01 BMI result Body Mass Index 41.1 Const: Other: Appearance: Alert. Confused, pacing, sitting up and sitting down Eyes: Pupils equal, round and reactive to light. ENT: Pharynx normal. Neck: Normal inspection. Neck supple. No lymph nodes noted. No crepitus CVS: Normal heart rate and rhythm. Pulses normal. Normal S1 and S2 Respiratory: No respiratory distress. Breath sounds normal. No Wheezing. No rales Abdomen: Soft and nontender. No rigidity. No distention. Skin: Skin warm and dry. Normal skin color. Normal skin turgor. Extremities: No lower extremity edema. No Lacerations. No Rash Neuro: Oriented X 3. No motor deficit. No sensory deficit. Moving all extremities. No slurred speech. CN 2 through 12 grossly intact Psych: calm, anxious, sitting up and down, pacing Course Course Course Narrative: Behavioral health network consult pending. Physician observation started at 19:10 Discharge Plan Discharge Clinical Impression: Delusional ideas, Auditory hallucination Patient Disposition: Still a Patient Prescriptions: No Action blood sugar diagnostic [Contour Next Test Strips] Strip 1 strip miscellaneous TID 30 Days Qty: 100 4RF Baqsimi 3 mg/actuation spray,non-aerosol 3 mg intranasal ONCE 30 Days Qty: 2 6RF Rx Instructions: [place] once for severe hypoglycemia when patient cannot self-treat with glucose. Afterwards turn on side. May repeat after 15 minutes if patient does not respond. (DME) [place] Choice Comf Protect XL Misc See Rx Instructions .ROUTE .MEDSUPPLY Qty: 10 0RF Rx Instructions: As directed Trulicity 1.5 mg/0.5 mL pen injector 1.5 mg subcut QWEEK 28 Days Qty: 2 6RF (DME) walker Misc See Rx Instructions .MEDSUPPLY Qty: 1 0RF Rx Instructions: Rollator walker with brakes and seat atorvastatin 80 mg tablet 80 mg PO BEDTIME Qty: 90 1RF (DME) BD AutoShield Duo Pen Needle 30 gauge x 3/16 needle See Rx Instructions .Route Qty: 100 3RF Rx Instructions: As directed once a day nystatin 100,000 unit/gram powder 1 appl topical BID 30 Days Qty: 30 1RF (DME) blood-glucose meter [FreeStyle Lite Meter] Kit See Rx Instructions .ROUTE .MEDSUPPLY Qty: 1 0RF Rx Instructions: As directed 4 x/day Toujeo SoloStar U-300 Insulin 300 unit/mL (1.5 mL) insulin pen 24 unit subcut BEDTIME ibuprofen 800 mg tablet 800 mg PO Q8H PRN (Reason: pain) 30 Days Qty: 90 0RF loperamide 2 mg capsule 2 mg PO Q6H PRN (Reason: loose stool) 30 Days Qty: 90 0RF tizanidine 2 mg tablet 2 mg PO TID PRN (Reason: muscle spasticity) Qty: 42 0RF cholecalciferol (vitamin D3) 125 mcg (5,000 unit) capsule 125 mcg PO DAILY biotin 10 mg tablet 10 mg PO DAILY buspirone 10 mg tablet 10 mg PO BID (DME) lancets 28 gauge misc See Rx Instructions topical TID Qty: 100 Rx Instructions: As directed aripiprazole 10 mg tablet 10 mg PO DAILY citalopram 10 mg tablet 10 mg PO DAILY (DME) pen needle, diabetic 32 gauge x 5/32 needle See Rx Instructions subcut QID Qty: 50 11RF Rx Instructions: One daily alcohol swabs Pads, Medicated 4 pad topical DAILY Qty: 100 11RF repaglinide 0.5 mg tablet 0.5 mg PO TID 30 Days Qty: 90 5RF Rx Instructions: administer within 15 minutes of a meal or snack zolpidem 5 mg tablet 5 mg PO BEDTIME PRN haloperidol 5 mg tablet 5 mg PO BID oxybutynin chloride 15 mg tablet extended release 24hr 15 mg PO DAILY cholecalciferol (vitamin D3) [D3-2000] 50 mcg (2,000 unit) capsule 50 mcg PO DAILY solifenacin [Vesicare] 10 mg tablet 10 mg PO DAILY 30 Days Qty: 30 3RF Hold Instructions: Doctor's Order cholestyramine (with sugar) 4 gram powder in packet 4 g PO BID 60 Days Qty: 60 6RF Rx Instructions: administer w/meal; avoid other meds within 1hr before or 4-6hr after dose
[2022-02-14 19:41] LABS: Glucose, Whole Blood 118 mg/dL (60-115)
[2022-02-14 20:04] LABS: COVID-19 Test Negative (Negative)
[2022-02-15 04:07] VITALS: BP 144/85; PULSE 118; RESP 17; TEMP 36.8; O2SAT 97
[2022-02-15] MEDS: clonazePAM 1 MG TABLET PO ×2 (04:10→20:55)
--- NOTE | 2022-02-15 06:27 | PC.NURSE ---
Patient slept intermittently, reporting having seizure but inconsistent with seizure symptoms, Klonopin 1 mg PO administered at 0410 for anxiety with positive effect, patient engaged well with [facility] clinician, disposition is section 12 inpatient bed search, med rec completed/pending provider's approval, pending urine sample, behavior will continue to monitor.
--- NOTE | 2022-02-15 07:07 | PC.NURSE ---
patient appears to remain asleep respirations are even and unlabored patient appears in no distress
[2022-02-15 07:31] VITALS: BP 123/67; PULSE 105; RESP 13; TEMP 36.1; O2SAT 96
[2022-02-15 10:03] LABS: Glucose, Whole Blood 146 mg/dL (60-115)
[2022-02-15] MEDS: Benztropine Mesylate 2 MG/2 ML VIAL IM (12:12)
[2022-02-15] MEDS: LORazepam 1 MG TABLET PO ×2 (12:15→15:38)
[2022-02-15 12:48] LABS: MANUAL DIFF FLAG NO
[2022-02-15 12:51] LABS: Basophils Percent Auto 0.3 % (0-2); Hematocrit 42.4 % (37.0-47.0); Hemoglobin 14.9 g/dl (12.0-16.0); Imm Gran Abs Auto 0.04 X10*3/uL (0.00-0.03); Imm Gran Pct Auto 0.4 % (0.0-0.4); Lymphocytes Absolute Auto 1.5 X10*3/uL (1.2-4.9); Lymphocytes Percent Auto 16.8 % (20-40); Mean Corpuscular HGB Conc 35.1 g/dl (31.0-35.0); Mean Corpuscular Hemoglobin 30.4 pg (27.0-33.0); Mean Corpuscular Volume 86.5 fL (80.0-98.0); Monocytes Absolute Auto 0.5 X10*3/uL (0.1-1.2); Monocytes Percent Auto 5.3 % (2-11); Neutrophils Percent Auto 77.2 % (45-73); Platelet Count 251 X10*3/uL (160-400); Red Cell Distribution Width 12.4 % (11.0-16.0); White Blood Count 9.1 X10*3/uL (4.8-10.8)
[2022-02-15 13:33] LABS: Alanine Aminotransferase 39 U/L (0-31); Albumin Level 4.3 g/dL (3.5-5.0); Alkaline Phosphatase 70 U/L (39-117); Anion Gap 16 (12-20); Aspartate Amino Transferase 41 U/L (5-31); Bilirubin Total 0.8 mg/dL (0.0-1.0); Blood Urea Nitrogen 9 mg/dL (9-16); Calcium 9.4 mg/dL (8.4-10.2); Carbon Dioxide 21 mmol/L (22-29); Chloride 110 mmol/L (96-108); Estimated Glomerular Filt Rate > 60; Glucose Random 136 mg/dL (60-115); Potassium 4.1 mmol/L (3.3-5.1); Sodium 143 mmol/L (135-145); Total Protein 7.8 g/dL (6.5-8.0)
--- NOTE | 2022-02-15 14:20 | MHC.CARE ---
CARE team was contacted by Jeannette, nursing program chair of the pt's A correction ([phone]). Jeannette reported that the pt's has a psychiatry appointment on 02/17/22 and that the appointment will be cancelled/rescheduled if pt is admitted to a psychiatric unit, pending medical clearance for transfer from ED. [facility] [phone]
[2022-02-15 15:25] VITALS: BP 131/92; PULSE 97; RESP 16; TEMP 36.6; O2SAT 97
--- NOTE | 2022-02-15 15:27 | PC.NURSE ---
RN to RN report given to nurse on M5 unit. No room assignment at this time. Updated vital signs entered. Pt ambulates with slow steady gait to bathroom. To be medicated. Awaiting room assignment.
[2022-02-15] MEDS: Divalproex Sodium Sprinkles 125 MG CAP.DR.SPR 500 MG PO (15:38)
--- NOTE | 2022-02-15 16:28 | PC.NURSE ---
Pt given ordered oral medications in applesauce without issue. Pt stated They say I have pseudoseizures, but I don't! I have real ones. Are these medications gonna make my seizures stop? Explained purpose/function of medications. Pt verbalized understanding. Pt is calm/cooperative, awaiting bed assignment. Section 12, bedsearch remains in place.
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
[2022-02-15 18:00] VITALS: BP 124/76; PULSE 116; RESP 16; TEMP 36.6; O2SAT 99
[2022-02-15 18:34] VITALS: BMI 35.4
[2022-02-15 19:04] LABS: Glucose, Whole Blood 129 mg/dL (60-115)
[2022-02-15] MEDS: Benztropine Mesylate 1 MG TABLET PO (20:18)
[2022-02-15] MEDS: Zolpidem Tartrate 5 MG TABLET PO (20:18)
[2022-02-15] MEDS: Atorvastatin Calcium 80 MG TABLET PO (20:19)
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
--- NOTE | 2022-02-16 | ECG_ITS ---
Test Reason : CHECK QTC Blood Pressure : / mmHG Vent. Rate : 093 BPM Atrial Rate : 093 BPM P-R Int : 146 ms QRS Dur : 074 ms QT Int : 364 ms P-R-T Axes : 043 002 027 degrees QTc Int : 452 ms Normal sinus rhythm Normal ECG When compared with ECG of 04-FEB-2022 15:27, No significant change was found Referred By: Ori Velazquez Electronically Signed By:JASBIR JIM MD
[2022-02-16 08:22] LABS: Estimated Average Glucose 151 mg/dL; Hemoglobin A1c % 6.9 %
[2022-02-16 08:31] LABS: Cholesterol 145 mg/dL; HDL Cholesterol 27 mg/dL; LDL Cholesterol Calculated 92 mg/dl; Magnesium 1.9 mg/dL (1.6-2.6); Triglycerides 134 mg/dL
[2022-02-16] MEDS: Escitalopram Oxalate 5 MG TABLET PO (08:48)
[2022-02-16] MEDS: Cholecalciferol (Vitamin D3) 25 MCG TABLET 50 MCG PO (08:48)
[2022-02-16 08:49] LABS: Free T4 (Free Thyroxine) 1.31 ng/dL (0.71-1.85)
[2022-02-16 09:08] LABS: Folate 14.2 ng/mL (> or = 4.0); Vitamin B12 510 pg/mL (200-900)
--- NOTE | 2022-02-16 10:35 | P.PNPSI_ITS ---
Subjective Subjective Date of Service: 02/16/22 Reason For Visit: Delusional Disorder, Developmental Delay Interim History: Patient had an un witnessed fall this morning. She was sitting on the toilet, holding the sink with her hands; when the clinical nursing director briefly looked the other way, patient fell forward onto the ground. No noise was heard. Patient said she hit her head but there are no visible arizmendi/contusion. Head CT done and unremarkable. Patient said that her legs were getting trembly which made her fall. Patient was sitting on the ground, sometimes talking sometimes not. She at 1st said she was not able to stand up and preparations were made to lift patient up to a wheelchair. However, patient then stood up on her own, grabbed her walker and said lets go quickly and walked to her bed. Credit Coordinator met with patient who said that ever since she got the Invega shot (on 01/03) her legs have been trembly and she has been unable to walk on them and that they feel like they are pins and needles in both her legs. She said that she was on Abilify and Haldol at the same time and that these 2 medications were continued when she got the Invega shot (on 01/03) and that she was taking both Haldol and Abilify up until about a week ago. She says that all auditory h allucinations have resolved; she denies any SI or HI. At 1 point, patient said that her legs are starting to tremble, both blog writer and one-to-one assistance looked at both of her legs and there was no noticeable tremble, tremor or shakiness of any kind. Patient asked for medication to treat tremors. Credit Coordinator discussed with patient the possibility of a medication side effect but explained there was need to get collateral an further understand her recent history before giving any medication treatment. ED note on admission reports: Neuro: Oriented X 3.? No motor deficit.? No sensory deficit. Moving all extremities. No slurred speech. CN 2 through 12 grossly intact Patient is eating and drinking. Mental Status Exam Mental Status Exam Narrative: Pt is alert and oriented; behavior is cooperative, friendly and calm; dressed in hospital gown with unkempt hair; mood is described as anxious and affect congruent, sometimes blank stare; eye contact appropriate; Speech is normal rate, volume and prosody and without any latency; not pressured; no psychomotor agitation/retardation present; no tremulous movements, no rigidity; thought process is organized and goal directed; Thought content is on her trembly legs; otherwise pertinent to relevant topics and without any delusional content, paranoid ideations or grandiosity; denies any SI/HI. There is no evidence of perceptual disturbance and she denies AH Patients insight and judgment are impaired. Diagnostics Vital Signs (24Hr): Vital Signs - 24 hr 02/15/22 15:25 02/15/22 18:00 Temperature 98 F 97.8 F Pulse Rate 97 116 H Respiratory Rate 16 16 Blood Pressure 131/92 H 124/76 Pulse Oximetry 97 99 Oxygen Delivery Method Room Air Room Air BMI result Body Mass Index 35.4 Labs Results: 02/15/22 12:38 02/15/22 12:38 Labs: Laboratory Results - last 48 hr 02/14/22 02/14/22 02/15/22 19:36 19:42 09:59 WBC RBC Hgb Hct MCV MCH MCHC RDW Plt Count MPV Immature Gran % (Auto) Neut % (Auto) Lymph % (Auto) Logan % (Auto) Eos % (Auto) Baso % (Auto) Lymph # (Auto) Logan # (Auto) Eos # (Auto) Baso # (Auto) Abs Immat Gran (auto) Absolute Neuts (auto) Absolute Nucleated RBC Nucleated RBC % (auto) Sodium Potassium Chloride Carbon Dioxide Anion Gap BUN Creatinine Estim Creat Clear Calc Estimated GFR POC Glucose 118 H 146 H Random Glucose Estimat Average Glucose Hemoglobin A1c % Calcium Magnesium Total Bilirubin AST ALT Alkaline Phosphatase Total Creatine Kinase Total Protein Albumin Triglycerides Cholesterol LDL Cholesterol, Calc HDL Cholesterol Vitamin B12 Folate TSH Free T4 COVID-19 ([facility]) Negative COVID-19 Clin Com See Note 02/15/22 02/15/22 02/15/22 12:38 12:38 18:59 WBC 9.1 RBC 4.90 Hgb 14.9 Hct 42.4 MCV 86.5 MCH 30.4 MCHC 35.1 H RDW 12.4 Plt Count 251 MPV 9.0 L Immature Gran % (Auto) 0.4 Neut % (Auto) 77.2 H Lymph % (Auto) 16.8 L Logan % (Auto) 5.3 Eos % (Auto) 0.0 Baso % (Auto) 0.3 Lymph # (Auto) 1.5 Logan # (Auto) 0.5 Eos # (Auto) 0.0 Baso # (Auto) 0.0 Abs Immat Gran (auto) 0.04 H Absolute Neuts (auto) 7.0 Absolute Nucleated RBC 0.000 Nucleated RBC % (auto) 0.0 Sodium 143 Potassium 4.1 Chloride 110 H Carbon Dioxide 21 L Anion Gap 16 BUN 9 Creatinine 0.81 Estim Creat Clear Calc 108.0 Estimated GFR > 60 POC Glucose 129 H Random Glucose 136 H Estimat Average Glucose Hemoglobin A1c % Calcium 9.4 Magnesium Total Bilirubin 0.8 AST 41 H ALT 39 H Alkaline Phosphatase 70 Total Creatine Kinase 232 H Total Protein 7.8 Albumin 4.3 Triglycerides Cholesterol LDL Cholesterol, Calc HDL Cholesterol Vitamin B12 Folate TSH Free T4 COVID-19 ([facility]) COVID-19 [employer] 02/16/22 02/16/22 02/16/22 07:56 07:56 07:56 WBC RBC Hgb Hct MCV MCH MCHC RDW Plt Count MPV Immature Gran % (Auto) Neut % (Auto) Lymph % (Auto) Logan % (Auto) Eos % (Auto) Baso % (Auto) Lymph # (Auto) Logan # (Auto) Eos # (Auto) Baso # (Auto) Abs Immat Gran (auto) Absolute Neuts (auto) Absolute Nucleated RBC Nucleated RBC % (auto) Sodium Potassium Chloride Carbon Dioxide Anion Gap BUN Creatinine Estim Creat Clear Calc Estimated GFR POC Glucose Random Glucose Estimat Average Glucose 151 Hemoglobin A1c % 6.9 Calcium Magnesium 1.9 Total Bilirubin AST ALT Alkaline Phosphatase Total Creatine Kinase Total Protein Albumin Triglycerides 134 Cholesterol 145 D LDL Cholesterol, Calc 92 HDL Cholesterol 27 D Vitamin B12 510 Folate 14.2 TSH 1.80 Free T4 1.31 COVID-19 ([facility]) COVID-19 Neocutis Com Medications Medications Current Medications Acetaminophen (Acetaminophen 325 Mg Tablet) 650 mg PO Q6H PRN PRN Reason: Headache/Pain Mild Scale (1-3) Al Hydroxide/Mg Hydroxide (Magnesium Hydrox/Alum Hydrox 30 Ml Oral.Susp) 30 ml PO Q6H PRN PRN Reason: Heartburn/Nausea Atorvastatin Calcium (Atorvastatin Calcium 80 Mg Tablet) 80 mg PO BEDTIME [facility] Last Admin: 02/15/22 20:19 Dose: 80 mg Clonazepam (Clonazepam 1 Mg Tablet) 1 mg PO BID [facility] Last Admin: 02/16/22 08:57 Dose: Not Given Escitalopram Oxalate (Escitalopram Oxalate 5 Mg Tablet) 5 mg PO DAILY [facility] Last Admin: 02/16/22 08:48 Dose: 5 mg Hydroxyzine HCl (Hydroxyzine Hcl 25 Mg Tablet) 25 mg PO Q6H PRN PRN Reason: Anxiety Loperamide HCl (Loperamide Hcl 2 Mg Capsule) 2 mg PO Q6H PRN PRN Reason: Diarrhea Magnesium Hydroxide (Milk Of Magnesia 30 Ml Oral.Susp) 30 ml PO DAILY PRN PRN Reason: Constipation Non-Formulary Medication (Dulaglutide [Trulicity]) 1.5 mg SUBCUT Th@0900 [facility] Non-Formulary Medication (Repaglinide) 1 tab PO TID [facility] Oxybutynin Chloride (Oxybutynin Chloride Er 5 Mg Tab.Er.24) 15 mg PO DAILY [facility] Last Admin: 02/16/22 08:57 Dose: Not Given Vitamin D (Cholecalciferol (Vitamin D3) 25 Mcg Tablet) 50 mcg PO DAILY [facility] Last Admin: 02/16/22 08:48 Dose: 50 mcg Zolpidem Tartrate (Zolpidem Tartrate 5 Mg Tablet) 5 mg PO BEDTIME [facility] Last Admin: 02/15/22 20:18 Dose: 5 mg Allergies Allergies Allergy/AdvReac Type Severity Reaction Status Date / Time meperidine [Demerol] Allergy Intermediate Hives Verified 02/09/22 14:52 From Prozac Allergy Severe SEVERE Uncoded 02/09/22 14:52 AGITATION Assessment & Plan Assessment & Plan (1) MDD (major depressive disorder), recurrent, severe, with psychosis: Status: Acute Code(s): F33.3 - Major depressive disorder, recurrent, severe with psychotic symptoms (2) TOBIAS (generalized anxiety disorder): Status: Acute Code(s): F41.1 - Generalized anxiety disorder (3) Mild cognitive impairment: Status: Acute Code(s): G31.84 - Mild cognitive impairment, so stated Plan HPI Michelle is a 40yo female who carries a dx of mild intellectual disability, TOBIAS, and MDD recurrent with psychosis. She presented to [facility] on 02/14/22 due to her reporting she has been acting erratic, unable to care for herself. She has recently not been eating, hearing voices, and has somatic complaints i.e. recently seen at [facility] 02/11/22 due to asthenia. Pt has had multiple medication changes, most recently on Geodon but has been non-adherent due to difficulty swallowing it. Pt reports since receiving invega sustenna loading doses (last 156 mg on 01/17/22) she has been feeling weak, numb, and having seizure-like movements.? 02/16 it is not clear how reliable patient is as and historian. If she was in fact taking Haldol and Abilify which overlapped with Invega Sustenna and was taking these meds up until a week ago, it is possible that she has been having akathisia. Invega Sustenna was given on 01/03, making that over a month ago and if this is the only medication she was on it makes it very unlikely that patient would continue to have medication side effect. However, her neurological complaints do not fit with her presentation. Patient was adamant that her legs were shaking when there was clearly was no tremor at all. She reports being unable to walk but she stood up on her own power and walked herself to the bed. Possible somatic symptom disorder/conversion disorder. Credit Coordinator will pursue collateral. Patient placed a 3 day notice later in the day saying she wants to go home and deal with this as an outpatient; she denies SI or HI or AVH and has outpatient services in place. Reviewed Scripts: Haldol 3 mg b.i.d. 12/03 which was increased to 5 mg b.i.d. on 12/14 Abilify 10 mg 12/14 Risperdal 2 mg b.i.d. 01/03 Invega Sustenna 234 mg 01/03 Patient did not get follow-up Invega 156 Ziprasidone 02/01 60 mg at bedtime Plan: 3 day notice 1:[address] unremarkable Elevated prolactin level:78.4 EEG ordered Will gather collateral Q15 min safety checks, CV Monitor response to medications. Monitor for safety in the milieu. Discharge on stabilization. Patient seen. Chart reviewed. Discussed with team. Obtain collateral contact info?as needed I spent minutes with the patient and/or on the patient floor today, greater than?50% of which was spent counseling/coordinating care. Patient educated on: diagnosis and medication risk/benefits Informed Consent: further education needed Reason for contiued inpatient stay Substantial Risk for: rapid decompensation
--- NOTE | 2022-02-16 11:06 | PC.NURSE ---
late entry from incident [id number] on 02/15/2022. patient had prior ambulated to bathroom and appeared to have pseudoseizure activity (by reported hx) and was assisted back to room, perhaps 15 minutes after patient asked to use phone and was directed to phone in community area. patient walked back to community area and unwitnessed t/w heard what sounds like a soft fall from behind this writers seated position approximately 20 feet away. patient assisted back to bed by tech, there was no apparent injury at the time, t/w asked security staff to assess if patient had impacted head during fall, or had fall occurred. VS obtained, wnl. t/w went to bedside and completed a neuro exam checking hand grasps and symmetry of facial expression. asked client if she desired tylenol or ibuprofen which she declined.
[2022-02-16 13:00] VITALS: BP 114/68; PULSE 83; TEMP 36.6; O2SAT 95
[2022-02-16 20:44] VITALS: BP 112/86; PULSE 81; TEMP 36.3
[2022-02-16] MEDS: Zolpidem Tartrate 5 MG TABLET PO (21:06)
--- NOTE | 2022-02-17 | EEG_ITS ---
This is a 16-channel EEG with an EKG lead. The patient is reported awake during the tracing. Background EEG rhythm is 10 to 12 hertz, 5 to 20 microvolts posteriorly and lower amplitude fast anteriorly. Photic stimulation does not produce any significant driving. Hyperventilation is not performed. Cardiac lead does not reveal any significant abnormality. No sharp wave spikes or paroxysmal tendency noted. IMPRESSION: Unremarkable electroencephalogram. MD KAILA Franks/VARINDER / [id number]
[2022-02-17 07:02] VITALS: BP 112/65; PULSE 85; RESP 16; TEMP 35.9; O2SAT 95
[2022-02-17] MEDS: Cholecalciferol (Vitamin D3) 25 MCG TABLET 50 MCG PO (08:54)
[2022-02-17] MEDS: Escitalopram Oxalate 5 MG TABLET PO (08:55)
[2022-02-17] MEDS: Propranolol HCL 10 MG TABLET 5 MG PO (14:50)
[2022-02-17 18:00] VITALS: BP 109/75; PULSE 85; RESP 16; TEMP 36.6; O2SAT 95
[2022-02-17] MEDS: clonazePAM 0.5 MG TABLET PO ×2 (18:14→18:38)
[2022-02-17] MEDS: Acetaminophen 325 MG TABLET 650 MG PO (18:39)
[2022-02-17] MEDS: Zolpidem Tartrate 5 MG TABLET PO (20:44)
[2022-02-17] MEDS: Atorvastatin Calcium 80 MG TABLET PO (20:44)
[2022-02-17 22:33] LABS: Glucose, Whole Blood 158 mg/dL (60-115)
[2022-02-18 07:57] LABS: Prolactin 78.4 ng/mL
[2022-02-18] MEDS: Cholecalciferol (Vitamin D3) 25 MCG TABLET 50 MCG PO (08:42)
[2022-02-18 08:43] VITALS: BP 118/90; PULSE 93; RESP 16; TEMP 36.5; O2SAT 93
[2022-02-18] MEDS: Escitalopram Oxalate 10 MG TABLET PO (08:43)
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
[2022-02-18] MEDS: HaloperidoL 1 MG TABLET PO (11:32)
== END 2022-02-18 13:36 | disposition home or self-care (01) | DRG 885 ==
LOC: HO.ED 19:22 → HO.PM5 02-15 17:13
PROVIDERS: Clinical Nurse Specialist Psychiatric/Mental Health, Adult; Registered Nurse; Social Worker; Admitting Provider Psychiatry & Neurology Psychiatry; Emergency Provider Emergency Medicine; PCP Internal Medicine; Visit Provider Psychiatry & Neurology Psychiatry
DX: F33.3 Major depressive disorder, recurrent, severe with psychotic symptoms (principal); G40.909 Epilepsy, unspecified, not intractable, without status epilepticus; E78.5 Hyperlipidemia, unspecified; E66.9 Obesity, unspecified; Z68.35 Body mass index [BMI] 35.0-35.9, adult; F43.10 Post-traumatic stress disorder, unspecified; F41.1 Generalized anxiety disorder; G31.84 Mild cognitive impairment of uncertain or unknown etiology; F44.9 Dissociative and conversion disorder, unspecified; E11.42 Type 2 diabetes mellitus with diabetic polyneuropathy; Z20.822 Contact with and (suspected) exposure to COVID-19; Z88.8 Allergy status to other drugs, medicaments and biological substances; Z79.899 Other long term (current) drug therapy
CPT/HCPCS: 36415; 70450; 80053; 80061; 82550; 82607; 82746; 82947; 83036; 83735; 84146; 84439; 84443; 85025; 87635; 93005; 95816; 97162; 99285; J0515

== ENCOUNTER 2022-02-21 11:00 | Observation (INO) | payer MEDICARE, MEDICAID, SELFPAY ==
--- NOTE | ~2022-02-21 | CT_ITS ---
EXAMINATION: CT angio head neck stroke CLINICAL INFORMATION: Slurred speech. COMPARISON: CT scan of the head 02/21/2022, 02/16/2022. TECHNIQUE: Bilingual Hr Generalist images were obtained. A CT angiogram of the head and neck was performed in the arterial phase after the intravenous administration of 70 mL Omnipaque 350. Pre and delayed postcontrast images of the head were also obtained. MIP reconstructions were generated in multiple orientations at the acquisition workstation. Multiple three-dimensional surface rendered images and maximum intensity projection images were generated on a dedicated 3-D lab workstation. Arterial stenoses are measured in accordance with NASCET criteria or similar method if applicable. This CT examination was performed using dose optimization techniques as appropriate, including one or more of the following: Automated exposure control, iterative reconstruction, and adjustment of technique factors (mA and/or kVp) according to patient size (this includes techniques or standardized protocols for targeted exams where dose is matched to indication/reason for exam). Total exam dose-length product 1390 mGy-cm FINDINGS: Head: Delayed postcontrast images reveal no abnormal mass or enhancement within the intracranial compartment. There is no intracranial mass effect or midline shift. Lateral and third ventricles are normal. No hydrocephalus. Morris-white matter differentiation is grossly preserved and there is no evidence of acute territorial infarct. The calvarium and skull base are intact. Mastoid air cells and middle ear cavities are well aerated. There is a small retention cyst within the left maxillary sinus. Otherwise no active paranasal sinus disease. CT angiogram neck: The aortic arch apex is normal. Origins of the major aortic branches are widely patent. Common carotid arteries and the carotid bifurcations are normal. No stenosis of the extracranial internal carotid arteries. The cervical segments of the vertebral arteries as well as their origins are patent. CT angiogram head: Intracranial internal carotid arteries are patent. The intradural vertebral artery segments and basilar artery are patent. Anterior, middle, and posterior cerebral artery complexes are normal. No intracranial large vessel occlusion. Other: Soft tissues of the neck including the thyroid gland are normal. Lung apices are clear. There is no acute osseous finding. No worrisome lytic or blastic osseous lesion. CT/CT angio head neck stroke IMPRESSION: Normal CT angiogram of the head and neck. This critical result was discussed with Dr. Yap at 11:45 AM on 02/21/2022 and it was ascertained that the content and urgency of the report was understood at the time of direct communication.
--- NOTE | ~2022-02-21 | CT_ITS ---
EXAMINATION: CT HEAD WITHOUT CONTRAST (STROKE PROTOCOL) CLINICAL INFORMATION: Stroke protocol. Slurred speech COMPARISON: February 16, 2022 and April 23, 2020 TECHNIQUE: Contiguous axial imaging was performed from the skull base to vertex without intravenous administration of contrast. This CT examination was performed using dose optimization techniques as appropriate, variously including the following: *Automated exposure control *Adjustment of mA and/or kV according to patient size (this includes techniques or standardized protocols for targeted exams where dose is matched to indication/reason for exam; i.e. extremities or head) *Use of iterative reconstruction technique DLP: 637 mGy-cm FINDINGS: There is no intracranial hemorrhage, hematoma, or extra-axial fluid collection. The ventricles are normal in size. There is no hydrocephalus, edema, or mass effect. The vanegas-white matter differentiation appears symmetric. There is no acute infarct or mass lesion. There is some expansion of the sella turcica with the appearance of a partially empty sella. The calvarium appears intact. There is no pneumocephalus or orbital emphysema. The visualized mastoid air cells show no significant mucosal thickening. There are no air-fluid levels. There is a mucous retention cyst seen within the left maxillary sinus. CT/CT head for stroke IMPRESSION: No acute intracranial pathology. Partially empty sella. This critical result was discussed with Dr. Nelson at 11:30 hours on February 21, 2022. It was ascertained that the content and urgency of the report was understood at the time of direct communication.
--- NOTE | 2022-02-21 11:06 | ECG_ITS ---
Test Reason : STROKE Blood Pressure : / mmHG Vent. Rate : 065 BPM Atrial Rate : 065 BPM P-R Int : 142 ms QRS Dur : 070 ms QT Int : 416 ms P-R-T Axes : 011 -05 018 degrees QTc Int : 432 ms Normal sinus rhythm Minimal voltage criteria for LVH, may be normal variant ( R in aVL ) Borderline ECG When compared with ECG of 16-FEB-2022 11:32, No significant change was found Referred By: Po Yap Electronically Signed By:Piotr Corona
--- NOTE | 2022-02-21 11:08 | ED.NEUROSD ---
HPI - Neuro Symptoms/Deficit General Chief Complaint: Stroke Stated Complaint: STROKE ALER:R WEAK,AYANA SPEECH,UNK THIN/LKWT Time Seen by Provider: 02/21/22 11:05 Source: patient and EMS Mode of arrival: EMS Limitations: no limitations History of Present Illness HPI Narrative: 41-year-old female with history of conversion disorder cognitive impairment generalized anxiety disorder presents to the emergency department after being found by her landlord. She notes that her speech was very slurred they called EMS and she was brought in as a stroke alert. Patient is able to talk to she has no other deficits other than the slurred speech which appears to have resolved for me patient was recently started on Haldol. Onset (ago): unknown Related Data Home Medications Medication Instructions Recorded Confirmed atorvastatin 80 mg tablet 1 tab PO BEDTIME 02/14/22 02/14/22 cholecalciferol (vitamin D3) 50 1 cap PO DAILY 02/14/22 02/14/22 mcg (2,000 unit) capsule (D3-2000) dulaglutide 1.5 mg/0.5 mL 1.5 mg subcut QWEEK 02/14/22 02/14/22 subcutaneous pen injector (Trulicity) loperamide 2 mg capsule 1 cap PO Q6H PRN Diarrhea 02/14/22 02/14/22 oxybutynin chloride 15 mg 1 tab PO DAILY 02/14/22 02/14/22 tablet,extended release 24 hr repaglinide 0.5 mg tablet 1 tab PO TID 02/14/22 02/14/22 zolpidem 5 mg tablet 1 tab PO BEDTIME 02/14/22 02/14/22 Previous Rx's Medication Instructions Recorded clonazepam 0.5 mg tablet 0.5 mg PO BID PRN anxiety 30 days 02/18/22 #60 tabs escitalopram oxalate 10 mg tablet 10 mg PO DAILY 30 days #30 tabs 02/18/22 haloperidol 2 mg tablet 2 mg PO BID PRN Auditory 02/18/22 Hallucinations 30 days #60 tabs propranolol 10 mg tablet 5 mg PO BID PRN leg 02/18/22 shakes/trembles 30 days #10 tabs Allergies Allergy/AdvReac Type Severity Reaction Status Date / Time meperidine [Demerol] Allergy Intermediate Hives Verified 02/09/22 14:52 From Prozac Allergy Severe SEVERE Uncoded 02/09/22 14:52 AGITATION Review of Systems Review of Systems: Review of systems: General: Patient denies any fever chills recent illness or falls Musculoskeletal: Denies back pain or body aches or other injuries HEENT: denies headache, runny nose, ear pain Respiratory: denies shortness of breath, cough Cardiovascular: no chest pain or palpitations : denies dysuria, frequency Abdomen: no nausea vomiting denies abdominal pain Extremities: no swelling, no pain Skin: no diaphoresis Yes all other systems are reviewed and are negative [facility] Past Medical History Medical History Acute depression Anxiety Arthritis BMI 40.0-44.9, adult Chronic diarrhea Diabetes Diabetes type 2, uncontrolled Dyslipidemia Elevated LFTs Epilepsy Hyperlipidemia LDL goal <100 Insomnia 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 Social History Social History Household Members: Family Household Members Other:: Housing: Apartment Housing Other:: studio Are you a primary hiv/aids care nurse to a significant other at home: No Do you presently have visiting nurse or other home services: Yes Alcohol intake: former Patient Tobacco Use Status: Never used Tobacco Tobacco use type: Cigarette Cigarette Packs Per Day: 0 Cigarettes Per Day: 6 e-Cigarette/Vaping Use: Never Used Second Hand Smoke Exposure: No Advance Directives: No Advance Directives Information Provided: No service: No Current occupational status: disabled Current occupation: lt handed Sexual orientation: Straight/Heterosexual Gender identity: Female Cognitive needs: Yes Hearing needs: No Vision needs: Yes Physical Exam Vital Signs: Vital Signs: Last Vital Signs Temp 98.3 F 02/21/22 11:18 Pulse 64 02/21/22 11:18 Resp 18 02/21/22 11:18 BP 135/76 02/21/22 11:18 Pulse Ox 95 02/21/22 11:18 O2 Del Method 02/21/22 11:18 BMI result Body Mass Index 36.3 Neurological exam: CN II- XII tested. Patient is alert and oriented to person place and time. Patient has no dysphagia or dysarthia, denies good vision in all four vision mabry no nystagmus on exam, good strength to upper and lower extremities with normal reflexes to brachioradialis, wrist, patella and achilles. Negative romberg, good finger to nose and heel to reza. General: Well-appearing well-nourished in no signs of distress HEENT: Normocephalic atraumatic Neck: No signs of JVD, no masses no tenderness or lymphadenopathy Cardiovascular: Regular rate and rhythm Respiratory: Clear to auscultation bilaterally Abdomen: Soft nontender no masses Extremities: Normal pedal pulses no signs of edema Skin: Dry warm no rashes Back: No tenderness full ROM MDM - Neuro Symptoms/Deficit MDM Narrative Medical decision making narrative: Patient with no signs or deficits on arrival initial scale is 0 patient is not a tPA candidate due to onset she is unable to tell me patient otherwise looks well. 1134 I spoke with Radiology about the CT they agree there is no acute disese process repeat NIH is 0 again not a TPA candidate with NIH of 0 and unknown onset. She has no new deficits. I did speak with the nutrition coordinator who agreed with the workup so far. Medical Records Attestation: I reviewed the patient's medical records. Lab Data Result diagrams: 02/21/22 11:14 02/21/22 11:14 Labs: Lab Results 02/21/22 02/21/22 02/21/22 Range/Units 11:14 11:14 11:14 WBC 7.9 (4.8-10.8) X10*3/uL RBC 5.06 (4.20-5.50) X10*6/uL Hgb 15.4 (12.0-16.0) g/dl Hct 44.1 (37.0-47.0) % MCV 87.2 (80.0-98.0) fL MCH 30.4 (27.0-33.0) pg MCHC 34.9 (31.0-35.0) g/dl RDW 12.5 (11.0-16.0) % Plt Count 230 (160-400) X10*3/uL MPV 9.1 L (9.4-12.3) fL Immature Gran % (Auto) 0.4 (0.0-0.4) % Neut % (Auto) 70.2 (45-73) % Lymph % (Auto) 22.9 (20-40) % [place] % (Auto) 5.2 (2-11) % Eos % (Auto) 0.8 (0-4) % Baso % (Auto) 0.5 (0-2) % Lymph # (Auto) 1.8 (1.2-4.9) X10*3/uL [place] # (Auto) 0.4 (0.1-1.2) X10*3/uL Eos # (Auto) 0.1 (0.0-0.4) X10*3/uL Baso # (Auto) 0.0 (0.0-0.2) X10*3/uL Abs Immat Gran (auto) 0.03 (0.00-0.03) X10*3/uL Absolute Neuts (auto) 5.5 (2.0-8.3) x10*3/uL Absolute Nucleated RBC 0.000 (0.0-0.012) X10*3/uL Nucleated RBC % (auto) 0.0 (0.0-0.2) /100WBC PT 12.9 (10.0-13.1) SEC INR 1.1 (0.9-1.1) APTT 35.3 (24.1-38.0) SEC Sodium 145 (135-145) mmol/L Potassium 4.1 (3.3-5.1) mmol/L Chloride 109 H (96-108) mmol/L Carbon Dioxide 27 (22-29) mmol/L Anion Gap 13 (12-20) BUN 18 H D (9-16) mg/dL Creatinine 0.88 (0.5-1.4) mg/dL Estim Creat Clear Calc 93.4 Estimated GFR > 60 Random Glucose 142 H (60-115) mg/dL Calcium 9.3 (8.4-10.2) mg/dL Troponin I High Sens (<3.5-17.0) ng/L COVID-19 (SADA) (Negative) COVID-19 Clin Com 02/21/22 02/21/22 Range/Units 11:14 11:15 WBC (4.8-10.8) X10*3/uL RBC (4.20-5.50) X10*6/uL Hgb (12.0-16.0) g/dl Hct (37.0-47.0) % MCV (80.0-98.0) fL MCH (27.0-33.0) pg MCHC (31.0-35.0) g/dl RDW (11.0-16.0) % Plt Count (160-400) X10*3/uL MPV (9.4-12.3) fL Immature Gran % (Auto) (0.0-0.4) % Neut % (Auto) (45-73) % Lymph % (Auto) (20-40) % [place] % (Auto) (2-11) % Eos % (Auto) (0-4) % Baso % (Auto) (0-2) % Lymph # (Auto) (1.2-4.9) X10*3/uL [place] # (Auto) (0.1-1.2) X10*3/uL Eos # (Auto) (0.0-0.4) X10*3/uL Baso # (Auto) (0.0-0.2) X10*3/uL Abs Immat Gran (auto) (0.00-0.03) X10*3/uL Absolute Neuts (auto) (2.0-8.3) x10*3/uL Absolute Nucleated RBC (0.0-0.012) X10*3/uL Nucleated RBC % (auto) (0.0-0.2) /100WBC PT (10.0-13.1) SEC INR (0.9-1.1) APTT (24.1-38.0) SEC Sodium (135-145) mmol/L Potassium (3.3-5.1) mmol/L Chloride (96-108) mmol/L Carbon Dioxide (22-29) mmol/L Anion Gap (12-20) BUN (9-16) mg/dL Creatinine (0.5-1.4) mg/dL Estim Creat Clear Calc Estimated GFR Random Glucose (60-115) mg/dL Calcium (8.4-10.2) mg/dL Troponin I High Sens 3.7 (<3.5-17.0) ng/L COVID-19 (SADA) Negative (Negative) COVID-19 Clin Com See Note NIH Stroke Scale Internal: Initial- Upon Arrival Level of Consciousness: Alert Level of Consciousness Questions: Answers both questions correctly Level of Consciousness Commands: Performs both tasks correctly Best Gaze: Normal Visual: No visual loss Facial Palsy: Normal Motor Arm (Right): No drift Motor Arm (Left): No drift Motor Leg (Right): No drift Motor Leg (Left): No drift Limb Ataxia: Absent Sensory: Normal Best Language: No aphasia Dysarthia: Normal Extinction and Inattention: No abnormality Score: 0 Critical Care Time Critical Care Time Critical Care Time: Yes Total Critical Care Time: 35 Attestation: Patient seen immediately upon arrival I did discuss the case with nutrition coordinator as well as Radiology on the CT scan multiple re-evaluations the patient multiple strokes cores patient continues to not have any signs or symptoms of a stroke but will be admitted for further stroke workup. Discharge Plan Discharge Clinical Impression: Transient cerebral ischemia, Slurred speech Patient Disposition: Admitted As Inpatient Prescriptions: No Action oxybutynin chloride 15 mg tablet extended release 24 hr 1 tab PO DAILY loperamide 2 mg capsule 1 cap PO Q6H PRN (Reason: Diarrhea) cholecalciferol (vitamin D3) [D3-2000] 50 mcg (2,000 unit) capsule 1 cap PO DAILY atorvastatin 80 mg tablet 1 tab PO BEDTIME zolpidem 5 mg tablet 1 tab PO BEDTIME Trulicity 1.5 mg/0.5 mL pen injector 1.5 mg subcut QWEEK Label Comments: repaglinide 0.5 mg tablet 1 tab PO TID escitalopram oxalate 10 mg Tablet 10 mg PO DAILY 30 Days Qty: 30 0RF clonazepam 0.5 mg Tablet 0.5 mg PO BID PRN (Reason: anxiety) 30 Days Qty: 60 0RF haloperidol 2 mg tablet 2 mg PO BID PRN (Reason: Auditory Hallucinations ) 30 Days Qty: 60 0RF propranolol 10 mg Tablet 5 mg PO BID PRN (Reason: leg shakes/trembles) 30 Days Qty: 10 0RF Protocol: Hold for SBP/HR < HOLD for SBP < : 90 HOLD for HR < : 60
[2022-02-21 11:18] VITALS: BP 126/79; BP 135/76; PULSE 64; PULSE 74; RESP 18; TEMP 36.8; O2SAT 95; O2SAT 96; BMI 36.3
[2022-02-21 11:21] LABS: MANUAL DIFF FLAG NO
[2022-02-21 11:22] LABS: Basophils Percent Auto 0.5 % (0-2); Eosinophils Absolute Auto 0.1 X10*3/uL (0.0-0.4); Eosinophils Percent Auto 0.8 % (0-4); Hematocrit 44.1 % (37.0-47.0); Hemoglobin 15.4 g/dl (12.0-16.0); Imm Gran Abs Auto 0.03 X10*3/uL (0.00-0.03); Imm Gran Pct Auto 0.4 % (0.0-0.4); Lymphocytes Absolute Auto 1.8 X10*3/uL (1.2-4.9); Lymphocytes Percent Auto 22.9 % (20-40); Mean Corpuscular HGB Conc 34.9 g/dl (31.0-35.0); Mean Corpuscular Hemoglobin 30.4 pg (27.0-33.0); Mean Corpuscular Volume 87.2 fL (80.0-98.0); Mean Platelet Volume 9.1 fL (9.4-12.3); Monocytes Absolute Auto 0.4 X10*3/uL (0.1-1.2); Monocytes Percent Auto 5.2 % (2-11); Neutrophils Absolute Auto 5.5 x10*3/uL (2.0-8.3); Neutrophils Percent Auto 70.2 % (45-73); Platelet Count 230 X10*3/uL (160-400); Red Blood Count 5.06 X10*6/uL (4.20-5.50); Red Cell Distribution Width 12.5 % (11.0-16.0); White Blood Count 7.9 X10*3/uL (4.8-10.8)
--- NOTE | 2022-02-21 11:29 | PC.NURSE ---
Tianna Stroke RN at bedside per protocol . patient responds only to say I don't know . shawn . patient able follow commands . smile with drop and quiver noted on left side . bilateral equal strength in upper extremities . no drifting noted . patient unable to define simple objects . patient unable to move lower extremities . patient transported to CT for scan . patient aware of plan of care .
[2022-02-21 11:31] LABS: INTERNATIONAL NORM RATIO 1.1 (0.9-1.1); Prothrombin Time 12.9 SEC (10.0-13.1)
[2022-02-21 11:34] LABS: Partial Thromboplastin Time 35.3 SEC (24.1-38.0)
[2022-02-21 11:37] LABS: COVID-19 Test Negative (Negative); IDNOW Serial# 16C4AD1C
[2022-02-21 11:38] LABS: Anion Gap 13 (12-20); Blood Urea Nitrogen 18 mg/dL (9-16); Calcium 9.3 mg/dL (8.4-10.2); Carbon Dioxide 27 mmol/L (22-29); Chloride 109 mmol/L (96-108); Creatinine Clr Calc Pharmacy 93.4; Estimated Glomerular Filt Rate > 60; Glucose Random 142 mg/dL (60-115); Potassium 4.1 mmol/L (3.3-5.1); Sodium 145 mmol/L (135-145)
[2022-02-21 11:39] LABS: Stroke Lab Use COMPLETE
[2022-02-21 11:43] LABS: Troponin-I High Sensitivity 3.7 ng/L (<3.5-17.0)
[2022-02-21 11:49] VITALS: BP 135/76; PULSE 72; RESP 18; TEMP 36.8; O2SAT 96
[2022-02-21 11:49] LABS: ~PT, ~INR - Anti Coag Clinic 1.3 (0.9-1.1)
[2022-02-21 11:51] LABS: Glucose, Whole Blood 122 mg/dL (60-115)
[2022-02-21] MEDS: iohexoL 350 MG/ML 100 ML INFUS..BTL IV (11:51)
--- NOTE | 2022-02-21 11:56 | ED.NEUROSD ---
HPI - Neuro Symptoms/Deficit General Chief Complaint: Stroke Stated Complaint: STROKE ALER:R WEAK,AYANA SPEECH,UNK THIN/LKWT Time Seen by Provider: 02/21/22 11:05 Source: patient and EMS Mode of arrival: EMS Limitations: no limitations Related Data Home Medications Medication Instructions Recorded Confirmed atorvastatin 80 mg tablet 1 tab PO BEDTIME 02/14/22 02/21/22 cholecalciferol (vitamin D3) 50 1 cap PO DAILY 02/14/22 02/21/22 mcg (2,000 unit) capsule (D3-2000) dulaglutide 1.5 mg/0.5 mL 1.5 mg subcut TH 02/14/22 02/21/22 subcutaneous pen injector (Trulicity) loperamide 2 mg capsule 1 cap PO Q6H PRN Diarrhea 02/14/22 02/21/22 repaglinide 0.5 mg tablet 1 tab PO TIDAC 02/14/22 02/21/22 zolpidem 5 mg tablet 1 tab PO BEDTIME 02/14/22 02/21/22 acetaminophen 325 mg tablet 650 mg PO Q6H PRN Pain 02/21/22 02/21/22 citalopram 10 mg tablet 20 mg PO DAILY 02/21/22 02/21/22 ibuprofen 800 mg tablet 800 mg PO TID PRN Pain 02/21/22 02/21/22 insulin glargine U-300 conc 300 25 unit subcut BEDTIME 02/21/22 02/21/22 unit/mL (1.5 mL) subcutaneous pen (Toujeo SoloStar U-300 Insulin) Previous Rx's Medication Instructions Recorded clonazepam 0.5 mg tablet 0.5 mg PO BID PRN anxiety 30 days 02/18/22 #60 tabs haloperidol 2 mg tablet 2 mg PO BID PRN Auditory 02/18/22 Hallucinations 30 days #60 tabs propranolol 10 mg tablet 5 mg PO BID PRN leg 02/18/22 shakes/trembles 30 days #10 tabs Allergies Allergy/AdvReac Type Severity Reaction Status Date / Time meperidine [Demerol] Allergy Intermediate Hives Verified 02/09/22 14:52 From Prozac Allergy Severe SEVERE Uncoded 02/09/22 14:52 AGITATION PMFSH Past Medical History Medical History Acute depression Anxiety Arthritis BMI 40.0-44.9, adult Chronic diarrhea Diabetes Diabetes type 2, uncontrolled Dyslipidemia Elevated LFTs Epilepsy Hyperlipidemia LDL goal <100 Insomnia 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 Social History Social History Household Members: Family Household Members Other:: Housing: Apartment Housing Other:: studio Are you a primary md do resident urgent care to a significant other at home: No Do you presently have visiting nurse or other home services: Yes Alcohol intake: former Patient Tobacco Use Status: Never used Tobacco Tobacco use type: Cigarette Cigarette Packs Per Day: 0 Cigarettes Per Day: 6 e-Cigarette/Vaping Use: Never Used Second Hand Smoke Exposure: No Advance Directives: No Advance Directives Information Provided: No Patient : No service: No Current occupational status: disabled Current occupation: lt handed Sexual orientation: Straight/Heterosexual Gender identity: Female Cognitive needs: Yes Hearing needs: No Vision needs: Yes Physical Exam Vital Signs: Vital Signs: Last Vital Signs Temp 98.3 F 02/21/22 11:49 Pulse 72 02/21/22 11:49 Resp 18 02/21/22 11:49 BP 135/76 02/21/22 11:49 Pulse Ox 96 02/21/22 11:49 O2 Del Method 02/21/22 11:49 BMI result Body Mass Index 36.3 MDM - Neuro Symptoms/Deficit Lab Data Result diagrams: 02/21/22 11:14 02/21/22 11:14 Labs: Lab Results 02/21/22 02/21/22 02/21/22 Range/Units 11:14 11:14 11:14 WBC 7.9 (4.8-10.8) X10*3/uL RBC 5.06 (4.20-5.50) X10*6/uL Hgb 15.4 (12.0-16.0) g/dl Hct 44.1 (37.0-47.0) % MCV 87.2 (80.0-98.0) fL MCH 30.4 (27.0-33.0) pg MCHC 34.9 (31.0-35.0) g/dl RDW 12.5 (11.0-16.0) % Plt Count 230 (160-400) X10*3/uL MPV 9.1 L (9.4-12.3) fL Immature Gran % (Auto) 0.4 (0.0-0.4) % Neut % (Auto) 70.2 (45-73) % Lymph % (Auto) 22.9 (20-40) % [place] % (Auto) 5.2 (2-11) % Eos % (Auto) 0.8 (0-4) % Baso % (Auto) 0.5 (0-2) % Lymph # (Auto) 1.8 (1.2-4.9) X10*3/uL [place] # (Auto) 0.4 (0.1-1.2) X10*3/uL Eos # (Auto) 0.1 (0.0-0.4) X10*3/uL Baso # (Auto) 0.0 (0.0-0.2) X10*3/uL Abs Immat Gran (auto) 0.03 (0.00-0.03) X10*3/uL Absolute Neuts (auto) 5.5 (2.0-8.3) x10*3/uL Absolute Nucleated RBC 0.000 (0.0-0.012) X10*3/uL Nucleated RBC % (auto) 0.0 (0.0-0.2) /100WBC PT 12.9 (10.0-13.1) SEC Whole Blood PT (11.1-13.5) sec INR 1.1 (0.9-1.1) Whole Blood INR (0.9-1.1) APTT 35.3 (24.1-38.0) SEC Sodium 145 (135-145) mmol/L Potassium 4.1 (3.3-5.1) mmol/L Chloride 109 H (96-108) mmol/L Carbon Dioxide 27 (22-29) mmol/L Anion Gap 13 (12-20) BUN 18 H D (9-16) mg/dL Creatinine 0.88 (0.5-1.4) mg/dL Estim Creat Clear Calc 93.4 Estimated GFR > 60 POC Glucose (60-115) mg/dL Random Glucose 142 H (60-115) mg/dL Calcium 9.3 (8.4-10.2) mg/dL Troponin I High Sens (<3.5-17.0) ng/L COVID-19 (SADA) (Negative) COVID-19 Clin Com 02/21/22 02/21/22 02/21/22 Range/Units 11:14 11:15 11:39 WBC (4.8-10.8) X10*3/uL RBC (4.20-5.50) X10*6/uL Hgb (12.0-16.0) g/dl Hct (37.0-47.0) % MCV (80.0-98.0) fL MCH (27.0-33.0) pg MCHC (31.0-35.0) g/dl RDW (11.0-16.0) % Plt Count (160-400) X10*3/uL MPV (9.4-12.3) fL Immature Gran % (Auto) (0.0-0.4) % Neut % (Auto) (45-73) % Lymph % (Auto) (20-40) % [place] % (Auto) (2-11) % Eos % (Auto) (0-4) % Baso % (Auto) (0-2) % Lymph # (Auto) (1.2-4.9) X10*3/uL [place] # (Auto) (0.1-1.2) X10*3/uL Eos # (Auto) (0.0-0.4) X10*3/uL Baso # (Auto) (0.0-0.2) X10*3/uL Abs Immat Gran (auto) (0.00-0.03) X10*3/uL Absolute Neuts (auto) (2.0-8.3) x10*3/uL Absolute Nucleated RBC (0.0-0.012) X10*3/uL Nucleated RBC % (auto) (0.0-0.2) /100WBC PT (10.0-13.1) SEC Whole Blood PT 15.0 H (11.1-13.5) sec INR (0.9-1.1) Whole Blood INR 1.3 H (0.9-1.1) APTT (24.1-38.0) SEC Sodium (135-145) mmol/L Potassium (3.3-5.1) mmol/L Chloride (96-108) mmol/L Carbon Dioxide (22-29) mmol/L Anion Gap (12-20) BUN (9-16) mg/dL Creatinine (0.5-1.4) mg/dL Estim Creat Clear Calc Estimated GFR POC Glucose (60-115) mg/dL Random Glucose (60-115) mg/dL Calcium (8.4-10.2) mg/dL Troponin I High Sens 3.7 (<3.5-17.0) ng/L COVID-19 (SADA) Negative (Negative) COVID-19 Clin Com See Note 02/21/22 Range/Units 11:44 WBC (4.8-10.8) X10*3/uL RBC (4.20-5.50) X10*6/uL Hgb (12.0-16.0) g/dl Hct (37.0-47.0) % MCV (80.0-98.0) fL MCH (27.0-33.0) pg MCHC (31.0-35.0) g/dl RDW (11.0-16.0) % Plt Count (160-400) X10*3/uL MPV (9.4-12.3) fL Immature Gran % (Auto) (0.0-0.4) % Neut % (Auto) (45-73) % Lymph % (Auto) (20-40) % [place] % (Auto) (2-11) % Eos % (Auto) (0-4) % Baso % (Auto) (0-2) % Lymph # (Auto) (1.2-4.9) X10*3/uL [place] # (Auto) (0.1-1.2) X10*3/uL Eos # (Auto) (0.0-0.4) X10*3/uL Baso # (Auto) (0.0-0.2) X10*3/uL Abs Immat Gran (auto) (0.00-0.03) X10*3/uL Absolute Neuts (auto) (2.0-8.3) x10*3/uL Absolute Nucleated RBC (0.0-0.012) X10*3/uL Nucleated RBC % (auto) (0.0-0.2) /100WBC PT (10.0-13.1) SEC Whole Blood PT (11.1-13.5) sec INR (0.9-1.1) Whole Blood INR (0.9-1.1) APTT (24.1-38.0) SEC Sodium (135-145) mmol/L Potassium (3.3-5.1) mmol/L Chloride (96-108) mmol/L Carbon Dioxide (22-29) mmol/L Anion Gap (12-20) BUN (9-16) mg/dL Creatinine (0.5-1.4) mg/dL Estim Creat Clear Calc Estimated GFR POC Glucose 122 H (60-115) mg/dL Random Glucose (60-115) mg/dL Calcium (8.4-10.2) mg/dL Troponin I High Sens (<3.5-17.0) ng/L COVID-19 (SADA) (Negative) COVID-19 Clin Com Discharge Plan Discharge Clinical Impression: Transient cerebral ischemia, Slurred speech Patient Disposition: Admitted As Inpatient
[2022-02-21] MEDS: 0.9 % Sodium Chloride 1,000 ML 999 ML IV (12:43)
--- NOTE | 2022-02-21 13:01 | PHA.MEDREC ---
Pharmacy Consult ? Medication Reconciliation Pharmacy has completed the medication reconciliation. Contact patient [facility] with [facility]. They reports patient discharged on Lexapro 10 mg but was told to change to citalopram 20 mg. Reports patient was restarted on Tojeuo 25 units at bedtime. Gem Adams, AnumD
--- NOTE | 2022-02-21 13:15 | PC.NURSE ---
saeid cedillo ([facility], ) [place] [facility] [place] pt.
--- NOTE | 2022-02-21 15:33 | MHC.SL.SWA ---
Speech Pathologist Impression: Oropharyngeal dysphagia Dysphasia Diet Status: TBD pending evaluation Liquid Consistency and Strategies for Safe Swallow: Liquid Intake Recommendation: Thin Liquid Intake Strategies: Small Sips No Straws Solid Food Consistency: Dietary Recommendations: TBD Additional Modifications to Solid Foods: Patient reported dysphagia, stating I can't eat. Patient reported coughing/choking on foods such as cookies and pasta. She also reported pain when swallowing, which she rated 6 or 7 out of 10. Explained rationale of this exam, provided encouragement. SOLAR ELECTRIC/PHOTOVOLTAIC INSTALLER was unable to perform complete evaluation d/t patient's refusal to participate. Patient did take sips of water, bite of applesauce with no overt clinical signs of aspiration. Recommendations pertaining to dietary recommendations TBD pending completion of evaluation. Will re-attempt tomorrow. Notified MD, RN, RD via [employer] Message. Oral Medication Intake: Crushed with Puree Please contact the pharmacy regarding appropriate crushable or liquid drug formulations that are available whenever modified delivery is recommended. Compensatory Strategies and Precautions to be Taken for Safe Swallow: Sitting Upright (90 deg) No Straw Liquids from Cup Liquids from Spoon Small Bites and Sips Rate of Ingestion Change Oral Check Supervision While Eating and Drinking for Safe Swallow: Total Assistance (1:1) Swallowing Recommended Treatments: Compens. Strategy Educat. Recommendation for Speech: Inpatient Speech Therapy Wire Stripper Clinican/Clinical Fellow: No Supervisory Statement: I have reviewed and agree with the student/clinical fellow's documentation: N/A Speech Language Pathologist: Karen Escoto M.A., [facility]-SOLAR ELECTRIC/PHOTOVOLTAIC INSTALLER
--- NOTE | 2022-02-21 15:36 | MHC.SL.SWA ---
Speech Pathologist Impression: Oropharyngeal dysphagia Dysphasia Diet Status: TBD Liquid Consistency and Strategies for Safe Swallow: Liquid Intake Recommendation: Thin Liquid Intake Strategies: Small Sips No Straws Solid Food Consistency: Dietary Recommendations: TBD Additional Modifications to Solid Foods: Patient reported dysphagia, stating I can't eat. Patient reported coughing/choking on foods such as cookies and pasta. She also reported pain when swallowing, which she rated 6 or 7 out of 10. Explained rationale of this exam, provided encouragement. MANUFACTURING TECHNOLOGIST was unable to perform complete evaluation d/t patient's refusal to participate. Patient did take sips of water, bite of applesauce with no overt clinical signs of aspiration. Specific recommendations pertaining to dietary textures TBD pending completion of evaluation. Recommend aspiration precautions in the meantime. Will re-attempt tomorrow. Notified MD, RN, RD via [id number] Message. Oral Medication Intake: Crushed with Puree Please contact the pharmacy regarding appropriate crushable or liquid drug formulations that are available whenever modified delivery is recommended. Compensatory Strategies and Precautions to be Taken for Safe Swallow: Sitting Upright (90 deg) No Straw Liquids from Cup Liquids from Spoon Small Bites and Sips Rate of Ingestion Change Oral Check Supervision While Eating and Drinking for Safe Swallow: Total Assistance (1:1) Swallowing Recommended Treatments: Compens. Strategy Educat. Recommendation for Speech: Inpatient Speech Therapy Licensed Marine Engineer Clinican/Clinical Fellow: No Supervisory Statement: I have reviewed and agree with the student/clinical fellow's documentation: N/A Speech Language Pathologist: Karen Escoto M.A., CCC-MANUFACTURING TECHNOLOGIST
--- NOTE | 2022-02-21 16:19 | PC.NURSE ---
saeid lerma ([facility]) called [facility] [place] and was updated on pt status.
--- NOTE | 2022-02-21 16:25 | P.HPHOSP_ITS ---
History of Present Illness Date of Service: 02/21/22 Chief Complaint: Slurred speech 41 year old women presenting to the ED with slurred speech after being found by her landlord. EMS was called and she was brought to the ED. She was discharged from [facility] M5 on 02/18/22. She has a hx of conversion disorder and was treated for the same in . She denied chest pain, sob, nausea, vomiting or diarrhea. She had no other neurological deficits. Head CTA/CT negative. Hemodynamically stable, labs all within acceptable limits. she will be placed on obs for workup of slurred speech. Review of Systems Review of Systems: Denies any recent fever chills or decrease in appetite respiratory denies any shortness of breath coverage production cardiovascular denied chest pain gastrointestinal denies any dysphagia abdominal pain nausea vomiting or diarrhea genitourinary denies any dysuria frequency or hematuria musculoskeletal denies any joint pain or swelling neuropsych denies any weakness or seizures all other systems reviewed are negative [facility] Medical History Acute depression Anxiety Arthritis BMI 40.0-44.9, adult Chronic diarrhea Diabetes Diabetes type 2, uncontrolled Dyslipidemia Elevated LFTs Epilepsy Hyperlipidemia LDL goal <100 Insomnia shelter current use of insulin Low vitamin D level Mild developmental delay Mild episode of recurrent major depressive disorder Mild intellectual disability Obesity Obesity due to excess calories Overactive bladder PTSD (post-traumatic stress disorder) Right hip pain Snores Type 2 diabetes mellitus with diabetic polyneuropathy Family History Father Diabetes Mental health disorder Mother No problems noted. Surgical History History of bilateral tubal ligation History of hysteroscopy Hx of cholecystectomy Social History Household Members: Family Household Members Other:: Housing: Apartment Housing Other:: studio Are you a primary home health care case manager to a significant other at home: No Do you presently have visiting nurse or other home services: Yes Alcohol intake: former Patient Tobacco Use Status: Never used Tobacco Tobacco use type: Cigarette Cigarette Packs Per Day: 0 Cigarettes Per Day: 6 e-Cigarette/Vaping Use: Never Used Second Hand Smoke Exposure: No Advance Directives: No Advance Directives Information Provided: No Patient : No service: No Current occupational status: disabled Current occupation: lt handed Sexual orientation: Straight/Heterosexual Gender identity: Female Cognitive needs: Yes Hearing needs: No Vision needs: Yes Meds Allergies Allergy/AdvReac Type Severity Reaction Status Date / Time meperidine [Demerol] Allergy Intermediate Hives Verified 02/09/22 14:52 From Prozac Allergy Severe SEVERE Uncoded 02/09/22 14:52 AGITATION Active Medications: Current Medications Acetaminophen (Acetaminophen 325 Mg Tablet) 650 mg PO Q6H PRN PRN Reason: Pain, Mild (Pain Scale 1-3) Atorvastatin Calcium (Atorvastatin Calcium 80 Mg Tablet) 80 mg PO BEDTIME [facility] Clonazepam (Clonazepam 0.5 Mg Tablet) 0.5 mg PO BID PRN PRN Reason: anxiety Escitalopram Oxalate (Escitalopram Oxalate 10 Mg Tablet) 10 mg PO DAILY [facility] Haloperidol (Haloperidol 1 Mg Tablet) 2 mg PO BID PRN PRN Reason: Auditory Hallucinations Loperamide HCl (Loperamide Hcl 2 Mg Capsule) 2 mg PO Q6H PRN PRN Reason: Diarrhea Non-Formulary Medication (Repaglinide) 1 tab PO TIDAC [facility] Ondansetron HCl (Ondansetron Hcl 4 Mg/2 Ml Vial) 4 mg IVPUSH Q8H PRN PRN Reason: Nausea and Vomiting Pharmacy Consult (Consult Rx Perform Med Rec) 1 each MISCELLANE ONCE PRN PRN Reason: Consult order Propranolol HCl (Propranolol Hcl 10 Mg Tablet) 5 mg PO BID PRN; Protocol PRN Reason: leg shakes/trembles Sodium Chloride (0.9 % Sodium Chloride Flush 3 Ml Syringe) 3 ml IVFLUSH QSHIFT [facility] Vitamin D (Cholecalciferol (Vitamin D3) 25 Mcg Tablet) 50 mcg PO DAILY [facility] Zolpidem Tartrate (Zolpidem Tartrate 5 Mg Tablet) 5 mg PO BEDTIME [facility] Home Medications Medication Instructions Recorded Confirmed Last Taken Type atorvastatin 80 mg tablet 1 tab PO BEDTIME 02/14/22 02/21/22 Unknown History cholecalciferol (vitamin D3) 50 1 cap PO DAILY 02/14/22 02/21/22 Unknown History mcg (2,000 unit) capsule (D3-2000) dulaglutide 1.5 mg/0.5 mL 1.5 mg subcut TH 02/14/22 02/21/22 Unknown History subcutaneous pen injector (Trulicity) loperamide 2 mg capsule 1 cap PO Q6H PRN Diarrhea 02/14/22 02/21/22 Unknown History repaglinide 0.5 mg tablet 1 tab PO TIDAC 02/14/22 02/21/22 Unknown History zolpidem 5 mg tablet 1 tab PO BEDTIME 02/14/22 02/21/22 Unknown History acetaminophen 325 mg tablet 650 mg PO Q6H PRN Pain 02/21/22 02/21/22 Unknown History citalopram 10 mg tablet 20 mg PO DAILY 02/21/22 02/21/22 Unknown History ibuprofen 800 mg tablet 800 mg PO TID PRN Pain 02/21/22 02/21/22 Unknown History insulin glargine U-300 conc 300 25 unit subcut BEDTIME 02/21/22 02/21/22 Unknown History unit/mL (1.5 mL) subcutaneous pen (Toujeo SoloStar U-300 Insulin) Physical Exam Vital Signs and Narrative: Vital Signs: Last Vital Signs Temp 98.3 F 02/21/22 11:49 Pulse 72 02/21/22 11:49 Resp 18 02/21/22 11:49 BP 135/76 02/21/22 11:49 Pulse Ox 96 02/21/22 11:49 O2 Del Method 02/21/22 11:49 BMI result Body Mass Index 36.3 Appearing in no acute distress head is normocephalic atraumatic eyes pupils are PERRLA sclera is anicteric mouth throat mucous membranes are intact and moist neck is supple no lymphadenopathy, no JVD noted lung sounds are clear to auscultation heart regular rate rhythm, clear S1, S2 positive bowel sounds, abdomen is soft, nontender neuro patient is alert x3, no focal deficits Results Labs CBC and Chem 7: 02/22/22 06:28 02/22/22 06:28 Labs: Laboratory Results - last 24 hr 02/21/22 02/21/22 02/21/22 11:14 11:14 11:14 MCV 87.2 MCH 30.4 MCHC 34.9 RDW 12.5 Plt Count 230 MPV 9.1 L Immature Gran % (Auto) 0.4 Neut % (Auto) 70.2 Lymph % (Auto) 22.9 [place] % (Auto) 5.2 Eos % (Auto) 0.8 Baso % (Auto) 0.5 Lymph # (Auto) 1.8 [place] # (Auto) 0.4 Eos # (Auto) 0.1 Baso # (Auto) 0.0 Abs Immat Gran (auto) 0.03 Absolute Neuts (auto) 5.5 Absolute Nucleated RBC 0.000 Nucleated RBC % (auto) 0.0 PT 12.9 Whole Blood PT INR 1.1 Whole Blood INR APTT 35.3 Anion Gap 13 Estim Creat Clear Calc 93.4 Estimated GFR > 60 POC Glucose Random Glucose 142 H Calcium 9.3 Troponin I High Sens COVID-19 ([facility]) COVID-19 Clin Com 02/21/22 02/21/22 02/21/22 11:14 11:15 11:39 MCV MCH MCHC RDW Plt Count MPV Immature Gran % (Auto) Neut % (Auto) Lymph % (Auto) [place] % (Auto) Eos % (Auto) Baso % (Auto) Lymph # (Auto) [place] # (Auto) Eos # (Auto) Baso # (Auto) Abs Immat Gran (auto) Absolute Neuts (auto) Absolute Nucleated RBC Nucleated RBC % (auto) PT Whole Blood PT 15.0 H INR Whole Blood INR 1.3 H APTT Anion Gap Estim Creat Clear Calc Estimated GFR POC Glucose Random Glucose Calcium Troponin I High Sens 3.7 COVID-19 ([facility]) Negative COVID-19 Clin Com See Note 02/21/22 11:44 MCV MCH MCHC RDW Plt Count MPV Immature Gran % (Auto) Neut % (Auto) Lymph % (Auto) [place] % (Auto) Eos % (Auto) Baso % (Auto) Lymph # (Auto) [place] # (Auto) Eos # (Auto) Baso # (Auto) Abs Immat Gran (auto) Absolute Neuts (auto) Absolute Nucleated RBC Nucleated RBC % (auto) PT Whole Blood PT INR Whole Blood INR APTT Anion Gap Estim Creat Clear Calc Estimated GFR POC Glucose 122 H Random Glucose Calcium Troponin I High Sens COVID-19 ([facility]) COVID-19 Clin Com Imaging Radiologist's Impressions: Impressions Head CT 02/21/22 11:20 IMPRESSION: No acute intracranial pathology. Partially empty sella. This critical result was discussed with Dr. Nelson at 11:30 hours on February 21, 2022. It was ascertained that the content and urgency of the report was understood at the time of direct communication. Head/Neck CTA 02/21/22 11:25 IMPRESSION: Normal CT angiogram of the head and neck. This critical result was discussed with Dr. Yap at 11:45 AM on 02/21/2022 and it was ascertained that the content and urgency of the report was understood at the time of direct communication. Assessment and Plan (1) Slurred speech: Status: Acute Plan 41 year old women admitted after an episode of slurred speech Slurred speech. NO further epsiodes Head CTA negative Neurology consult, will discuss what other testing should be done Monitor on tele Mental health, conversion disorder continue home medications recent admission for M5, consult psych Diabetes ss, ada diet HLD Statin DVT prophylaxis with Early ambulation Attending Dr. Tran Full code OBS Quality Stroke Does the patient have a stroke diagnosis?: No VTE Prior VTE?: No VTE Risk Level:: Medical - moderate - high VTE Device Contraindication: Treatment Not Indicated VTE Drug Contraindication: N/A - Med Ordered
[2022-02-21] MEDS: 0.9 % Sodium Chloride Flush 3 ML SYRINGE IVFLUSH (17:12)
[2022-02-21 17:25] LABS: Glucose, Whole Blood 86 mg/dL (60-115)
[2022-02-21 18:01] VITALS: BP 127/67; PULSE 61; RESP 18; O2SAT 96
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
--- NOTE | 2022-02-21 19:17 | PC.NURSE ---
assumed care of pt at 191
[2022-02-22 02:44] VITALS: BP 125/99; PULSE 54; RESP 16; O2SAT 96
--- NOTE | 2022-02-22 04:17 | PC.NURSE ---
pt has not had anything to eat nor drink; no meds to be administered via IV
[2022-02-22 06:53] LABS: MANUAL DIFF FLAG NO
[2022-02-22 07:14] LABS: Basophils Percent Auto 0.5 % (0-2); Eosinophils Absolute Auto 0.2 X10*3/uL (0.0-0.4); Eosinophils Percent Auto 2.1 % (0-4); Hematocrit 39.4 % (37.0-47.0); Hemoglobin 13.8 g/dl (12.0-16.0); Imm Gran Abs Auto 0.02 X10*3/uL (0.00-0.03); Imm Gran Pct Auto 0.3 % (0.0-0.4); Lymphocytes Absolute Auto 2.3 X10*3/uL (1.2-4.9); Lymphocytes Percent Auto 29.3 % (20-40); Mean Corpuscular Hemoglobin 30.7 pg (27.0-33.0); Mean Corpuscular Volume 87.8 fL (80.0-98.0); Mean Platelet Volume 9.8 fL (9.4-12.3); Monocytes Absolute Auto 0.6 X10*3/uL (0.1-1.2); Monocytes Percent Auto 7.1 % (2-11); Neutrophils Absolute Auto 4.7 x10*3/uL (2.0-8.3); Neutrophils Percent Auto 60.7 % (45-73); Platelet Count 214 X10*3/uL (160-400); Red Blood Count 4.49 X10*6/uL (4.20-5.50); Red Cell Distribution Width 12.6 % (11.0-16.0); White Blood Count 7.8 X10*3/uL (4.8-10.8)
[2022-02-22 07:21] LABS: Anion Gap 13 (12-20); Blood Urea Nitrogen 16 mg/dL (9-16); Calcium 8.5 mg/dL (8.4-10.2); Carbon Dioxide 23 mmol/L (22-29); Chloride 113 mmol/L (96-108); Creatinine Clr Calc Pharmacy 103.3; Estimated Glomerular Filt Rate > 60; Glucose Random 118 mg/dL (60-115); Potassium 3.8 mmol/L (3.3-5.1); Sodium 145 mmol/L (135-145)
--- NOTE | 2022-02-22 12:04 | PC.NURSE ---
group controller saeid lerma given pt update
--- NOTE | 2022-02-22 12:23 | P.DS_ITS ---
DS: Providers Provider Date of Service: 02/22/22 Date of admission: 02/21/22 14:25 Primary care physician: Ani Weiss MD Consults: 02/21/22 14:33 Consult to Neurology Routine Consulting Provider: [facility] Reason for consultation: slurred speech Has provider been notified: No Attending physician on discharge: Edenilson Coburn Discharging clinician: Susana Vega DS: Diagnosis Discharge Diagnosis (1) Mild cognitive impairment: Status: Chronic (2) TOBIAS (generalized anxiety disorder): Status: Chronic DS: Summary Hospital Course Hospital Course: 41 year old women presenting to the ED with slurred speech after being found by her landlord. EMS was called and she was brought to the ED. She was discharged from [facility] on 02/18/22. She has a hx of conversion disorder and was treated for the same in . She denied chest pain, sob, nausea, vomiting or diarrhea. She had no other neurological deficits. Head CTA/CT negative. Slurred speech. No further episodes Head CTA negative Neurology consult, will discuss what other testing should be done Mental health, conversion disorder continue home medications recent admission for , no need for inpatient psych care Diabetes continue home medications HLD Statin Time Spent with Patient Time attestation: Total time spent providing and/or coordinating discharge services: Discharge coordination time: Greater than 30 minutes Quality: Safe Use of Opioids Does Pt have an Active Cancer Diagnosis on the Problem List?: No Quality: Stroke Does the patient have a stroke diagnosis?: No Physical Exam Vital Signs: Vital Signs: Last Vital Signs Temp 98.3 F 02/21/22 11:49 Pulse 54 02/22/22 02:44 Resp 16 02/22/22 02:44 BP 125/99 H 02/22/22 02:44 Pulse Ox 96 02/22/22 02:44 O2 Del Method 02/22/22 02:44 BMI result Body Mass Index 36.3 Appearing in no acute distress head is normocephalic atraumatic eyes pupils are PERRLA sclera is anicteric mouth throat mucous membranes are intact and moist neck is supple no lymphadenopathy, no JVD noted lung sounds are clear to auscultation heart regular rate rhythm, clear S1, S2 positive bowel sounds, abdomen is soft, nontender neuro patient is alert x3, no focal deficits, slow speech at baseline baseline tremors DS: Data Data Completed and Pending Labs on day of discharge: Laboratory Results - last 24 hr 02/21/22 02/22/22 02/22/22 17:20 06:28 06:28 WBC 7.8 RBC 4.49 Hgb 13.8 Hct 39.4 MCV 87.8 MCH 30.7 MCHC 35.0 RDW 12.6 Plt Count 214 MPV 9.8 Immature Gran % (Auto) 0.3 Neut % (Auto) 60.7 Lymph % (Auto) 29.3 [place] % (Auto) 7.1 Eos % (Auto) 2.1 Baso % (Auto) 0.5 Lymph # (Auto) 2.3 [place] # (Auto) 0.6 Eos # (Auto) 0.2 Baso # (Auto) 0.0 Abs Immat Gran (auto) 0.02 Absolute Neuts (auto) 4.7 Absolute Nucleated RBC 0.000 Nucleated RBC % (auto) 0.0 Sodium 145 Potassium 3.8 Chloride 113 H Carbon Dioxide 23 Anion Gap 13 BUN 16 Creatinine 0.79 Estim Creat Clear Calc 103.3 Estimated GFR > 60 POC Glucose 86 Random Glucose 118 H Calcium 8.5 D Discharge Plan Discharge Anticipated Discharge Date/Time: 02/22/22 14:19 Patient Disposition: Home, Self-Care Discharge Diagnosis: Slurred speech Referrals: Ani Javier MD [Primary Care Provider] - 1 Week Discharge Medications: Continued loperamide 2 mg capsule 1 cap PO Q6H PRN (Reason: Diarrhea) cholecalciferol (vitamin D3) [D3-2000] 50 mcg (2,000 unit) capsule 1 cap PO DAILY atorvastatin 80 mg tablet 1 tab PO BEDTIME zolpidem 5 mg tablet 1 tab PO BEDTIME Trulicity 1.5 mg/0.5 mL pen injector 1.5 mg subcut TH Label Comments: repaglinide 0.5 mg tablet 1 tab PO TIDAC clonazepam 0.5 mg Tablet 0.5 mg PO BID PRN (Reason: anxiety) 30 Days Qty: 60 0RF haloperidol 2 mg tablet 2 mg PO BID PRN (Reason: Auditory Hallucinations ) 30 Days Qty: 60 0RF propranolol 10 mg Tablet 5 mg PO BID PRN (Reason: leg shakes/trembles) 30 Days Qty: 10 0RF Protocol: Hold for SBP/HR < HOLD for SBP < : 90 HOLD for HR < : 60 acetaminophen 325 mg Tablet 650 mg PO Q6H PRN (Reason: Pain) ibuprofen 800 mg Tablet 800 mg PO TID PRN (Reason: Pain) citalopram 10 mg tablet 20 mg PO DAILY Cris Maciel U-300 Insulin 300 unit/mL (1.5 mL) Insulin Pen 25 unit SUBCUT BEDTIME Diet: Advance to usual diet Activity on Discharge: As tolerated Stand Alone Forms: Patient Portal Discharge page Care Plan Goals: Complete resolution of symptoms Health Concerns: Slurred speech Plan of Treatment: Follow up with primary care provider as needed Assessment: See discharge summary
[2022-02-22 12:38] VITALS: BP 130/78; PULSE 68; RESP 16; TEMP 36.7; O2SAT 97
--- NOTE | 2022-02-22 13:51 | MHC.SL.SWA ---
Speech Pathologist Impression: Risk of Aspiration Due to: Oral phase dysphagia Dysphasia Diet Status: Chopped/Advanced (NDD3) w/ THIN liquids. Recommend pills CRUSHED in Puree or patients preference for taking medication. Liquid Consistency and Strategies for Safe Swallow: Liquid Intake Recommendation: Thin Liquid Intake Strategies: Small Sips Solid Food Consistency: Dietary Recommendations: Chopped/Advanced (NDD3) Additional Modifications to Solid Foods: Add sauces/gravies. Pt will need assistance with making sure tray is set up, items are opened and available, food is cut up into manageable bites. Encourage patient to participate in selecting preferred foods. Oral Medication Intake: Crushed with Puree Please contact the pharmacy regarding appropriate crushable or liquid drug formulations that are available whenever modified delivery is recommended. Compensatory Strategies and Precautions to be Taken for Safe Swallow: Sitting Upright (90 deg) Liquids from Cup Liquids from Straw Small Bites and Sips Alternate Liquids/Solids Rate of Ingestion Change Supervision While Eating and Drinking for Safe Swallow: Intermittent Supervision Foods to Avoid: Hard/Difficult to chew solids. Swallowing Recommended Treatments: Compens. Strategy Educat. Recommendation for Speech: Inpatient Speech Therapy: Pt was seen this a.m. in ED. Pt was awake, alert and interested/motivated to take food this morning (patient had refused any solid foods on initial eval due to c/o can't swallow and c/o generalized mouth and throat soreness). Pt had vannessa mahendra with straw at bedside, observed patient taking straw sips of liquid with normal oral transit, evident swallow trigger, laryngeal elevation WFL, no clinical signs of aspiration. PT additionally took cup sips of water, w/ good oral containment, oral and pharyngeal phase of swallow WFL. Pt took tsps of apple sauce with mild delay of oral transit, pharyngeal phase of swallow WFL. Pt took cup and spoon from clinician, self fed remainder of the cup of apple sauces w/ no clinical s/s of aspiration. Pt refused cheese stick (soft solid), reported I don't like mozzarella cheese ), however accepted bites of Doug Cracker: Pt bit off piece of cracker, produce a prolonged oral phase with slow mastication of cracker, slow transit of bolus, evident swallow trigger, with laryngeal elevation wfl, however mild oral residual cleared by sip of liquid. Pt reported that she enjoys eating chicken, hamburgers, her 's beef foley. Pt still currently NPO in diet orders, recommend START diet of Chopped/Advanced (NDD3) w/ THIN liquids. Recommend pills CRUSHED in Puree or patients preference for taking medication. Recommendations communicated by secure text to SHAAN YOUNG. OCEAN FISHING GUIDE will continue to follow for toleration of diet, re-assessment of swallow as needed. Comment: Frequency/Duration: Date Range for Service Req: Timeline to reassess: Virtual Office Assistant Clinican/Clinical Fellow: No Supervisory Statement: I have reviewed and agree with the student/clinical fellow's documentation: N/A Speech Language Pathologist: Viji Genao M.A., CCC-OCEAN FISHING GUIDE
--- NOTE | 2022-02-22 16:00 | MHC.CM.PN ---
Met with patient in regards to discharge planning. Patient lives with her , uses a rollator and is active with [facility]. PCP verified. HCP completed, signed and witnessed. Original given to patient. Copy placed in chart. Obs notice explained and signed. Patient received 2 Moderna vaccines. Patient's will transport her home when medically stable. Continue to monitor for d/c needs.
== END 2022-02-22 19:19 | disposition left against medical advice (07) ==
LOC: HO.ED 11:51 → HO.EDOVER 14:59
PROVIDERS: Admitting Provider Nurse Practitioner Acute Care; Emergency Provider Student in an Organized Health Care Education/Training Program; PCP Internal Medicine; Visit Provider Nurse Practitioner Acute Care
DX: F41.1 Generalized anxiety disorder (principal); G31.84 Mild cognitive impairment of uncertain or unknown etiology; F43.0 Acute stress reaction; E11.9 Type 2 diabetes mellitus without complications; R47.81 Slurred speech; R13.11 Dysphagia, oral phase; R51.9 Headache, unspecified; F44.9 Dissociative and conversion disorder, unspecified; E78.5 Hyperlipidemia, unspecified; F17.210 Nicotine dependence, cigarettes, uncomplicated; Z20.822 Contact with and (suspected) exposure to COVID-19; Z71.6 Tobacco abuse counseling; Z79.899 Other long term (current) drug therapy; Z79.4 Long term (current) use of insulin
CPT/HCPCS: 36415; 70450; 70496; 70498; 80048; 82947; 84484; 85025; 85610; 85730; 87635; 92526; 92610; 93005; 96374; 99219; 99285; Q9967

== ENCOUNTER 2022-03-19 00:28 | Emergency (ER) | payer MEDICARE, MEDICAID, SELFPAY ==
[2022-03-19 00:37] VITALS: BP 134/87; PULSE 108; RESP 16; TEMP 36.3; O2SAT 98; BMI 31.7
--- NOTE | 2022-03-19 00:52 | ED.GENADULT ---
HPI - General Adult General Chief complaint: General Medical Stated complaint: crisis Time Seen by Provider: 03/19/22 00:42 Source: patient and EMS Mode of arrival: EMS Limitations: other (For historian, history of intellectual disability) History of Present Illness HPI narrative: Patient comes to the emergency room via EMS. Seems that earlier today, the patient's was concerned that the patient was a fall risk and decided to call 911. Patient initially had no complaints. Then patient started complaining of bilateral leg pain. Then patient started crying saying that she is crying because the television in her room is off. Patient has been evaluated multiple times by Psychiatry. Seems that she has a lengthy psychiatric history including somatization Related Data Home Medications Medication Instructions Recorded Confirmed atorvastatin 80 mg tablet 1 tab PO BEDTIME 02/14/22 03/16/22 cholecalciferol (vitamin D3) 50 1 cap PO DAILY 02/14/22 02/21/22 mcg (2,000 unit) capsule (D3-2000) loperamide 2 mg capsule 1 cap PO Q6H PRN Diarrhea 02/14/22 03/16/22 repaglinide 0.5 mg tablet 1 tab PO TIDAC 02/14/22 03/16/22 zolpidem 5 mg tablet 1 tab PO BEDTIME 02/14/22 03/16/22 acetaminophen 325 mg tablet 650 mg PO Q6H PRN Pain 02/21/22 03/16/22 citalopram 10 mg tablet 20 mg PO DAILY 02/21/22 03/16/22 ibuprofen 800 mg tablet 800 mg PO TID PRN Pain 02/21/22 03/16/22 insulin glargine U-300 conc 300 25 unit subcut BEDTIME 02/21/22 03/16/22 unit/mL (1.5 mL) subcutaneous pen (Cris SoloStar U-300 Insulin) aripiprazole 10 mg tablet 10 mg PO DAILY 03/16/22 03/16/22 buspirone 7.5 mg tablet 7.5 mg PO BID 03/16/22 03/16/22 lorazepam 1 mg tablet 1 mg PO DAILY PRN anxiety 03/16/22 03/16/22 Previous Rx's Medication Instructions Recorded haloperidol 2 mg tablet 2 mg PO BID PRN Auditory 02/18/22 Hallucinations 30 days #60 tabs propranolol 10 mg tablet 5 mg PO BID PRN leg 02/18/22 shakes/trembles 30 days #10 tabs dulaglutide 1.5 mg/0.5 mL 1.5 mg (0.5 mL) subcut TH #2 mL 03/15/22 subcutaneous pen injector (Trulicity) Allergies Allergy/AdvReac Type Severity Reaction Status Date / Time meperidine [Demerol] Allergy Intermediate Hives Verified 03/16/22 11:36 From Prozac Allergy Severe SEVERE Uncoded 03/16/22 11:36 AGITATION Review of Systems Review of Systems: Constitutional : No Weight loss, No Fever, No Chills, No Night Sweats, No Fatigue, No Malaise ENT/Mouth : No Hearing loss, No Ear Pain, No Nasal Congestion, No Sinus Pain, No Hoarseness, No sore throat, No Rhinorrhea, No Swallowing Difficulty Eyes: No Eye Pain, No Swelling, No Redness, No Foreign Body, No Discharge, No Vision Changes Cardiovascular : No Chest Pain, No SOB, No Dyspnea on Exertion, No Orthopnea, No Edema, No Palpitations Respiratory : No Cough, No Sputum, No Wheezing, No Smoke Exposure, No Dyspnea Gastrointestinal : No Nausea, No Vomiting, No Diarrhea, No Constipation, No abdominal Pain, No Hematochezia, No Melena Genitourinary : no irregular bleeding, No Dysuria, No Urinary Frequency, No Hematuria, No Urinary Incontinence, No Urgency, No Flank Pain, No Urinary Flow Changes, No Hesitancy Musculoskeletal : No joint pain, No Myalgias, No Joint Swelling, bilateral leg pain Skin : No Skin Lesions, No rash Neuro : No Weakness, No Numbness, No Paresthesias, No Loss of Consciousness, No Dizziness, No Headache Psych : No Anxiety/Panic, No Depression, No SI/HI/AH/VH, No Social Issues, Heme/Lymph: No Bruising, No Bleeding,No Lymphadenopathy Endocrine : No Polyuria, No Polydipsia, No Temperature [facility]olerance 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 Social History Social History Household Members: Family Household Members Other:: Housing: Apartment Housing Other:: studio Are you a primary in home caregiver to a significant other at home: No Do you presently have visiting nurse or other home services: Yes Alcohol intake: former Patient Tobacco Use Status: Never used Tobacco Tobacco use type: Cigarette Cigarette Packs Per Day: 0 Cigarettes Per Day: 6 e-Cigarette/Vaping Use: Never Used Second Hand Smoke Exposure: No Advance Directives: Yes Advance Directives Information Provided: Yes Advance Directives on File: Yes Advance Directives Date on File: 02/22/22 service: No Current occupational status: disabled Current occupation: lt handed Sexual orientation: Straight/Heterosexual Gender identity: Female Cognitive needs: Yes Hearing needs: No Vision needs: Yes Physical Exam ED Vital Signs: Vital Signs - 24 hr 03/19/22 00:37 Temperature 97.3 F Pulse Rate 108 H Respiratory Rate 16 Blood Pressure 134/87 Pulse Oximetry 98 Oxygen Delivery Method Room Air BMI result Body Mass Index 31.7 Const Other: Appearance: Alert. Oriented X3. Mildly disheveled Eyes: Pupils equal, round and reactive to light. ENT: Pharynx normal. Neck: Normal inspection. Neck supple. No lymph nodes noted. No crepitus CVS: Normal heart rate and rhythm. Pulses normal. Normal S1 and S2 Respiratory: No respiratory distress. Breath sounds normal. No Wheezing. No rales Abdomen: Soft and nontender. No rigidity. No distention. Skin: Skin warm and dry. Normal skin color. Normal skin turgor. Extremities: No lower extremity edema. No Lacerations. No Rash Neuro: Oriented X 3. No motor deficit. No sensory deficit. Moving all extremities. No slurred speech. CN 2 through 12 grossly intact Psych: calm, redirectable, crying because her television is off Course Course Course Narrative: Behavioral health network consult pending. Physician supervision started at 00:50 Discharge Plan Discharge Clinical Impression: Anxiety, generalized Patient Disposition: Still a Patient Prescriptions: No Action Trulicity 1.5 mg/0.5 mL pen injector 1.5 mg subcut Qty: 2 5RF Label Comments: loperamide 2 mg capsule 1 cap PO Q6H PRN (Reason: Diarrhea) cholecalciferol (vitamin D3) [D3-2000] 50 mcg (2,000 unit) capsule 1 cap PO DAILY atorvastatin 80 mg tablet 1 tab PO BEDTIME zolpidem 5 mg tablet 1 tab PO BEDTIME repaglinide 0.5 mg tablet 1 tab PO TIDAC haloperidol 2 mg tablet 2 mg PO BID PRN (Reason: Auditory Hallucinations ) 30 Days Qty: 60 0RF propranolol 10 mg Tablet 5 mg PO BID PRN (Reason: leg shakes/trembles) 30 Days Qty: 10 0RF Protocol: Hold for SBP/HR < HOLD for SBP < : 90 HOLD for HR < : 60 acetaminophen 325 mg Tablet 650 mg PO Q6H PRN (Reason: Pain) ibuprofen 800 mg Tablet 800 mg PO TID PRN (Reason: Pain) citalopram 10 mg tablet 20 mg PO DAILY Cris Maciel U-300 Insulin 300 unit/mL (1.5 mL) Insulin Pen 25 unit SUBCUT BEDTIME aripiprazole 10 mg tablet 10 mg PO DAILY lorazepam 1 mg tablet 1 mg PO DAILY PRN (Reason: anxiety) buspirone 7.5 mg tablet 7.5 mg PO BID
[2022-03-19 01:21] LABS: COVID-19 Test Negative (Negative)
--- NOTE | 2022-03-19 07:14 | PC.NURSE ---
Patient slept intermittently, no distress observed/reported, behavior non concerning, BHN referral completed/confirmed/pending ETA, med rec completed/pending provider's approval, VSS, will continue to monitor.
--- NOTE | 2022-03-19 07:18 | PC.NURSE ---
patient appears to remain at rest at present respirations are even and unlabored patient appears in no distress
--- NOTE | 2022-03-19 08:27 | PC.NURSE ---
nia cotter called and left recent details about client that she boarded at [facility] ED recently as stephanie search for 10 days, has been home about a week, sinemet exacerbates symptoms, these meds were recently give abilify 10mg daily, buspar 7.5mb bid propanolol 10mg bid and celexa 10mg at 1700 all given in applesauce she was neuro cleared at [facility].
[2022-03-19 10:21] LABS: Glucose, Whole Blood 127 mg/dL (60-115)
--- NOTE | 2022-03-19 11:22 | PHA.MEDREC ---
Pharmacy Consult ? Medication Reconciliation Pharmacy has reviewed the medication reconciliation completed by Eyal. Spoke with Paula from [facility]. Patient has not been taking atorvastatin because it cannot be crush. Patient has no been on Toujeo, Truliciy because her blood sugars have been low. Patient has not been taking repaglinid because she has not been eating and she has low blood sugars. Paula reported that haldol was working for her however she no longer has a prescripition for it. Sinement was stopped because it worsen symptoms. Gem Adams, PharmD
[2022-03-19] MEDS: ARIPiprazole 10 MG TABLET PO (12:07)
[2022-03-19] MEDS: busPIRone HCl 5 MG TABLET 7.5 MG PO ×2 (12:08→21:39)
[2022-03-19] MEDS: Propranolol HCL 10 MG TABLET PO ×2 (12:09→21:39)
[2022-03-19] MEDS: Cholecalciferol (Vitamin D3) 25 MCG TABLET 50 MCG PO (12:09)
[2022-03-19 14:06] VITALS: BP 131/72; PULSE 82; RESP 14; TEMP 37; O2SAT 97
[2022-03-19] MEDS: HaloperidoL 1 MG TABLET 2 MG PO (21:39)
[2022-03-19] MEDS: Zolpidem Tartrate 5 MG TABLET PO (21:39)
[2022-03-19] MEDS: Escitalopram Oxalate 5 MG TABLET PO (21:39)
[2022-03-19 21:41] VITALS: BP 140/77; PULSE 80; RESP 20; O2SAT 95
[2022-03-19 23:31] VITALS: BP 115/64; PULSE 69; RESP 16; TEMP 36.4; O2SAT 96
[2022-03-19 23:33] LABS: Glucose, Whole Blood 122 mg/dL (60-115)
--- NOTE | 2022-03-20 07:07 | PC.NURSE ---
patient awake and ambulating independently patient appears in no distress
--- NOTE | 2022-03-20 07:13 | PC.NURSE ---
Patient slept through the night, no distress observed/reported, patient report multiple needs, visits bathroom frequently however, unable to provide urine sample, awaiting BHN evaluation, BHn called for ETA/no clinician available yesterday, patient will be evaluated today, medication compliant, behavior non concerning, VSS, will continue to monitor.
--- NOTE | 2022-03-20 07:15 | PC.NURSE ---
patient appears to remain at rest at present ambulating indepedently quietly wanders unit near bedroom patient appears in no distress
[2022-03-20] MEDS: ARIPiprazole 10 MG TABLET PO (07:53)
[2022-03-20] MEDS: Cholecalciferol (Vitamin D3) 25 MCG TABLET 50 MCG PO (07:53)
[2022-03-20] MEDS: Propranolol HCL 10 MG TABLET PO ×2 (07:53→20:32)
[2022-03-20] MEDS: busPIRone HCl 5 MG TABLET 7.5 MG PO ×2 (07:53→20:31)
[2022-03-20 08:34] VITALS: BP 121/76; PULSE 76; RESP 14; O2SAT 97
--- NOTE | 2022-03-20 09:48 | MHC.CARE ---
CARE Team met with who is presenting at her baseline level of functioning. Pt states yesterday she had a difficult?moment and engaged in SIB via superficially cutting her abdomen. Pt and t/w processed these events.? Pt is denying current SI/HI. At baseline Pt experiences AH/VH.? Plan for Pt to return to her senior living and CARE Team will provide a follow up call with Pt.
[2022-03-20 09:59] LABS: Glucose, Whole Blood 148 mg/dL (60-115)
[2022-03-20 15:43] VITALS: BP 133/92; PULSE 72; RESP 20; TEMP 36.9; O2SAT 96
[2022-03-20] MEDS: HaloperidoL 1 MG TABLET 2 MG PO (20:31)
[2022-03-20] MEDS: Escitalopram Oxalate 5 MG TABLET PO (20:32)
[2022-03-20] MEDS: Zolpidem Tartrate 5 MG TABLET PO (20:32)
[2022-03-20 20:33] VITALS: BP 140/84; PULSE 81; RESP 20; O2SAT 95
--- NOTE | 2022-03-21 06:30 | PC.NURSE ---
Patient slept through the night, no distress observed/reported, patient report multiple needs, visits bathroom frequently however, patient provided urine sample, disposition per [facility] is section 12 inpatient bed search, medication compliant, behavior non concerning, VSS, will continue to monitor.
[2022-03-21 06:36] LABS: Appearance Urine CLEAR; Color Urine YELLOW; Glucose Urine UA NEG (NEG); Leukocyte Esterase Urine TRACE (NEG); Nitrite Urine NEG (NEG); Specific Gravity - Urine >= 1.030 (1.005-1.025); Urine Blood NEG (NEG); Urine Ketones 5 MG/DL (NEG); Urine Protein 1+ MG/DL (NEG-TRACE)
[2022-03-21 06:46] LABS: Bacteria Urine 2+ /LPF; Calcium Oxalate Crystals Urine 3+ /LPF; Hyaline Casts Urine 0-2 /LPF; Mucus Urine 3+ /LPF; Squamous Epithelial Cell Urine 2+ /LPF
[2022-03-21 06:50] LABS: Amphetamine Screen Urine POSITIVE (Not Detect); Barbiturates, Urine Not Detected (Not Detect); Benzodiazepines Screen Urine Not Detected (Not Detect); Cannabinoid Screen Urine Not Detected (Not Detect); Cocaine Screen Urine Not Detected (Not Detect); Fentanyl, urine Not Detected (Not Detect); Opiate Screen Urine Not Detected (Not Detect); Phencyclidine Screen Urine Not Detected (Not Detect)
[2022-03-21 08:06] VITALS: BP 120/67; PULSE 82; RESP 12; TEMP 37.5; O2SAT 97
[2022-03-21] MEDS: ARIPiprazole 10 MG TABLET PO (08:52)
[2022-03-21] MEDS: busPIRone HCl 5 MG TABLET 7.5 MG PO ×2 (08:52→20:39)
[2022-03-21] MEDS: HaloperidoL 1 MG TABLET 2 MG PO (08:52)
[2022-03-21] MEDS: Cholecalciferol (Vitamin D3) 25 MCG TABLET 50 MCG PO (08:52)
[2022-03-21] MEDS: Propranolol HCL 10 MG TABLET PO ×2 (08:52→20:40)
[2022-03-21] MEDS: LORazepam 1 MG TABLET PO (08:53)
--- NOTE | 2022-03-21 11:25 | PC.NURSE ---
Jeannette from [facility] called regarding update. Call back number [phone]. Wanted to speak with N/Care team when possible.
[2022-03-21 13:22] LABS: Glucose, Whole Blood 113 mg/dL (60-115)
--- NOTE | 2022-03-21 13:46 | PC.NURSE ---
Throughout this RN's shift, patient has been occasionally getting out of bed without her walker, and ambulates steadily. Pt occasionally asking this RN and other staff to perform tasks for her, such as can you pull my pants down for me? , can you feed me? , or I dropped my pillow, can you get it for me? . In each of these instances, pt is able to perform these tasks independently when reminded. At one point, pt laid down on the floor on her belly outside of the bathrooms in the pod, then yelled help me! This RN walked over, and pt stood up on her own without assistance. Walker was in the bathroom behind her, and placed in front of her. Pt then stated I fell and hit my head! There was no thud, or other noise indicating a fall. No redness or visible signs of injury. Footage reviewed with security, which confirmed that the patient did not fall, but bent down and laid herself on the floor calmly and quietly, then tried to claim that she fell/was injured. Pt walked herself back to her room without issue. Dr. Espinoza & crown assembly machine operator (Pranav Romero) aware of this 'incident'. Pt occasionally incontinent and then tells staff that she had an 'accident'. Linens changed, and assisted with hygiene care. Pt resting comfortably and sleeping at this time with even/unlabored respirations. [facility] inpatient bedsearch continues.
[2022-03-21 18:04] LABS: Glucose, Whole Blood 114 mg/dL (60-115)
[2022-03-21] MEDS: Escitalopram Oxalate 5 MG TABLET PO (20:40)
[2022-03-21] MEDS: Zolpidem Tartrate 5 MG TABLET PO (20:40)
[2022-03-21 20:44] VITALS: BP 150/92; PULSE 113; RESP 15; TEMP 36.2; O2SAT 96
--- NOTE | 2022-03-22 06:47 | PC.NURSE ---
Patient slept through the night, no distress observed/reported, medication compliant, behavior non concerning except multiple needs, disposition per [facility] is section 12 inpatient bed search, VSS, will continue to monitor.
--- NOTE | 2022-03-22 07:13 | PC.NURSE ---
patient appears to remain at rest at present respirations are even and unlabored patient appears in no distress.
[2022-03-22] MEDS: ARIPiprazole 10 MG TABLET PO (08:17)
[2022-03-22] MEDS: Cholecalciferol (Vitamin D3) 25 MCG TABLET 50 MCG PO (08:17)
[2022-03-22] MEDS: busPIRone HCl 5 MG TABLET 7.5 MG PO ×2 (08:17→21:08)
[2022-03-22] MEDS: Propranolol HCL 10 MG TABLET PO ×2 (08:17→21:09)
[2022-03-22 08:32] LABS: Glucose, Whole Blood 154 mg/dL (60-115)
[2022-03-22] MEDS: LORazepam 1 MG TABLET PO (14:02)
--- NOTE | 2022-03-22 15:52 | MHC.CARE ---
CARE Team speaks with JUANITA and CHITRA Corrigan leather case finisher ([phone] [email or web address]) about pt's plan. Per Morelia, CHITRA is working toward placing pt in shared living, as functioning has declined since January of this year. Morelia reports that precipitating this decline, pt experienced a number of stressors, including father being diagnosed with cancer, and her talking about her. Morelia also states that pt has been inconsistent with medication compliance during this time, as she has been spending more time with her mother and sister who encourage pt to not take her psych meds. Morelia reports that GLORI[facility] placed pt on the waitlist at [facility], and this was confirmed by [facility]. Per Alla from [facility], pt is not approprite to d/c back to her and either needs to go inpt or d/c with a much more supportive plan. Morelia asks that pt be seen by OT and PT. These recommendations will be relayed to ED provider. Plan is for [facility] to continue bedsearch and for CARE Team to remain in contact with CHITRA.
[2022-03-22 19:30] VITALS: BP 120/66; PULSE 62; RESP 16; O2SAT 98
[2022-03-22] MEDS: Nystatin Powder 15 GM BOTTLE 1 APPL TOPICAL (20:09)
[2022-03-22] MEDS: HaloperidoL 1 MG TABLET 2 MG PO (21:09)
[2022-03-22] MEDS: Zolpidem Tartrate 5 MG TABLET PO (21:09)
[2022-03-22] MEDS: Escitalopram Oxalate 5 MG TABLET PO (21:13)
--- NOTE | 2022-03-23 06:34 | PC.NURSE ---
Patient slept through the night, no distress observed/reported, medication compliant, patient was assisted with shower under breast and groin were found red appears like fungal infection, provider notified/ordered Nystatin powder/applied as ordered, VSS, disposition per [facility] is section 12 inpatient bed search, patient is on [facility] wait list, DDS also involved looking for placement as well, will continue to monitor.
--- NOTE | 2022-03-23 07:01 | PC.NURSE ---
patient appears to remain asleep respirations are even and unlabored patient appears in no distress
[2022-03-23 07:19] VITALS: BP 120/66; PULSE 62; O2SAT 98
[2022-03-23 07:40] LABS: Glucose, Whole Blood 119 mg/dL (60-115)
[2022-03-23] MEDS: busPIRone HCl 5 MG TABLET 7.5 MG PO (07:56)
[2022-03-23] MEDS: ARIPiprazole 10 MG TABLET PO (07:57)
[2022-03-23] MEDS: Cholecalciferol (Vitamin D3) 25 MCG TABLET 50 MCG PO (07:57)
[2022-03-23] MEDS: Nystatin Powder 15 GM BOTTLE 1 APPL TOPICAL (07:57)
[2022-03-23] MEDS: Propranolol HCL 10 MG TABLET PO (07:58)
== END 2022-03-23 11:57 ==
PROVIDERS: Emergency Provider Emergency Medicine
DX: F41.1 Generalized anxiety disorder (principal); R21 Rash and other nonspecific skin eruption; R00.0 Tachycardia, unspecified; F45.9 Somatoform disorder, unspecified; Z20.822 Contact with and (suspected) exposure to COVID-19; F43.10 Post-traumatic stress disorder, unspecified; F33.0 Major depressive disorder, recurrent, mild; F44.9 Dissociative and conversion disorder, unspecified; R62.50 Unspecified lack of expected normal physiological development in childhood; E11.9 Type 2 diabetes mellitus without complications; E78.5 Hyperlipidemia, unspecified; E66.9 Obesity, unspecified; Z68.31 Body mass index [BMI] 31.0-31.9, adult; Z79.4 Long term (current) use of insulin; Z79.899 Other long term (current) drug therapy; Z79.02 Long term (current) use of antithrombotics/antiplatelets
CPT/HCPCS: 80307; 81001; 82947; 87635; 97162; 99285

== ENCOUNTER 2022-11-10 09:26 | Outpatient (REF) | payer MEDICARE, MEDICAID, SELFPAY ==
[2022-11-11 10:14] LABS: Leukocytes Stool Qualitative NEGATIVE (NEGATIVE)
[2022-11-11 10:30] LABS: CDiff Gene PCR NEGATIVE (Negative)
== END 2022-11-10 09:27 | disposition home or self-care (01) ==
LOC: HO.LNP 09:26
PROVIDERS: Visit Provider Internal Medicine
DX: R19.7 Diarrhea, unspecified (principal)
CPT/HCPCS: 87493; 89055

== ENCOUNTER 2022-12-15 14:26 | Emergency (ER) | payer MEDICARE, MEDICAID, SELFPAY ==
--- NOTE | ~2022-12-15 | XR_ITS ---
EXAMINATION: XR CHEST CLINICAL INFORMATION: Fall. COMPARISON: Chest x-ray 01/14/2022 TECHNIQUE: Frontal view of the chest was obtained. 3:19 PM FINDINGS: No significant abnormality is noted involving the heart, lungs, mediastinum, bony thorax or soft tissues. XR/XR chest 1V IMPRESSION: Unremarkable examination.
--- NOTE | ~2022-12-15 | XR_ITS ---
EXAMINATION: XR CERVICAL SPINE CLINICAL INFORMATION: Fall. Pain. COMPARISON: None available. TECHNIQUE: 3 views of the cervical spine were obtained. FINDINGS: There are no prevertebral soft tissue or bony abnormalities demonstrated. No compression fractures or subluxations are identified. Alignment is maintained at the atlanto-axial articulation. The disc spaces are preserved. No endplate changes are seen. The prevertebral soft tissues are normal. The foramina are patent. XR/XR cervical spine 2V IMPRESSION: Unremarkable examination.
--- NOTE | ~2022-12-15 | CT_ITS ---
EXAMINATION: CT HEAD WITHOUT CONTRAST CLINICAL INFORMATION: Fall and head strike. COMPARISON: CT head 02/21/2022. TECHNIQUE: Contiguous axial imaging was performed from the skull base to vertex without intravenous administration of contrast. This CT examination was performed using dose optimization techniques as appropriate, variously including the following: *Automated exposure control *Adjustment of mA and/or kV according to patient size (this includes techniques or standardized protocols for targeted exams where dose is matched to indication/reason for exam; i.e. extremities or head) *Use of iterative reconstruction technique DLP: 599 mGy-cm FINDINGS: There is no evidence of acute intracranial hemorrhage or edematous territorial infarction. There is no abnormal attenuation within the brain parenchyma. Morris-white matter differentiation is preserved. Generalized cerebral volume loss, more noticeable along the frontal and superior brain. No evidence for obstructive hydrocephalus. No abnormal mass effect or midline shift. No extra-axial fluid collections. No acute soft tissue or osseous abnormalities. Near complete opacification of the left maxillary sinus. The mastoids and middle ear cavities are clear. CT/CT head/brain wo IV con IMPRESSION: 1. No evidence of acute intracranial hemorrhage or edematous territorial infarction. 2. Generalized cerebral volume loss, more noticeable along the frontal and superior brain. 3. Near complete opacification of the left maxillary sinus. Correlate clinically for acute sinusitis.
[2022-12-15 14:59] VITALS: BP 141/86; PULSE 95; RESP 17; TEMP 36.4; O2SAT 98; BMI 34.9
--- NOTE | 2022-12-15 15:00 | ED_ITS ---
HPI - General Adult General Chief complaint: Fall Stated complaint: fell 12/14/ head injury Time Seen by Provider: 12/15/22 16:40 Source: patient Mode of arrival: ambulatory Limitations: no limitations History of Present Illness HPI narrative: 41-year-old female with history of conversion disorder cognitive impairment generalized anxiety disorder?here with complaints of headache, right shoulder pain s/p fall in the kitchen while turning on the light switch. Patient denies preceding symptoms of chest pain, palpitations, shortness of breath, headache, dizziness.. She denies loss of consciousness. She denies AC therapy use. She is here complaining of posterior headache, neck pain which radiates to her shoulders. She denies any nausea, vomiting, vision changes, dizziness, back pain, chest pain or abdominal pain. Patient is here with [facility] staff Related Data Home Medications Medication Instructions Recorded Confirmed zolpidem 5 mg tablet 1 tab PO BEDTIME PRN Insomnia 03/19/22 06/23/22 Previous Rx's Medication Instructions Recorded buspirone 10 mg tablet 10 mg PO BID #60 tabs 04/18/22 chlorpromazine 100 mg tablet 100 mg PO DAILY #30 tabs 04/18/22 lorazepam 1 mg tablet 1 mg PO BID PRN anxiety #60 tabs 04/18/22 propranolol 10 mg tablet 10 mg PO TID #90 tabs 04/18/22 insulin glargine U-300 conc 300 30 unit (0.1 mL) subcut DAILY 90 07/08/22 unit/mL (1.5 mL) subcutaneous pen days #9 mL (Toujeo SoloStar U-300 Insulin) dulaglutide 1.5 mg/0.5 mL 1.5 mg (0.5 mL) subcut QWEEK 90 10/05/22 subcutaneous pen injector days #6.5 mL (Trulicity) blood sugar diagnostic (FreeStyle #100 ea 11/10/22 Lite Strips) Allergies Allergy/AdvReac Type Severity Reaction Status Date / Time meperidine [Demerol] Allergy Intermediate Hives Verified 06/23/22 11:01 From Prozac Allergy Severe SEVERE Uncoded 06/23/22 11:01 AGITATION Review of Systems Review of Systems: Yes all other systems are reviewed and are negative Constitutional: Constitutional: Reports no additional constitutional complaints, Denies body ache(s), Denies chills, Denies fever(s), Reports headache(s) and Denies weakness Eyes: Eyes: Reports no additional eye complaints and Denies change in vision ENT: Reports system reviewed and no additional complaints, except as d ocumented, Denies dizziness, Reports headache(s), Denies nasal congestion, Denies nasal discharge and Reports neck pain Cardiovascular: Cardiovascular: Reports no additional cardiovascular complaints, Denies chest pain, Denies leg edema and Denies dyspnea Respiratory: Respiratory: Reports no additional respiratory complaints, Denies cough and Denies dyspnea Gastrointestinal: Gastrointestinal: Reports no additional gastrointestinal com plaints, Denies abdominal pain, Denies diarrhea, Denies nausea and Denies vomiting Genitourinary: Genitourinary: Reports no additional female genitourinary complaints and Denies urinary incontinence Musculoskeletal: Musculoskeletal: Reports no additional musculoskeletal complaints, Denies back pain, Reports arthralgias, Denies joint swelling, Reports neck pain, Denies numbness and Denies tingling Integumentary/Breasts: Skin/Breast: Reports system reviewed and no additional complaints, except as docu and Denies rash Neurologic: Reports system reviewed and no additional complaints, except as documented, Denies dizziness, Reports headache(s), Denies numbness, Denies tingling and Denies weakness PMFSH Past Medical History Attestation statement: The following information was validated with the patient. Source: old records reviewed and nursing notes reviewed Medical History Acute depression Anxiety Arthritis BMI 40.0-44.9, adult Chronic diarrhea Diabetes Diabetes type 2, uncontrolled Dyslipidemia Elevated LFTs Epilepsy TOBIAS (generalized anxiety disorder) Hyperlipidemia LDL goal <100 Insomnia residential current use of insulin Low vitamin D level Mild cognitive impairment Mild developmental delay Mild episode of recurrent major depressive disorder Mild intellectual disability Obesity Obesity due to excess calories Overactive bladder PTSD (post-traumatic stress disorder) Right hip pain Snores Type 2 diabetes mellitus with diabetic polyneuropathy Surgical History History of bilateral tubal ligation History of hysteroscopy Hx of cholecystectomy Family History Family History Father Diabetes Mental health disorder Mother No problems noted. Social History Social History Household Members: Family Household Members Other:: Housing: Apartment Housing Other:: studio Are you a primary field care manager to a significant other at home: No Do you presently have visiting nurse or other home services: Yes Alcohol intake: never Patient Tobacco Use Status: Never used Tobacco Tobacco use type: Cigarette Cigarette Packs Per Day: 0 Cigarettes Per Day: 6 Smoked in Last 30 Days: No e-Cigarette/Vaping Use: Never Used Second Hand Smoke Exposure: No Use of substances other than those prescribed or required for medical reasons: No Advance Directives: Yes Advance Directives on File: Yes Advance Directives Date on File: 02/22/22 service: No Current occupational status: disabled Current occupation: lt handed Sexual orientation: Straight/Heterosexual Gender identity: Female Cognitive needs: Yes Hearing needs: No Vision needs: Yes Physical Exam ED Vital Signs: Vital Signs - 24 hr 12/15/22 14:59 Temperature 97.5 F Pulse Rate 95 Respiratory Rate 17 Blood Pressure 141/86 H Pulse Oximetry 98 Oxygen Delivery Method Room Air BMI result Body Mass Index 34.9 Const General: cooperative, healthy appearing and comfortable Orientation/consciousness: patient oriented x3 Limitations: no limitations HENMT Head: Yes normal to inspection, No Mixon's sign and No raccoon eyes Ears: hearing grossly normal bilaterally and TM's normal bilaterally General nose exam: Normal external nose present Face and sinus: Yes normal facial exam Mouth: Normal oral and palatal mucosa present Teeth and gingiva: dentition normal Throat: Yes posterior oropharynx normal, Yes tonsils normal and Yes uvula midline Eyes General: appearance normal, both eyes and all related structures Pupils: Equal, round and reactive pupils present Neck Other: There is some cervical midline tenderness with no step-offs deformities Neck: Yes normal visual inspection, Yes full ROM, Yes no lymphadenopathy and Yes no meningeal signs Chest Chest palpation & inspection: normal inspection of the chest Resp Effort & Inspection: normal respiratory effort Auscultation: clear to auscultation bilaterally Cardio Rate: regular rate Rhythm: regular rhythm Peripheral pulses: Peripheral pulses 2+ throughout GI Inspection: Yes normal to inspection Palpation (GI): Soft to palpation and nontender General: Yes no CVA tenderness Back/Spine/Pelvis Back: no CVA tenderness Thoracic/Lumbar Spine: thoracic and lumbar spine normal to inspection Skin General skin exam: no rashes or lesions noted Neuro General: patient oriented x3, moves all extremities and no meningeal signs Cranial nerves: Yes CN's II-XII intact bilaterally, Yes Equal, round and reactive pupils present, Yes Bilaterally intact EOM present and Yes Normal facial strength present Cognition (Neuro): normal cognition Gait exam (Neuro): Normal gait present Motor exam (neuro): 5/5 motor strength present throughout Sensory Exam: Normal double simultaneous stimulation for sensation Extrem General: Yes normal to inspection, Yes no pedal edema and Yes no calf tenderness Course Course Course Narrative: This is an RME: Additional HPI, ROS, PE not included below will be deferred to primary provider. 42 year old female with PMH of type 2 diabetes, bilateral leg weakness, mild developmental delay, dyslipidemia presents to the ED s/p fall and headstrike this morning. Patient reports neck pain and a HICKEY additionally. She has not taken anything for pain. Patient reports she cannot recall if she lost consciousness. Patient denies blood thinners. Denies CP or SOB. PE: Benign Plan: Imaging Reevaluation(s) Reevaluation #2: CT head is negative. X-ray of the chest and cervical spine are negative for any fracture. Likely concussion. Patient well-appearing. Normal neuro exam. Patient tolerating p.o.. Reviewed head injury care with the patient as well as her [facility] staff. Recommend follow-up with primary care. Reviewed worrisome signs and symptoms when to return to the emergency room. Comfortable plan for discharge home. Medications Administered Discontinued Medications Generic Name Dose Route Start Last Admin Trade Name Freq PRN Reason Stop Dose Admin Acetaminophen 975 mg 12/15/22 16:58 12/15/22 17:02 Acetaminophen 325 Mg Tablet PO 12/15/22 16:59 975 mg ONCE ONE Administration Medical Decision Making Medical Decision Making MDM Narrative: 42 yo female here with complaints of headache, neck pain with radiation to shoulders after fall last evening which occurred when flipping on the light switch with no preceding symptoms of chest pain, shortness of breath, palpitations, dizziness. NO LOC. No AC therapy use. Normal neuro exam. No focal deficits. + midline cervical tenderness with no step-offs deformities. Patient had CT head and chest x-ray ordered from triage. I will add a cervical x-ray. Differential Diagnosis Differential Diagnoses: The differential diagnosis associated with the presentation includes Independent Interpretation I performed an independent interpretation of an: Plain X-Ray and CT Scan Interpretation: I independetely reviewed the x-ray and the CT scan and agree with radiologist's report Radiology Impression Discussion of test interpretation with radiology: I have reviewed the radiologist's reading. Radiologist Impression: [address] [address] XRay Report Signed Patient: Michelle Harper MR#: [id number] : 1980 Acct:[id number] Age/Sex: 42 / F ADM Date: 12/15/22 Loc: HO.ED Attending Dr: Ordering Physician: Roseline Duron Date of Service: 12/15/22 Procedure(s): XR chest 1V Accession Number(s): [id number] cc: Roseline Duron~ EXAMINATION: XR CHEST CLINICAL INFORMATION: Fall. COMPARISON: Chest x-ray 01/14/2022 TECHNIQUE: Frontal view of the chest was obtained. 3:19 PM FINDINGS: No significant abnormality is noted involving the heart, lungs, mediastinum, bony thorax or soft tissues. XR/XR chest 1V IMPRESSION: Unremarkable examination. ? FINDINGS: There is no evidence of acute intracranial hemorrhage or edematous territorial infarction. There is no abnormal attenuation within the brain parenchyma. Morris-white matter differentiation is preserved. Generalized cerebral volume loss, more noticeable along the frontal and superior brain. No evidence for obstructive hydrocephalus. No abnormal mass effect or midline shift. No extra-axial fluid collections. No acute soft tissue or osseous abnormalities. Near complete opacification of the left maxillary sinus. The mastoids and middle ear cavities are clear. ? CT/CT head/brain wo IV con IMPRESSION: 1.? No evidence of acute intracranial hemorrhage or edematous territorial infarction. 2.? Generalized cerebral volume loss, more noticeable along the frontal and superior brain. 3.? Near complete opacification of the left maxillary sinus. Correlate clinically for acute sinusitis. ? [address] [address] XRay Report Signed Patient: Michelle Harper MR#: [id number] : 1980 Acct:[id number] Age/Sex: 42 / F ADM Date: 12/15/22 Loc: HO.ED Attending Dr: Ordering Physician: Syeda Ortiz NP Date of Service: 12/15/22 Procedure(s): XR cervical spine 2V Accession Number(s): [id number] cc: Syeda Ortiz NP~ EXAMINATION: XR CERVICAL SPINE CLINICAL INFORMATION: Fall. Pain. COMPARISON: None available. TECHNIQUE: 3 views of the cervical spine were obtained. FINDINGS: There are no prevertebral soft tissue or bony abnormalities demonstrated. No compression fractures or subluxations are identified. Alignment is maintained at the atlanto-axial articulation. The disc spaces are preserved. No endplate changes are seen. The prevertebral soft tissues are normal. The foramina are patent. XR/XR cervical spine 2V IMPRESSION: Unremarkable examination. Independent Historian Clinical information obtained from an independent historian. History obtained from or confirmed by: Other ([facility] worker) Discharge Plan Discharge Clinical Impression: Concussion without loss of consciousness, Cervical strain Patient Disposition: Home, Self-Care Instructions: Cervical Strain (DC), Concussion (ED) Additional Instructions: Limit screen time Get plenty of brain rest Take Motrin or Tylenol if able as needed for pain Apply heat or ice to the affected areas Follow-up with primary care doctor for any persistent symptoms Prescriptions: No Action buspirone 10 mg tablet 10 mg PO BID Qty: 60 0RF lorazepam 1 mg tablet 1 mg PO BID PRN (Reason: anxiety) Qty: 60 0RF propranolol 10 mg tablet 10 mg PO TID Qty: 90 0RF chlorpromazine 100 mg tablet 100 mg PO DAILY Qty: 30 0RF Toujeo SoloStar U-300 Insulin 300 unit/mL (1.5 mL) insulin pen 30 unit subcut DAILY 90 Days Qty: 9 1RF Trulicity 1.5 mg/0.5 mL pen injector 1.5 mg subcut QWEEK 90 Days Qty: 6.5 1RF (DME) FreeStyle Lite Strips Strip See Rx Instructions .Route Qty: 100 3RF Rx Instructions: Use 1 test strip three times a day zolpidem 5 mg tablet 1 tab PO BEDTIME PRN (Reason: Insomnia) Referrals: John Abhishek,Melissa, MD [Primary Care Provider] - 1 week
[2022-12-15] MEDS: Acetaminophen 325 MG TABLET 975 MG PO (17:02)
== END 2022-12-15 18:34 | disposition home or self-care (01) ==
PROVIDERS: Emergency Provider Student in an Organized Health Care Education/Training Program; PCP Internal Medicine
DX: S06.0X0A Concussion without loss of consciousness, initial encounter (principal); S16.1XXA Strain of muscle, fascia and tendon at neck level, initial encounter; R51.9 Headache, unspecified; F41.9 Anxiety disorder, unspecified; M54.2 Cervicalgia; W01.0XXA Fall on same level from slipping, tripping and stumbling without subsequent striking against object, initial encounter; Y93.9 Activity, unspecified; Y92.9 Unspecified place or not applicable; Y99.9 Unspecified external cause status; Z79.899 Other long term (current) drug therapy
CPT/HCPCS: 70450; 71045; 72040; 99284

== ENCOUNTER 2023-02-16 10:02 | Outpatient (AMB) | payer MEDICARE, MEDICAID, SELFPAY ==
--- NOTE | 2023-02-16 10:03 | MHC.PC.OV ---
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 Specialist Required: No Accompanied by: Program Allergies meperidine [Demerol] Allergy (Intermediate, Verified 02/16/23 10:16) Hives From Prozac Allergy (Severe, Uncoded 02/16/23 10:16) SEVERE AGITATION Medication List - Last Reconciled 02/16/23 by Ani Weiss MD acetaminophen 500 mg PO Q6H PRN 30 days benztropine 1 mg PO BID blood sugar diagnostic (FreeStyle Lite Strips) Use 1 test strip three times a day buspirone 10 mg PO BID chlorpromazine 100 mg PO DAILY furosemide 20 mg PO DAILY 7 days insulin glargine U-300 conc (Toujeo SoloStar U-300 Insulin) 30 units (0.1 mL) subcut DAILY 90 days lancets (FreeStyle Lancets) As directed lorazepam 1 mg PO BID PRN pen needle,diabetic dual safty (Unifine SafeControl) Use 1 pen needle once a day propranolol 10 mg PO TID zolpidem 10 mg PO BEDTIME PRN Tobacco use date assessed: 01/05/23 HPI HPI Comments History of Present Illness Details This is a 42-year-old female with diabetes mellitus type 2 on long-term current use of insulin that comes for her physical exam. A1c within goal. Last diabetic eye exam as per patient was over a year ago and she will check with Dr. Barnard to see when is her neck is diabetic eye exam. She will call for OBGYN for an appointment for Pap smear. Last mammogram was January 2022 and I will order a mammogram. She is accompanied by staff member. Has intellectual disability but seems calm today. [facility] Medical History Acute depression Anxiety Arthritis BMI 40.0-44.9, adult Chronic diarrhea Diabetes Diabetes type 2, uncontrolled Dyslipidemia Elevated LFTs Epilepsy TOBIAS (generalized anxiety disorder) Hyperlipidemia LDL goal <100 Insomnia shelter current use of insulin Low vitamin D level Mild cognitive impairment Mild developmental delay Mild episode of recurrent major depressive disorder Mild intellectual disability Obesity Obesity due to excess calories Overactive bladder PTSD (post-traumatic stress disorder) Right hip pain Snores Type 2 diabetes mellitus with diabetic polyneuropathy Surgical History History of bilateral tubal ligation History of hysteroscopy Hx of cholecystectomy Family History (Updated 02/16/23 @ 10:23 by Ani Weiss MD) Father Diabetes Mental health disorder Cancer Mother No problems noted. Social History Household Members: Family Household Members Other:: Housing: Apartment Housing Other:: studio Are you a primary career development consultant to a significant other at home: No Do you presently have visiting nurse or other home services: Yes Alcohol intake: never Patient Tobacco Use Status: Never used Tobacco Tobacco use type: Cigarette Cigarette Packs Per Day: 0 Cigarettes Per Day: 6 e-Cigarette/Vaping Use: Never Used Second Hand Smoke Exposure: No Advance Directives Date on File: 02/22/22 service: No Current occupational status: disabled Current occupation: lt handed Sexual orientation: Straight/Heterosexual Gender identity: Female Cognitive needs: Yes Hearing needs: No Vision needs: Yes Female Reproductive History Menstrual Age of Menarche: 8 Questionnaire Thrive Questionnaire Date Thrive assessed: 01/05/23 AUDIT C Alcohol Use Questionnaire (AUDIT-C) 1. How often do you have a drink containing alcohol?: Never Total Score: 0 TOBIAS-7 AMB Questionnaire TOBIAS-7 Date TOBIAS - 7 assessed: 02/16/23 Feeling nervous, anxious, or on edge: 1 = Several days Not being able to stop or control worryin = Several days Worrying too much about different things: 0 = Not at all Trouble relaxin = Not at all Being so restless that it is hard to sit still: 0 = Not at all Becoming easily annoyed or irritable: 0 = Not at all Feeling afraid as if something awful might happen: 0 = Not at all Total TOBIAS-7 score (0-4 normal; 5-9 mild; 10-14 moderate; 15-21 severe): 2 Source: Developed by Drs. Marcos Aguilar, Amina Garcia, Ezra Rush and colleagues, with an educational blank from [employer]. TOBIAS-7 Assessment Billing TOBIAS-7 Assessment Tool: TOBIAS-7 Assessment 41743 Review of Systems Const All systems reviewed & are unremarkable except as noted in HPI and below Eyes Reports no additional complaints, Denies change in vision and Denies other visual disturbances Card Denies chest pain at rest, Denies chest pain with activity, Denies edema, Denies irregular heart rhythm, Denies claudication, Denies dyspnea, Denies dyspnea on exertion, Denies orthopnea, Denies paroxysmal nocturnal dyspnea and Denies slow heart rate Resp Denies cough, Denies dyspnea and Denies dyspnea on exertion GI Denies abdominal pain, Denies change in bowel habits, Denies excessive flatus, Denies nausea and Denies vomiting Denies urinary incontinence, Denies urinary hesitancy and Denies urinary urgency Musc Denies abnormal gait, Denies atrophy, Denies deformity and Denies limited range of motion Skin/Breast Denies bleeding lesions, Denies changing lesions and Denies rash Neuro Denies abnormal gait and Denies lack of coordination Physical exam (Primary Care) Vital Signs: Last Vital Signs BP 110/76 02/16/23 10:07 BMI result Body Mass Index 35.1 Tobacco/Smoking Status: Tobacco use Status Tobacco use date assessed 01/05/23 02/16/23 10:05 Patient Tobacco Use Status Never used Tobacco 02/16/23 10:05 Tobacco use type Cigarette 02/16/23 10:05 e-Cigarette/Vaping Use Never Used 02/16/23 10:05 Thrive Assessment: Date of Thrive Assessment Date Thrive assessed 01/05/23 02/16/23 10:05 Const Orientation/consciousness: patient oriented x3 [facility] Head: Yes normal to inspection, Yes normocephalic and Yes atraumatic Ears: external ears normal Eyes General: appearance normal, both eyes and all related structures Eyelids: Yes eyelids normal Conjunctivae: conjunctivae normal Neck Neck: Yes normal visual inspection and Yes supple Resp Effort & Inspection: normal respiratory effort Auscultation: clear to auscultation bilaterally Cardio Jugular venous distension: no JVD Rate: regular rate Rhythm: regular rhythm Heart sounds: S1 normal heart sound present and S2 normal heart sound present GI Inspection: Yes normal to inspection Palpation (GI): Soft to palpation and nontender Auscultation: normal bowel sounds Skin General skin exam: no rashes or lesions noted Neuro General: patient oriented x3 and no focal motor deficits Extrem General: Yes full ROM Psych Appearance: grossly normal Assessment and Plan Assessment & Plan (1) Physical exam: Code(s): Z00.00 - Encounter for general adult medical examination without abnormal findings Plan: Repeat in a year (2) Type 2 diabetes mellitus, with long-term current use of insulin: Code(s): E11.9 - Type 2 diabetes mellitus without complications; Z79.4 - shelter (current) use of insulin Qualifiers: Diabetes mellitus complication status: with hyperglycemia Qualified Code(s): E11.65 - Type 2 diabetes mellitus with hyperglycemia; Z79.4 - supervisor lamp shades (current) use of insulin Plan: Continue insulin. A1c goal is equal or less than 7%. Orders: Orders MM screening mammo BI Today Z12.31 - Encounter for screening mammogram for malignant neoplasm of breast Comprehensive [place]. Panel Fast Today E11.9 - Type 2 diabetes mellitus without complications, Z79.4 - supervisor lamp shades (current) use of insulin Lipid Panel Today E78.5 - Hyperlipidemia, unspecified Vitamin D 25-OH Total Today E55.9 - Vitamin D deficiency, unspecified Microalbumin, Random (w Creat) Today E11.9 - Type 2 diabetes mellitus without complications Medications: Changed From furosemide 20 mg PO DAILY 7 days 7 tabs 0RF R60.0 - Localized edema To furosemide 20 mg PO DAILY PRN 30 tabs 1RF edema 30 days R60.0 - Localized edema Coding Level of Care Code Est Pt Prev Care 40-64y(79359) Diagnoses Physical exam Z00.00 Type 2 diabetes mellitus, with long-term current use of insulin E11.65; Z79.4 Diabetes mellitus complication status: with hyperglycemia Additional Codes TOBIAS-7 Assessment Billing - TOBIAS-7 Assessment Tool: TOBIAS-7 Assessment 42841 ([id number]) Time Spent (min) 35
[2023-02-16 10:07] VITALS: BP 110/76; BMI 35.1
== END 2023-02-16 10:35 | disposition home or self-care (01) ==
PROVIDERS: Visit Provider Internal Medicine
DX: Z00.00 Encounter for general adult medical examination without abnormal findings (principal); E11.65 Type 2 diabetes mellitus with hyperglycemia; Z79.4 Long term (current) use of insulin
CPT/HCPCS: 99396

== ENCOUNTER 2023-07-15 18:06 | Emergency (ER) | payer MEDICARE, MEDICAID, SELFPAY ==
[2023-07-15 18:14] VITALS: BP 119/83; BP 119/87; PULSE 107; PULSE 98; RESP 20; TEMP 37.1; O2SAT 97; BMI 35.6
[2023-07-15 18:28] LABS: Glucose, Whole Blood 514 mg/dL (60-115)
--- NOTE | 2023-07-15 18:42 | ED.GENADULT ---
HPI - General Adult General Chief complaint: General Medical Stated complaint: Weakness. Sugar 300- 400 all week. per ems Time Seen by Provider: 07/15/23 18:31 Source: patient Mode of arrival: ambulatory Limitations: no limitations History of Present Illness HPI narrative: Patient diabetic on Trulicity and Lantus insulin usual blood sugar is around 200, for last 2 weeks noticed blood sugar fluctuating usually elevated on arrival patient's blood sugar was 514 patient urinating a lot feeling hungry no change in her medication not on any steroids Related Data Home Medications Medication Instructions Recorded Confirmed benztropine 1 mg tablet 1 mg PO BID 01/05/23 02/16/23 zolpidem 10 mg tablet 10 mg PO BEDTIME PRN 01/05/23 02/16/23 Previous Rx's Medication Instructions Recorded buspirone 10 mg tablet 10 mg PO BID #60 tabs 04/18/22 chlorpromazine 100 mg tablet 100 mg PO DAILY #30 tabs 04/18/22 lorazepam 1 mg tablet 1 mg PO BID PRN anxiety #60 tabs 04/18/22 propranolol 10 mg tablet 10 mg PO TID #90 tabs 04/18/22 blood sugar diagnostic (FreeStyle #100 ea 11/10/22 Lite Strips) pen needle,diabetic dual safty 30 #100 ea 12/29/22 gauge x 3/16 (Unifine SafeControl) acetaminophen 500 mg capsule 500 mg PO Q6H PRN pain 30 days 01/12/23 #120 caps lancets 28 gauge (FreeStyle #100 ea 02/06/23 Lancets) furosemide 20 mg tablet 20 mg PO DAILY PRN edema 30 days 02/16/23 #30 tabs insulin glargine U-300 conc 300 30 unit (0.1 mL) subcut DAILY 90 04/21/23 unit/mL (1.5 mL) subcutaneous pen days #9 mL (Toujeo SoloStar U-300 Insulin) exenatide microspheres 2 mg/0.85 2 mg (0.85 mL) subcut Q7D 30 days 06/10/23 mL subcutaneous auto-injector #4.25 mL (Bydureon BCise) Allergies Allergy/AdvReac Type Severity Reaction Status Date / Time meperidine [Demerol] Allergy Intermediate Hives Verified 02/16/23 10:16 From Prozac Allergy Severe SEVERE Uncoded 02/16/23 10:16 AGITATION Review of Systems Review of Systems: Yes all other systems are reviewed and are negative [facility] Past Medical History Medical History Mild cognitive impairment TOBIAS (generalized anxiety disorder) Overactive bladder Right hip pain Mild developmental delay Chronic diarrhea Mild episode of recurrent major depressive disorder Type 2 diabetes mellitus with diabetic polyneuropathy Elevated LFTs Diabetes type 2, uncontrolled Diabetes Mild intellectual disability Snores Arthritis 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 Social History Social History Household Members: Family Household Members Other:: Housing: Apartment Housing Other:: studio Are you a primary daycare worker to a significant other at home: No Do you presently have visiting nurse or other home services: Yes Alcohol intake: never Comment: 1:1 Patient Tobacco Use Status: Never used Tobacco Tobacco use type: Cigarette Cigarette Packs Per Day: 0 Cigarettes Per Day: 6 Smoked in Last 30 Days: Yes e-Cigarette/Vaping Use: Never Used Second Hand Smoke Exposure: No Use of substances other than those prescribed or required for medical reasons: No Advance Directives: Yes Advance Directives on File: Yes Advance Directives Date on File: 02/22/22 Patient : No service: No Current occupational status: disabled Current occupation: lt handed Sexual orientation: Straight/Heterosexual Gender identity: Female Cognitive needs: Yes Hearing needs: No Vision needs: Yes Physical Exam ED Vital Signs: Vital Signs - 24 hr 07/15/23 18:14 07/15/23 21:32 Temperature 98.8 F Pulse Rate 98 101 H Respiratory Rate 20 18 Blood Pressure 119/83 129/81 Pulse Oximetry 97 99 Oxygen Delivery Method Room Air Room Air BMI result Body Mass Index 35.6 Appearance: Alert. Oriented X3. No acute distress. Eyes: No pallor or icterus ENT: Pharynx normal. Oral Mucosa moist Neck: Normal inspection. Neck supple. CVS: Normal heart rate and rhythm. Pulses normal. Respiratory: No respiratory distress. Equal air entry bilateral, no wheezing/rales/rhonchi Abdomen: Soft and nontender. Bowel sounds are present, no mass palpable, no CVA tenderness Skin: Skin warm and dry. Normal skin color. Normal skin turgor. Extremities: No lower extremity edema. No calf tenderness Neuro: Oriented X 3. No motor deficit. Medications Administered Discontinued Medications Generic Name Dose Route Start Last Admin Trade Name Freq PRN Reason Stop Dose Admin Sodium Chloride 1,000 mls @ 999 mls/hr 07/15/23 18:52 07/15/23 20:29 Ns IV 07/15/23 19:52 Infused .Q1H1M ONE Infusion Insulin Glargine 36 unit 07/15/23 20:51 07/15/23 20:59 Insulin Glargine,Hum.Rec.Anlog 100 Unit/Ml 10 Ml Vial SUBCUT 07/15/23 20:52 36 unit ONCE ONE Administration Insulin Human Lispro 14 unit 07/15/23 18:52 07/15/23 19:13 Insulin Lispro 100 Unit/Ml 3 Ml Vial SUBCUT 07/15/23 18:53 14 unit ONCE ONE Administration Medical Decision Making Differential Diagnosis Differential Diagnoses: The differential diagnosis associated with the presentation includes Hyperglycemia/insulinoma Lab Data MDM Lab Attestation statement: I reviewed the patient's lab results. 07/15/23 19:11 07/15/23 19:10 Labs: Lab Results 07/15/23 07/15/23 07/15/23 Range/Units 18:24 19:10 19:11 WBC 5.5 (4.8-10.8) X10*3/uL RBC 4.57 (4.20-5.50) X10*6/uL Hgb 13.7 (12.0-16.0) g/dl Hct 39.3 (37.0-47.0) % MCV 86.0 (80.0-98.0) fL MCH 30.0 (27.0-33.0) pg MCHC 34.9 (31.0-35.0) g/dl RDW 11.9 (11.0-16.0) % Plt Count 198 (160-400) X10*3/uL MPV 9.4 (9.4-12.3) fL Immature Gran % (Auto) 0.2 (0.0-0.4) % Neut % (Auto) 40.7 L (45-73) % Lymph % (Auto) 46.3 H (20-40) % [place] % (Auto) 6.4 (2-11) % Eos % (Auto) 5.3 H (0-4) % Baso % (Auto) 1.1 (0-2) % Lymph # (Auto) 2.5 (1.2-4.9) X10*3/uL [place] # (Auto) 0.4 (0.1-1.2) X10*3/uL Eos # (Auto) 0.3 (0.0-0.4) X10*3/uL Baso # (Auto) 0.1 (0.0-0.2) X10*3/uL Abs Immat Gran (auto) 0.01 (0.00-0.03) X10*3/uL Absolute Neuts (auto) 2.2 (2.0-8.3) x10*3/uL Absolute Nucleated RBC 0.000 (0.0-0.012) X10*3/uL Nucleated RBC % (auto) 0.0 (0.0-0.2) /100WBC Sodium 136 (135-145) mmol/L Potassium 4.1 (3.3-5.1) mmol/L Chloride 102 (96-108) mmol/L Carbon Dioxide 25 (22-29) mmol/L Anion Gap 13 (12-20) BUN 9 (9-16) mg/dL Creatinine 1.14 (0.5-1.4) mg/dL Estim Creat Clear Calc 66.7 Estimated GFR 52 POC Glucose 514 H* (60-115) mg/dL Random Glucose 521 H* (60-115) mg/dL Calcium 9.0 (8.4-10.2) mg/dL Total Bilirubin 0.5 (0.0-1.0) mg/dL AST 29 (5-31) U/L ALT 34 H (0-31) U/L Alkaline Phosphatase 92 (39-117) U/L Total Protein 7.2 (6.5-8.0) g/dL Albumin 3.8 (3.5-5.0) g/dL Urine Color Urine Appearance Urine pH (5.0-9.0) Ur Specific [place] (1.005-1.025) Urine Protein (Neg-Trace) mg/dL Urine Glucose (UA) (Negative) mg/dL Urine Ketones (Negative) mg/dL Urine Blood (Negative) Urine Nitrite (Negative) Ur Leukocyte Esterase (Negative) Urine RBC (0-2) /HPF Urine WBC (0-5) /HPF Ur Squamous Epith Cells (0-2) /HPF Urine Bacteria (None Seen) Hyaline Casts (0-2) /LPF 07/15/23 07/15/23 Range/Units 19:12 20:32 WBC (4.8-10.8) X10*3/uL RBC (4.20-5.50) X10*6/uL Hgb (12.0-16.0) g/dl Hct (37.0-47.0) % MCV (80.0-98.0) fL MCH (27.0-33.0) pg MCHC (31.0-35.0) g/dl RDW (11.0-16.0) % Plt Count (160-400) X10*3/uL MPV (9.4-12.3) fL Immature Gran % (Auto) (0.0-0.4) % Neut % (Auto) (45-73) % Lymph % (Auto) (20-40) % [place] % (Auto) (2-11) % Eos % (Auto) (0-4) % Baso % (Auto) (0-2) % Lymph # (Auto) (1.2-4.9) X10*3/uL [place] # (Auto) (0.1-1.2) X10*3/uL Eos # (Auto) (0.0-0.4) X10*3/uL Baso # (Auto) (0.0-0.2) X10*3/uL Abs Immat Gran (auto) (0.00-0.03) X10*3/uL Absolute Neuts (auto) (2.0-8.3) x10*3/uL Absolute Nucleated RBC (0.0-0.012) X10*3/uL Nucleated RBC % (auto) (0.0-0.2) /100WBC Sodium (135-145) mmol/L Potassium (3.3-5.1) mmol/L Chloride (96-108) mmol/L Carbon Dioxide (22-29) mmol/L Anion Gap (12-20) BUN (9-16) mg/dL Creatinine (0.5-1.4) mg/dL Estim Creat Clear Calc Estimated GFR POC Glucose 172 H (60-115) mg/dL Random Glucose (60-115) mg/dL Calcium (8.4-10.2) mg/dL Total Bilirubin (0.0-1.0) mg/dL AST (5-31) U/L ALT (0-31) U/L Alkaline Phosphatase (39-117) U/L Total Protein (6.5-8.0) g/dL Albumin (3.5-5.0) g/dL Urine Color Yellow Urine Appearance Clear Urine pH 5.5 (5.0-9.0) Ur Specific [place] >= 1.030 H (1.005-1.025) Urine Protein Negative (Neg-Trace) mg/dL Urine Glucose (UA) >=1000 H (Negative) mg/dL Urine Ketones Negative (Negative) mg/dL Urine Blood Negative (Negative) Urine Nitrite Negative (Negative) Ur Leukocyte Esterase Negative (Negative) Urine RBC 0-2 (0-2) /HPF Urine WBC 6-10 H (0-5) /HPF Ur Squamous Epith Cells 0-2 (0-2) /HPF Urine Bacteria None Seen (None Seen) Hyaline Casts 0-2 (0-2) /LPF Discharge Plan Discharge Clinical Impression: Diabetes mellitus with hyperglycemia Patient Disposition: Home, Self-Care Instructions: Diabetic Hyperglycemia (ED) Additional Instructions: Drink plenty of fluids Increased dose of Lantus insulin to 36 units every evening Check blood sugar twice daily should be less than 200mg Follow with PCP Prescriptions: No Action buspirone 10 mg tablet 10 mg PO BID Qty: 60 0RF lorazepam 1 mg tablet 1 mg PO BID PRN (Reason: anxiety) Qty: 60 0RF propranolol 10 mg tablet 10 mg PO TID Qty: 90 0RF chlorpromazine 100 mg tablet 100 mg PO DAILY Qty: 30 0RF (DME) FreeStyle Lite Strips Strip See Rx Instructions .Route Qty: 100 3RF Rx Instructions: Use 1 test strip three times a day (DME) Unifine SafeControl 30 gauge x 3/16 needle See Rx Instructions .Route Qty: 100 2RF Rx Instructions: Use 1 pen needle once a day acetaminophen 500 mg capsule 500 mg PO Q6H PRN (Reason: pain) 30 Days Qty: 120 0RF (DME) lancets [FreeStyle Lancets] 28 gauge misc See Rx Instructions .Route Qty: 100 5RF Rx Instructions: As directed Cris Maciel U-300 Insulin 300 unit/mL (1.5 mL) insulin pen 30 unit subcut DAILY 90 Days Qty: 9 1RF Bydureon BCise 2 mg/0.85 mL auto-injector 2 mg subcut Q7D 30 Days Qty: 4.25 2RF furosemide 20 mg tablet 20 mg PO DAILY PRN (Reason: edema) 30 Days Qty: 30 1RF benztropine 1 mg tablet 1 mg PO BID zolpidem 10 mg tablet 10 mg PO BEDTIME PRN Interventions: ED Discharge Assessment Last Done: 07/15/23 21:33
[2023-07-15] MEDS: Insulin Lispro 100 UNIT/ML 3 ML VIAL 14 UNIT SUBCUT (19:13)
[2023-07-15] MEDS: 0.9 % Sodium Chloride 1,000 ML 999 ML IV (19:17)
[2023-07-15 19:23] LABS: MANUAL DIFF FLAG NO
[2023-07-15 19:27] LABS: Appearance Urine Clear; Color Urine Yellow; Glucose Urine UA >=1000 mg/dL (Negative); Leukocyte Esterase Urine Negative (Negative); Nitrite Urine Negative (Negative); PH 5.5 (5.0-9.0); Specific Gravity - Urine >= 1.030 (1.005-1.025); UMIC TRIGGER UACC YES; Urine Blood Negative (Negative); Urine Ketones Negative (Negative); Urine Protein Negative (Neg-Trace)
[2023-07-15 19:37] LABS: Bacteria Urine None Seen (None Seen); Hyaline Casts Urine 0-2 /LPF (0-2); RBC Urine 0-2 /HPF (0-2); Squamous Epithelial Cell Urine 0-2 /HPF (0-2); UACC Culture Trigger YES
[2023-07-15 19:41] LABS: Basophils Absolute Auto 0.1 X10*3/uL (0.0-0.2); Basophils Percent Auto 1.1 % (0-2); Eosinophils Absolute Auto 0.3 X10*3/uL (0.0-0.4); Eosinophils Percent Auto 5.3 % (0-4); Hematocrit 39.3 % (37.0-47.0); Hemoglobin 13.7 g/dl (12.0-16.0); Imm Gran Abs Auto 0.01 X10*3/uL (0.00-0.03); Imm Gran Pct Auto 0.2 % (0.0-0.4); Lymphocytes Absolute Auto 2.5 X10*3/uL (1.2-4.9); Lymphocytes Percent Auto 46.3 % (20-40); Mean Corpuscular HGB Conc 34.9 g/dl (31.0-35.0); Mean Platelet Volume 9.4 fL (9.4-12.3); Monocytes Absolute Auto 0.4 X10*3/uL (0.1-1.2); Monocytes Percent Auto 6.4 % (2-11); Neutrophils Absolute Auto 2.2 x10*3/uL (2.0-8.3); Neutrophils Percent Auto 40.7 % (45-73); Platelet Count 198 X10*3/uL (160-400); Red Blood Count 4.57 X10*6/uL (4.20-5.50); Red Cell Distribution Width 11.9 % (11.0-16.0); White Blood Count 5.5 X10*3/uL (4.8-10.8)
[2023-07-15 19:51] LABS: Alanine Aminotransferase 34 U/L (0-31); Albumin Level 3.8 g/dL (3.5-5.0); Alkaline Phosphatase 92 U/L (39-117); Anion Gap 13 (12-20); Aspartate Amino Transferase 29 U/L (5-31); Bilirubin Total 0.5 mg/dL (0.0-1.0); Blood Urea Nitrogen 9 mg/dL (9-16); Carbon Dioxide 25 mmol/L (22-29); Chloride 102 mmol/L (96-108); Creatinine Clr Calc Pharmacy 66.7; Estimated Glomerular Filt Rate 52; Glucose Random 521 mg/dL (60-115); Potassium 4.1 mmol/L (3.3-5.1); Sodium 136 mmol/L (135-145); Total Protein 7.2 g/dL (6.5-8.0)
[2023-07-15 20:36] LABS: Glucose, Whole Blood 172 mg/dL (60-115)
[2023-07-15] MEDS: Insulin Glargine,Hum.rec.anlog 100 UNIT/ML 10 ML VIAL 36 UNIT SUBCUT (20:59)
[2023-07-15 21:32] VITALS: BP 129/81; PULSE 101; RESP 18; O2SAT 99
[2023-07-16 07:37] LABS: Estimated Average Glucose 237 mg/dL; Hemoglobin A1c % 9.9 % (<6.0)
== END 2023-07-15 21:33 | disposition home or self-care (01) ==
PROVIDERS: Emergency Provider Internal Medicine; PCP Internal Medicine
DX: E11.65 Type 2 diabetes mellitus with hyperglycemia (principal); G40.909 Epilepsy, unspecified, not intractable, without status epilepticus; Z79.899 Other long term (current) drug therapy
CPT/HCPCS: 36415; 80053; 81001; 82947; 83036; 85025; 87086; 96360; 99284

== ENCOUNTER 2023-09-27 12:18 | Outpatient (AMB) | payer MEDICARE, MEDICAID, SELFPAY ==
--- NOTE | 2023-09-27 12:39 | A.OFFPC_ITS ---
Vital Signs 09/27/23 12:40 Height 5 ft 3 in Weight 217 lb BMI 38.4 BP 126/80 Blood Pressure Location Lt brachial Position Sitting Pulse 72 Pulse Source Pulse Oximeter Pulse Oximetry (%) 98 Oxygen Delivery Method Room Air Intake Visit Reasons: follow up insulin Intake Note: Patient here for a follow up DM [place] Performer Required: No Accompanied by: Self / Same As Patient Allergies meperidine [Demerol] Allergy (Intermediate, Verified 09/27/23 12:55) Hives From Prozac Allergy (Severe, Uncoded 09/27/23 12:55) SEVERE AGITATION Medication List - Last Reconciled 09/27/23 by Ani Weiss MD acetaminophen 500 mg PO Q6H PRN 30 days benztropine 1 mg PO BID blood sugar diagnostic (FreeStyle Lite Strips) Use 1 test strip three times a day buspirone 10 mg PO BID chlorpromazine 100 mg PO DAILY exenatide microspheres ER (Bydureon BCise) 2 mg (0.85 mL) subcut Q7D 30 days furosemide 20 mg PO DAILY PRN 30 days insulin glargine U-300 conc (Toujeo SoloStar U-300 Insulin) 36 units (0.12 mL) subcut DAILY 90 days lancets (FreeStyle Lancets) As directed lorazepam 1 mg PO BID PRN pen needle,diabetic dual safty (Unifine SafeControl) Use 1 pen needle once a day propranolol 10 mg PO TID zolpidem 10 mg PO BEDTIME PRN Tobacco use date assessed: 09/27/23 Dental Screening Dental Screen Date: 09/27/23 Did you have a dental visit in the last 12 months?: No Did you have a dental problem in the last 6 months where you did not have access to dental care?: No Was dental information given to patient?: Patient has dentist HPI HPI Comments History of Present Illness Details This is a 43-year-old female with diabetes mellitus type 2 on long-term current use of insulin, mild major depression, anxiety and insomnia that comes today alone in the room for follow-up on her conditions. A1c within goal. Blood pressure stable. Depression with anxiety and insomnia are follow by Psychiatry. She complains of some sleepiness during the day and I recommend to talk that with her psychiatrist because many medications that she takes can cause sleepiness. No chest pain or shortness of breath. Due to her mild developmental delay and cognitive impairment there is a visiting nurse that comes daily and place her insulin. 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 Social History (Updated 09/27/23 @ 13:38 by Ani Weiss MD) Household Members: None Household Members Other:: none Housing: Apartment Housing Other:: studio Are you a primary md do resident urgent care to a significant other at home: No Do you presently have visiting nurse or other home services: Yes Alcohol intake: never Comment: 1:1 Patient Tobacco Use Status: Former Tobacco user Tobacco use type: Cigarette Cigarette Packs Per Day: 0 Cigarettes Per Day: 6 e-Cigarette/Vaping Use: Never Used Second Hand Smoke Exposure: No Advance Directives Date on File: 02/22/22 service: No Current occupational status: disabled Current occupation: lt handed Sexual orientation: Straight/Heterosexual Gender identity: Female Cognitive needs: Yes Hearing needs: No Vision needs: Yes Female Reproductive History Menstrual Age of Menarche: 8 Questionnaire PHQ-9 Over the last 2 weeks, how often have you been bothered by any of the following problems? 1. Little interest or pleasure in doing things: several days 2. Feeling down, depressed, or hopeless: nearly every day 3. Trouble falling or staying asleep, or sleeping too much: more than half the d ays 4. Feeling tired or having little energy: nearly every day 5. Poor appetite or overeating: not at all 6. Feeling bad about yourself - or that you are a failure or have let yourself or your family down: not at all 7. Trouble concentrating on things, such as reading the newspaper or watching television: several days 8. Moving or speaking so slowly that other people could have noticed. Or the opposite - being so fidgety or restless that you have been moving around a lot more than usual: several days 9. Thoughts that you would be better off or of hurting yourself in some way: not at all Total score: 11 Depression Screening Interpretation: Positive Depression Screening Follow-up: Existing condition, In treatment and Community Mental Health Worker F/U Depression Screening Done: Yes 73263 - PHQ-9 Billing: Yes Source: Developed by Drs. Marcos Aguilar, Amina Garcia, Ezra Rush and colleagues, with an educational blank from [employer]. Thrive Questionnaire Date Thrive assessed: 09/27/23 I am a: Patient What is your living situation today?: I have a steady place to live Within the past 12 months, did the food you bought not last and you didn't have the money to get more?: Never true Within the past 12 months, did you worry whether your food would run out before you got money to buy more?: Never true Do you have trouble paying for medicines?: No Do you have trouble getting transportation to medical appointments?: No Do you have trouble paying your heating and electricity bill?: No Do you have trouble taking care of your child, family member or friend?: No Do you have trouble with day-to-day activities such as bathing, preparing meals, shopping, managing finances, etc.?: No Are you currently unemployed and looking for a job?: No Are you interested in more education?: No Please select the resources that you would like help with: None Currently or been in a relationship where the following occur: no concerns reported THRIVE Score: 0 AUDIT C Alcohol Use Questionnaire (AUDIT-C) 1. How often do you have a drink containing alcohol?: Never Total Score: 0 TOBIAS-7 AMB Questionnaire TOBIAS-7 Date TOBIAS - 7 assessed: 09/27/23 Feeling nervous, anxious, or on edge: 1 = Several days Not being able to stop or control worryin = Not at all Worrying too much about different things: 0 = Not at all Trouble relaxin = Not at all Being so restless that it is hard to sit still: 0 = Not at all Becoming easily annoyed or irritable: 0 = Not at all Feeling afraid as if something awful might happen: 0 = Not at all Total TOBIAS-7 score (0-4 normal; 5-9 mild; 10-14 moderate; 15-21 severe): 1 Source: Developed by Drs. Marcos Aguilar, Amina Garcia, Ezra Rush and colleagues, with an educational blank from [employer]. TOBIAS-7 Assessment Billing TOBIAS-7 Assessment Tool: TOBIAS-7 Assessment 08962 Review of Systems Const All systems reviewed & are unremarkable except as noted in HPI and below Eyes Reports no additional complaints, Denies change in vision and Denies other visual disturbances Card Denies chest pain at rest, Denies chest pain with activity, Denies edema, Denies irregular heart rhythm, Denies claudication, Denies dyspnea, Denies dyspnea on exertion, Denies orthopnea, Denies paroxysmal nocturnal dyspnea and Denies slow heart rate Resp Denies cough, Denies dyspnea and Denies dyspnea on exertion GI Denies abdominal pain, Denies change in bowel habits, Denies excessive flatus, Denies nausea and Denies vomiting Denies urinary incontinence, Denies urinary hesitancy and Denies urinary urgency Musc Denies abnormal gait, Denies atrophy, Denies deformity and Denies limited range of motion Skin/Breast Denies bleeding lesions, Denies changing lesions and Denies rash Neuro Denies abnormal gait, Denies behavioral changes and Denies lack of coordination Psych Denies behavioral changes Physical exam (Primary Care) Vital Signs: Last Vital Signs Pulse 72 09/27/23 12:40 BP 126/80 09/27/23 12:40 Pulse Ox 98 09/27/23 12:40 Oxygen Delivery Method Room Air 09/27/23 12:40 BMI result Body Mass Index 38.4 Tobacco/Smoking Status: Tobacco use Status Tobacco use date assessed 09/27/23 09/27/23 12:52 Patient Tobacco Use Status Never used Tobacco 09/27/23 12:42 Tobacco use type Cigarette 09/27/23 12:42 e-Cigarette/Vaping Use Never Used 09/27/23 12:42 PHQ-9: PHQ-9 Score PHQ-9: Total score 11 09/27/23 13:01 Depression Screening Interpretation: Positive Depression Screening Follow-up: Existing condition, In treatment and Community Mental Health Worker F/U Thrive Assessment: Date of Thrive Assessment Date Thrive assessed 09/27/23 09/27/23 12:42 Currently or been in a relationship where the following occur: no concerns reported Eyes General: appearance normal, both eyes and all related structures Eyelids: Yes eyelids normal Conjunctivae: conjunctivae normal Neck Neck: Yes normal visual inspection and Yes supple Resp Effort & Inspection: normal respiratory effort Auscultation: clear to auscultation bilaterally Cardio Jugular venous distension: no JVD Rate: regular rate Rhythm: regular rhythm Heart sounds: S1 normal heart sound present and S2 normal heart sound present Extrem General: Yes full ROM Psych Appearance: grossly normal Results AMB Hemoglobin A1c AMB Hemoglobin A1c 6.8 % Last Edit by YASHIRA Sood on 09/27/23 12:5 6 Results Reviewed Results Reviewed: Laboratory Last Values Hgb A1c (Clinic) 6.8 % (4.0-6.0) H 09/27/23 12:56 Assessment and Plan Assessment & Plan (1) Type 2 diabetes mellitus, with long-term current use of insulin: Code(s): E11.9 - Type 2 diabetes mellitus without complications; Z79.4 - [facility] (current) use of insulin Qualifiers: Diabetes mellitus complication status: with hyperglycemia Qualified Code(s): E11.65 - Type 2 diabetes mellitus with hyperglycemia; Z79.4 - 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 A1c goal is equal or less than 7%. (2) Insomnia: Code(s): G47.00 - Insomnia, unspecified Plan: Continue zolpidem. Follow-up with psychiatry. (3) Anxiety: Code(s): F41.9 - Anxiety disorder, unspecified Plan: Continue lorazepam as needed. Follow-up with psychiatry. (4) Mild episode of recurrent major depressive disorder: Code(s): F33.0 - Major depressive disorder, recurrent, mild Plan: Follow-up with psychiatry. Orders: Orders Microalbumin, Random (w Creat) 5 Months E11.9 - Type 2 diabetes mellitus without complications AMB Hemoglobin A1c Today E11.9 - Type 2 diabetes mellitus without complications, Z79.4 - [facility] (current) use of insulin Lipid Panel 5 Months E78.5 - Hyperlipidemia, unspecified Comprehensive [place]. Panel Fast 5 Months E11.65 - Type 2 diabetes mellitus with hyperglycemia, Z79.4 - terminal manager (current) use of insulin Coding Level of Care Code Est Pt Level 4 (82427) Diagnoses Type 2 diabetes mellitus with hyperglycemia, with long-term current use of insulin E11.65; Z79.4 Diabetes mellitus complication status: with hyperglycemia Insomnia G47.00 Anxiety F41.9 Mild episode of recurrent major depressive disorder F33.0 Additional Codes TOBIAS-7 Assessment Billing - TOBIAS-7 Assessment Tool: TOBIAS-7 Assessment 14438 ([id number]) Time Spent (min) 23
[2023-09-27 12:40] VITALS: BP 126/80; PULSE 72; O2SAT 98; BMI 38.4
== END 2023-09-27 13:06 | disposition home or self-care (01) ==
PROVIDERS: PCP Internal Medicine; Visit Provider Internal Medicine
DX: E11.65 Type 2 diabetes mellitus with hyperglycemia (principal); Z79.4 Long term (current) use of insulin; F33.0 Major depressive disorder, recurrent, mild; E11.9 Type 2 diabetes mellitus without complications; G47.00 Insomnia, unspecified; F41.9 Anxiety disorder, unspecified
CPT/HCPCS: 83036; 99214

== ENCOUNTER 2024-01-18 15:01 | Outpatient (AMB) | payer MEDICARE, MEDICAID, SELFPAY ==
[2024-01-18 15:06] VITALS: BP 117/72; BMI 39.1
--- NOTE | 2024-01-18 15:06 | MHC.OFFVIS ---
Vital Signs 01/18/24 15:06 Height 5 ft 3 in Weight 220 lb 14.451 oz BMI 39.1 BP 117/72 Blood Pressure Location Rt brachial Position Sitting Intake Visit Reasons: Follow up chronic diarrhea Intake Note: Michelle returns to in office visit today for chronic diarrhea. (last seen in 2021) CC: Patient states that no matter what she eats she has to go to the bathroom 5 mins after . She also c/o nausea and vomiting a couple of days ago, acid reflux, and abdominal pain. She also reports a rash from bilateral arms since after she started Ozempic injections about 2 weeks ago. Internal Security Manager Required: No Accompanied by: Self / Same As Patient Allergies fluoxetine [From Prozac] Allergy (Severe, Verified 01/18/24 15:13) severe agitation meperidine [Demerol] Allergy (Intermediate, Verified 01/18/24 15:07) Hives HPI HPI Follow up chronic diarrhea: Details: Assessment & Plan (1) Chronic diarrhea: ?Code(s): K52.9 - Noninfective gastroenteritis and colitis, unspecified ?Plan: She says that she is taking the cholestyramine bid and it helped at first BUT THEN SHE STARTED HAVING DIARRHEA which she has tied to her intake of milk products. She feels she is lactose intolerant, she has diarrhea with milk, ?even if I drink low-fat milk. ?? This leads me to educate her that the fat content is not what causes the diarrhea but the inability to digest the lactose molecule.? This means that she will have to avoid a wide swath of milk and cheese products to keep from having diarrhea.? I printed her information from our clinical nutrition list about dairy products that can cannot be utilized by someone with lactose intolerance. She will continue her twice a day cholestyramine if this does not resolve the problem then we will consider additional workup.? ROV 6 weeks. TODAY'S VISIT PATIENT HAS BEEN LOST TO FOLLOW-UP SINCE 12/2021 She has been having more and more trouble with my stomach she is having constant diarrhea. A review of her medication list shows that she is no longer taking her cholestyramine, and given her post cj syndrome this is the root cause. ROV 6 weeks. She confirms that she is not drinking milk or eating cheese. This is important because she is lactose intolerant. [facility] Medical History Chronic diarrhea Post-cholecystectomy syndrome BMI 40.0-44.9, adult Leg weakness, bilateral Right shoulder pain Left shoulder pain Left hip pain Right hip pain Foot cramps Unsteadiness Type 2 diabetes mellitus, with long-term current use of insulin Hospital discharge follow-up Diabetes type 2, uncontrolled Dyslipidemia Obesity due to excess calories Left ankle sprain Elevated LFTs Controlled diabetes mellitus without complication, without long-term current use of insulin Physical exam Mild cognitive impairment TOBIAS (generalized anxiety disorder) Overactive bladder Mild developmental delay Mild episode of recurrent major depressive disorder Type 2 diabetes mellitus with diabetic polyneuropathy Diabetes Mild intellectual disability Snores Arthritis PTSD (post-traumatic stress disorder) custodial current 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 Social History Household Members: None Household Members Other:: none Housing: Apartment Housing Other:: studio Are you a primary hospice home care coordinator to a significant other at home: No Do you presently have visiting nurse or other home services: Yes Alcohol intake: never Comment: 1:1 Patient Tobacco Use Status: Former Tobacco user Tobacco use type: Cigarette Cigarette Packs Per Day: 0 Cigarettes Per Day: 6 e-Cigarette/Vaping Use: Never Used Second Hand Smoke Exposure: No Advance Directives Date on File: 02/22/22 service: No Current occupational status: disabled Current occupation: lt handed Sexual orientation: Straight/Heterosexual Gender identity: Female Cognitive needs: Yes Hearing needs: No Vision needs: Yes Female Reproductive History Menstrual Age of Menarche: 8 Review of Systems Const Denies fatigue, Denies fever(s), Denies night sweats, Denies poor appetite and Denies weight loss ENT Reports Normal hearing present, Denies dental pain, Denies dysphagia, Denies hearing loss, Denies mouth pain, Denies odynophagia, Denies throat swelling, Denies tongue swelling and Reports other (Dentition adequate) Card Reports no additional complaints Resp Reports no additional complaints GI Details: Denies abdominal pain, Denies melena, Denies bloating, Denies hematochezia, Denies constipation, Denies GI cramping, Denies dysphagia, Denies excessive flatus, Denies early satiety, Reports dyspepsia, Denies heartburn, Reports diarrhea, Denies nausea, Denies odynophagia, Denies vomiting and Denies hematemesis Skin/Breast Denies pruritus, Denies lesions, Denies rash and Denies jaundice Neuro Reports Normal hearing present and Denies Abnormal speech present Endo Denies fatigue Aller/Immun Denies throat swelling and Denies tongue swelling Physical Exam Vital Signs: Last Vital Signs BP 117/72 01/18/24 15:06 BMI result Body Mass Index 39.1 Const General: cooperative, no acute distress, well developed and well groomed Nutritional Appearance: well nourished and obese morbidly obese Orientation/consciousness: oriented to person, oriented to place and oriented to time Limitations: No language barrier and other limitations (Cognitive delay and psych issues) HEENT Head: Yes normocephalic and Yes atraumatic Eyes General: appearance normal, both eyes and all related structures Pupils: Equal, round and reactive pupils present Neck Neck: Yes normal visual inspection and Yes no lymphadenopathy Thyroid: Thyroid normal Resp Effort & Inspection: normal respiratory effort and able to speak in complete sentences Auscultation: clear to auscultation bilaterally Cardio Rate: regular rate Rhythm: regular rhythm Heart sounds: Normal, physiologic split S2 sound present Peripheral pulses: radial pulses present and posterior tibial pulses present GI Inspection: No distended, Yes Abdominal panniculus present and Yes obesity Palpation (GI): Soft to palpation, nontender, no guarding, not rigid and No hepatosplenomegaly present Percussion: Yes normal to percussion Auscultation: normal bowel sounds Rectal Exam - Female: deferred Skin General skin exam: no rashes or lesions noted, turgor normal, skin not dry, no jaundice, No spider nevi and no striae Rashes: no rashes Nails: normal Neuro General: oriented to person, oriented to place and oriented to time Cranial nerves: Yes Equal, round and reactive pupils present and Yes Normal hearing present Speech: No Abnormal speech present Extrem General: Yes normal to inspection, No clubbing, No cyanosis and No edema Psych Appearance: grossly normal and well kempt Mental Status: mental status grossly normal Speech and movement: Normal speech and movement present Affect: normal affect Attitude: cooperative Thought process: Normal thought process present and not confabulating Thought content: Normal thought content present Insight: Poor insight present (Psych) Judgement: Poor judgement present (Psych) Assessment & Plan Assessment & Plan (1) Conversion disorder: Code(s): F44.9 - Dissociative and conversion disorder, unspecified Category: Medical (2) Obesity (BMI 30-39.9): Code(s): E66.9 - Obesity, unspecified Category: Medical (3) Mild developmental delay: Code(s): R62.50 - Unspecified lack of expected normal physiological development in childhood Category: Medical (4) Post-cholecystectomy syndrome: Code(s): K91.5 - Postcholecystectomy syndrome Category: Medical Plan PATIENT HAS BEEN LOST TO FOLLOW-UP SINCE 12/2021 She has been having more and more trouble with my stomach she is having constant diarrhea. A review of her medication list shows that she is no longer taking her cholestyramine, and given her post cj syndrome this is the root cause. ROV 6 weeks. She confirms that she is not drinking milk or eating cheese. This is important because she is lactose intolerant. At the next appointment discuss if she should have a screening colonoscopy. Medications: New cholestyramine-aspartame 4 gram (Cholestyramine Light) administer w/meal; avoid other meds within 1hr before or 4-6hr after dose 4 grams PO BID 60 ea 6RF K91.5 - Postcholecystectomy syndrome Coding Level of Care Code Est Pt Level 3 (82210) Diagnoses Conversion disorder F44.9 Obesity (BMI 30-39.9) E66.9 Mild developmental delay R62.50 Post-cholecystectomy syndrome K91.5
== END 2024-01-18 15:31 | disposition home or self-care (01) ==
PROVIDERS: PCP Internal Medicine; Visit Provider Nurse Practitioner
DX: F44.9 Dissociative and conversion disorder, unspecified (principal); E66.9 Obesity, unspecified; R62.50 Unspecified lack of expected normal physiological development in childhood; K91.5 Postcholecystectomy syndrome
CPT/HCPCS: 99213

== ENCOUNTER → 2024-01-18 15:01 | Outpatient (BNVA) | payer MEDICARE, MEDICAID, SELFPAY | PROVIDERS: PCP Internal Medicine; Visit Provider Nurse Practitioner | DX: K52.9 Noninfective gastroenteritis and colitis, unspecified (principal); F44.9 Dissociative and conversion disorder, unspecified; E66.9 Obesity, unspecified; R62.50 Unspecified lack of expected normal physiological development in childhood; K91.5 Postcholecystectomy syndrome | CPT/HCPCS: 99212 ==

== ENCOUNTER 2024-02-28 12:20 | Outpatient (AMB) | payer MEDICARE, MEDICAID, SELFPAY ==
--- NOTE | 2024-02-28 13:00 | A.OFFPC_ITS ---
Vital Signs 02/28/24 13:01 Height 5 ft 3 in Weight 218 lb BMI 38.6 BP 118/78 Blood Pressure Location Lt brachial Position Sitting Intake Visit Reasons: pe Intake Note: Patient here for a physical exam Specialty Trimmer Required: No Accompanied by: Self / Same As Patient Allergies fluoxetine [From Prozac] Allergy (Severe, Verified 02/28/24 13:08) severe agitation meperidine [Demerol] Allergy (Intermediate, Verified 02/28/24 13:08) Hives Tobacco use date assessed: 09/27/23 Dental Screening Dental Screen Date: 09/27/23 HPI HPI Comments History of Present Illness Details This is a 43-year-old female with diabetes mellitus type 2 complicated by polyneuropathy on long-term current use of insulin and mild recurrent major depression that comes for her physical exam. A1c very close to goal. Does not recall having a diabetic eye exam within a year and I will refer her. Depression follow by Psychiatry. Last mammogram was 2021. Declines Pap smear at the moment. Does not remember having a colonoscopy and is follow by Gastroenterology. [facility] Medical History (Updated 02/28/24 @ 21:36 by Ani Weiss MD) Physical exam Chronic diarrhea Post-cholecystectomy syndrome BMI 40.0-44.9, adult Leg weakness, bilateral Right shoulder pain Left shoulder pain Left hip pain Right hip pain Foot cramps Unsteadiness Type 2 diabetes mellitus, with long-term current use of insulin Hospital discharge follow-up Diabetes type 2, uncontrolled Dyslipidemia Obesity due to excess calories Left ankle sprain Elevated LFTs Controlled diabetes mellitus without complication, without long-term current use of insulin Mild cognitive impairment TOBIAS (generalized anxiety disorder) Overactive bladder Mild developmental delay Mild episode of recurrent major depressive disorder Type 2 diabetes mellitus with diabetic polyneuropathy Diabetes Mild intellectual disability Snores Arthritis PTSD (post-traumatic stress disorder) 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 Social History Household Members: None Household Members Other:: none Housing: Apartment Housing Other:: studio Are you a primary animal care assistant to a significant other at home: No Do you presently have visiting nurse or other home services: Yes Alcohol intake: never Comment: 1:1 Patient Tobacco Use Status: Former Tobacco user Tobacco use type: Cigarette Cigarette Packs Per Day: 0 Cigarettes Per Day: 6 e-Cigarette/Vaping Use: Never Used Second Hand Smoke Exposure: No Advance Directives Date on File: 02/22/22 service: No Current occupational status: disabled Current occupation: lt handed Sexual orientation: Straight/Heterosexual Gender identity: Female Cognitive needs: Yes Hearing needs: No Vision needs: Yes Female Reproductive History Menstrual Age of Menarche: 8 Questionnaire Thrive Questionnaire Date Thrive assessed: 09/27/23 TOBIAS-7 AMB Questionnaire TOBIAS-7 Date TOBIAS - 7 assessed: 09/27/23 Source: Developed by Drs. Marcos Aguilar, Amina Garcia, Ezra Rush and colleagues, with an educational blank from [employer]. Review of Systems Const All systems reviewed & are unremarkable except as noted in HPI and below Card Denies chest pain at rest, Denies chest pain with activity, Denies edema, Denies irregular heart rhythm, Denies claudication, Denies dyspnea, Denies dyspnea on exertion, Denies orthopnea, Denies paroxysmal nocturnal dyspnea and Denies slow heart rate Resp Denies cough, Denies dyspnea and Denies dyspnea on exertion GI Denies abdominal pain, Denies change in bowel habits, Denies excessive flatus, Denies nausea and Denies vomiting Physical exam (Primary Care) Vital Signs: Last Vital Signs BP 118/78 02/28/24 13:01 BMI result Body Mass Index 38.6 BMI Assessment/Plan discussion: High BMI High, discussed plan: lifestyle, weight reduction, dietary and physical activity Tobacco/Smoking Status: Tobacco use Status Tobacco use date assessed 09/27/23 02/28/24 13:04 Patient Tobacco Use Status Former Tobacco user 02/28/24 13:04 Tobacco use type Cigarette 02/28/24 13:04 e-Cigarette/Vaping Use Never Used 02/28/24 13:04 Thrive Assessment: Date of Thrive Assessment Date Thrive assessed 09/27/23 02/28/24 13:04 HENMT Head: Yes normal to inspection, Yes normocephalic and Yes atraumatic Ears: external ears normal Eyes General: appearance normal, both eyes and all related structures Eyelids: Yes eyelids normal Conjunctivae: conjunctivae normal Neck Neck: Yes normal visual inspection and Yes supple Resp Effort & Inspection: normal respiratory effort Auscultation: clear to auscultation bilaterally Cardio Jugular venous distension: no JVD Rate: regular rate Rhythm: regular rhythm Heart sounds: S1 normal heart sound present and S2 normal heart sound present GI Inspection: Yes normal to inspection Palpation (GI): Soft to palpation and nontender Auscultation: normal bowel sounds Skin General skin exam: no rashes or lesions noted Neuro General: no focal motor deficits Extrem General: Yes full ROM Psych Appearance: grossly normal Results AMB Hemoglobin A1c AMB Hemoglobin A1c 7.1 % Last Edit by YASHIRA Sood on 02/28/24 13:1 6 Results Reviewed Results Reviewed: Laboratory Last Values Hgb A1c (Clinic) 7.1 % (4.0-6.0) H 02/28/24 13:00 Assessment and Plan Assessment & Plan (1) Physical exam: Code(s): Z00.00 - Encounter for general adult medical examination without abnormal findings Plan: Repeat in a year. (2) Mild episode of recurrent major depressive disorder: Code(s): F33.0 - Major depressive disorder, recurrent, mild Plan: Follow-up with psychiatry. (3) Type 2 diabetes mellitus with diabetic polyneuropathy: Code(s): E11.42 - Type 2 diabetes mellitus with diabetic polyneuropathy Qualifiers: Diabetes mellitus senior care insulin use: with ferry terminal supervisor use Qualified Code(s): E11.42 - Type 2 diabetes mellitus with diabetic polyneuropathy; Z79.4 - manager intermediate (current) use of insulin Plan: Continue insulin and Ozempic. A1c goal is equal or less than 7%. Orders: Orders MM screening mammo BI Today Z12.31 - Encounter for screening mammogram for malignant neoplasm of breast Microalbumin, Random (w Creat) Today E11.9 - Type 2 diabetes mellitus without complications Comprehensive [place]. Panel Fast Today E11.42 - Type 2 diabetes mellitus with diabetic polyneuropathy AMB Hemoglobin A1c Today E11.42 - Type 2 diabetes mellitus with diabetic polyneuropathy Vitamin D 25-OH Total Today E55.9 - Vitamin D deficiency, unspecified Lipid Panel Today E78.5 - Hyperlipidemia, unspecified Referrals Ophthalmology Referral E11.42 - Type 2 diabetes mellitus with diabetic polyneuropathy Medications: New semaglutide (Ozempic) 2 mg (0.75 mL) subcut QWEEK 3 mL 2RF 4 weeks E11.42 - Type 2 diabetes mellitus with diabetic polyneuropathy Discontinued semaglutide (Ozempic) Discontinued Reason: Patient Completed Course 1 mg (0.75 mL) subcut QWEEK 4 weeks 3 mL 0RF Coding Level of Care Code Est Pt Prev Care 40-64y(35479) Diagnoses Physical exam Z00.00 Mild episode of recurrent major depressive disorder F33.0 Type 2 diabetes mellitus with diabetic polyneuropathy, with long-term current use of insulin E11.42; Z79.4 Diabetes mellitus senior care insulin use: with ferry terminal supervisor use Time Spent (min) 30
[2024-02-28 13:01] VITALS: BP 118/78; BMI 38.6
== END 2024-02-28 14:38 | disposition home or self-care (01) ==
PROVIDERS: PCP Internal Medicine; Visit Provider Internal Medicine
DX: Z00.00 Encounter for general adult medical examination without abnormal findings (principal); F33.0 Major depressive disorder, recurrent, mild; E11.42 Type 2 diabetes mellitus with diabetic polyneuropathy; Z79.4 Long term (current) use of insulin
CPT/HCPCS: 83036; 99396

== ENCOUNTER 2024-04-04 11:57 | Outpatient (REF) | payer MEDICARE, MEDICAID, SELFPAY ==
--- NOTE | ~2024-04-04 | MM_ITS ---
EXAMINATION: MM SCREENING DIGITAL BREAST TOMOSYNTHESIS, BILATERAL CLINICAL INFORMATION: Screening. Asymptomatic. COMPARISON: Mammography: Comparison is made with available priors TECHNIQUE: Digital breast mammography with tomosynthesis is performed in both the craniocaudal and mediolateral oblique views along with computer-aided detection (CAD). FINDINGS: There are scattered areas of fibroglandular density (ACR BI-RADS breast composition Category b). There are no significant masses, abnormal calcifications, or other abnormalities. MM/MM tomosynthesis screening BI IMPRESSION: No mammographic evidence of malignancy. ASSESSMENT: BI-RADS BI-RADS 1 - Negative RECOMMENDATION: Routine annual mammography screening. 1 year F/U This examination should not preclude the clinical evaluation of a suspicious palpable abnormality. This patient's information was entered into a reminder system with a target due date for their next mammogram. Electronically signed by: Yuliya Romano DO 04/30/2024 10:11 AM EDT
[2024-04-04 12:58] LABS: Alanine Aminotransferase 83 U/L (0-31); Albumin Level 4.3 g/dL (3.5-5.0); Alkaline Phosphatase 98 U/L (39-117); Anion Gap 12 (12-20); Aspartate Amino Transferase 94 U/L (5-31); Bilirubin Total 0.9 mg/dL (0.0-1.0); Blood Urea Nitrogen 8 mg/dL (9-16); Carbon Dioxide 28 mmol/L (22-29); Chloride 101 mmol/L (96-108); Cholesterol 219 mg/dL (<200); Estimated Glomerular Filt Rate > 60; Glucose Fasting 214 mg/dL (60-99); HDL Cholesterol 40 mg/dL (>40); LDL Cholesterol Calculated 146 mg/dL (<100); Potassium 4.6 mmol/L (3.3-5.1); Sodium 136 mmol/L (135-145); Total Protein 7.9 g/dL (6.5-8.0); Triglycerides 165 mg/dL (<150)
[2024-04-04 13:13] LABS: Vitamin D 25-OH Total 20.3 ng/mL (>30)
== END 2024-04-04 11:58 | disposition home or self-care (01) ==
LOC: HO.MAMMO 11:57
PROVIDERS: PCP Internal Medicine; Visit Provider Internal Medicine
DX: E11.42 Type 2 diabetes mellitus with diabetic polyneuropathy (principal); E55.9 Vitamin D deficiency, unspecified; E78.5 Hyperlipidemia, unspecified; E11.65 Type 2 diabetes mellitus with hyperglycemia; Z79.4 Long term (current) use of insulin; Z12.31 Encounter for screening mammogram for malignant neoplasm of breast
CPT/HCPCS: 36415; 77063; 77067; 80053; 80061; 82306

== ENCOUNTER → 2024-04-04 12:23 | Outpatient (BNV) | payer MEDICARE, MEDICAID, SELFPAY | PROVIDERS: PCP Internal Medicine; Visit Provider Internal Medicine | DX: Z12.31 Encounter for screening mammogram for malignant neoplasm of breast (principal) | CPT/HCPCS: 77063; 77067 ==

== ENCOUNTER 2024-07-17 14:43 | Outpatient (AMB) | payer MEDICARE, MEDICAID, SELFPAY ==
--- NOTE | 2024-07-17 14:49 | MHC.PC.OV ---
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 Required: No Accompanied by: Self / Same As Patient Allergies fluoxetine [From Prozac] Allergy (Severe, Verified 07/17/24 15:18) severe agitation meperidine [Demerol] Allergy (Intermediate, Verified 07/17/24 15:18) Hives Medication List - Last Reconciled 07/17/24 by Ani Weiss MD acetaminophen 500 mg PO Q6H PRN 30 days atorvastatin 20 mg PO BEDTIME 90 days benztropine 1 mg PO BID blood sugar diagnostic (FreeStyle Lite Strips) Use 1 test strip three times a day buspirone 10 mg PO BID chlorpromazine 100 mg PO DAILY cholestyramine-aspartame 4 gram (Cholestyramine Light) 4 grams PO BID insulin glargine U-300 conc (Toujeo SoloStar U-300 Insulin) 40 units (0.1333 mL) subcut DAILY 90 days lancets (FreeStyle Lancets) As directed lorazepam 1 mg PO BID PRN pen needle,diabetic dual safty (Unifine SafeControl) Use 1 pen needle once a day propranolol 10 mg PO TID semaglutide (Ozempic) 2 mg (0.75 mL) subcut QWEEK 4 weeks triamcinolone acetonide 0.1% 1 appl topical BID 4 weeks zolpidem 10 mg PO BEDTIME PRN Tobacco use date assessed: 09/27/23 Dental Screening Dental Screen Date: 07/17/24 Did you have a dental visit in the last 12 months?: No Did you have a dental problem in the last 6 months where you did not have access to dental care?: No Was dental information given to patient?: Yes HPI HPI Comments History of Present Illness Details The patient is a 44-year-old female presenting with concerns related to diabetes management and metabolic conditions. She is following up for Type 2 Diabetes Mellitus, currently well-controlled with a Hemoglobin A1c of 6%. She experiences persistent peripheral neuropathy symptoms, a common complication associated with diabetes, expressed by a lack of sensation in her feet and thickened toenails. Her diabetes management regimen includes Ozempic 2 mg weekly. The patient also manages hypertension and hypercholesterolemia with Atorvastatin and recently elevated lipid levels were noted, prompting the need for repeat fasting blood work. Additionally, she has a history of class 2 obesity, with a BMI of 38.4, though attempts to lose weight have been difficult despite lifestyle adjustments. The patient has a remote history of seizures, although she reports a long period of quiescence and has not been under the care of a neurologist for some time. Furthermore, she manages chronic diarrhea with Cholestyramine; however, reports recent inefficacy of bowel treatments. She is also under psychiatric care for depression, anxiety, and insomnia, treated with Buspirone and Citalopram. She has a past allergic reaction to Fluoxetine and Meperidine, with noted severe agitation and hives, respectively. She also has history of seizures but has not had one in years. [facility] Medical History (Updated 07/17/24 @ 20:18 by Ani Weiss MD) Physical exam Chronic diarrhea Post-cholecystectomy syndrome BMI 40.0-44.9, adult Leg weakness, bilateral Right shoulder pain Left shoulder pain Left hip pain Right hip pain Foot cramps Unsteadiness Type 2 diabetes mellitus, with long-term current use of insulin Hospital discharge follow-up Diabetes type 2, uncontrolled Dyslipidemia Obesity due to excess calories Left ankle sprain Elevated LFTs Controlled diabetes mellitus without complication, without long-term current use of insulin Mild cognitive impairment TOBIAS (generalized anxiety disorder) Overactive bladder Mild developmental delay Mild episode of recurrent major depressive disorder Type 2 diabetes mellitus with diabetic polyneuropathy Diabetes Mild intellectual disability Snores Arthritis PTSD (post-traumatic stress disorder) 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 Social History Household Members: None Household Members Other:: none Housing: Apartment Housing Other:: studio Are you a primary patient care to a significant other at home: No Do you presently have visiting nurse or other home services: Yes Alcohol intake: never Comment: 1:1 Patient Tobacco Use Status: Former Tobacco user Tobacco use type: Cigarette Cigarette Packs Per Day: 0 Cigarettes Per Day: 6 e-Cigarette/Vaping Use: Never Used Second Hand Smoke Exposure: No Advance Directives Date on File: 02/22/22 service: No Current occupational status: disabled Current occupation: lt handed Sexual orientation: Straight/Heterosexual Gender identity: Female Cognitive needs: Yes Hearing needs: No Vision needs: Yes Female Reproductive History Menstrual Age of Menarche: 8 Questionnaire Thrive Questionnaire Date Thrive assessed: 09/27/23 TOBIAS-7 AMB Questionnaire TOBIAS-7 Date TOBIAS - 7 assessed: 09/27/23 Source: Developed by Drs. Marcos Aguilar, Aimna Garcia, Ezra Rush and colleagues, with an educational blank from [employer]. Review of Systems Const Details: - Respiratory: Denies dyspnea or cough. - Gastrointestinal: Reports diarrhea, denies abdominal pain. - Neurological: Reports lack of sensation in feet. - Dermatological: Reports thickened toenails. Physical exam (Primary Care) Vital Signs: Last Vital Signs BP 112/76 07/17/24 15:00 BMI result Body Mass Index 38.4 BMI Assessment/Plan discussion: High BMI High, discussed plan: lifestyle, weight reduction, dietary and physical activity Tobacco/Smoking Status: Tobacco use Status Tobacco use date assessed 09/27/23 07/17/24 14:49 Patient Tobacco Use Status Former Tobacco user 07/17/24 14:49 Tobacco use type Cigarette 07/17/24 14:49 e-Cigarette/Vaping Use Never Used 07/17/24 14:49 Thrive Assessment: Date of Thrive Assessment Date Thrive assessed 09/27/23 07/17/24 14:49 Const Other: General: No confusion Orientation/Consciousness: Patient oriented x3 and No confusion Head: Normal to inspection, Yes normocephalic and Yes atraumatic Ears: External ears normal Nose: Normal external nose present and No nasal discharge present Face and Sinus: Sinuses nontender Mouth: Lip normal Eyes: Appearance normal, both eyes and all related structures Eyelids: Eyelids normal Conjunctivae: Conjunctivae normal Neck: Normal visual inspection and Yes supple Respiratory: Normal respiratory effort, clear to auscultation bilaterally Cardiovascular: No jugular venous distension, regular rate, regular rhythm, S1 normal heart sound present and S2 normal heart sound present GI: Normal to inspection, Soft to palpation and nontender, normal bowel sounds Skin: No rashes or lesions noted Neurology: Patient oriented x3, no focal motor deficits and No confusion. Patient exhibits signs of neuropathy in feet, decreased sensation noted. Extremities: Full ROM. No swelling in legs, slight thickening of toenails, pain noted on the sides of toes. Psychology: Grossly normal Office Procedures Flu Questionnaire Does the patient have a severe egg allergy?: No Results AMB Hemoglobin A1c AMB Hemoglobin A1c 6.0 % Last Edit by YASHIAR Sood on 07/17/24 15:31 Immunizations Fluarix Triv [id number] (PF) 45 mcg (15 mcg x 3)/0.5 mL IM syringe Performing Provider: Ani Weiss MD [facility] Documented (not given) by: YASHIRA Sood on 07/17/24 15:12 Reason Not Given: Patient Refused Results Reviewed Results Reviewed: Laboratory Last Values Hgb A1c (Clinic) 6.0 % (4.0-6.0) 07/17/24 14:48 Coding Level of Care Code Est Pt Level 4 (01146) Complex EM visit Add On G2211 Diagnoses Type 2 diabetes mellitus with diabetic polyneuropathy, with long-term current use of insulin E11.42; Z79.4 Diabetes mellitus fci insulin use: with fci use Mild episode of recurrent major depressive disorder F33.0 Hyperlipidemia LDL goal <100 E78.5 Essential hypertension I10 Class 2 severe obesity with serious comorbidity and body mass index (BMI) of 38.0 to 38.9 in adult E66.812; E66.01; Z68.38 Seizures R56.9 Time Spent (min) 24 Assessment & Plan Assessment & Plan (1) Type 2 diabetes mellitus with diabetic polyneuropathy: Code(s): E11.42 - Type 2 diabetes mellitus with diabetic polyneuropathy Category: Medical Qualifiers: Diabetes mellitus fci insulin use: with terminal gauger use Qualified Code(s): E11.42 - Type 2 diabetes mellitus with diabetic polyneuropathy; Z79.4 - intermediate (current) use of insulin (2) Mild episode of recurrent major depressive disorder: Code(s): F33.0 - Major depressive disorder, recurrent, mild Category: Medical (3) Hyperlipidemia LDL goal <100: Code(s): E78.5 - Hyperlipidemia, unspecified Category: Medical (4) Essential hypertension: Code(s): I10 - Essential (primary) hypertension Category: Medical (5) Class 2 severe obesity with serious comorbidity and body mass index (BMI) of 38.0 to 38.9 in adult: Code(s): E66.812 - Obesity, class 2; E66.01 - Morbid (severe) obesity due to excess calories; Z68.38 - Body mass index [BMI] 38.0-38.9, adult Category: Medical (6) Seizures: Code(s): R56.9 - Unspecified convulsions Category: Medical Plan - Type 2 Diabetes Mellitus: Continue current management with Ozempic 2 mg weekly. Importance of monitoring blood glucose levels emphasized. - Peripheral Neuropathy: Prescribe diabetic shoes for additional foot protection. Encourage avoidance of barefoot walking and recommend regular foot checks. - Hypertension and Hypercholesterolemia: Maintain Atorvastatin regimen. Schedule and complete fasting lipid profile. - Obesity: Discuss potential dietary and lifestyle modifications further. Encourage physical activity as tolerated. - Diarrhea: Consider alternative or adjunct treatments if symptoms persist. - Seizure Disorder: No current treatment adjustment necessary due to quiescent status. - Mental Health: Continue psychiatric medications as prescribed. - Allergy Management: Document allergy details and ensure avoidance of Fluoxetine and Meperidine. Patient was informed and verbally consented to the use of an ambient scribe for clinic note documentation during this visit. The patient and I discussed the importance of ongoing diabetic management, with attention to the prevention of complications such as neuropathy. We reviewed current medication regimens and fasting blood work to monitor cholesterol levels. I emphasized the need for protective footwear due to neuropathy, providing a prescription for diabetic shoes. Furthermore, we discussed her lipid control strategies, including the continuation of Atorvastatin and dietary modifications. The patient was advised to complete fasting labs and consider alternate treatments for diarrhea if no improvement is noted. I reiterated the significance of mental health management with ongoing psychiatric care. The patient expressed understanding and agreed with the plan. 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 - Obtain fasting blood work for lipid profile as soon as possible. - Wear prescribed diabetic shoes consistently. - Regularly check feet for any signs of injury or complications. - Consider dietary changes and increase physical activity for weight management. - Seek medical attention if symptoms of neuropathy or diarrhea worsen. - Follow up with psychiatric care as scheduled. - Monitor and report any allergic reactions to medications.
[2024-07-17 15:00] VITALS: BP 112/76; BMI 38.4
== END 2024-07-17 15:29 | disposition home or self-care (01) ==
PROVIDERS: PCP Internal Medicine; Visit Provider Internal Medicine
DX: E11.42 Type 2 diabetes mellitus with diabetic polyneuropathy (principal); Z79.4 Long term (current) use of insulin; E66.01 Morbid (severe) obesity due to excess calories; Z68.38 Body mass index [BMI] 38.0-38.9, adult; F33.0 Major depressive disorder, recurrent, mild; R56.9 Unspecified convulsions; E78.5 Hyperlipidemia, unspecified; I10 Essential (primary) hypertension

== ENCOUNTER → 2024-07-17 14:43 | Outpatient (BNVA) | payer MEDICARE, MEDICAID, SELFPAY | PROVIDERS: PCP Internal Medicine; Visit Provider Internal Medicine | DX: E11.42 Type 2 diabetes mellitus with diabetic polyneuropathy (principal); Z79.4 Long term (current) use of insulin; F33.0 Major depressive disorder, recurrent, mild; E78.5 Hyperlipidemia, unspecified; I10 Essential (primary) hypertension; E66.01 Morbid (severe) obesity due to excess calories; Z68.38 Body mass index [BMI] 38.0-38.9, adult; R56.9 Unspecified convulsions; Z71.3 Dietary counseling and surveillance | CPT/HCPCS: 83036; 99212 ==

== ENCOUNTER 2024-12-05 13:53 | Outpatient (AMB) | payer MEDICARE, MEDICAID, SELFPAY ==
--- NOTE | 2024-12-05 13:59 | A.OFFPC_ITS ---
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 Accompanied by: MHA Worker Allergies fluoxetine [From Prozac] Allergy (Severe, Verified 12/05/24 14:23) severe agitation meperidine [Demerol] Allergy (Intermediate, Verified 12/05/24 14:23) Hives Medication List - Last Reconciled 12/05/24 by JUDSON Michelle acetaminophen 500 mg PO Q6H PRN 30 days atorvastatin 20 mg PO BEDTIME benztropine 1 mg PO BID blood sugar diagnostic (FreeStyle Lite Strips) Use 1 test strip three times a day buspirone 10 mg PO BID chlorpromazine 100 mg PO DAILY cholestyramine-aspartame 4 gram (Cholestyramine Light) 4 grams PO BID [diabetic shoes As directed] insulin glargine (Basaglar KwikPen U-100 Insulin) 40 units (0.4 mL) subcut QPM 30 days insulin glargine U-300 conc (Toujeo SoloStar U-300 Insulin) 40 units (0.1333 mL) subcut DAILY 90 days lancets (FreeStyle Lancets) As directed lorazepam 1 mg PO BID PRN pen needle,diabetic dual safty (Unifine SafeControl) Use 1 pen needle once a day propranolol 10 mg PO TID semaglutide (Ozempic) 2 mg (0.75 mL) subcut QWEEK 4 weeks zolpidem 10 mg PO BEDTIME PRN Tobacco use date assessed: 12/05/24 Dental Screening Dental Screen Date: 12/05/24 Did you have a dental visit in the last 12 months?: Yes Did you have a dental problem in the last 6 months where you did not have access to dental care?: No Was dental information given to patient?: Patient has dentist HPI DM follow up HPI Details The patient is a 44-year-old female presenting with type 2 diabetes mellitus and abdominal pain. The follow-up visit focuses on her diabetes manage ment, for which her current Hemoglobin A1c is at an improved level of 6.2%. The treatment plan includes Ozempic 2 mg and 40 units of long-acting insulin, with a need for refills on glucose monitoring supplies. The patient also reports left-sided abdominal pain, characterized by a transient tightening sensation that occurred while at rest and resolved spontaneously. Although the patient has experienced similar pains previously, detailed context about prior episodes remains unclear, aside from their sporadic nature. The patient did not complete ordered labs for this visit. And an A1c was done in office to evaluate her diabetes. Encouraged the patient and staff member to get blood work done as soon as possible, so that she could have a more complete evaluation Patient denies chest pain, shortness of breath, and heart palpitation [facility] Medical History Physical exam Chronic diarrhea Post-cholecystectomy syndrome BMI 40.0-44.9, adult Leg weakness, bilateral Right shoulder pain Left shoulder pain Left hip pain Right hip pain Foot cramps Unsteadiness Type 2 diabetes mellitus, with long-term current use of insulin Hospital discharge follow-up Diabetes type 2, uncontrolled Dyslipidemia Obesity due to excess calories Left ankle sprain Elevated LFTs Controlled diabetes mellitus without complication, without long-term current use of insulin Mild cognitive impairment TOBIAS (generalized anxiety disorder) Overactive bladder Mild developmental delay Mild episode of recurrent major depressive disorder Type 2 diabetes mellitus with diabetic polyneuropathy Diabetes Mild intellectual disability Snores Arthritis 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 Social History Household Members: None Household Members Other:: none Housing: Apartment Housing Other:: studio Are you a primary neonatal intensive care nurse to a significant other at home: No Do you presently have visiting nurse or other home services: Yes Alcohol intake: never Comment: 1:1 Patient Tobacco Use Status: Former Tobacco user Tobacco use type: Cigarette Cigarette Packs Per Day: 0 Cigarettes Per Day: 6 e-Cigarette/Vaping Use: Never Used Second Hand Smoke Exposure: No Advance Directives Date on File: 02/22/22 service: No Current occupational status: disabled Current occupation: lt handed Sexual orientation: Straight/Heterosexual Gender identity: Female Cognitive needs: Yes Hearing needs: No Vision needs: Yes Female Reproductive History Menstrual Age of Menarche: 8 Questionnaire PHQ-9 Over the last 2 weeks, how often have you been bothered by any of the following problems? 1. Little interest or pleasure in doing things: nearly every day 2. Feeling down, depressed, or hopeless: several days 3. Trouble falling or staying asleep, or sleeping too much: more than half the days 4. Feeling tired or having little energy: nearly every day 5. Poor appetite or overeating: not at all 6. Feeling bad about yourself - or that you are a failure or have let yourself or your family down: not at all 7. Trouble concentrating on things, such as reading the newspaper or watching television: nearly every day 8. Moving or speaking so slowly that other people could have noticed. Or the opposite - being so fidgety or restless that you have been moving around a lot more than usual: not at all 9. Thoughts that you would be better off or of hurting yourself in some way: not at all Total score: 12 Depression Screening Interpretation: Positive Depression Screening Done: Yes 26979 - PHQ-9 Billing: Yes Source: Developed by Drs. Marcos Aguilar, Amina Garcia, Ezra Rush and colleagues, with an educational blank from [employer]. Thrive Questionnaire Date Thrive assessed: 12/05/24 I am a: Patient What is your living situation today?: I have a steady place to live Within the past 12 months, did the food you bought not last and you didn't have the money to get more?: Never true Within the past 12 months, did you worry whether your food would run out before you got money to buy more?: Never true Do you have trouble paying for medicines?: No Do you have trouble getting transportation to medical appointments?: No Do you have trouble paying your heating and electricity bill?: No Do you have trouble taking care of your child, family member or friend?: I choose not to answer this question Do you have trouble with day-to-day activities such as bathing, preparing meals, shopping, managing finances, etc.?: No Are you currently unemployed and looking for a job?: No Are you interested in more education?: No Please select the resources that you would like help with: None Currently or been in a relationship where the following occur: I choose not to answer THRIVE Score: 0 AUDIT C Alcohol Use Questionnaire (AUDIT-C) 1. How often do you have a drink containing alcohol?: Never Total Score: 0 Score Reviewed/Action Taken: No TOBIAS-7 AMB Questionnaire TOBIAS-7 Date TOBIAS - 7 assessed: 12/05/24 Feeling nervous, anxious, or on edge: 3 = Nearly every day Not being able to stop or control worryin = Nearly every day Worrying too much about different things: 3 = Nearly every day Trouble relaxin = More than half the days Being so restless that it is hard to sit still: 2 = More than half the days Becoming easily annoyed or irritable: 2 = More than half the days Feeling afraid as if something awful might happen: 3 = Nearly every day Total TOBIAS-7 score (0-4 normal; 5-9 mild; 10-14 moderate; 15-21 severe): 18 Source: Developed by Drs. Marcos Aguilar, Amina Garcia, Ezra Rush and colleagues, with an educational blank from [employer]. TOBIAS-7 Assessment Billing TOBIAS-7 Assessment Tool: TOBIAS-7 Assessment 41714 Review of Systems Const Details: - Endocrine: Reports stable blood sugar control with current regimen. - Cardiovascular: Reports transiently elevated blood pressure at today's visit. - Gastrointestinal: Reports transient left-sided abdominal pain, resolved spontaneously. - Dermatological: Reports recent sunburn on the hand. Denies headache(s) Eyes Denies loss of vision ENT Denies vertigo, Denies dizziness, Denies headache(s) and Denies sore throat Card Denies chest pain, Denies leg edema and Denies lightheadedness Resp Denies cough, Denies hemoptysis and Denies wheezing GI Reports abdominal pain (Left upper quadrant on and off pain), Denies melena, Denies constipation, Denies diarrhea and Denies vomiting Denies urinary frequency, Denies dysuria and Denies urinary urgency Musc Denies arthralgias, Denies joint swelling, Denies numbness and Denies tingling Neuro Denies Abnormal speech present, Denies behavioral changes, Denies vertigo, Denies dizziness, Denies headache(s), Denies loss of vision, Denies memory loss, Denies numbness and Denies tingling Psych Reports anxiety, Denies behavioral changes, Reports depression, Denies memory loss and Denies panic attacks Brandon/Lymph Denies easy bleeding and Denies easy bruising Aller/Immun Denies wheezing Physical exam (Primary Care) Vital Signs: Last Vital Signs Temp 98.6 F 12/05/24 14:00 Pulse 84 12/05/24 14:00 Resp 16 12/05/24 14:00 BP 128/90 H 12/05/24 14:00 Pulse Ox 98 12/05/24 14:00 Oxygen Delivery Method Room Air 12/05/24 14:00 BMI result Body Mass Index 36.7 Tobacco/Smoking Status: Tobacco use Status Tobacco use date assessed 12/05/24 12/05/24 14:16 Patient Tobacco Use Status Former Tobacco user 12/05/24 13:59 Tobacco use type Cigarette 12/05/24 13:59 e-Cigarette/Vaping Use Never Used 12/05/24 13:59 PHQ-9: PHQ-9 Score PHQ-9: Total score 12 12/05/24 18:17 Depression Screening Interpretation: Positive Thrive Assessment: Date of Thrive Assessment Date Thrive assessed 12/05/24 12/05/24 14:16 Currently or been in a relationship where the following occur: I choose not to answer Const General: healthy appearing, no acute distress, alert and awake Nutritional Appearance: well nourished Orientation/consciousness: oriented to person, oriented to place and oriented to time HENMT Ears: external ears normal General nose exam: Normal external nose present Eyes Conjunctivae: conjunctivae normal Sclerae: sclerae normal Pupils: Equal, round and reactive pupils present Neck Neck: Yes no lymphadenopathy and Yes no JVD Thyroid: Thyroid normal Carotids: no bruits Resp Effort & Inspection: normal respiratory effort and not tachypneic Auscultation: no crackles, no rales, no rhonchi and no wheezes Cardio Rate: regular rate Rhythm: regular rhythm Heart sounds: no murmurs and normal S1 and S2 GI Palpation (GI): Soft to palpation, Tenderness to palpation present (GI) in the LUQ, no hepatomegaly and no splenomegaly Auscultation: normal bowel sounds General: Yes no CVA tenderness Back/Spine/Pelvis Back: no CVA tenderness Skin General skin exam: no rashes or lesions noted and dry skin Neuro General: oriented to person, oriented to place and oriented to time Cranial nerves: Yes Equal, round and reactive pupils present Speech: No Abnormal speech present Gait exam (Neuro): Normal gait present Motor exam (neuro): no tremor noted Extrem Right upper extremity: full ROM Left upper extremity: full ROM Right lower extremity: full ROM; no edema Left lower extremity: full ROM; no edema Psych Mental Status: mental status grossly normal Speech and movement: Normal speech and movement present Affect: normal affect Attitude: cooperative Thought process: Normal thought process present Results AMB Hemoglobin A1c AMB Hemoglobin A1c 6.2 % Last Edit by Ary Lehman CMA on 12/05/24 14:22 Results Reviewed Results Reviewed: Laboratory Last Values Hgb A1c (Clinic) 6.2 % (4.0-6.0) H 12/05/24 14:20 Coding Level of Care Code Est Pt Level 4 (83939) Diagnoses Type 2 diabetes mellitus with diabetic polyneuropathy, with long-term current use of insulin E11.42; Z79.4 Diabetes mellitus [facility] insulin use: with [facility] use half-way current use of insulin Z79.4 Essential hypertension I10 Left upper quadrant abdominal pain R10.12 Anxiety F41.9 Mild developmental delay R62.50 Hyperlipidemia LDL goal <100 E78.5 Obesity (BMI 30-39.9) E66.9 Insomnia, unspecified type G47.00 Insomnia type: unspecified Additional Codes TOBIAS-7 Assessment Billing - TOBIAS-7 Assessment Tool: TOBIAS-7 Assessment 09772 ([id number]) PHQ-9 - 61238 - PHQ-9 Billing: Yes ([id number]) Time Spent (min) 38 Assessment & Plan Assessment & Plan (1) Type 2 diabetes mellitus with diabetic polyneuropathy: Code(s): E11.42 - Type 2 diabetes mellitus with diabetic polyneuropathy Category: Medical Qualifiers: Diabetes mellitus [facility] insulin use: with [facility] use Qualified Code(s): E11.42 - Type 2 diabetes mellitus with diabetic polyneuropathy; 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 (2) half-way current use of insulin: Code(s): 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 Category: Medical (3) Essential hypertension: Code(s): I10 - Essential (primary) hypertension Category: Medical (4) Left upper quadrant abdominal pain: Code(s): R10.12 - Left upper quadrant pain Category: Medical (5) Anxiety: Code(s): F41.9 - Anxiety disorder, unspecified Category: Medical (6) Mild developmental delay: Code(s): R62.50 - Unspecified lack of expected normal physiological development in childhood Category: Medical (7) Hyperlipidemia LDL goal <100: Code(s): E78.5 - Hyperlipidemia, unspecified Category: Medical (8) Obesity (BMI 30-39.9): Code(s): E66.9 - Obesity, unspecified Category: Medical (9) Insomnia: Code(s): G47.00 - Insomnia, unspecified Category: Medical Qualifiers: Insomnia type: unspecified Qualified Code(s): G47.00 - Insomnia, unspecified Plan A1c 6.2%, I will continue her regimen of Ozempic 2 mg and 40 units of long- acting insulin, and refresh her supplies as requested. For the transiently elevated blood pressure, patient reports anxiety and reports that the blood pressure cuff hurting. As a result, she declined blood pressure recheck. For her abdominal pain, an ultrasound and specific blood tests related to pancreatic health are ordered for further evaluation. Complete fasting labs as soon as possible. In the meantime continue committing to low-cholesterol, low sugar, low-salt diet and activity as tolerated. Continue monitoring blood sugar as ordered and has not needed for any change in condition. Encouraged CBT, continue lorazepam 1 mg b.i.d. p.r.n., buspirone 10 mg b.i.d. and benztropine 1 mg b.i.d.. Follow up with Psychiatry as scheduled. Reinforced sleep hygiene, continue zolpidem 10 mg at bedtime p.r.n. Patient was informed and verbally consented to the use of an ambient scribe for clinic note documentation during this visit. Orders: Orders AMB Hemoglobin A1c Today E11.42 - Type 2 diabetes mellitus with diabetic polyneuropathy, Z79.4 - half-way (current) use of insulin Lipase Today R10.12 - Left upper quadrant pain Amylase Today R10.12 - Left upper quadrant pain CRP High Sensitivity Today R10.12 - Left upper quadrant pain Erythrocyte Sedimentation Rate Today R10.12 - Left upper quadrant pain US abdomen complete Today R10.12 - Left upper quadrant pain Medications: New alcohol swabs (Alcohol Prep Pads) QID for blood sugar check 1 pad topical QID 100 ea 3RF E11.42 - Type 2 diabetes mellitus with diabetic polyneuropathy, 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 blood-glucose meter (Freestyle InsuLinx meter) As directed check blood sugar QID 1 ea 0RF E11.42 - Type 2 diabetes mellitus with diabetic polyneuropathy, 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
[2024-12-05 14:00] VITALS: BP 128/90; PULSE 84; RESP 16; TEMP 37; O2SAT 98; BMI 36.7
--- OUTSIDE RECORDS SUMMARY | 2024-12-05 16:07 | XMS_ITS | Clinical Summary ---
Author Organization [facility] it Address [address] [place] [address] Care Team Providers Care Piecer Name Role Phone Unavailable Primary Care Provider Unavailabl e Surgical History Surgery Date Site/Laterality Comments OTHER SURGICAL HISTORY 10/2013 PROCEDURE: INDUCED 17-24 WEEKS TUBAL LIGATION 03/22/2018 PROCEDURE: HISTORICAL TUBAL LIGATION OTHER SURGICAL HISTORY PROCEDURE: [place] HYSTEROSCOPY ENDOMETRIAL ABLATION Medical History Medical History Date Comments Posttraumatic stress disorder DX :Posttraumatic stress disorder Mild intellectual disabilities D X:Mild intellectual disabilities Depressive disorder, not els ewhere classified DX:Depressive disorder, not elsewhere classified Iron deficiency anemia, unspecified 02/09/2006 DX:Iron deficiency anemia, unspecified Other convulsions 11/02/2005 DX:Other convu lsions HSV-2 seropositive DX:HSV-2 sero positive Ovarian cancer ([facility] V24, [facility] V28) 08/25/2015 DX:Ovarian cancer ([facility]); COM MENT: [facility]-neg/neg DM type 2 (diabetes mellitus , type 2) ([facility] V24, [facility] V28) 12/06/2016 DX:DM type 2 (diabetes j luis itus, type 2) ([facility]) IBS (irritable bowel syndrome) D X:IBS (irritable bowel syndrome) Decreased appetite DX:Decreased appetite Abdominal discomfort in righ t upper quadrant DX:Abdominal discomfort in r ight upper quadrant Fatty liver DX:Fatty liver Hyperlipidemia DX:Hyperlipidemi a Diabetes ([facility]/HCC V24, [facility] V28) DX:Diabetes ([facility]) Leg swelling DX:Leg swelling Anxiety DX:Anxiety BMI 40.0-44.9, adult ([facility] C V24, [facility]CC V28) DX:BMI 40.0-44.9, adult ([facility] ) Dyslipidemia DX:Dyslipidemia Epilepsy ([facility]/HCC V24, [facility] V28) DX:Epilepsy (HCC) Insomnia DX:Insomnia [facility] current use of ins ulin (CMS/HCC V24, CMS/HCC V28) DX:penitentiary current use of insulin (HCC) Low vitamin D level DX:Low vitam in D level Obesity DX:Obesity Parkinsonism (CMS/HCC V24, C MS/HCC V28) 04/11/2022 DX:Parkinsonism (HCC) Psychotic depression (CMS/ C V24, [facility] V28) 04/11/2022 DX:Psychotic depression (HCC ) Family History Medical History Relation Name Comments Cataracts Father Heart attack Father diabetes, catar act Other: alive and well Mother Uterine cancer Sister ?cervical Blindness Neg Hx Glaucoma Neg Hx Macular degeneration Neg Hx Strabismus Neg Hx Relation Name Status Comments Father Mother Sister Social History Tobacco Use Types Packs/Day Years Used Date Smoking Tobacco: Former Cigarettes 1 18.9 0 08/07/1995 - 07/02/2014 Smokeless Tobacco: Never Alcohol Use Standard Drinks/Week Comments Never 0 (1 standard drink = 0.6 oz pur e alcohol) Comments Unknown Sex and Gender Information Value Date Recorded Sex Assigned at Not on file Legal Sex Female 10:37 PM EST Gender Identity Not on file Sexual Orientation Not on file Obstetrics History Plan of Treatment Health Maintenance Due Date Last Done Comments Breast Cancer Screening 1978 Diabetes: Annual GFR (Glomerular Filtration Rate) 1978 Diabetes: Annual Foot Exam 1988 Diabetes: Annual Retina Eye Exam 1988 Hepatitis A Vaccines (1 of 2 - Risk 2-dose series) 1997 Hepatitis B Vaccines (1 of 3 - 19+ 3-dose series) 1997 Cervical Cancer Screening: P ap Smear 1999 Cholesterol Screening (Lipid Panel) 07/10/2022 Colorectal Cancer Screening: Colonoscopy 07/10/2022 Depression Screening 07/10/2022 HIV Screening 07/10/2022 Hepatitis C Screening 07/10/2022 Social Influencers of Health Screening 07/10/2022 Diabetes: Annual Urine Albumin-Creatinine Ratio (uACR) 07/21/2022 Diabetes: Blood Sugar Contro l Test (HGBA1C) 07/21/2022 COVID-19 Vaccine (2023-2 5 season) 2024 10/14/2020, 09/16/2020 Influenza Vaccine (Season Ended) 2025 DTaP,Tdap,and Td Vaccines (2 - Td or Tdap) 03/31/2030 03/31/2020 Pneumococcal Vaccine: Pediatrics (0 to 5 Years) and At-Risk Patients (6 to 64 Years) Aged Out 03/31/2020 No longer eligible b ased on patient's age to complete this topic HIB Vaccines Aged Out No longer eligi ble based on patient's age to complete this topic HPV Vaccines Aged Out No longer eligi ble based on patient's age to complete this topic IPV Vaccines Aged Out No longer eligi ble based on patient's age to complete this topic MMR Vaccines Aged Out No longer eligi ble based on patient's age to complete this topic Meningococcal ACWY Vaccine Aged Out N o longer eligible based on patient's age to complete this topic Meningococcal B Vaccine Aged Out No l onger eligible based on patient's age to complete this topic RSV Immunization Patients Under 20 months Aged Out No longer eligible b ased on patient's age to complete this topic Varicella Vaccines Aged Out No longer eligible based on patient's age to complete this topic
== END 2024-12-05 14:45 | disposition home or self-care (01) ==
PROVIDERS: PCP Internal Medicine
DX: E11.42 Type 2 diabetes mellitus with diabetic polyneuropathy (principal); Z79.4 Long term (current) use of insulin; Z68.36 Body mass index [BMI] 36.0-36.9, adult; E66.9 Obesity, unspecified; I10 Essential (primary) hypertension; R10.12 Left upper quadrant pain; F41.9 Anxiety disorder, unspecified; R62.50 Unspecified lack of expected normal physiological development in childhood; E78.5 Hyperlipidemia, unspecified; G47.00 Insomnia, unspecified

== ENCOUNTER → 2024-12-05 13:53 | Outpatient (BNVA) | payer MEDICARE, MEDICAID, SELFPAY | PROVIDERS: PCP Internal Medicine | DX: E11.42 Type 2 diabetes mellitus with diabetic polyneuropathy (principal); I10 Essential (primary) hypertension; R10.12 Left upper quadrant pain; F41.9 Anxiety disorder, unspecified; R62.50 Unspecified lack of expected normal physiological development in childhood; E78.5 Hyperlipidemia, unspecified; E66.9 Obesity, unspecified; G47.00 Insomnia, unspecified; Z79.4 Long term (current) use of insulin | CPT/HCPCS: 83036; 96127; 99212 ==

== ENCOUNTER 2024-12-17 10:49 | Outpatient (REF) | payer MEDICARE, MEDICAID, SELFPAY ==
--- NOTE | ~2024-12-17 | US_ITS ---
EXAMINATION: US ABDOMEN COMPLETE CLINICAL INFORMATION: Left upper quadrant pain.. COMPARISON: August 05, 2016. TECHNIQUE: Real-time ultrasound of the abdomen using grayscale technique. FINDINGS: PANCREAS: No peripancreatic fluid collections. No main pancreatic ductal dilatation. ABDOMINAL AORTA: Normal caliber in the visualized segments. INFERIOR VENA CAVA: Visualized portions are normal. LIVER: Liver measures 16 cm. Coarse echotexture. No nodular surface of the liver. No solid or cystic lesion detected by the assessment technician. No intrahepatic biliary ductal dilatation. GALLBLADDER: Absent/cholecystectomy. COMMON BILE DUCT: 3 mm. RIGHT KIDNEY: 10 cm. Normal echotexture. Normal renal cortical thickness. No hydronephrosis. No solid or cystic lesion . LEFT KIDNEY: 11 cm. Normal echotexture. Normal renal cortical thickness. No hydronephrosis. No solid or cystic lesion . SPLEEN: 11 cm. No focal lesion.. FREE FLUID: None. US/US abdomen complete IMPRESSION: Hepatomegaly, mild and likely steatosis. No hydronephrosis. No ascites. Status post cholecystectomy. Electronically signed by: Antonio Ryan MD 12/17/2024 11:40 AM EDT
--- OUTSIDE RECORDS SUMMARY | 2024-12-17 12:14 | XMS_ITS | Clinical Summary ---
Author Organization [facility] it Address [address] [place] [address] Care Team Providers Care Sugar Trucker Name Role Phone Unavailable Primary Care Provider Unavailabl e Surgical History Surgery Date Site/Laterality Comments OTHER SURGICAL HISTORY 10/2013 PROCEDURE: INDUCED 17-24 WEEKS TUBAL LIGATION 03/22/2018 PROCEDURE: HISTORICAL TUBAL LIGATION OTHER SURGICAL HISTORY PROCEDURE: [place] HYSTEROSCOPY ENDOMETRIAL ABLATION Medical History Medical History Date Comments Posttraumatic stress disorder DX :Posttraumatic stress disorder Mild intellectual disabilities D X:Mild intellectual disabilities Depressive disorder, not els ewhere classified DX:Depressive disorder, not elsewhere classified Iron deficiency anemia, unspecified 02/09/2006 DX:Iron deficiency anemia, unspecified Other convulsions 11/02/2005 DX:Other convu lsions HSV-2 seropositive DX:HSV-2 sero positive Ovarian cancer ([facility] V24, [facility] V28) 08/25/2015 DX:Ovarian cancer ([facility]); COM MENT: [facility]-neg/neg DM type 2 (diabetes mellitus , type 2) ([facility] V24, [facility] V28) 12/06/2016 DX:DM type 2 (diabetes j luis itus, type 2) ([facility]) IBS (irritable bowel syndrome) D X:IBS (irritable bowel syndrome) Decreased appetite DX:Decreased appetite Abdominal discomfort in righ t upper quadrant DX:Abdominal discomfort in r ight upper quadrant Fatty liver DX:Fatty liver Hyperlipidemia DX:Hyperlipidemi a Diabetes ([facility]/HCC V24, [facility] V28) DX:Diabetes ([facility]) Leg swelling DX:Leg swelling Anxiety DX:Anxiety BMI 40.0-44.9, adult ([facility] V24, [facility]/HCC V28) DX:BMI 40.0-44.9, adult ([facility] ) Dyslipidemia DX:Dyslipidemia Epilepsy ([facility]/HCC V24, [facility] V28) DX:Epilepsy (HCC) Insomnia DX:Insomnia senior care current use of ins ulin (CMS/HCC V24, CMS/HCC V28) DX:senior care current use of insulin (HCC) Low vitamin D level DX:Low vitam in D level Obesity DX:Obesity Parkinsonism (CMS/HCC V24, C MS/HCC V28) 04/11/2022 DX:Parkinsonism (HCC) Psychotic depression (CMS/ C V24, CMS/[facility] V28) 04/11/2022 DX:Psychotic depression (HCC ) Family [...]
== END 2024-12-17 10:50 | disposition home or self-care (01) ==
LOC: HO.HMGCX 10:49
PROVIDERS: PCP Internal Medicine
DX: R10.12 Left upper quadrant pain (principal)
CPT/HCPCS: 76700

== ENCOUNTER → 2024-12-17 11:02 | Outpatient (BNV) | payer MEDICARE, MEDICAID, SELFPAY | PROVIDERS: PCP Internal Medicine; Visit Provider Radiology Diagnostic Radiology | DX: R16.0 Hepatomegaly, not elsewhere classified (principal) | CPT/HCPCS: 76700 ==

== ENCOUNTER 2025-01-09 09:18 | Outpatient (REF) | payer MEDICARE, MEDICAID, SELFPAY ==
--- OUTSIDE RECORDS SUMMARY | 2025-01-09 10:07 | XMS_ITS | Clinical Summary ---
Author Organization [facility] it Address [address] [place] [address] Care Team Providers Care Process Development Engineer Name Role Phone Unavailable Primary Care Provider Unavailabl e Surgical History Surgery Date Site/Laterality Comments OTHER SURGICAL HISTORY 10/2013 PROCEDURE: INDUCED 17-24 WEEKS TUBAL LIGATION 03/22/2018 PROCEDURE: HISTORICAL TUBAL LIGATION OTHER SURGICAL HISTORY PROCEDURE: MO HYSTEROSCOPY ENDOMETRIAL ABLATION Medical History Medical History Date Comments Posttraumatic stress disorder DX :Posttraumatic stress disorder Mild intellectual disabilities D X:Mild intellectual disabilities Depressive disorder, not els ewhere classified DX:Depressive disorder, not elsewhere classified Iron deficiency anemia, unspecified 02/09/2006 DX:Iron deficiency anemia, unspecified Other convulsions 11/02/2005 DX:Other convu lsions HSV-2 seropositive DX:HSV-2 sero positive Ovarian cancer ([facility] V24, [facility] V28) 08/25/2015 DX:Ovarian cancer ([facility]); COM MENT: [facility]-neg/neg DM type 2 (diabetes mellitus , type 2) ([facility] V24, [facility] V28) 12/06/2016 DX:DM type 2 (diabetes j luis itus, type 2) ([facility]) IBS (irritable bowel syndrome) D X:IBS (irritable bowel syndrome) Decreased appetite DX:Decreased appetite Abdominal discomfort in righ t upper quadrant DX:Abdominal discomfort in r ight upper quadrant Fatty liver DX:Fatty liver Hyperlipidemia DX:Hyperlipidemi a Diabetes ([facility]/HCC V24, [facility] V28) DX:Diabetes ([facility]) Leg swelling DX:Leg swelling Anxiety DX:Anxiety BMI 40.0-44.9, adult ([facility]/HC C V24, [facility]/HCC V28) DX:BMI 40.0-44.9, adult ([facility] ) Dyslipidemia DX:Dyslipidemia Epilepsy ([facility]/HCC V24, [facility] V28) DX:Epilepsy (HCC) Insomnia DX:Insomnia shelter current use of ins ulin (CMS/HCC V24, CMS/HCC V28) DX:shelter current use of insulin (HCC) Low vitamin D level DX:Low vitam in D level Obesity DX:Obesity Parkinsonism (CMS/HCC V24, C [facility]/HCC V28) 04/11/2022 DX:Parkinsonism (HCC) Psychotic depression (CMS/ C V24, CMS/[facility] V28) 04/11/2022 DX:Psychotic depression (HCC ) Family [...]
[2025-01-09 10:45] LABS: Erythrocyte Sedimentation Rate 10 MM/HR (0-20)
[2025-01-09 11:10] LABS: Amylase 32 U/L (28-100); Lipase 44 U/L (8-78)
[2025-01-10 07:09] LABS: CRP High Sensitivity 2.6 mg/L
== END 2025-01-09 09:19 | disposition home or self-care (01) ==
LOC: HO.LAB 09:18
PROVIDERS: PCP Internal Medicine
DX: R10.12 Left upper quadrant pain (principal)
CPT/HCPCS: 36415; 82150; 83690; 85652; 86141

== ENCOUNTER 2025-03-01 15:52 | Emergency (ER) | payer MEDICARE, MEDICAID, SELFPAY ==
[2025-03-01] VITALS (7 sets, daily range): BP systolic 109–164; BP diastolic 68–110; PULSE 63–84; RESP 16–18; TEMP 36.6–37.2; O2SAT 98–99; BMI 35.2
--- NOTE | 2025-03-01 17:06 | ED_ITS ---
HPI - Altered Mental Status General Chief Complaint: Altered Mental Status Stated Complaint: alter mental Time Seen by Provider: 03/01/25 16:55 Source: patient Mode of arrival: ambulatory Limitations: no limitations History of Present Illness ED Provider: Dr. Veronica Rodriguez HPI narrative: Patient comes to the emergency room via ambulance. According to EMS, a friend called 911 for concern of patient having sudden lethargy? . According to the patient, she had a lot of anxiety earlier today and took Ambien. Overall, patient states that she did not feel well. Patient reports that she was either getting out of her bed or back to her bed when she suddenly passed out. Patient states that her neighbor heard a loud noise when she called labs, ran into her house, found on the floor and called 911. I double checked with the patient's nurse, EMS did not report any of this. The story for why she is here in the emergency room is completely different. Patient denies chest pain or shortness of breath. Per patient's nurse, the patient informed her that she had a panic attack at her neighbor's house. Again, the story is do not match. Also, patient reports that she has been having diarrhea for several years Related Data Home Medications ?Medication ?Instructions ?Recorded ?Confirmed benztropine 1 mg tablet 1 mg PO BID 01/05/23 5 zolpidem 10 mg tablet 10 mg PO BEDTIME PRN 3 12/05/24 Previous Rx's ?Medication ?Instructions ?Recorded buspirone 10 mg tablet 10 mg PO BID #60 tabs chlorpromazine 100 mg tablet 100 mg PO DAILY #30 tabs 04/18/22 lorazepam 1 mg tablet 1 mg PO BID PRN anxiety #60 tabs 04/18/22 propranolol 10 mg tablet 10 mg PO TID #90 tabs acetaminophen 500 mg capsule 500 mg PO Q6H PRN pain 30 days 01/12/23 #120 caps insulin glargine U-300 conc 300 40 unit (0.1333 mL) gant bcut DAILY 07/30/24 unit/mL (1.5 mL) subcutaneous pen 90 days #11.997 mL (Toujeo SoloStar U-300 Insulin) cholestyramine-aspartame 4 gram 4 g PO BID #60 ea 07/08 02/27 oral powder for susp in a packet (Cholestyramine Light) insulin glargine 100 unit/mL (3 40 unit (0.4 mL) subcu t QPM 30 09/11/24 mL) subcutaneous pen (Basaglar days #12 mL KwikPen U-100 Insulin) diabetic shoes #1 ea 10/29/24 blood sugar diagnostic (FreeStyle #100 ea 12/05/24 Lite Strips) blood-glucose meter (Freestyle #1 ea 12/05/24 InsuLinx meter) lancets 28 gauge (FreeStyle #100 ea 12/05/24 Lancets) pen needle,diabetic dual safty 30 #100 ea 12/05/24 gauge x 3/16 (Unifine SafeControl Pen Needle) blood-glucose sensor (Dexcom G7 #1 ea 02/27/25 Sensor device) blood-glucose,staff certified nurse midwife,cont #1 ea 02/27/25 (Dexcom G7 Data Designer) alcohol swabs (Alcohol Prep Pads) 1 pad topical QID #1 00 ea 03/01/25 atorvastatin 20 mg tablet 20 mg PO BEDTIME 90 days #90 tabs 03/01/25 semaglutide 2 mg/dose (8 mg/3 mL) 2 mg (0.75 mL) subcu t QWEEK 4 03/01/25 subcutaneous pen injector (Ozempic) weeks #3 mL Allergies Allergy/AdvReac Type Severity Reaction Status Date / Time fluoxetine (From Prozac) Allergy Severe severe Verified 03/01/25 16:23 agitation meperidine (Demerol) Allergy Intermediate Hives Verified 03/01/25 16:23 Review of Systems 2 Review of Systems: Constitutional : No Weight loss, No Fever, No Chills, No Night Sweats, complaining of fatigue and generalized malaise ENT/Mouth : No Hearing loss, No Ear Pain, No Nasal Congestion, No Sinus Pain, No Hoarseness, No sore throat, No Rhinorrhea, No Swallowing Difficulty Eyes: No Eye Pain, No Swelling, No Redness, No Foreign Body, No Discharge, No Vision Changes Cardiovascular : No Chest Pain, No SOB, No Dyspnea on Exertion, No Orthopnea, No Edema, No Palpitations Respiratory : No Cough, No Sputum, No Wheezing, No Smoke Exposure, No Dyspnea Gastrointestinal : No Nausea, No Vomiting, No Diarrhea, No Constipation, No abdominal Pain, No Hematochezia, No Melena Genitourinary : no irregular bleeding, No Dysuria, No Urinary Frequency, No Hematuria, No Urinary Incontinence, No Urgency, No Flank Pain, No Urinary Flow Changes, No Hesitancy Musculoskeletal : No joint pain, No Myalgias, No Joint Swelling Skin : No Skin Lesions, No rash Neuro : No Weakness, No Numbness, No Paresthesias, complaining of 1 episode of loss of consciousness, no headache Psych : No Anxiety/Panic, No Depression, No SI/HI/AH/VH, No Social Issues, Heme/Lymph: No Bruising, No Bleeding,No Lymphadenopathy Endocrine : No Polyuria, No Polydipsia, No Temperature Intolerance [facility] Past Medical History Medical History Physical exam Chronic diarrhea Post-cholecystectomy syndrome BMI 40.0-44.9, adult Leg weakness, bilateral Right shoulder pain Left shoulder pain Left hip pain Right hip pain Foot cramps Unsteadiness Type 2 diabetes mellitus, with long-term current use of insulin Hospital discharge follow-up Diabetes type 2, uncontrolled Dyslipidemia Obesity due to excess calories Left ankle sprain Elevated LFTs Controlled diabetes mellitus without complication, without long-term current use of insulin Mild cognitive impairment TOBIAS (generalized anxiety disorder) Overactive bladder Mild developmental delay 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 Social History Social History Household Members: None Household Members Other:: none Housing: Apartment Housing Other:: studio Are you a primary care management associate to a significant other at home: No Do you presently have visiting nurse or other home services: Yes Alcohol intake: never Comment: 1:1 Patient Tobacco Use Status: Former Tobacco user Tobacco use type: Cigarette Cigarette Packs Per Day: 0 Cigarettes Per Day: 6 Smoked in Last 30 Days: No e-Cigarette/Vaping Use: Never Used Second Hand Smoke Exposure: No Use of substances other than those prescribed or required for medical reasons: No Advance Directives: Yes Advance Directives on File: Yes Advance Directives Date on File: 02/22/22 Do you have a plan to hurt others: No Plan Patient : No service: No Current occupational status: disabled Current occupation: lt handed Sexual orientation: Straight/Heterosexual Gender identity: Female Cognitive needs: Yes Hearing needs: No Vision needs: Yes Physical Exam ED Exam Exam: Appearance: Alert. Oriented X3. No acute distress. Eyes: Pupils equal, round and reactive to light. ENT: Pharynx normal. Neck: Normal inspection. Neck supple. No lymph nodes noted. No crepitus CVS: Normal heart rate and rhythm. Pulses normal. Normal S1 and S2 Respiratory: No respiratory distress. Breath sounds normal. No Wheezing. No rales Abdomen: Soft and nontender. No rigidity. No distention. Skin: Skin warm and dry. Normal skin color. Normal skin turgor. Extremities: No lower extremity edema. No Lacerations. No Rash Neuro: Oriented X 3. No motor deficit. No sensory deficit. Moving all extremities. No slurred speech. CN 2 through 12 grossly intact Psych: calm, cooperative, normal affect Vital Signs: Vital Signs - 24 hr 03/01/25 16:19 03/01/25 16:24 03/01/25 19:53 Temperature 98.9 F 98.9 F 97.9 F Pulse Rate 73 73 63 Respiratory Rate 16 16 18 Blood Pressure 148/68 H 148/68 H 138/83 Pulse Oximetry 99 99 98 Oxygen Delivery Method Room Air Room Air Room Air 03/01/25 19:55 03/01/25 19:57 03/01/25 19:58 Temperature Pulse Rate 63 84 Respiratory Rate Blood Pressure 141/75 H 153/101 H 164/110 H Pulse Oximetry Oxygen Delivery Method BMI result Body Mass Index 35.2 Course Course Course Narrative: At this time, patient is asymptomatic. All of patient's labs and imaging pending. We have multiple sore is why the patient is here. Patient is stable at this time, normal vitals I reviewed patient's past medical history and notes, patient has an extensive psychiatric history. Patient went to the bathroom, had a bowel movement, per patient's durable medical equipment technician, the stool was formed, not diarrhea Medical Decision Making Medical Decision Making [facility] Narrative: My interpretation of labs: No significant abnormality in patient's hematology or chemistry, negative troponin, negative urinalysis for UTI or drugs. Orthostatic vitals negative My interpretation of EKG: Normal sinus rhythm, heart rate 65, no ST segment depression or elevation, no T-wave inversion, QTC 401 Vitals stable Patient denies SI or HI, no need for psych consult today Patient states that she feels well unstable to go home After talking with the patient's several times, her story changed multiple times, it is very unclear if she actually passed out or not. Overall, here in the emergency room she has been completely stable. There is no concern at this time for any cardiac etiology or pulmonary embolism. Wells criteria score for PE 0 Differential Diagnosis Differential Diagnoses: The differential diagnosis associated with the presentation includes (Anxiety) Lab Data [facility] Lab Attestation statement: I reviewed the patient's lab results. 03/01/25 17:29 03/01/25 17:29 Labs: Lab Results 03/01/25 03/01/25 03/01/25 Range/Units 17:29 17:30 20:12 WBC 8.9 (4.8-10.8) X10*3/uL RBC 4.11 L (4.20-5.50) X10*6/uL Hgb 12.9 (12.0-16.0) g/dl Hct 36.3 L (37.0-47.0) % MCV 88.3 (80.0-98.0) fL MCH 31.4 (27.0-33.0) pg MCHC 35.5 H (31.0-35.0) g/dl RDW 12.4 (11.0-16.0) % Plt Count 244 (160-400) X10*3/uL MPV 9.1 L (9.4-12.3) fL Immature Gran % (Auto) 0.2 (0.0-0.4) % Neut % (Auto) 64.7 (45-73) % Lymph % (Auto) 27.6 (20-40) % Randolph % (Auto) 5.5 (2-11) % Eos % (Auto) 1.5 (0-4) % Baso % (Auto) 0.5 (0-2) % Lymph # (Auto) 2.5 (1.2-4.9) X10*3/uL Randolph # (Auto) 0.5 (0.1-1.2) X10*3/uL Eos # (Auto) 0.1 (0.0-0.4) X10*3/uL Baso # (Auto) 0.0 (0.0-0.2) X10*3/uL Abs Immat Gran (auto) 0.02 (0.00-0.03) X10*3/uL Absolute Neuts (auto) 5.7 (2.0-8.3) x10*3/uL Absolute Nucleated RBC 0.000 (0.0-0.012) X10*3/uL Nucleated RBC % (auto) 0.0 (0.0-0.2) /100WBC Sodium 142 (135-145) mmol/L Potassium 3.8 (3.3-5.1) mmol/L Chloride 111 H (96-108) mmol/L Carbon Dioxide 25 (22-29) mmol/L Anion Gap 10 L (12-20) BUN 10 (9-16) mg/dL Creatinine 0.65 (0.5-1.4) mg/dL Estim Creat Clear Calc 128.3 Estimated GFR > 60 Random Glucose 210 H (60-115) mg/dL Calcium 8.6 D (8.4-10.2) mg/dL Total Bilirubin 0.4 (0.0-1.0) mg/dL Direct Bilirubin 0.2 (0.0-0.5) mg/dL AST 20 (5-31) U/L ALT 18 (0-31) U/L Alkaline Phosphatase 81 (39-117) U/L Troponin I High Sens < 2.7 (<3.5-17.0) ng/L Total Protein 6.6 (6.5-8.0) g/dL Albumin 3.7 (3.5-5.0) g/dL Beta HCG, Quant < 2 mIU/mL Urine Color Yellow Urine Appearance Clear Urine pH 5.5 (5.0-9.0) Ur Specific Parlin 1.025 (1.005-1.025) Urine Protein Negative (Neg-Trace) mg/dL Urine Glucose (UA) Negative (Negative) mg/dL Urine Ketones Trace (Negative) mg/dL Urine Blood Negative (Negative) Urine Nitrite Negative (Negative) Ur Leukocyte Esterase Small (1+) H (Negative) Urine Opiates Screen Not Detected (Not Detect) Ur Buprenorphine Scrn Not Detected (Not Detect) ng/mL Ur Oxycodone Screen Not Detected (Not Detect) ng/mL Urine Methadone Screen Not Detected (Not Detect) ng/mL Urine Fentanyl Screen Not Detected (Not Detect) Ur Barbiturates Screen Not Detected (Not Detect) Ur Phencyclidine Scrn Not Detected (Not Detect) Ur Amphetamines Screen Not Detected (Not Detect) U Benzodiazepines Scrn Not Detected (Not Detect) Urine Cocaine Screen Not Detected (Not Detect) U Marijuana (THC) Screen Not Detected (Not Detect) Influenza Type A (PCR) NEGATIVE (Negative) Influenza Type B (PCR) NEGATIVE (Negative) RSV RNA Qual (PCR) NEGATIVE (Negative) SARS-CoV-2 RNA (RT-PCR) NEGATIVE (Negative) Discharge Plan Discharge Clinical Impression: Anxiety, Syncope Patient Disposition: Home, Self-Care Instructions: Syncope (ED), Anxiety (ED) Additional Instructions: Please follow-up with your primary care physician tomorrow. If you have any worsening or new symptoms, please return to the emergency room or call 911 Prescriptions: No Action buspirone 10 mg tablet 10 mg PO BID Qty: 60 0RF lorazepam 1 mg tablet 1 mg PO BID PRN (Reason: anxiety) Qty: 60 0RF propranolol 10 mg tablet 10 mg PO TID Qty: 90 0RF chlorpromazine 100 mg tablet 100 mg PO DAILY Qty: 30 0RF acetaminophen 500 mg capsule 500 mg PO Q6H PRN (Reason: pain) 30 Days Qty: 120 0RF insulin glargine U-300 conc [Toujeo SoloStar U-300 Insulin] 300 unit/mL (1.5 mL) insulin pen 40 unit subcut DAILY 90 Days Qty: 11.997 1RF cholestyramine-aspartame [Cholestyramine Light] 4 gram powder in packet 4 g PO BID Qty: 60 6RF Rx Instructions: administer w/meal; avoid other meds within 1hr before or 4-6hr after dose insulin glargine [Basaglar KwikPen U-100 Insulin] 100 unit/mL (3 mL) insulin pen 40 unit subcut QPM 30 Days Qty: 12 6RF (DME) diabetic shoes 8.5 See Rx Instructions .Route .MEDSUPPLY Qty: 1 2RF Rx Instructions: As directed (DME) Dexcom G7 Sensor Device See Rx Instructions .Route Qty: 1 0RF Rx Instructions: As directed (DME) Dexcom G7 Data Designer Misc See Rx Instructions .Route Qty: 1 11RF Rx Instructions: As directed Ozempic 2 mg/dose (8 mg/3 mL) pen injector 2 mg subcut QWEEK 28 Days Qty: 3 2RF alcohol swabs [Alcohol Prep Pads] Pads, Medicated 1 pad topical QID Qty: 100 3RF Rx Instructions: QID for blood sugar check atorvastatin 20 mg tablet 20 mg PO BEDTIME 90 Days Qty: 90 1RF benztropine 1 mg tablet 1 mg PO BID zolpidem 10 mg tablet 10 mg PO BEDTIME PRN (DME) FreeStyle Lite Strips Strip See Rx Instructions .Route Qty: 100 3RF Rx Instructions: Use 1 test strip three times a day (DME) lancets [FreeStyle Lancets] 28 gauge misc See Rx Instructions .Route Qty: 100 5RF Rx Instructions: As directed (DME) Unifine SafeControl Pen Needle 30 gauge x 3/16 needle See Rx Instructions .Route Qty: 100 2RF Rx Instructions: Use 1 pen needle once a day (DME) blood-glucose meter [Freestyle InsuLinx] Misc See Rx Instructions .Route Qty: 1 0RF Rx Instructions: As directed check blood sugar QID Print Language: Mohawk
--- NOTE | 2025-03-01 17:08 | ECG_ITS ---
Test Reason : SYNCOPE Blood Pressure : */* mmHG Vent. Rate : 65 BPM Atrial Rate : 65 BPM P-R Int : 144 ms QRS Dur : 82 ms QT Int : 386 ms P-R-T Axes : 30 10 31 degrees QTcB Int : 401 ms Normal sinus rhythm Normal ECG When compared with ECG of 21-Feb-2022 11:44, No significant change was found Referred By: Veronica Rodriguez Electronically Signed By: Piotr Corona
[2025-03-01 17:38] LABS: MANUAL DIFF FLAG NO
[2025-03-01 17:39] LABS: Hematocrit 36.3 % (37.0-47.0); Hemoglobin 12.9 g/dl (12.0-16.0); Imm Gran Abs Auto 0.02 X10*3/uL (0.00-0.03); Imm Gran Pct Auto 0.2 % (0.0-0.4); Lymphocytes Absolute Auto 2.5 X10*3/uL (1.2-4.9); Mean Corpuscular HGB Conc 35.5 g/dl (31.0-35.0); Mean Corpuscular Hemoglobin 31.4 pg (27.0-33.0); Mean Corpuscular Volume 88.3 fL (80.0-98.0); NRBC Abs Auto 0.000 X10*3/uL (0.0-0.012); NRBC Pct Auto 0.0 /100WBC (0.0-0.2); Platelet Count 244 X10*3/uL (160-400); Red Blood Count 4.11 X10*6/uL (4.20-5.50); White Blood Count 8.9 X10*3/uL (4.8-10.8)
[2025-03-01 18:01] LABS: Alanine Aminotransferase 18 U/L (0-31); Albumin Level 3.7 g/dL (3.5-5.0); Alkaline Phosphatase 81 U/L (39-117); Anion Gap 10 (12-20); Aspartate Amino Transferase 20 U/L (5-31); Blood Urea Nitrogen 10 mg/dL (9-16); Calcium 8.6 mg/dL (8.4-10.2); Carbon Dioxide 25 mmol/L (22-29); Chloride 111 mmol/L (96-108); Creatinine Clr Calc Pharmacy 128.3; Estimated Glomerular Filt Rate > 60; Potassium 3.8 mmol/L (3.3-5.1); Sodium 142 mmol/L (135-145); Total Protein 6.6 g/dL (6.5-8.0)
[2025-03-01 18:02] LABS: Troponin-I High Sensitivity < 2.7 ng/L (<3.5-17.0)
[2025-03-01 18:23] LABS: Resp Syncy Virus RNA Qual PCR NEGATIVE (Negative); SARS COV2 PCR INHOUSE NEGATIVE (Negative)
[2025-03-01 20:27] LABS: Appearance Urine Clear; Glucose Urine UA Negative (Negative); PH 5.5 (5.0-9.0); Specific Gravity - Urine 1.025 (1.005-1.025); UMIC TRIGGER UACC YES
[2025-03-01 20:32] LABS: Cannabinoid Screen Urine Not Detected (Not Detect)
[2025-03-01 21:11] LABS: UACC Culture Trigger YES
== END 2025-03-01 21:30 | disposition home or self-care (01) ==
PROVIDERS: Emergency Provider Emergency Medicine; PCP Internal Medicine
DX: R55 Syncope and collapse (principal); F41.9 Anxiety disorder, unspecified; R53.83 Other fatigue; Z03.818 Encounter for observation for suspected exposure to other biological agents ruled out; E11.9 Type 2 diabetes mellitus without complications; I10 Essential (primary) hypertension; E78.5 Hyperlipidemia, unspecified; E66.9 Obesity, unspecified; Z68.35 Body mass index [BMI] 35.0-35.9, adult; Z87.891 Personal history of nicotine dependence; Z79.4 Long term (current) use of insulin; Z79.899 Other long term (current) drug therapy
CPT/HCPCS: 36415; 80048; 80076; 80307; 81001; 84484; 84702; 85025; 87086; 87637; 93005; 99284; 99285

== ENCOUNTER → 2025-03-01 17:08 | Outpatient (BNV) | payer MEDICARE, MEDICAID, SELFPAY | PROVIDERS: Emergency Provider Emergency Medicine; PCP Internal Medicine; Visit Provider Internal Medicine Cardiovascular Disease | DX: R55 Syncope and collapse (principal) | CPT/HCPCS: 93010 ==

== ENCOUNTER 2025-03-11 12:36 | Outpatient (AMB) | payer MEDICARE, MEDICAID, SELFPAY ==
--- NOTE | 2025-03-11 12:40 | MHC.PC.OV ---
Vital Signs 03/11/25 12:45 Height 5 ft 5 in Weight 206 lb BMI 34.3 BP 136/80 Blood Pressure Location Rt brachial Position Sitting Intake Visit Reasons: annual Intake Note: Patient here for a physical exam Marzipan Maker Required: No Accompanied by: Staff Allergies fluoxetine (From Prozac) Allergy (Severe, Verified 03/11/25 12:51) severe agitation meperidine (Demerol) Allergy (Intermediate, Verified 03/11/25 12:51) Hives Medication List - Last Reconciled 03/11/25 by Ani Weiss MD acetaminophen 500 mg PO Q6H PRN 30 days alcohol swabs (Alcohol Prep Pads) 1 pad topical QID atorvastatin 20 mg PO BEDTIME 90 days benztropine 1 mg PO BID blood sugar diagnostic (FreeStyle Lite Strips) Use 1 test strip three times a day blood-glucose meter (Freestyle InsuLinx meter) As directed check blood sugar QID blood-glucose sensor (DexIn*Situ Architecture G7 Sensor device) As directed blood-glucose,claim rep,cont (Dexcom G7 High Pressure Boiler Operator) As directed buspirone 10 mg PO BID chlorpromazine 100 mg PO DAILY cholestyramine-aspartame 4 gram (Cholestyramine Light) 4 grams PO BID [diabetic shoes As directed] insulin glargine (Basaglar KwikPen U-100 Insulin) 40 units (0.4 mL) subcut QPM 30 days insulin glargine U-300 conc (Toujeo SoloStar U-300 Insulin) 40 units (0.1333 mL) subcut DAILY 90 days lancets (FreeStyle Lancets) As directed lorazepam 1 mg PO BID PRN pen needle,diabetic dual safty (Unifine SafeControl Pen Needle) Use 1 pen needle once a day propranolol 10 mg PO TID semaglutide (Ozempic) 2 mg (0.75 mL) subcut QWEEK 4 weeks zolpidem 10 mg PO BEDTIME PRN Tobacco use date assessed: 12/05/24 Dental Screening Dental Screen Date: 12/05/24 HPI HPI Comments History of Present Illness Details The patient is a 44-year-old female presenting for a physical exam. She has a history of diabetes mellitus type 2, with her most recent hemoglobin A1c being less than 6%, indicating good glycemic control. In terms of preventative care, she received a Tdap vaccine in 2020, with the next dose due in 2030. She is due for a pneumonia vaccine and has declined it today. Her last mammogram was negative, and she has declined a colonoscopy, opting instead for a Cologuard test. [facility] Medical History Physical exam Chronic diarrhea Post-cholecystectomy syndrome BMI 40.0-44.9, adult Leg weakness, bilateral Right shoulder pain Left shoulder pain Left hip pain Right hip pain Foot cramps Unsteadiness Type 2 diabetes mellitus, with long-term current use of insulin Hospital discharge follow-up Diabetes type 2, uncontrolled Dyslipidemia Obesity due to excess calories Left ankle sprain Elevated LFTs Controlled diabetes mellitus without complication, without long-term current use of insulin Mild cognitive impairment TOBIAS (generalized anxiety disorder) Overactive bladder Mild developmental delay Mild episode of recurrent major depressive disorder Type 2 diabetes mellitus with diabetic polyneuropathy Diabetes Mild intellectual disability Snores Arthritis PTSD (post-traumatic stress disorder) FPC current 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 Social History Household Members: None Household Members Other:: none Housing: Apartment Housing Other:: studio Are you a primary hospice spiritual care coordinator to a significant other at home: No Do you presently have visiting nurse or other home services: Yes Alcohol intake: never Comment: 1:1 Patient Tobacco Use Status: Former Tobacco user Tobacco use type: Cigarette Cigarette Packs Per Day: 0 Cigarettes Per Day: 6 e-Cigarette/Vaping Use: Never Used Second Hand Smoke Exposure: No Advance Directives Date on File: 02/22/22 service: No Current occupational status: disabled Current occupation: lt handed Sexual orientation: Straight/Heterosexual Gender identity: Female Cognitive needs: Yes Hearing needs: No Vision needs: Yes Female Reproductive History Menstrual Age of Menarche: 8 Questionnaire Thrive Questionnaire Date Thrive assessed: 12/05/24 I am a: Patient What is your living situation today?: I have a steady place to live Within the past 12 months, did the food you bought not last and you didn't have the money to get more?: Never true Within the past 12 months, did you worry whether your food would run out before you got money to buy more?: Never true Do you have trouble paying for medicines?: No Do you have trouble getting transportation to medical appointments?: No Do you have trouble paying your heating and electricity bill?: No Do you have trouble taking care of your child, family member or friend?: I choose not to answer this question Do you have trouble with day-to-day activities such as bathing, preparing meals, shopping, managing finances, etc.?: No Are you currently unemployed and looking for a job?: No Are you interested in more education?: No Please select the resources that you would like help with: None Currently or been in a relationship where the following occur: I choose not to answer THRIVE Score: 0 TOBIAS-7 AMB Questionnaire TOBIAS-7 Date TOBIAS - 7 assessed: 12/05/24 Source: Developed by Drs. Marcos Aguilar, Amina Garcia, Ezra Rush and colleagues, with an educational blank from [employer]. Review of Systems Const All systems reviewed & are unremarkable except as noted in HPI and below Card Denies chest pain at rest, Denies chest pain with activity, Denies edema, Denies irregular heart rhythm, Denies claudication, Denies dyspnea, Denies dyspnea on exertion, Denies orthopnea, Denies paroxysmal nocturnal dyspnea and Denies slow heart rate Resp Denies cough, Denies dyspnea and Denies dyspnea on exertion GI Denies abdominal pain, Denies change in bowel habits, Denies excessive flatus, Denies nausea and Denies vomiting Denies urinary incontinence, Denies urinary hesitancy and Denies urinary urgency Musc Denies abnormal gait, Denies atrophy, Denies deformity and Denies limited range of motion Skin/Breast Denies bleeding lesions, Denies changing lesions and Denies rash Neuro Denies abnormal gait and Denies lack of coordination Physical exam (Primary Care) Vital Signs: Last Vital Signs BP 136/80 03/11/25 12:45 BMI result Body Mass Index 34.3 Tobacco/Smoking Status: Tobacco use Status Tobacco use date assessed 12/05/24 03/11/25 12:40 Patient Tobacco Use Status Former Tobacco user 03/11/25 12:40 Tobacco use type Cigarette 03/11/25 12:40 e-Cigarette/Vaping Use Never Used 03/11/25 12:40 Thrive Assessment: Date of Thrive Assessment Date Thrive assessed 12/05/24 03/11/25 12:40 Currently or been in a relationship where the following occur: I choose not to answer [facility] Head: Yes normal to inspection, Yes normocephalic and Yes atraumatic Ears: external ears normal Eyes General: appearance normal, both eyes and all related structures Eyelids: Yes eyelids normal Conjunctivae: conjunctivae normal Neck Neck: Yes normal visual inspection and Yes supple Resp Effort & Inspection: normal respiratory effort Auscultation: clear to auscultation bilaterally Cardio Jugular venous distension: no JVD Rate: regular rate Rhythm: regular rhythm Heart sounds: S1 normal heart sound present and S2 normal heart sound present GI Inspection: Yes normal to inspection Palpation (GI): Soft to palpation and nontender Auscultation: normal bowel sounds Skin General skin exam: no rashes or lesions noted Neuro General: no focal motor deficits Extrem General: Yes full ROM Psych Appearance: grossly normal Results AMB Hemoglobin A1c AMB Hemoglobin A1c 5.3 % Last Edit by YASHIRA Sood on 03/11/25 12:57 Coding Level of Care Code Est Pt Prev Care 40-64y(86579) Diagnoses Physical exam Z00.00 Seizures R56.9 Type 2 diabetes mellitus with diabetic polyneuropathy, with long-term current use of insulin E11.42; Z79.4 Diabetes mellitus meterman insulin use: with meterman use FPC current use of insulin Z79.4 Mild episode of recurrent major depressive disorder F33.0 Time Spent (min) 30 Assessment & Plan Assessment & Plan (1) Physical exam: Code(s): Z00.00 - Encounter for general adult medical examination without abnormal findings Category: Medical (2) Seizures: Code(s): R56.9 - Unspecified convulsions Category: Medical (3) Type 2 diabetes mellitus with diabetic polyneuropathy: Code(s): E11.42 - Type 2 diabetes mellitus with diabetic polyneuropathy Category: Medical Qualifiers: Diabetes mellitus meterman insulin use: with meterman use Qualified Code(s): E11.42 - Type 2 diabetes mellitus with diabetic polyneuropathy; Z79.4 - intermission coordinator (current) use of insulin (4) intermission coordinator current use of insulin: Code(s): Z79.4 - FPC (current) use of insulin Category: Medical (5) Mild episode of recurrent major depressive disorder: Code(s): F33.0 - Major depressive disorder, recurrent, mild Category: Medical Plan The patient will continue to manage her diabetes mellitus type 2 with current interventions, as her hemoglobin A1c is well-controlled at less than 6%. For preventative care, she has been advised to receive the pneumonia vaccine, although she declined it today. She will continue with regular mammograms, and a Cologuard test will be sent as an alternative to colonoscopy. Orders: Orders Microalbumin, Random (w Creat) Today R80.9 - Proteinuria, unspecified AMB Hemoglobin A1c Today E11.42 - Type 2 diabetes mellitus with diabetic polyneuropathy, Z79.4 - intermission coordinator (current) use of insulin Lipid Panel Today E78.5 - Hyperlipidemia, unspecified Vitamin D 25-OH Total Today E55.9 - Vitamin D deficiency, unspecified Comprehensive [place]. Panel Fast Today E11.42 - Type 2 diabetes mellitus with diabetic polyneuropathy, Z79.4 - FPC (current) use of insulin Referrals Cologuard Test Z12.11 - Encounter for screening for malignant neoplasm of colon, Z12.12 - Encounter for screening for malignant neoplasm of rectum Medications: Refilled semaglutide (Ozempic) 2 mg (0.75 mL) subcut QWEEK 3 mL 2RF 4 weeks E11.42 - Type 2 diabetes mellitus with diabetic polyneuropathy
[2025-03-11 12:45] VITALS: BP 136/80; BMI 34.3
--- OUTSIDE RECORDS SUMMARY | 2025-03-11 13:11 | XMS_ITS | Clinical Summary ---
Author Organization [facility] it Address [address] [place] [address] Care Team Providers Care Law Office Assistant Name Role Phone Unavailable Primary Care Provider Unavailabl e Surgical History Surgery Date Site/Laterality Comments OTHER SURGICAL HISTORY 10/2013 PROCEDURE: INDUCED 17-24 WEEKS TUBAL LIGATION 03/22/2018 PROCEDURE: HISTORICAL TUBAL LIGATION OTHER SURGICAL HISTORY PROCEDURE: [place] HYSTEROSCOPY ENDOMETRIAL ABLATION Medical History Medical History Date Comments Posttraumatic stress disorder DX :Posttraumatic stress disorder Mild intellectual disabilities D X:Mild intellectual disabilities Depressive disorder, not els ewhere classified DX:Depressive disorder, not elsewhere classified Iron deficiency anemia, unspecified 02/09/2006 DX:Iron deficiency anemia, unspecified Other convulsions 11/02/2005 DX:Other convu lsions HSV-2 seropositive DX:HSV-2 sero positive Ovarian cancer ([facility] V24, [facility] V28) 08/25/2015 DX:Ovarian cancer ([facility]); COM MENT: [facility]-neg/neg DM type 2 (diabetes mellitus , type 2) ([facility] V24, [facility]/HCC V28) 12/06/2016 DX:DM type 2 (diabetes j luis itus, type 2) ([facility]) IBS (irritable bowel syndrome) D X:IBS (irritable bowel syndrome) Decreased appetite DX:Decreased appetite Abdominal discomfort in righ t upper quadrant DX:Abdominal discomfort in r ight upper quadrant Fatty liver DX:Fatty liver Hyperlipidemia DX:Hyperlipidemi a Diabetes ([facility]/HCC V24, [facility] V28) DX:Diabetes ([facility]) Leg swelling DX:Leg swelling Anxiety DX:Anxiety BMI 40.0-44.9, adult ([facility]/HC C V24, [facility]/HCC V28) DX:BMI 40.0-44.9, adult ([facility] ) Dyslipidemia DX:Dyslipidemia Epilepsy ([facility]/HCC V24, [facility] V28) DX:Epilepsy (HCC) Insomnia DX:Insomnia 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 (CMS/HCC V24, CMS/HCC V28) DX:automotive worker current use of insulin (HCC) Low vitamin D level DX:Low vitam in D level Obesity DX:Obesity Parkinsonism (CMS/HCC V24, C MS/HCC V28) 04/11/2022 DX:Parkinsonism (HCC) Psychotic depression (CMS/ C V24, CMS/[facility] V28) 04/11/2022 DX:Psychotic depression (HCC [...] Panel) 07/10/2022 Colorectal Cancer Screening: Colonoscopy 07/10/2022 HIV Screening 07/10/2022 Hepatitis C Screening 07/10/2022 Social Influencers of Health Screening 07/10/2022 Diabetes: Annual Urine Albumin-Creatinine Ratio (uACR) 07/21/2022 Diabetes: Blood Sugar Contro l Test (HGBA1C) 07/21/2022 COVID-19 Vaccine (3 - 2023-2 5 season) 2024 10/14/2020, 09/16/2020 Depression Screening 08/07/2024 Influenza Vaccine (#1) 2025 DTaP,Tdap,and Td Vaccines (2 - Td or Tdap) 03/31/2030 03/31/2020 Pneumococcal Vaccine: Pediatrics (0 to 5 Years) and At-Risk Patients (6 to 49 Years) Aged Out 03/31/2020 No longer eligible [...]
--- OUTSIDE RECORDS SUMMARY | 2025-03-11 13:11 | XMS_ITS | Encounter Summary ---
Author Organization [facility] Address [address] [place] [address] Care Team Providers Care Basin Finish Operator Tig Welder Name Role Phone Debbi Chicas MD Primary Care Provider Scottie Phelan MD Unavailable [phone] [facility], Pcp Primary Care Provider Unavailabl e Reason for Visit * Reason Onset Date Comments refill request 09/12/2018 Encounter Details Date Type Department Care Team Description 09/12/2018 Refill Adult Medicine [address] [address] Debbi Chicas MD refill request Social History Tobacco Use Types Packs/Day Years Used Date Smoking Tobacco: Former Cigarettes Q uit: 07/02/2014 Smokeless Tobacco: Never Alcohol Use Standard Drinks/Week Comments No 0 (1 standard drink = 0.6 oz pur e alcohol) Sex Assigned at Date Recorded Not on file Job Start Date Occupation Industry Not on file Not on file Not on file documented as of this encounter Miscellaneous Notes * Telephone Encounter - Mundo Mayorga C.M.A. - 09/13/2018 2:50 PM EST Last visit with pcp 04/11/19 Cancelled last 6 appts. * Telephone Encounter - Madeline Mathis - 09/12/2018 10:28 AM EST Patient would like script to be: E-PRESCRIBED/FAXED TO PHARMACY WHEN WAS THE PATIENT'S LAST APPOINTMENT IN ADULT MEDICINE? 04-11-2018 WHEN WAS THE LAST TIME THE PATIENT SAW THEIR PCP? Same as above Does patient have an upcoming appointment? [facility]ill [facility]. Appt due next available duong chicas (THE MEDICATION REQUESTED IS ON THE MED LIST ABOVE) All of the medications requested were on the CURRENT MEDS list Did you check the Pharmacy information above?: YES Patient wants: 90 -day supply Is this a mail order prescription request ? NO If the refill is from a FAXED refill request what is the RX # listed on the fax? N/A Patients current insurance carrier is: [place] / Plan: [place] / Product Type: MEDICARE [id number] documented in this encounter Plan of Treatment Not on file documented as of this encounter Visit Diagnoses Not on filedocumented in this encounter Care Teams Basin Finish Operator Tig Welder Relationship Specialty Start Date End Date Debbi Chicas MD PCP - General Internal Medicine 05/14/13 03/13/22 [facility], [facility] [address] [address] PCP - General Internal Medicine 03/14/22 Scottie Duarte MD [address] [address] Specialist Cardiovascular Disease 02/01/21 documented as of this encounter
== END 2025-03-11 13:09 | disposition home or self-care (01) ==
LOC: HO.HMCH 12:37
PROVIDERS: PCP Internal Medicine; Visit Provider Internal Medicine
DX: Z00.00 Encounter for general adult medical examination without abnormal findings (principal); R56.9 Unspecified convulsions; E11.42 Type 2 diabetes mellitus with diabetic polyneuropathy; Z79.4 Long term (current) use of insulin; F33.0 Major depressive disorder, recurrent, mild

== ENCOUNTER → 2025-03-11 12:36 | Outpatient (BNVA) | payer MEDICARE, MEDICAID, SELFPAY | PROVIDERS: PCP Internal Medicine; Visit Provider Internal Medicine | DX: Z00.00 Encounter for general adult medical examination without abnormal findings (principal); R56.9 Unspecified convulsions; E11.42 Type 2 diabetes mellitus with diabetic polyneuropathy; F33.0 Major depressive disorder, recurrent, mild; Z79.4 Long term (current) use of insulin | CPT/HCPCS: 83036; 99396 ==

== ENCOUNTER 2025-03-14 20:51 | Emergency (ER) | payer MEDICARE, MEDICAID, SELFPAY ==
--- NOTE | 2025-03-14 | ECG_ITS ---
Test Reason : CP Blood Pressure : */* mmHG Vent. Rate : 64 BPM Atrial Rate : 64 BPM P-R Int : 140 ms QRS Dur : 82 ms QT Int : 390 ms P-R-T Axes : 48 28 43 degrees QTcB Int : 402 ms Normal sinus rhythm Normal ECG When compared with ECG of 01-Mar-2025 17:09, No significant change was found Referred By: Generic ED Physician Electronically Signed By: CONSTANTINE JONES
[2025-03-14 21:08] VITALS: BP 137/86; PULSE 79; O2SAT 100
[2025-03-14 21:14] VITALS: BMI 35.5
[2025-03-14 21:32] VITALS: BP 146/95; PULSE 70; RESP 16; TEMP 36.4; O2SAT 97
[2025-03-14 22:06] LABS: MANUAL DIFF FLAG NO
[2025-03-14 22:07] LABS: Hematocrit 38.1 % (37.0-47.0); Hemoglobin 13.9 g/dl (12.0-16.0); Imm Gran Abs Auto 0.04 X10*3/uL (0.00-0.03); Imm Gran Pct Auto 0.4 % (0.0-0.4); Lymphocytes Absolute Auto 4.1 X10*3/uL (1.2-4.9); Mean Corpuscular HGB Conc 36.5 g/dl (31.0-35.0); Mean Corpuscular Hemoglobin 31.8 pg (27.0-33.0); Mean Corpuscular Volume 87.2 fL (80.0-98.0); NRBC Abs Auto 0.000 X10*3/uL (0.0-0.012); NRBC Pct Auto 0.0 /100WBC (0.0-0.2); Platelet Count 245 X10*3/uL (160-400); Red Blood Count 4.37 X10*6/uL (4.20-5.50); White Blood Count 11.1 X10*3/uL (4.8-10.8)
[2025-03-14 22:09] LABS: Appearance Urine Clear; Glucose Urine UA Negative (Negative); PH 5.5 (5.0-9.0); Specific Gravity - Urine 1.020 (1.005-1.025); UMIC TRIGGER UACC YES; UPreg QC Valid YES
[2025-03-14 22:20] LABS: Cannabinoid Screen Urine Not Detected (Not Detect)
[2025-03-14 22:21] LABS: Alanine Aminotransferase 24 U/L (0-31); Albumin Level 4.1 g/dL (3.5-5.0); Alkaline Phosphatase 76 U/L (39-117); Anion Gap 10 (12-20); Aspartate Amino Transferase 24 U/L (5-31); Blood Urea Nitrogen 10 mg/dL (9-16); Calcium 8.7 mg/dL (8.4-10.2); Carbon Dioxide 26 mmol/L (22-29); Chloride 109 mmol/L (96-108); Creatinine Clr Calc Pharmacy 115.5; Estimated Glomerular Filt Rate > 60; Potassium 3.7 mmol/L (3.3-5.1); Sodium 141 mmol/L (135-145); Total Protein 7.1 g/dL (6.5-8.0); UACC Culture Trigger YES
[2025-03-14 22:28] LABS: Troponin-I High Sensitivity < 2.7 ng/L (<3.5-17.0)
--- NOTE | 2025-03-14 22:44 | ED_ITS ---
HPI - Anxiety General Chief Complaint: Anxiety Stated Complaint: anxiety, chest tightness, tingly Time Seen by Provider: 03/14/25 22:05 Source: patient Mode of arrival: EMS Limitations: no limitations History of Present Illness ED Provider: HPI narrative: Patient's history of hypertension, diabetes developmental delay schizoaffective disorder, anxiety comes here for increased anxiety for last few days does not want to take any medication and trying to come off her medications does have visiting nurse and therapist and primary care doctor who is following her denies any SI or HI denies any significant hallucination or delusions Related Data Home Medications ?Medication ?Instructions ?Recorded ?Confirmed benztropine 1 mg tablet 1 mg PO BID 01/05/23 5 zolpidem 10 mg tablet 10 mg PO BEDTIME PRN 3 03/11/25 Previous Rx's ?Medication ?Instructions ?Recorded buspirone 10 mg tablet 10 mg PO BID #60 tabs chlorpromazine 100 mg tablet 100 mg PO DAILY #30 tabs 04/18/22 lorazepam 1 mg tablet 1 mg PO BID PRN anxiety #60 tabs 04/18/22 propranolol 10 mg tablet 10 mg PO TID #90 tabs acetaminophen 500 mg capsule 500 mg PO Q6H PRN pain 30 days 01/12/23 #120 caps insulin glargine U-300 conc 300 40 unit (0.1333 mL) gant bcut DAILY 07/30/24 unit/mL (1.5 mL) subcutaneous pen 90 days #11.997 mL (Toujeo SoloStar U-300 Insulin) cholestyramine-aspartame 4 gram 4 g PO BID #60 ea 07/08 02/27 oral powder for susp in a packet (Cholestyramine Light) insulin glargine 100 unit/mL (3 40 unit (0.4 mL) subcu t QPM 30 09/11/24 mL) subcutaneous pen ( #12 mL KwikPen U-100 Insulin) diabetic shoes #1 ea 10/29/24 blood sugar diagnostic (FreeStyle #100 ea 12/05/24 Lite Strips) blood-glucose meter (Freestyle #1 ea 12/05/24 InsuLinx meter) lancets 28 gauge (FreeStyle #100 ea 12/05/24 Lancets) pen needle,diabetic dual safty 30 #100 ea 12/05/24 gauge x 3/16 (Unifine SafeControl Pen Needle) blood-glucose sensor (Dexcom G7 #1 ea 02/27/25 Sensor device) blood-glucose,jawbone breaker,cont #1 ea 02/27/25 (Dexcom G7 Boring Machine Set Up Operator) alcohol swabs (Alcohol Prep Pads) 1 pad topical QID #1 00 ea 03/01/25 atorvastatin 20 mg tablet 20 mg PO BEDTIME 90 days #90 tabs 03/01/25 semaglutide 2 mg/dose (8 mg/3 mL) 2 mg (0.75 mL) subcu t QWEEK 4 03/11/25 subcutaneous pen injector (Ozempic) weeks #3 mL Allergies Allergy/AdvReac Type Severity Reaction Status Date / Time fluoxetine (From Prozac) Allergy Severe severe Verified 03/14/25 21:15 agitation meperidine (Demerol) Allergy Intermediate Hives Verified 03/14/25 21:15 diphenhydramine (From Allergy Unknown Verified 03/14/25 21:15 Benadryl) Review of Systems 2 Review of Systems: Yes all other systems are reviewed and are negative PMFSH Past Medical History Medical History Physical exam Chronic diarrhea Post-cholecystectomy syndrome BMI 40.0-44.9, adult Leg weakness, bilateral Right shoulder pain Left shoulder pain Left hip pain Right hip pain Foot cramps Unsteadiness Type 2 diabetes mellitus, with long-term current use of insulin Hospital discharge follow-up Diabetes type 2, uncontrolled Dyslipidemia Obesity due to excess calories Left ankle sprain Elevated LFTs Controlled diabetes mellitus without complication, without long-term current use of insulin Mild cognitive impairment TOBIAS (generalized anxiety disorder) Overactive bladder Mild developmental delay Mild episode of recurrent major depressive disorder Type 2 diabetes mellitus with diabetic polyneuropathy Diabetes Mild intellectual disability Snores Arthritis PTSD (post-traumatic stress disorder) 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 Social History Social History Household Members: None Household Members Other:: none Housing: Apartment Housing Other:: studio Are you a primary care coordinator to a significant other at home: No Do you presently have visiting nurse or other home services: Yes Alcohol intake: never Comment: 1:1 Patient Tobacco Use Status: Former Tobacco user Tobacco use type: Cigarette Cigarette Packs Per Day: 0 Cigarettes Per Day: 6 e-Cigarette/Vaping Use: Never Used Second Hand Smoke Exposure: No Advance Directives: Yes Advance Directives on File: Yes Advance Directives Date on File: 02/22/22 service: No Current occupational status: disabled Current occupation: lt handed Sexual orientation: Straight/Heterosexual Gender identity: Female Cognitive needs: Yes Hearing needs: No Vision needs: Yes Physical Exam 2 Vital Signs: Vital Signs: Last Vital Signs Temp 98.5 F 03/15/25 00:13 Pulse 89 03/15/25 00:13 Resp 16 03/15/25 00:13 BP 139/85 03/15/25 00:13 Pulse Ox 98 03/15/25 00:13 O2 Del Method Room Air 03/15/25 00:13 BMI result Body Mass Index 35.5 Appearance: Alert. Oriented X3. No acute distress. Eyes: PERRLA, No Nystagmus ENT: Pharynx normal. Oral Mucosa moist Neck: Normal inspection. Neck supple. CVS: Normal heart rate and rhythm. Pulses normal. Respiratory: No respiratory distress. Equal air entry bilateral, no wheezing/rales/rhonchi Abdomen: Soft and nontender. Bowel sounds are present, no mass palpable, no CVA tenderness Skin: Skin warm and dry. Normal skin color. Normal skin turgor. Extremities: No lower extremity edema. No calf tenderness psych: Slightly anxious stable mood otherwise no significant depression no SI or HI denies any hallucinations Neuro: Oriented X 3. No motor deficit. No sensory deficit.No cerebellar signs , cranial nerves II-XII intact Medical Decision Making Medical Decision Making MDM Narrative: Patient does have visiting nurse who comes to her house everyday does have a therapist and primary care physician patient feels stable to go home does not want any medication for anxiety or sleep will follow up with therapist in a.m. Lab Data [facility] Lab Attestation statement: I reviewed the patient's lab results. 03/14/25 22:00 03/14/25 22:00 Labs: Lab Results 03/14/25 Range/Units 22:00 WBC 11.1 H (4.8-10.8) X10*3/uL RBC 4.37 (4.20-5.50) X10*6/uL Hgb 13.9 (12.0-16.0) g/dl Hct 38.1 (37.0-47.0) % MCV 87.2 (80.0-98.0) fL MCH 31.8 (27.0-33.0) pg MCHC 36.5 H (31.0-35.0) g/dl RDW 12.8 (11.0-16.0) % Plt Count 245 (160-400) X10*3/uL MPV 9.0 L (9.4-12.3) fL Immature Gran % (Auto) 0.4 (0.0-0.4) % Neut % (Auto) 53.8 (45-73) % Lymph % (Auto) 36.9 (20-40) % [place] % (Auto) 7.0 (2-11) % Eos % (Auto) 1.4 (0-4) % Baso % (Auto) 0.5 (0-2) % Lymph # (Auto) 4.1 (1.2-4.9) X10*3/uL [place] # (Auto) 0.8 (0.1-1.2) X10*3/uL Eos # (Auto) 0.2 (0.0-0.4) X10*3/uL Baso # (Auto) 0.1 (0.0-0.2) X10*3/uL Abs Immat Gran (auto) 0.04 H (0.00-0.03) X10*3/uL Absolute Neuts (auto) 6.0 (2.0-8.3) x10*3/uL Absolute Nucleated RBC 0.000 (0.0-0.012) X10*3/uL Nucleated RBC % (auto) 0.0 (0.0-0.2) /100WBC Sodium 141 (135-145) mmol/L Potassium 3.7 (3.3-5.1) mmol/L Chloride 109 H (96-108) mmol/L Carbon Dioxide 26 (22-29) mmol/L Anion Gap 10 L (12-20) BUN 10 (9-16) mg/dL Creatinine 0.70 (0.5-1.4) mg/dL Estim Creat Clear Calc 115.5 Estimated GFR > 60 Random Glucose 69 (60-115) mg/dL Calcium 8.7 (8.4-10.2) mg/dL Total Bilirubin 0.6 (0.0-1.0) mg/dL AST 24 (5-31) U/L ALT 24 (0-31) U/L Alkaline Phosphatase 76 (39-117) U/L Troponin I High Sens < 2.7 (<3.5-17.0) ng/L Total Protein 7.1 (6.5-8.0) g/dL Albumin 4.1 (3.5-5.0) g/dL Urine Color Yellow Urine Appearance Clear Urine pH 5.5 (5.0-9.0) Ur Specific [place] 1.020 (1.005-1.025) Urine Protein Negative (Neg-Trace) mg/dL Urine Glucose (UA) Negative (Negative) mg/dL Urine Ketones Negative (Negative) mg/dL Urine Blood Negative (Negative) Urine Nitrite Negative (Negative) Ur Leukocyte Esterase Small (1+) H (Negative) Urine RBC 0-2 (0-2) /HPF Urine WBC 0-5 (0-5) /HPF Ur Squamous Epith Cells 6-10 (0-2) /HPF Urine Bacteria 1+ (None Seen) Hyaline Casts 0-2 (0-2) /LPF Urine Test NEGATIVE (NEGATIVE) Urine Opiates Screen Not Detected (Not Detect) Ur Buprenorphine Scrn Not Detected (Not Detect) ng/mL Ur Oxycodone Screen Not Detected (Not Detect) ng/mL Urine Methadone Screen Not Detected (Not Detect) ng/mL Urine Fentanyl Screen Not Detected (Not Detect) Ur Barbiturates Screen Not Detected (Not Detect) Ur Phencyclidine Scrn Not Detected (Not Detect) Ur Amphetamines Screen Not Detected (Not Detect) U Benzodiazepines Scrn Not Detected (Not Detect) Urine Cocaine Screen Not Detected (Not Detect) U Marijuana (THC) Screen Not Detected (Not Detect) Ethyl Alcohol < 10 mg/dL Discharge Plan Discharge Clinical Impression: Anxiety Patient Disposition: Home, Self-Care Instructions: Anxiety (ED) Additional Instructions: Continue medication as prescribed by your psychiatrist and follow up with your therapist Prescriptions: No Action buspirone 10 mg tablet 10 mg PO BID Qty: 60 0RF lorazepam 1 mg tablet 1 mg PO BID PRN (Reason: anxiety) Qty: 60 0RF propranolol 10 mg tablet 10 mg PO TID Qty: 90 0RF chlorpromazine 100 mg tablet 100 mg PO DAILY Qty: 30 0RF acetaminophen 500 mg capsule 500 mg PO Q6H PRN (Reason: pain) 30 Days Qty: 120 0RF insulin glargine U-300 conc [Toujeo SoloStar U-300 Insulin] 300 unit/mL (1.5 mL) insulin pen 40 unit subcut DAILY 90 Days Qty: 11.997 1RF cholestyramine-aspartame [Cholestyramine Light] 4 gram powder in packet 4 g PO BID Qty: 60 6RF Rx Instructions: administer w/meal; avoid other meds within 1hr before or 4-6hr after dose insulin glargine [Basaglar KwikPen U-100 Insulin] 100 unit/mL (3 mL) insulin pen 40 unit subcut QPM 30 Days Qty: 12 6RF (DME) diabetic shoes 8.5 See Rx Instructions .Route .MEDSUPPLY Qty: 1 2RF Rx Instructions: As directed (DME) Dexcom G7 Sensor Device See Rx Instructions .Route Qty: 1 0RF Rx Instructions: As directed (DME) Dexcom G7 Boring Machine Set Up Operator Misc See Rx Instructions .Route Qty: 1 11RF Rx Instructions: As directed alcohol swabs [Alcohol Prep Pads] Pads, Medicated 1 pad topical QID Qty: 100 3RF Rx Instructions: QID for blood sugar check atorvastatin 20 mg tablet 20 mg PO BEDTIME 90 Days Qty: 90 1RF benztropine 1 mg tablet 1 mg PO BID zolpidem 10 mg tablet 10 mg PO BEDTIME PRN Ozempic 2 mg/dose (8 mg/3 mL) pen injector 2 mg subcut QWEEK 28 Days Qty: 3 2RF (DME) FreeStyle Lite Strips Strip See Rx Instructions .Route Qty: 100 3RF Rx Instructions: Use 1 test strip three times a day (DME) lancets [FreeStyle Lancets] 28 gauge misc See Rx Instructions .Route Qty: 100 5RF Rx Instructions: As directed (DME) Unifine SafeControl Pen Needle 30 gauge x 3/16 needle See Rx Instructions .Route Qty: 100 2RF Rx Instructions: Use 1 pen needle once a day (DME) blood-glucose meter [Freestyle InsuLinx] Misc See Rx Instructions .Route Qty: 1 0RF Rx Instructions: As directed check blood sugar QID Interventions: ED Discharge Assessment Last Done: 03/15/25 00:13 Discharge Date/Time: 03/15/25 00:42 Print Language: Syriac
[2025-03-15 00:13] VITALS: BP 139/85; PULSE 89; RESP 16; TEMP 36.9; O2SAT 98
== END 2025-03-15 00:42 | disposition home or self-care (01) ==
PROVIDERS: Emergency Provider Internal Medicine; PCP Internal Medicine
DX: F41.9 Anxiety disorder, unspecified (principal); R07.9 Chest pain, unspecified; I10 Essential (primary) hypertension; E11.9 Type 2 diabetes mellitus without complications; F25.9 Schizoaffective disorder, unspecified; Z79.899 Other long term (current) drug therapy
CPT/HCPCS: 36415; 80053; 80307; 81001; 81025; 84484; 85025; 87086; 93005; 99284; 99285

== ENCOUNTER → 2025-03-14 21:20 | Outpatient (BNV) | payer MEDICARE, MEDICAID, SELFPAY | PROVIDERS: Emergency Provider Internal Medicine; PCP Internal Medicine; Visit Provider Internal Medicine | DX: R07.9 Chest pain, unspecified (principal) | CPT/HCPCS: 93010 ==

== ENCOUNTER 2025-05-14 10:00 | Outpatient (REF) | payer MEDICARE, MEDICAID, SELFPAY ==
[2025-05-14 10:27] LABS: MANUAL DIFF FLAG NO
[2025-05-14 10:52] LABS: Hematocrit 38.9 % (37.0-47.0); Hemoglobin 13.6 g/dl (12.0-16.0); Imm Gran Abs Auto 0.02 X10*3/uL (0.00-0.03); Imm Gran Pct Auto 0.3 % (0.0-0.4); Lymphocytes Absolute Auto 1.9 X10*3/uL (1.2-4.9); Mean Corpuscular HGB Conc 35.0 g/dl (31.0-35.0); Mean Corpuscular Hemoglobin 30.8 pg (27.0-33.0); Mean Corpuscular Volume 88.2 fL (80.0-98.0); NRBC Abs Auto 0.000 X10*3/uL (0.0-0.012); NRBC Pct Auto 0.0 /100WBC (0.0-0.2); Platelet Count 245 X10*3/uL (160-400); Red Blood Count 4.41 X10*6/uL (4.20-5.50); White Blood Count 6.4 X10*3/uL (4.8-10.8)
[2025-05-14 11:55] LABS: Alanine Aminotransferase 25 U/L (0-31); Albumin Level 4.4 g/dL (3.5-5.0); Alkaline Phosphatase 75 U/L (39-117); Anion Gap 11 (12-20); Aspartate Amino Transferase 30 U/L (5-31); Blood Urea Nitrogen 9 mg/dL (9-16); Calcium 9.2 mg/dL (8.4-10.2); Carbon Dioxide 24 mmol/L (22-29); Chloride 112 mmol/L (96-108); Cholesterol 116 mg/dL (<200); Estimated Glomerular Filt Rate > 60; HDL Cholesterol 36 mg/dL (>40); Iron 70 mcg/dL (30-160); Percent Iron Saturation 26 % (15-50); Potassium 3.9 mmol/L (3.3-5.1); Sodium 143 mmol/L (135-145); Total Iron Binding Capacity 273 mcg/dL (228-428); Total Protein 7.3 g/dL (6.5-8.0); Triglycerides 100 mg/dL (<150); Unsaturated Iron Binding 203 ug/dL
[2025-05-14 12:08] LABS: Folate 9.7 ng/mL (> or = 4.0); Vitamin B12 361 pg/mL (200-900)
== END 2025-05-14 10:01 | disposition home or self-care (01) ==
LOC: HO.LAB 10:00
PROVIDERS: PCP Internal Medicine; Visit Provider Internal Medicine
DX: E11.42 Type 2 diabetes mellitus with diabetic polyneuropathy (principal); E53.8 Deficiency of other specified B group vitamins; E55.9 Vitamin D deficiency, unspecified; E78.5 Hyperlipidemia, unspecified; D64.9 Anemia, unspecified; Z79.4 Long term (current) use of insulin
CPT/HCPCS: 36415; 80053; 80061; 82306; 82607; 82746; 83540; 85025